=== PATIENT | male | born 1940 | race Caucasian/White ===

== ENCOUNTER 2017-05-27 14:17 | Inpatient (IN) | payer MEDICARE, MEDICAID, OTHER ==
[2017-05-27 15:15] LABS: CHLORIDE,CL 100 mmol/L (98-107); SODIUM,NA 141 mmol/L (136-145)
[2017-05-27] MEDS ORDERED: Furosemide 40 MG/4 ML VIAL IVPUSH ONE (15:40)
--- NOTE | 2017-05-27 15:49 | PCM.HP ---
H&P History of Present Illness - General Date of Service: 05/27/17 Admit Problem/Dx: Admission Diagnosis/Problem Admission Diagnosis/Problem CHF, Congestive heart failure Source of Information: Patient, Family (daughter who is an RN) History Limitations: Reports: No Limitations - History of Present Illness Initial Comments - Free Text/Narative: Daughter brought in for increasing SOB and weight gain. O2 sat in the clinic was only 74-80% on RA. Onset of Symptoms: Reports: Gradual Duration of Symptoms: Reports: Day(s): Location: Reports: Chest, Lower Extremity, Left, Lower Extremity, Right, Generalized Improves with: Reports: Rest Worsens with: Reports: Movement Associated Symptoms: Reports: Malaise, Shortness of Breath, Weakness Past Medical History Cardiovascular History: Reports: Afib, Heart Failure, High Cholesterol, Pacemaker (for Sick Sinus Syndrome) Gastrointestinal History: Reports: PUD Other Gastrointestinal History: h/o GI bleed Neurological History: Reports: Neuropathy, Peripheral (diabetic) Endocrine/Metabolic History: Reports: Diabetes, Type II Hematologic History: Reports: Anemia (of chronic disease) - Past Surgical History Musculoskeletal Surgical History: Reports: 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) Social & Family History - Family History Family Medical History: Unobtainable - Tobacco Use Tobacco Use Within Last Twelve Months: No - Living Situation & Occupation Living situation: Reports: H&P Review of Systems - Review of Systems: Review Of Systems: See Below General: Reports: Malaise, Weakness, Fatigue HEENT: Reports: No Symptoms Pulmonary: Reports: Shortness of Breath Cardiovascular: Reports: Dyspnea on Exertion Gastrointestinal: Reports: No Symptoms Genitourinary: Reports: Frequency Musculoskeletal: Reports: Leg Pain, Foot Pain Skin: Reports: No Symptoms Psychiatric: Reports: No Symptoms Neurological: Reports: No Symptoms Exam - Exam Exam: See Below - Exam Quality Assessment: Supplemental Oxygen (applied at clinic for hypoxia) General: Alert, Oriented, 4 HEENT: Mucosa Moist & [place] Neck: Supple, Trachea Midline, +2 Carotid Pulse wo Bruit Lungs: Decreased Breath Sounds (markedly diminished BS), Crackles (bibasilar) Cardiovascular: Irregular Rhythm GI/Abdominal Exam: Normal Bowel Sounds, Soft, Non-Tender (Male) Exam: Deferred Rectal (Males) Exam: Deferred Back Exam: Normal Inspection Extremities: Pedal Edema (significant edema BLE), Other (wears leg braces ) Skin: Warm, Dry, Other (facial skin pale/ashen) Neuro Extensive - Mental Status: Alert, Oriented x3, Normal Mood/Affect Psychiatric: Alert, Normal Affect, Normal Mood - Patient Data Lab Results Last 24 hrs: Laboratory Results - last 24 hr 05/27/17 05/27/17 Range/Units 14:35 14:35 WBC 4.4 (4.0-10.2) K/uL RBC 3.16 L (4.33-5.41) M/uL Hgb 10.5 L D (13.1-16.8) g/dL Hct 33.4 L (39.0-49.0) % MCV 105.7 H (84.0-98.0) fL MCH 33.2 (28.2-33.3) pg MCHC 31.4 L (31.7-36.0) g/dL RDW 17.8 H (11.2-14.1) % Plt Count 129 L (150-350) K/uL Neut % (Auto) 77.9 (45.0-80.0) % Lymph % (Auto) 9.3 L (10.0-50.0) % [place] % (Auto) 10.7 (2.0-14.0) % Eos % (Auto) 1.6 (0.0-5.0) % Baso % (Auto) 0.5 (0.0-2.0) % Neut # (Auto) 3.42 (1.40-7.00) K/uL Lymph # (Auto) 0.41 L (0.50-3.50) K/uL [place] # (Auto) 0.47 (0.00-1.00) K/uL Eos # (Auto) 0.07 (0.00-0.50) K/uL Baso # (Auto) 0.02 (0.00-0.20) K/uL Sodium 141 (136-145) mmol/L Potassium 5.0 (3.5-5.1) mmol/L Chloride 100 (98-107) mmol/L Carbon Dioxide 37.1 H (21.0-32.0) mmol/L BUN 40 H (7-18) mg/dL Creatinine 1.06 (0.51-1.17) mg/dL Est Cr Clr Drug Dosing TNP Estimated GFR (MDRD) > 60 mL/min Glucose 96 (74-106) mg/dL Calcium 8.7 (8.5-10.1) mg/dL Total Bilirubin 0.7 (0.2-1.0) mg/dL AST 23 (15-37) U/L ALT 11 L (12-78) U/L Alkaline Phosphatase 122 H (46-116) IU/L C-Reactive Protein 2.2 H (<=0.9) mg/dL NT-Pro-B Natriuret Pep 4065 H (0-125) pg/mL Total Protein 7.6 (6.4-8.2) g/dL Albumin 3.3 L (3.4-5.0) g/dL Result Diagrams: 05/27/17 14:35 05/27/17 14:35 *Q Meaningful Use (ADM) - VTE *Q VTE Criteria *Q: - Stroke *Q Stroke Criteria *Q: - AMI *Q AMI Criteria *Q: - Problem List (1) CHF (congestive heart failure) SNOMED Code(s): 27073007 ICD Code: I50.9 - HEART FAILURE, UNSPECIFIED Status: Acute Priority: High Current Visit: Yes Qualifiers: Heart failure type: unspecified Heart failure chronicity: acute on chronic Qualified Code(s): I50.9 - Heart failure, unspecified (2) Hypoxia SNOMED Code(s): 292381322 ICD Code: R09.02 - HYPOXEMIA Status: Acute Priority: High Current Visit : Yes (3) Diabetes SNOMED Code(s): 83103825 ICD Code: E11.9 - TYPE 2 DIABETES MELLITUS WITHOUT COMPLICATIONS Status: Chronic Priority: Medium Current Visit: Yes Qualifiers: Diabetes mellitus type: type 2 Diabetes mellitus complication detail: with polyneuropathy (4) Hyperlipidemia SNOMED Code(s): 14157645 ICD Code: E78.5 - HYPERLIPIDEMIA, UNSPECIFIED Status: Chronic Priority: Low Current Visit: Yes Qualifiers: Hyperlipidemia type: unspecified Qualified Code(s): E78.5 - Hyperlipidemia , unspecified (5) Pacemaker SNOMED Code(s): 830361342 ICD Code: Z95.0 - PRESENCE OF CARDIAC PACEMAKER Status: Acute Priority: Medium Current Visit: Yes Problem List Initiated/Reviewed/Updated: Yes Orders Last 24hrs: Active Orders 24 hr Category Date Time Status Patient Status [ADT] Routine ADT 05/27/17 15:35 Ordered Antiembolic Devices [RC] PER UNIT ROUTINE Care 05/27/17 15:38 Ordered Height and Weight [RC] DAILY Care 05/27/17 15:35 Ordered Intake and Output [RC] QSHIFT Care 05/27/17 15:37 Ordered Oxygen Therapy [RC] CONTINUOUS Care 05/27/17 15:35 Ordered Up With Assistance [RC] ASDIRECTED Care 05/27/17 15:35 Ordered VTE/DVT Education [RC] PER UNIT ROUTINE Care 05/27/17 15:35 Ordered Vital Signs [RC] Q4H Care 05/27/17 15:35 Ordered Consult to Case Management [CONS] Routine Cons 05/27/17 15:35 Ordered OT Evaluation and Treatment [CONS] Routine Cons 05/27/17 15:35 Ordered PT Evaluation and Treatment [CONS] Routine Cons 05/27/17 15:35 Ordered 2 Gram Sodium Diet [DIET] Diet 05/27/17 Dinner Ordered Chest 2V [CR] Routine Exams 05/27/17 14:15 Taken Furosemide [Lasix] Med 05/28/17 08:00 Ordered 40 mg IVPUSH BIDDIURETIC Sodium Chloride 0.9% [Saline Flush] Med 05/27/17 15:35 Ordered 10 ml FLUSH ASDIRECTED PRN Antiembolic Hose [OM.PC] Per Unit Routine Oth 05/27/17 15:37 Ordered Saline Lock Insert [OM.PC] Routine Oth 05/27/17 15:35 Ordered Resuscitation Status Routine Resus Stat 05/27/17 15:35 Ordered Medication Orders Furosemide (Lasix) 40 mg IVPUSH BIDDIURETIC [facility] Sodium Chloride (Saline Flush) 10 ml FLUSH ASDIRECTED PRN PRN Reason: Keep Vein Open Assessment/Plan Comment:: 05-27-17 Traci Fontenot PA-C Admitting with acute decompensation of CHF, with hypoxia, dyspnea and weight gain. Has started home oxygen for hours of sleep in the last couple months for nocturnal hypoxia. O2 sat only 74-80% on RA in the clinic. Dr. Power consulted at time of admit. IV Lasix 40 mg given on admit, then 40 mg BIDD. Last Echo was 03-05-17 which found EF 60-65%
[2017-05-27] MEDS: Sodium Chloride 0.9% 10 ML Syringe FLUSH PRN (16:27)
[2017-05-27] MEDS: Warfarin 2 MG Tab PO SCH ×3 (17:59→19:36)
[2017-05-27] MEDS: Omeprazole 20 MG Cap.CR PO SCH (17:59)
[2017-05-27] MEDS ORDERED: Warfarin 2 MG Tab PO SCH (18:00)
[2017-05-27] MEDS: Sodium Chloride 0.9% 10 ML Syringe FLUSH SCH (19:39)
[2017-05-27] MEDS: Triamcinolone Acetonide 0.1% Crm 15 GM Tube TOP SCH (19:40)
[2017-05-27] MEDS: Insulin Detemir 100 Units/ML 3 ML Pen SUBCUT SCH (19:41)
[2017-05-27] MEDS ORDERED: oxyCODONE 5 MG Tab PO ONE (19:52)
[2017-05-27] MEDS ORDERED: oxyCODONE 5 MG Tab PO SCH ×2 (20:00)
[2017-05-27] MEDS: Acetaminophen 500 MG Tab PO SCH (20:56)
[2017-05-28 07:20] LABS: O2 DELIVERY DEVICE NASAL CANNULA
[2017-05-28 07:32] LABS: BASE EXCESS VENOUS 15 mmol/L ((-2)-3); BICARBONATE,VENOUS 41 mmol/L (23-28); O2 SATURATION VENOUS 100 %; PCO2 VENOUS 78 mmHG (41-51); PH,VENOUS 7.33 (7.31-7.41); PO2 VENOUS 213 mmHG
[2017-05-28] MEDS ORDERED: Acetaminophen 500 MG Tab PO SCH (08:00)
[2017-05-28 08:05] LABS: CHLORIDE,CL 103 mmol/L (98-107); SODIUM,NA 143 mmol/L (136-145)
[2017-05-28] MEDS: Gabapentin 100 MG Cap PO SCH (09:10)
[2017-05-28] MEDS: Omeprazole 20 MG Cap.CR PO SCH ×2 (09:10→17:35)
[2017-05-28] MEDS: oxyCODONE 5 MG Tab PO SCH ×2 (09:11→20:02)
[2017-05-28] MEDS: Acetaminophen 500 MG Tab PO SCH ×2 (09:11→17:42)
[2017-05-28] MEDS: Lisinopril 20 MG Tab PO SCH (09:12)
[2017-05-28] MEDS: Levothyroxine 25 MCG Tab PO SCH (09:12)
[2017-05-28] MEDS: Furosemide 40 MG/4 ML VIAL IVPUSH SCH ×2 (09:12→12:10)
[2017-05-28] MEDS: Triamcinolone Acetonide 0.1% Crm 15 GM Tube TOP SCH ×2 (09:13→20:04)
[2017-05-28] MEDS: Sodium Chloride 0.9% 10 ML Syringe FLUSH SCH ×2 (09:13→20:03)
[2017-05-28] MEDS ORDERED: Warfarin 2 MG Tab PO SCH ×2 (18:00)
--- NOTE | 2017-05-28 18:15 | PCM.PN ---
- General Info Date of Service: 05/28/17 Admission Dx/Problem (Free Text): Admission Diagnosis/Problem Admission Diagnosis/Problem CHF, Congestive heart failure Functional Status: Reports: Tolerating Diet - Review of Systems General: Reports: Weakness HEENT: Reports: No Symptoms Pulmonary: Reports: Shortness of Breath Cardiovascular: Reports: Dyspnea on Exertion, Orthopnea Gastrointestinal: Reports: No Symptoms Genitourinary: Reports: No Symptoms Musculoskeletal: Reports: No Symptoms Skin: Reports: No Symptoms Neurological: Reports: No Symptoms Psychiatric: Reports: No Symptoms - Patient Data Vitals - Most Recent: Last Vital Signs Temp 97.7 F 05/28/17 16:00 Pulse 60 05/28/17 16:00 Resp 18 05/28/17 16:00 BP 124/62 05/28/17 16:00 Pulse Ox 97 05/28/17 16:00 Weight - Most Recent: 309 lb 11.2 oz I&O - Last 24 Hours: Intake & Output 05/28/17 05/28/17 05/28/17 06:59 14:59 22:59 Intake Total 560 Output Total 600 200 Balance -40 -200 Lab Results Last 24 Hours: Laboratory Results - last 24 hr 05/28/17 05/28/17 05/28/17 Range/Units 06:58 06:58 06:58 WBC 3.4 L (4.0-10.2) K/uL RBC 2.95 L (4.33-5.41) M/uL Hgb 9.7 L (13.1-16.8) g/dL Hct 31.8 L (39.0-49.0) % MCV 107.8 H (84.0-98.0) fL MCH 32.9 (28.2-33.3) pg MCHC 30.5 L (31.7-36.0) g/dL RDW 17.7 H (11.2-14.1) % Plt Count 129 L (150-350) K/uL Neut % (Auto) 67.0 (45.0-80.0) % Lymph % (Auto) 12.2 (10.0-50.0) % [place] % (Auto) 17.2 H (2.0-14.0) % Eos % (Auto) 3.0 (0.0-5.0) % Baso % (Auto) 0.6 (0.0-2.0) % Neut # (Auto) 2.26 (1.40-7.00) K/uL Lymph # (Auto) 0.41 L (0.50-3.50) K/uL [place] # (Auto) 0.58 (0.00-1.00) K/uL Eos # (Auto) 0.10 (0.00-0.50) K/uL Baso # (Auto) 0.02 (0.00-0.20) K/uL PT 22.9 H (9.8-11.7) SEC INR 2.1 VBG pH (7.31-7.41) VBG pCO2 (41-51) mmHG VBG pO2 mmHG VBG HCO3 (23-28) mmol/L VBG Total CO2 mmol/L VBG O2 Saturation % VBG Base Excess ((-2)-3) mmol/L O2 Delivery Device Sodium 143 (136-145) mmol/L Potassium 4.8 (3.5-5.1) mmol/L Chloride 103 (98-107) mmol/L Carbon Dioxide 35.0 H (21.0-32.0) mmol/L BUN 38 H (7-18) mg/dL Creatinine 1.02 (0.51-1.17) mg/dL Est Cr Clr Drug Dosing TNP Estimated GFR (MDRD) > 60 mL/min Glucose 83 (74-106) mg/dL Calcium 8.4 L (8.5-10.1) mg/dL Total Bilirubin 0.7 (0.2-1.0) mg/dL AST 22 (15-37) U/L ALT 10 L (12-78) U/L Alkaline Phosphatase 106 (46-116) IU/L C-Reactive Protein 1.9 H (<=0.9) mg/dL NT-Pro-B Natriuret Pep 4400 H (0-125) pg/mL Total Protein 7.0 (6.4-8.2) g/dL Albumin 3.0 L (3.4-5.0) g/dL 05/28/17 Range/Units 06:58 WBC (4.0-10.2) K/uL RBC (4.33-5.41) M/uL Hgb (13.1-16.8) g/dL Hct (39.0-49.0) % MCV (84.0-98.0) fL MCH (28.2-33.3) pg MCHC (31.7-36.0) g/dL RDW (11.2-14.1) % Plt Count (150-350) K/uL Neut % (Auto) (45.0-80.0) % Lymph % (Auto) (10.0-50.0) % [place] % (Auto) (2.0-14.0) % Eos % (Auto) (0.0-5.0) % Baso % (Auto) (0.0-2.0) % Neut # (Auto) (1.40-7.00) K/uL Lymph # (Auto) (0.50-3.50) K/uL [place] # (Auto) (0.00-1.00) K/uL Eos # (Auto) (0.00-0.50) K/uL Baso # (Auto) (0.00-0.20) K/uL PT (9.8-11.7) SEC INR VBG pH 7.33 (7.31-7.41) VBG pCO2 78 H (41-51) mmHG VBG pO2 213 mmHG VBG HCO3 41 H (23-28) mmol/L VBG Total CO2 43 mmol/L VBG O2 Saturation 100 % VBG Base Excess 15 H ((-2)-3) mmol/L O2 Delivery Device Nasal cannula Sodium (136-145) mmol/L Potassium (3.5-5.1) mmol/L Chloride (98-107) mmol/L Carbon Dioxide (21.0-32.0) mmol/L BUN (7-18) mg/dL Creatinine (0.51-1.17) mg/dL Est Cr Clr Drug Dosing Estimated GFR (MDRD) mL/min Glucose (74-106) mg/dL Calcium (8.5-10.1) mg/dL Total Bilirubin (0.2-1.0) mg/dL AST (15-37) U/L ALT (12-78) U/L Alkaline Phosphatase (46-116) IU/L C-Reactive Protein (<=0.9) mg/dL NT-Pro-B Natriuret Pep (0-125) pg/mL Total Protein (6.4-8.2) g/dL Albumin (3.4-5.0) g/dL Med Orders - Current: Current Medications Acetaminophen (Tylenol Extra Strength) 500 mg PO BID [facility] Last Admin: 05/28/17 17:42 Dose: 500 mg Furosemide (Lasix) 40 mg IVPUSH BIDDIURETIC [facility] Last Admin: 05/28/17 12:10 Dose: 40 mg Gabapentin (Neurontin) 100 mg PO DAILY [facility] Last Admin: 05/28/17 09:10 Dose: 100 mg Insulin Detemir (Levemir) 14 unit SUBCUT BEDTIME [facility] Last Admin: 05/27/17 19:41 Dose: 14 units Levothyroxine Sodium (Levothyroxine) 25 mcg PO DAILY@0730 [facility] Last Admin: 05/28/17 09:12 Dose: 25 mcg Lisinopril (Prinivil) 20 mg PO DAILY [facility] Last Admin: 05/28/17 09:12 Dose: 20 mg Lovastatin (Mevacor) 40 mg PO BEDTIME [facility] Last Admin: 05/27/17 19:38 Dose: 40 mg Omeprazole (Omeprazole) 40 mg PO BIDAC [facility] Last Admin: 05/28/17 17:35 Dose: 40 mg Oxycodone HCl (Oxycodone) 10 mg PO BID@08,20 [facility] Last Admin: 05/28/17 09:11 Dose: 10 mg Sodium Chloride (Saline Flush) 10 ml FLUSH ASDIRECTED PRN PRN Reason: Keep Vein Open Last Admin: 05/27/17 16:27 Dose: 10 ml Sodium Chloride (Saline Flush) 10 ml FLUSH Q12HR [facility] Last Admin: 05/28/17 09:13 Dose: 10 ml Triamcinolone Acetonide (Triamcinolone Acetonide 0.1% Crm) 0 gm TOP BID@08,20 [facility] Last Admin: 05/28/17 09:13 Dose: 1 applic Warfarin Sodium (Coumadin) 4 mg PO SUMOWETHFRSA@1800 [facility] Last Admin: 05/27/17 19:36 Dose: 4 mg Warfarin Sodium (Coumadin) 8 mg PO TU@1800 [facility] Last Admin: 05/28/17 17:37 Dose: 8 mg Discontinued Medications Acetaminophen (Tylenol Extra Strength) 1,000 mg PO DAILY [facility] Furosemide (Lasix) 40 mg IVPUSH NOW ONE Stop: 05/27/17 15:41 Last Admin: 05/27/17 16:24 Dose: 40 mg Oxycodone HCl (Oxycodone) 5 mg PO BID@08,20 [facility] Last Admin: 05/27/17 19:39 Dose: 5 mg Oxycodone HCl (Oxycodone) 5 mg PO ONETIME ONE Stop: 05/27/17 19:53 Last Admin: 05/27/17 20:21 Dose: 5 mg Oxycodone HCl (Oxycodone) 10 mg PO BID@08,20 [facility] Last Admin: 05/27/17 19:59 Dose: Not Given Warfarin Sodium (Coumadin) 4 mg PO MOWEFRSA@1800 [facility] Last Admin: 05/27/17 18:47 Dose: Not Given Warfarin Sodium (Coumadin) 8 mg PO SuTuTh@1800 [facility] Warfarin Sodium (Coumadin) 2 mg PO SUMOWETHFRSA@1800 [facility] Last Admin: 05/27/17 19:00 Dose: Not Given - Exam Quality Assessment: Supplemental Oxygen General: Alert, Cooperative HEENT: Mucous Membr. Moist/[place] Neck: Trachea Midline, No JVD Lungs: Normal Respiratory Effort, Decreased Breath Sounds Cardiovascular: Regular Rate, Regular Rhythm GI/Abdominal Exam: Soft, Non-Tender, No Distention (Male) Exam: Deferred Back Exam: Normal Inspection Extremities: Pedal Edema, Other (edema bilateral upper extremities) Skin: Warm, Dry, Intact Neurological: No New Focal Deficit Psy/Mental Status: Alert, Normal Affect, Normal Mood - Problem List & Annotations (1) CHF (congestive heart failure) SNOMED Code(s): 88445553 Code(s): I50.9 - HEART FAILURE, UNSPECIFIED Status: Acute Priority: High Current Visit: Yes Qualifiers: Heart failure type: unspecified Heart failure chronicity: acute on chronic Qualified Code(s): I50.9 - Heart failure, unspecified (2) Hypoxia SNOMED Code(s): 968671621 Code(s): R09.02 - HYPOXEMIA Status: Acute Priority: High Current Visit : Yes (3) Pacemaker SNOMED Code(s): 848720378 Code(s): Z95.0 - PRESENCE OF CARDIAC PACEMAKER Status: Acute Priority: Medium Current Visit: Yes (4) Diabetes SNOMED Code(s): 95114704 Code(s): E11.9 - TYPE 2 DIABETES MELLITUS WITHOUT COMPLICATIONS Status: Chronic Priority: Medium Current Visit: Yes Qualifiers: Diabetes mellitus type: type 2 Diabetes mellitus complication detail: with polyneuropathy (5) Hyperlipidemia SNOMED Code(s): 02313924 Code(s): E78.5 - HYPERLIPIDEMIA, UNSPECIFIED Status: Chronic Priority: Low Current Visit: Yes Qualifiers: Hyperlipidemia type: unspecified Qualified Code(s): E78.5 - Hyperlipidemia , unspecified - Problem List Review Problem List Initiated/Reviewed/Updated: Yes - My Orders Last 24 Hours: My Active Orders 05/27/17 17:45 Omeprazole 40 mg PO BIDAC 05/27/17 20:00 Acetaminophen [Tylenol Extra Strength] 500 mg PO BID Insulin Detemir [Levemir] 14 unit SUBCUT BEDTIME Lovastatin [Mevacor] 40 mg PO BEDTIME Sodium Chloride 0.9% [Saline Flush] 10 ml FLUSH Q12HR Triamcinolone Acetonide [Triamcinolone Acetonide 0.1% Crm] 0 gm TOP BID@05/28/17 07:30 Levothyroxine 25 mcg PO DAILY@0730 05/28/17 08:00 Gabapentin [Neurontin] 100 mg PO DAILY Lisinopril [Prinivil] 20 mg PO DAILY oxyCODONE 10 mg PO BID@ - Plan Plan:: 05-27-17 Traci Fontenot PA-C Admitting with acute decompensation of CHF, with hypoxia, dyspnea and weight gain. Has started home oxygen for hours of sleep in the last couple months for nocturnal hypoxia. O2 sat only 74-80% on RA in the clinic. Dr. Power consulted at time of admit. IV Lasix 40 mg given on admit, then 40 mg BIDD. Last Echo was 03-05-17 which found EF 60-65% 05/28/17 Jannet Woods MD Still short of breath, orthopnea. Anasarca. Continue therapy.
[2017-05-28] MEDS: Insulin Detemir 100 Units/ML 3 ML Pen SUBCUT SCH (20:01)
[2017-05-29 07:32] LABS: CHLORIDE,CL 102 mmol/L (98-107); SODIUM,NA 143 mmol/L (136-145)
[2017-05-29] MEDS: Sodium Chloride 0.9% 10 ML Syringe FLUSH SCH ×2 (08:00→19:34)
[2017-05-29] MEDS: Gabapentin 100 MG Cap PO SCH (08:48)
[2017-05-29] MEDS: Acetaminophen 500 MG Tab PO SCH ×2 (08:48→17:12)
[2017-05-29] MEDS: Lisinopril 20 MG Tab PO SCH (08:48)
[2017-05-29] MEDS: oxyCODONE 5 MG Tab PO SCH ×2 (08:49→19:28)
[2017-05-29] MEDS: Omeprazole 20 MG Cap.CR PO SCH ×2 (08:49→17:12)
[2017-05-29] MEDS: Levothyroxine 25 MCG Tab PO SCH (08:49)
[2017-05-29] MEDS: Furosemide 40 MG/4 ML VIAL IVPUSH SCH ×2 (08:52→11:46)
[2017-05-29] MEDS: Triamcinolone Acetonide 0.1% Crm 15 GM Tube TOP SCH ×2 (09:55→19:30)
[2017-05-29] MEDS: Sodium Chloride 0.9% 10 ML Syringe FLUSH PRN (11:45)
[2017-05-29] MEDS: Lutein/Minerals/Vitamin C/Vitamin E Acetate Cap PO SCH (15:46)
--- NOTE | 2017-05-29 16:45 | PCM.PN ---
- General Info Date of Service: 05/29/17 Admission Dx/Problem (Free Text): Admission Diagnosis/Problem Admission Diagnosis/Problem CHF, Congestive heart failure Functional Status: Reports: Pain Controlled - Review of Systems General: Reports: Weakness HEENT: Reports: Other (nose plugged) Pulmonary: Reports: Shortness of Breath Cardiovascular: Reports: Dyspnea on Exertion, Orthopnea, Edema Gastrointestinal: Reports: No Symptoms Genitourinary: Reports: No Symptoms Musculoskeletal: Reports: No Symptoms Skin: Reports: No Symptoms Neurological: Reports: No Symptoms Psychiatric: Reports: No Symptoms - Patient Data Vitals - Most Recent: Last Vital Signs Temp 99.2 F 05/29/17 15:42 Pulse 58 L 05/29/17 15:42 Resp 24 H 05/29/17 15:42 BP 125/66 05/29/17 15:42 Pulse Ox 98 05/29/17 15:42 Weight - Most Recent: 316 lb 3.2 oz I&O - Last 24 Hours: Intake & Output 05/29/17 05/29/17 05/29/17 06:59 14:59 22:59 Intake Total 350 470 Output Total 100 200 250 Balance 250 270 -250 Lab Results Last 24 Hours: Laboratory Results - last 24 hr 05/29/17 05/29/17 05/29/17 Range/Units 06:20 06:20 06:20 WBC 3.4 L (4.0-10.2) K/uL RBC 3.03 L (4.33-5.41) M/uL Hgb 9.7 L (13.1-16.8) g/dL Hct 32.9 L (39.0-49.0) % MCV 108.6 H (84.0-98.0) fL MCH 32.0 (28.2-33.3) pg MCHC 29.5 L (31.7-36.0) g/dL RDW 17.8 H (11.2-14.1) % Plt Count 125 L (150-350) K/uL Neut % (Auto) 68.5 (45.0-80.0) % Lymph % (Auto) 13.7 (10.0-50.0) % [place] % (Auto) 14.6 H (2.0-14.0) % Eos % (Auto) 2.6 (0.0-5.0) % Baso % (Auto) 0.6 (0.0-2.0) % Neut # (Auto) 2.34 (1.40-7.00) K/uL Lymph # (Auto) 0.47 L (0.50-3.50) K/uL [place] # (Auto) 0.50 (0.00-1.00) K/uL Eos # (Auto) 0.09 (0.00-0.50) K/uL Baso # (Auto) 0.02 (0.00-0.20) K/uL PT 20.0 H (9.8-11.7) SEC INR 1.8 Sodium 143 (136-145) mmol/L Potassium 4.9 (3.5-5.1) mmol/L Chloride 102 (98-107) mmol/L Carbon Dioxide 36.0 H (21.0-32.0) mmol/L BUN 40 H (7-18) mg/dL Creatinine 1.18 H (0.51-1.17) mg/dL Est Cr Clr Drug Dosing 60.19 mL/min Estimated GFR (MDRD) > 60 mL/min Glucose 99 (74-106) mg/dL Calcium 8.6 (8.5-10.1) mg/dL Total Bilirubin 0.6 (0.2-1.0) mg/dL AST 20 (15-37) U/L ALT 9 L (12-78) U/L Alkaline Phosphatase 108 (46-116) IU/L C-Reactive Protein 1.6 H (<=0.9) mg/dL NT-Pro-B Natriuret Pep 4487 H (0-125) pg/mL Total Protein 7.0 (6.4-8.2) g/dL Albumin 3.0 L (3.4-5.0) g/dL Med Orders - Current: Current Medications Acetaminophen (Tylenol Extra Strength) 500 mg PO BID [facility] Last Admin: 05/29/17 08:48 Dose: 500 mg Furosemide (Lasix) 40 mg IVPUSH BIDDIURETIC [facility] Last Admin: 05/29/17 11:46 Dose: 40 mg Gabapentin (Neurontin) 100 mg PO DAILY [facility] Last Admin: 05/29/17 08:48 Dose: 100 mg Insulin Detemir (Levemir) 14 unit SUBCUT BEDTIME [facility] Last Admin: 05/28/17 20:01 Dose: 14 units Levothyroxine Sodium (Levothyroxine) 25 mcg PO DAILY@0730 [facility] Last Admin: 05/29/17 08:49 Dose: 25 mcg Lisinopril (Prinivil) 20 mg PO DAILY [facility] Last Admin: 05/29/17 08:48 Dose: 20 mg Lovastatin (Mevacor) 40 mg PO BEDTIME [facility] Last Admin: 05/28/17 20:02 Dose: 40 mg Omeprazole (Omeprazole) 40 mg PO BIDAC [facility] Last Admin: 05/29/17 08:49 Dose: 40 mg Oxycodone HCl (Oxycodone) 10 mg PO BID@08,20 [facility] Last Admin: 05/29/17 08:49 Dose: 10 mg Sodium Chloride (Saline Flush) 10 ml FLUSH ASDIRECTED PRN PRN Reason: Keep Vein Open Last Admin: 05/29/17 11:45 Dose: 10 ml Sodium Chloride (Saline Flush) 10 ml FLUSH Q12HR [facility] Last Admin: 05/29/17 08:00 Dose: Not Given Triamcinolone Acetonide (Triamcinolone Acetonide 0.1% Crm) 0 gm TOP BID@, [facility] Last Admin: 05/29/17 09:55 Dose: 1 applic Vit C/Vit E/Zinc/Copper/Lutein (Ocuvite Lutein) 1 each PO DAILY [facility] Last Admin: 05/29/17 15:46 Dose: 1 each Warfarin Sodium (Coumadin) 4 mg PO SUMOWETHFRSA@1800 [facility] Last Admin: 05/27/17 19:36 Dose: 4 mg Warfarin Sodium (Coumadin) 8 mg PO TU@1800 [facility] Last Admin: 05/28/17 17:37 Dose: 8 mg Discontinued Medications Acetaminophen (Tylenol Extra Strength) 1,000 mg PO DAILY [facility] Furosemide (Lasix) 40 mg IVPUSH NOW ONE Stop: 05/27/17 15:41 Last Admin: 05/27/17 16:24 Dose: 40 mg Oxycodone HCl (Oxycodone) 5 mg PO BID@08,20 [facility] Last Admin: 05/27/17 19:39 Dose: 5 mg Oxycodone HCl (Oxycodone) 5 mg PO ONETIME ONE Stop: 05/27/17 19:53 Last Admin: 05/27/17 20:21 Dose: 5 mg Oxycodone HCl (Oxycodone) 10 mg PO BID@08,20 [facility] Last Admin: 05/27/17 19:59 Dose: Not Given Warfarin Sodium (Coumadin) 4 mg PO MOWEFRSA@1800 [facility] Last Admin: 05/27/17 18:47 Dose: Not Given Warfarin Sodium (Coumadin) 8 mg PO SuTuTh@1800 [facility] Warfarin Sodium (Coumadin) 2 mg PO SUMOWETHFRSA@1800 [facility] Last Admin: 05/27/17 19:00 Dose: Not Given - Exam Quality Assessment: Supplemental Oxygen General: Alert, Cooperative, No Acute Distress HEENT: Mucous Membr. Moist/[place] Neck: Trachea Midline, No JVD Lungs: Normal Respiratory Effort, Decreased Breath Sounds Cardiovascular: Irregular Rhythm GI/Abdominal Exam: Soft, Non-Tender, No Distention (Male) Exam: Deferred Back Exam: Normal Inspection Extremities: Pedal Edema, Other (edema arms slight improvement) Skin: Warm, Dry, Intact Neurological: No New Focal Deficit Psy/Mental Status: Alert, Normal Affect, Normal Mood - Problem List & Annotations (1) CHF (congestive heart failure) SNOMED Code(s): 28079806 Code(s): I50.9 - HEART FAILURE, UNSPECIFIED Status: Acute Priority: High Current Visit: Yes Qualifiers: Heart failure type: unspecified Heart failure chronicity: acute on chronic Qualified Code(s): I50.9 - Heart failure, unspecified (2) Hypoxia SNOMED Code(s): 771275557 Code(s): R09.02 - HYPOXEMIA Status: Acute Priority: High Current Visit : Yes (3) Pacemaker SNOMED Code(s): 051203285 Code(s): Z95.0 - PRESENCE OF CARDIAC PACEMAKER Status: Acute Priority: Medium Current Visit: Yes (4) Diabetes SNOMED Code(s): 59018662 Code(s): E11.9 - TYPE 2 DIABETES MELLITUS WITHOUT COMPLICATIONS Status: Chronic Priority: Medium Current Visit: Yes Qualifiers: Diabetes mellitus type: type 2 Diabetes mellitus complication detail: with polyneuropathy (5) Hyperlipidemia SNOMED Code(s): 76687172 Code(s): E78.5 - HYPERLIPIDEMIA, UNSPECIFIED Status: Chronic Priority: Low Current Visit: Yes Qualifiers: Hyperlipidemia type: unspecified Qualified Code(s): E78.5 - Hyperlipidemia , unspecified (6) Chronic atrial fibrillation SNOMED Code(s): 237882159 Code(s): I48.2 - CHRONIC ATRIAL FIBRILLATION Status: Acute Priority: Medium Current Visit: Yes (7) Anasarca SNOMED Code(s): 376021368 Code(s): R60.1 - GENERALIZED EDEMA Status: Acute Priority: High Current Visit: Yes - Problem List Review Problem List Initiated/Reviewed/Updated: Yes - My Orders Last 24 Hours: My Active Orders 05/29/17 15:15 Lutein/Min/Vit C/Vit E Acetate [Ocuvite Lutein] 1 each PO DAILY - Plan Plan:: 05-27-17 Traci Fontenot PA-C Admitting with acute decompensation of CHF, with hypoxia, dyspnea and weight gain. Has started home oxygen for hours of sleep in the last couple months for nocturnal hypoxia. O2 sat only 74-80% on RA in the clinic. Dr. Power consulted at time of admit. IV Lasix 40 mg given on admit, then 40 mg BIDD. Last Echo was 03-05-17 which found EF 60-65% 05/28/17 Jannet Woods MD Still short of breath, orthopnea. Anasarca. Continue therapy. 05/29/17 Jannet Woods MD Still short of breath, orthopnea, anasarca. Continue diuresis and will need therapy.
[2017-05-29] MEDS: Warfarin 2 MG Tab PO SCH (17:13)
[2017-05-29] MEDS: Insulin Detemir 100 Units/ML 3 ML Pen SUBCUT SCH (19:32)
[2017-05-30 07:58] LABS: CHLORIDE,CL 103 mmol/L (98-107); SODIUM,NA 143 mmol/L (136-145)
[2017-05-30] MEDS: Sodium Chloride 0.9% 10 ML Syringe FLUSH SCH ×2 (09:40→21:13)
[2017-05-30] MEDS: Furosemide 40 MG/4 ML VIAL IVPUSH SCH ×3 (09:40→14:26)
[2017-05-30] MEDS: Gabapentin 100 MG Cap PO SCH (09:41)
[2017-05-30] MEDS: Lutein/Minerals/Vitamin C/Vitamin E Acetate Cap PO SCH (09:41)
[2017-05-30] MEDS: Acetaminophen 500 MG Tab PO SCH ×3 (09:41→17:04)
[2017-05-30] MEDS: oxyCODONE 5 MG Tab PO SCH ×2 (09:41→20:52)
[2017-05-30] MEDS: Triamcinolone Acetonide 0.1% Crm 15 GM Tube TOP SCH ×2 (09:42→20:53)
[2017-05-30] MEDS: Omeprazole 20 MG Cap.CR PO SCH ×2 (09:49→16:43)
[2017-05-30] MEDS: Levothyroxine 25 MCG Tab PO SCH (09:49)
[2017-05-30] MEDS: Lisinopril 20 MG Tab PO SCH (10:05)
[2017-05-30] MEDS: Sodium Chloride 0.9% 10 ML Syringe FLUSH PRN (12:26)
[2017-05-30] MEDS: Warfarin 2 MG Tab PO SCH ×2 (16:44→17:04)
[2017-05-30] MEDS ORDERED: Bumetanide 1 MG Tab PO ONE (17:00)
[2017-05-30] MEDS: Insulin Detemir 100 Units/ML 3 ML Pen SUBCUT SCH (20:53)
--- NOTE | 2017-05-30 20:53 | PCM.PN ---
- General Info Date of Service: 05/30/17 Admission Dx/Problem (Free Text): Admission Diagnosis/Problem Admission Diagnosis/Problem CHF, Congestive heart failure Functional Status: Reports: Pain Controlled - Review of Systems General: Reports: Weakness HEENT: Reports: Other (nose plugged) Pulmonary: Reports: Shortness of Breath, Cough Cardiovascular: Reports: No Symptoms Gastrointestinal: Reports: No Symptoms Genitourinary: Reports: No Symptoms Musculoskeletal: Reports: No Symptoms Skin: Reports: Bruising Neurological: Reports: Weakness Psychiatric: Reports: No Symptoms - Patient Data Vitals - Most Recent: Last Vital Signs Temp 98.5 F 05/30/17 19:04 Pulse 60 05/30/17 19:04 Resp 20 05/30/17 19:04 BP 121/55 L 05/30/17 19:04 Pulse Ox 97 05/30/17 19:04 Weight - Most Recent: 701 lb 15.229 oz I&O - Last 24 Hours: Intake & Output 05/30/17 05/30/17 05/30/17 06:59 14:59 22:59 Intake Total 480 Output Total 590 Balance -110 Lab Results Last 24 Hours: Laboratory Results - last 24 hr 05/30/17 05/30/17 05/30/17 Range/Units 07:20 07:20 07:20 WBC 3.9 L (4.0-10.2) K/uL RBC 3.00 L (4.33-5.41) M/uL Hgb 9.8 L (13.1-16.8) g/dL Hct 32.6 L (39.0-49.0) % MCV 108.7 H (84.0-98.0) fL MCH 32.7 (28.2-33.3) pg MCHC 30.1 L (31.7-36.0) g/dL RDW 17.5 H (11.2-14.1) % Plt Count 130 L (150-350) K/uL Neut % (Auto) 69.4 (45.0-80.0) % Lymph % (Auto) 13.4 (10.0-50.0) % [place] % (Auto) 13.6 (2.0-14.0) % Eos % (Auto) 3.1 (0.0-5.0) % Baso % (Auto) 0.5 (0.0-2.0) % Neut # (Auto) 2.70 (1.40-7.00) K/uL Lymph # (Auto) 0.52 (0.50-3.50) K/uL [place] # (Auto) 0.53 (0.00-1.00) K/uL Eos # (Auto) 0.12 (0.00-0.50) K/uL Baso # (Auto) 0.02 (0.00-0.20) K/uL PT 21.7 H (9.8-11.7) SEC INR 2.0 Sodium 143 (136-145) mmol/L Potassium 4.7 (3.5-5.1) mmol/L Chloride 103 (98-107) mmol/L Carbon Dioxide 37.0 H (21.0-32.0) mmol/L BUN 41 H (7-18) mg/dL Creatinine 1.14 (0.51-1.17) mg/dL Est Cr Clr Drug Dosing 62.30 mL/min Estimated GFR (MDRD) > 60 mL/min Glucose 94 (74-106) mg/dL Calcium 8.6 (8.5-10.1) mg/dL Total Bilirubin 0.6 (0.2-1.0) mg/dL AST 19 (15-37) U/L ALT 10 L (12-78) U/L Alkaline Phosphatase 109 (46-116) IU/L C-Reactive Protein 1.4 H (<=0.9) mg/dL NT-Pro-B Natriuret Pep 4396 H (0-125) pg/mL Total Protein 7.2 (6.4-8.2) g/dL Albumin 3.1 L (3.4-5.0) g/dL Med Orders - Current: Current Medications Acetaminophen (Tylenol Extra Strength) 500 mg PO BID [facility] Last Admin: 05/30/17 17:04 Dose: Not Given Furosemide (Lasix) 40 mg IVPUSH BIDDIURETIC [facility] Last Admin: 05/30/17 14:26 Dose: 40 mg Gabapentin (Neurontin) 100 mg PO DAILY [facility] Last Admin: 05/30/17 09:41 Dose: 100 mg Insulin Detemir (Levemir) 14 unit SUBCUT BEDTIME [facility] Last Admin: 05/29/17 19:32 Dose: 14 units Levothyroxine Sodium (Levothyroxine) 25 mcg PO DAILY@0730 [facility] Last Admin: 05/30/17 09:49 Dose: 25 mcg Lisinopril (Prinivil) 20 mg PO DAILY [facility] Last Admin: 05/30/17 10:05 Dose: Not Given Lovastatin (Mevacor) 40 mg PO BEDTIME [facility] Last Admin: 05/29/17 19:27 Dose: 40 mg Omeprazole (Omeprazole) 40 mg PO BIDAC [facility] Last Admin: 05/30/17 16:43 Dose: 40 mg Oxycodone HCl (Oxycodone) 10 mg PO BID@08,20 [facility] Last Admin: 05/30/17 09:41 Dose: 10 mg Sodium Chloride (Saline Flush) 10 ml FLUSH ASDIRECTED PRN PRN Reason: Keep Vein Open Last Admin: 05/30/17 12:26 Dose: 10 ml Sodium Chloride (Saline Flush) 10 ml FLUSH Q12HR [facility] Last Admin: 05/30/17 09:40 Dose: 10 ml Triamcinolone Acetonide (Triamcinolone Acetonide 0.1% Crm) 0 gm TOP BID@,20 [facility] Last Admin: 05/30/17 09:42 Dose: 1 applic Vit C/Vit E/Zinc/Copper/Lutein (Ocuvite Lutein) 1 each PO DAILY [facility] Last Admin: 05/30/17 09:41 Dose: 1 each Warfarin Sodium (Coumadin) 4 mg PO SUMOWETHFRSA@1800 [facility] Last Admin: 05/30/17 17:04 Dose: Not Given Warfarin Sodium (Coumadin) 8 mg PO TU@1800 [facility] Last Admin: 05/28/17 17:37 Dose: 8 mg Discontinued Medications Acetaminophen (Tylenol Extra Strength) 1,000 mg PO DAILY [facility] Bumetanide (Bumex) 1 mg PO ONETIME ONE Stop: 05/30/17 17:01 Last Admin: 05/30/17 16:43 Dose: 1 mg Furosemide (Lasix) 40 mg IVPUSH NOW ONE Stop: 05/27/17 15:41 Last Admin: 05/27/17 16:24 Dose: 40 mg Oxycodone HCl (Oxycodone) 5 mg PO BID@08,20 [facility] Last Admin: 05/27/17 19:39 Dose: 5 mg Oxycodone HCl (Oxycodone) 5 mg PO ONETIME ONE Stop: 05/27/17 19:53 Last Admin: 05/27/17 20:21 Dose: 5 mg Oxycodone HCl (Oxycodone) 10 mg PO BID@08,20 [facility] Last Admin: 05/27/17 19:59 Dose: Not Given Warfarin Sodium (Coumadin) 4 mg PO MOWEFRSA@1800 [facility] Last Admin: 05/27/17 18:47 Dose: Not Given Warfarin Sodium (Coumadin) 8 mg PO SuTuTh@1800 [facility] Warfarin Sodium (Coumadin) 2 mg PO SUMOWETHFRSA@1800 [facility] Last Admin: 05/27/17 19:00 Dose: Not Given - Exam Quality Assessment: Supplemental Oxygen General: Alert, Mild Distress HEENT: Mucous Membr. Moist/[place] Neck: Trachea Midline, No JVD Lungs: Normal Respiratory Effort, Decreased Breath Sounds Cardiovascular: Irregular Rhythm GI/Abdominal Exam: Soft, Non-Tender, No Distention (Male) Exam: Deferred Back Exam: Normal Inspection Extremities: Non-Tender, Pedal Edema, Other (edema bilateral arms) Skin: Warm, Dry, Intact, Ecchymosis - Problem List & Annotations (1) CHF (congestive heart failure) SNOMED Code(s): 45886155 Code(s): I50.9 - HEART FAILURE, UNSPECIFIED Status: Acute Priority: High Qualifiers: Heart failure type: unspecified Heart failure chronicity: acute on chronic Qualified Code(s): I50.9 - Heart failure, unspecified (2) Hypoxia SNOMED Code(s): 397123314 Code(s): R09.02 - HYPOXEMIA Status: Acute Priority: High (3) Pacemaker SNOMED Code(s): 493757681 Code(s): Z95.0 - PRESENCE OF CARDIAC PACEMAKER Status: Acute Priority: Medium (4) Diabetes SNOMED Code(s): 59992548 Code(s): E11.9 - TYPE 2 DIABETES MELLITUS WITHOUT COMPLICATIONS Status: Chronic Priority: Medium Qualifiers: Diabetes mellitus type: type 2 Diabetes mellitus complication detail: with polyneuropathy (5) Hyperlipidemia SNOMED Code(s): 84117768 Code(s): E78.5 - HYPERLIPIDEMIA, UNSPECIFIED Status: Chronic Priority: Low Qualifiers: Hyperlipidemia type: unspecified Qualified Code(s): E78.5 - Hyperlipidemia , unspecified (6) Chronic atrial fibrillation SNOMED Code(s): 229496458 Code(s): I48.2 - CHRONIC ATRIAL FIBRILLATION Status: Acute Priority: Medium (7) Anasarca SNOMED Code(s): 955146027 Code(s): R60.1 - GENERALIZED EDEMA Status: Acute Priority: High - Problem List Review Problem List Initiated/Reviewed/Updated: Yes - My Orders Last 24 Hours: My Active Orders 05/30/17 16:01 Dietary Supplements [RC] TIDMEALS - Plan Plan:: 05-27-17 Traci Fontenot PA-C Admitting with acute decompensation of CHF, with hypoxia, dyspnea and weight gain. Has started home oxygen for hours of sleep in the last couple months for nocturnal hypoxia. O2 sat only 74-80% on RA in the clinic. Dr. Power consulted at time of admit. IV Lasix 40 mg given on admit, then 40 mg BIDD. Last Echo was 03-05-17 which found EF 60-65% 05/28/17 Jannet Woods MD Still short of breath, orthopnea. Anasarca. Continue therapy. 05/29/17 Jannet Woods MD Still short of breath, orthopnea, anasarca. Continue diuresis and will need therapy.
[2017-05-31] MEDS: Gabapentin 100 MG Cap PO SCH (08:17)
[2017-05-31] MEDS: Lisinopril 20 MG Tab PO SCH (08:17)
[2017-05-31] MEDS: Omeprazole 20 MG Cap.CR PO SCH ×2 (08:17→17:00)
[2017-05-31] MEDS: Lutein/Minerals/Vitamin C/Vitamin E Acetate Cap PO SCH (08:17)
[2017-05-31] MEDS: oxyCODONE 5 MG Tab PO SCH (08:17)
[2017-05-31] MEDS: Levothyroxine 25 MCG Tab PO SCH (08:17)
[2017-05-31] MEDS: Furosemide 40 MG/4 ML VIAL IVPUSH SCH ×2 (08:19→12:23)
[2017-05-31] MEDS: Acetaminophen 500 MG Tab PO SCH ×2 (08:19→17:00)
[2017-05-31] MEDS: Sodium Chloride 0.9% 10 ML Syringe FLUSH SCH (08:20)
[2017-05-31] MEDS: Triamcinolone Acetonide 0.1% Crm 15 GM Tube TOP SCH (08:20)
[2017-05-31 08:50] LABS: CHLORIDE,CL 103 mmol/L (98-107); SODIUM,NA 143 mmol/L (136-145)
[2017-05-31] MEDS: Sodium Chloride 0.9% 10 ML Syringe FLUSH PRN (12:23)
[2017-05-31] MEDS: Warfarin 2 MG Tab PO SCH (17:01)
--- NOTE | 2017-05-31 17:31 | PCM.PN ---
- General Info Date of Service: 05/31/17 Admission Dx/Problem (Free Text): Admission Diagnosis/Problem Admission Diagnosis/Problem CHF, Congestive heart failure Functional Status: Reports: Pain Controlled - Review of Systems General: Reports: No Symptoms HEENT: Reports: No Symptoms Pulmonary: Reports: No Symptoms, Shortness of Breath (decreased) Cardiovascular: Reports: No Symptoms Gastrointestinal: Reports: No Symptoms Genitourinary: Reports: No Symptoms Musculoskeletal: Reports: No Symptoms Skin: Reports: No Symptoms Neurological: Reports: No Symptoms Psychiatric: Reports: No Symptoms - Patient Data Vitals - Most Recent: Last Vital Signs Temp 98.2 F 05/31/17 16:00 Pulse 59 L 05/31/17 16:00 Resp 20 05/31/17 16:00 BP 120/58 L 05/31/17 16:00 Pulse Ox 100 05/31/17 16:00 Weight - Most Recent: 308 lb 4.8 oz I&O - Last 24 Hours: Intake & Output 05/31/17 05/31/17 05/31/17 06:59 14:59 22:59 Intake Total 1140 180 Output Total 100 180 Balance 1040 0 Lab Results Last 24 Hours: Laboratory Results - last 24 hr 05/31/17 05/31/17 05/31/17 Range/Units 08:16 08:16 08:16 WBC 4.0 (4.0-10.2) K/uL RBC 3.11 L (4.33-5.41) M/uL Hgb 10.1 L (13.1-16.8) g/dL Hct 34.0 L (39.0-49.0) % MCV 109.3 H (84.0-98.0) fL MCH 32.5 (28.2-33.3) pg MCHC 29.7 L (31.7-36.0) g/dL RDW 17.4 H (11.2-14.1) % Plt Count 136 L (150-350) K/uL Neut % (Auto) 70.8 (45.0-80.0) % Lymph % (Auto) 13.6 (10.0-50.0) % [place] % (Auto) 11.3 (2.0-14.0) % Eos % (Auto) 3.3 (0.0-5.0) % Baso % (Auto) 1.0 (0.0-2.0) % Neut # (Auto) 2.81 (1.40-7.00) K/uL Lymph # (Auto) 0.54 (0.50-3.50) K/uL [place] # (Auto) 0.45 (0.00-1.00) K/uL Eos # (Auto) 0.13 (0.00-0.50) K/uL Baso # (Auto) 0.04 (0.00-0.20) K/uL PT 19.7 H (9.8-11.7) SEC INR 1.8 Sodium 143 (136-145) mmol/L Potassium 4.7 (3.5-5.1) mmol/L Chloride 103 (98-107) mmol/L Carbon Dioxide 35.7 H (21.0-32.0) mmol/L BUN 40 H (7-18) mg/dL Creatinine 1.10 (0.51-1.17) mg/dL Est Cr Clr Drug Dosing 64.57 mL/min Estimated GFR (MDRD) > 60 mL/min Glucose 165 H (74-106) mg/dL Calcium 8.6 (8.5-10.1) mg/dL Total Bilirubin 0.6 (0.2-1.0) mg/dL AST 21 (15-37) U/L ALT 11 L (12-78) U/L Alkaline Phosphatase 113 (46-116) IU/L C-Reactive Protein 1.1 H (<=0.9) mg/dL NT-Pro-B Natriuret Pep 4018 H (0-125) pg/mL Total Protein 7.4 (6.4-8.2) g/dL Albumin 3.2 L (3.4-5.0) g/dL Med Orders - Current: Current Medications Discontinued Medications Acetaminophen (Tylenol Extra Strength) 1,000 mg PO DAILY [facility] Acetaminophen (Tylenol Extra Strength) 500 mg PO BID [facility] Last Admin: 05/31/17 17:00 Dose: 500 mg Bumetanide (Bumex) 1 mg PO ONETIME ONE Stop: 05/30/17 17:01 Last Admin: 05/30/17 16:43 Dose: 1 mg Furosemide (Lasix) 40 mg IVPUSH NOW ONE Stop: 05/27/17 15:41 Last Admin: 05/27/17 16:24 Dose: 40 mg Furosemide (Lasix) 40 mg IVPUSH BIDDIURETIC [facility] Last Admin: 05/31/17 12:23 Dose: 40 mg Gabapentin (Neurontin) 100 mg PO DAILY [facility] Last Admin: 05/31/17 08:17 Dose: 100 mg Insulin Detemir (Levemir) 14 unit SUBCUT BEDTIME [facility] Last Admin: 05/30/17 20:53 Dose: 14 units Levothyroxine Sodium (Levothyroxine) 25 mcg PO DAILY@0730 [facility] Last Admin: 05/31/17 08:17 Dose: 25 mcg Lisinopril (Prinivil) 20 mg PO DAILY [facility] Last Admin: 05/31/17 08:17 Dose: 20 mg Lovastatin (Mevacor) 40 mg PO BEDTIME [facility] Last Admin: 05/30/17 20:50 Dose: 40 mg Omeprazole (Omeprazole) 40 mg PO BIDAC [facility] Last Admin: 05/31/17 17:00 Dose: 40 mg Oxycodone HCl (Oxycodone) 5 mg PO BID@08,20 [facility] Last Admin: 05/27/17 19:39 Dose: 5 mg Oxycodone HCl (Oxycodone) 5 mg PO ONETIME ONE Stop: 05/27/17 19:53 Last Admin: 05/27/17 20:21 Dose: 5 mg Oxycodone HCl (Oxycodone) 10 mg PO BID@08,20 [facility] Last Admin: 05/27/17 19:59 Dose: Not Given Oxycodone HCl (Oxycodone) 10 mg PO BID@08,20 [facility] Last Admin: 05/31/17 08:17 Dose: 10 mg Sodium Chloride (Saline Flush) 10 ml FLUSH ASDIRECTED PRN PRN Reason: Keep Vein Open Last Admin: 05/31/17 12:23 Dose: 10 ml Sodium Chloride (Saline Flush) 10 ml FLUSH Q12HR [facility] Last Admin: 05/31/17 08:20 Dose: 10 ml Triamcinolone Acetonide (Triamcinolone Acetonide 0.1% Crm) 0 gm TOP BID@08,20 [facility] Last Admin: 05/31/17 08:20 Dose: 1 applic Vit C/Vit E/Zinc/Copper/Lutein (Ocuvite Lutein) 1 each PO DAILY [facility] Last Admin: 05/31/17 08:17 Dose: 1 each Warfarin Sodium (Coumadin) 4 mg PO MOWEFRSA@1800 [facility] Last Admin: 05/27/17 18:47 Dose: Not Given Warfarin Sodium (Coumadin) 8 mg PO SuTuTh@1800 [facility] Warfarin Sodium (Coumadin) 2 mg PO SUMOWETHFRSA@1800 [facility] Last Admin: 05/27/17 19:00 Dose: Not Given Warfarin Sodium (Coumadin) 4 mg PO SUMOWETHFRSA@1800 [facility] Last Admin: 05/31/17 17:01 Dose: 4 mg Warfarin Sodium (Coumadin) 8 mg PO TU@1800 [facility] Last Admin: 05/28/17 17:37 Dose: 8 mg - Exam Quality Assessment: Supplemental Oxygen, DVT Prophylaxis (coumadin) General: Alert, Cooperative, No Acute Distress HEENT: Mucous Membr. Moist/[place] Neck: Trachea Midline, No JVD Lungs: Normal Respiratory Effort, Decreased Breath Sounds Cardiovascular: Irregular Rhythm GI/Abdominal Exam: Soft, Non-Tender, No Distention (Male) Exam: Deferred Back Exam: Normal Inspection Extremities: Pedal Edema, Other (edema arms, partial amputation right foot) Skin: Warm, Dry, Intact, Ecchymosis (right scapula from fall at home) Neurological: No New Focal Deficit Psy/Mental Status: Alert, Normal Affect, Normal Mood - Problem List & Annotations (1) CHF (congestive heart failure) SNOMED Code(s): 47229699 Code(s): I50.9 - HEART FAILURE, UNSPECIFIED Status: Acute Priority: High Qualifiers: Heart failure type: unspecified Heart failure chronicity: acute on chronic Qualified Code(s): I50.9 - Heart failure, unspecified (2) Hypoxia SNOMED Code(s): 858663758 Code(s): R09.02 - HYPOXEMIA Status: Acute Priority: High (3) Pacemaker SNOMED Code(s): 694460113 Code(s): Z95.0 - PRESENCE OF CARDIAC PACEMAKER Status: Acute Priority: Medium (4) Diabetes SNOMED Code(s): 97862033 Code(s): E11.9 - TYPE 2 DIABETES MELLITUS WITHOUT COMPLICATIONS Status: Chronic Priority: Medium Qualifiers: Diabetes mellitus type: type 2 Diabetes mellitus complication detail: with polyneuropathy (5) Hyperlipidemia SNOMED Code(s): 54515352 Code(s): E78.5 - HYPERLIPIDEMIA, UNSPECIFIED Status: Chronic Priority: Low Qualifiers: Hyperlipidemia type: unspecified Qualified Code(s): E78.5 - Hyperlipidemia , unspecified (6) Chronic atrial fibrillation SNOMED Code(s): 894726846 Code(s): I48.2 - CHRONIC ATRIAL FIBRILLATION Status: Acute Priority: Medium (7) Anasarca SNOMED Code(s): 451716905 Code(s): R60.1 - GENERALIZED EDEMA Status: Acute Priority: High - Problem List Review Problem List Initiated/Reviewed/Updated: Yes - My Orders Last 24 Hours: My Active Orders 05/31/17 17:17 Ready for Discharge [RC] PER UNIT ROUTINE - Plan Plan:: 05-27-17 Traci Fontenot PA-C Admitting with acute decompensation of CHF, with hypoxia, dyspnea and weight gain. Has started home oxygen for hours of sleep in the last couple months for nocturnal hypoxia. O2 sat only 74-80% on RA in the clinic. Dr. Power consulted at time of admit. IV Lasix 40 mg given on admit, then 40 mg BIDD. Last Echo was 03-05-17 which found EF 60-65% 05/28/17 Jannet Woods MD Still short of breath, orthopnea. Anasarca. Continue therapy. 05/29/17 Jannet Woods MD Still short of breath, orthopnea, anasarca. Continue diuresis and will need therapy. 05/30/17 Jannet Woods MD continues with edema, shortness of breath and weakness. 05/31/17 Jannet Woods MD Some better today. Less short of breath but still with edema, anasarca. Stable for transfer into swing bed for continued diuresis, PT-OT.
== END 2017-05-31 17:23 | disposition swing bed (61) | DRG 293 ==
LOC: LL.DI 14:17 → LL.MS 14:17
PROVIDERS: ADMIT Physician Assistant; ATTEND Family Medicine
DX: I50.9 Heart failure, unspecified (principal); R09.02 Hypoxemia; E11.9 Type 2 diabetes mellitus without complications; R06.02 Shortness of breath; E78.5 Hyperlipidemia, unspecified; Z95.0 Presence of cardiac pacemaker; I48.2 Chronic atrial fibrillation; E11.40 Type 2 diabetes mellitus with diabetic neuropathy, unspecified; D63.8 Anemia in other chronic diseases classified elsewhere
CPT/HCPCS: 36415; 71046; 80053; 82803; 82962; 83880; 85025; 85610; 86140; 97110-GO; 97162-GP; 97165-GO; 97530-GO; 97530-GP; A9270-GY; J1815-GY; J1940; J7050

== ENCOUNTER 2017-05-31 16:54 | Inpatient (IN) | payer MEDICAID, MEDICARE ==
[2017-05-31] MEDS ORDERED: Sodium Chloride 0.9% 10 ML Syringe FLUSH PRN (17:19)
--- NOTE | 2017-05-31 17:39 | PCM.HP ---
H&P History of Present Illness - General Date of Service: 05/31/17 Admit Problem/Dx: Admission Diagnosis/Problem Admission Diagnosis/Problem CHF, Congestive heart failure Source of Information: Patient, Old Records History Limitations: Reports: No Limitations - History of Present Illness Initial Comments - Free Text/Narative: 76 yowm CHF, anasarca was hospitalized and treated with IV lasix and bumex. Improved but weak and not able to do his ADLs. Admitted into swing bed for continued IV diuresis, PT-OT. - Related Data Allergies/Adverse Reactions: Allergies Allergy/AdvReac Type Severity Reaction Status Date / Time adhesive Allergy Bright red Verified 05/27/17 17:23 rash adhesive tape Allergy Bright red Verified 05/27/17 17:23 rash ciprofloxacin [From Cipro] Allergy Cannot Verified 05/27/17 17:23 Remember Home Medications: Home Meds Acetaminophen [Tylenol Extra Strength] 500 - 1,000 mg PO DAILY 05/27/17 [History ] Furosemide [Lasix] 40 mg PO DAILY 05/27/17 [History] Gabapentin [Neurontin] 100 mg PO DAILY 05/27/17 [History] Insulin Glarg,Human.Rec.Analog [Lantus Solostar] 14 units SQ BEDTIME 05/27/17 [ History] Levothyroxine 25 mcg PO DAILY 05/27/17 [History] Lisinopril 20 mg PO DAILY 05/27/17 [History] Lovastatin 40 mg PO BEDTIME 05/27/17 [History] Omeprazole 40 mg PO BIDAC 05/27/17 [History] Triamcinolone Acetonide [Triamcinolone Acetonide 0.1% Crm] 1 applic TOP BID@05/27/17 [History] Warfarin Sodium [Coumadin] 4 mg PO SUMOWETHFRSA@1800 05/27/17 [History] Warfarin [Coumadin] 8 mg PO TU@1800 05/27/17 [History] oxyCODONE 10 mg PO BID@05/27/17 [History] Vit C/E/Zn/Coppr/Lutein/Zeaxan [Preservision Areds 2 Softgel] 1 each PO Q12HR [History] Past Medical History HEENT History: Reports: Hard of Hearing, Impaired Vision, Macular Degeneration, Other (See Below) Other HEENT History: wears glasses, left eye macular degeneration receiving injections, next injection due 06/10/17 Cardiovascular History: Reports: Afib, Heart Failure, High Cholesterol, Pacemaker (for Sick Sinus Syndrome) Gastrointestinal History: Reports: PUD Other Gastrointestinal History: h/o GI bleed Neurological History: Reports: Neuropathy, Peripheral (diabetic) Endocrine/Metabolic History: Reports: Diabetes, Type II Hematologic History: Reports: Anemia (of chronic disease) - Past Surgical History Musculoskeletal Surgical History: Reports: 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) Social & Family History - Family History Family Medical History: Unobtainable - Living Situation & Occupation Living situation: Reports: H&P Review of Systems - Review of Systems: Review Of Systems: See Below General: Reports: No Symptoms HEENT: Reports: No Symptoms Pulmonary: Reports: Shortness of Breath Cardiovascular: Reports: Dyspnea on Exertion, Orthopnea Gastrointestinal: Reports: No Symptoms Genitourinary: Reports: No Symptoms Musculoskeletal: Reports: No Symptoms Skin: Reports: Bruising (right shoulder area from fall at home) Psychiatric: Reports: No Symptoms Neurological: Reports: Weakness Hematologic/Lymphatic: Reports: No Symptoms Immunologic: Reports: No Symptoms Exam - Exam Exam: See Below - Exam Quality Assessment: Supplemental Oxygen, DVT Prophylaxis (coumadin) General: Alert, Cooperative, Mild Distress HEENT: Hearing Intact, Nares Patent Neck: Trachea Midline Lungs: Normal Respiratory Effort, Decreased Breath Sounds Cardiovascular: Irregular Rhythm GI/Abdominal Exam: Soft, Non-Tender, No Distention (Male) Exam: Deferred Rectal (Males) Exam: Deferred Extremities: Pedal Edema, Other (arm edema, right fore-foot amputation) Skin: Warm, Dry, Intact Neuro Extensive - Mental Status: Alert, Normal Mood/Affect Psychiatric: Alert, Normal Affect, Normal Mood *Q Meaningful Use (ADM) - VTE *Q VTE Criteria *Q: - Stroke *Q Stroke Criteria *Q: - AMI *Q AMI Criteria *Q: - Problem List (1) Anasarca SNOMED Code(s): 402321409 ICD Code: R60.1 - GENERALIZED EDEMA Status: Acute Priority: High Current Visit: No (2) CHF (congestive heart failure) SNOMED Code(s): 81183429 ICD Code: I50.9 - HEART FAILURE, UNSPECIFIED Status: Acute Priority: High Current Visit: No Qualifiers: (3) Chronic atrial fibrillation SNOMED Code(s): 139347148 ICD Code: I48.2 - CHRONIC ATRIAL FIBRILLATION Status: Acute Priority: Medium Current Visit: No (4) Hypoxia SNOMED Code(s): 244420368 ICD Code: R09.02 - HYPOXEMIA Status: Acute Priority: High Current Visit : No (5) Pacemaker SNOMED Code(s): 495652306 ICD Code: Z95.0 - PRESENCE OF CARDIAC PACEMAKER Status: Acute Priority: Medium Current Visit: No (6) Diabetes SNOMED Code(s): 97107270 ICD Code: E11.9 - TYPE 2 DIABETES MELLITUS WITHOUT COMPLICATIONS Status: Chronic Priority: Medium Current Visit: No (7) Hyperlipidemia SNOMED Code(s): 30084694 ICD Code: E78.5 - HYPERLIPIDEMIA, UNSPECIFIED Status: Chronic Priority: Low Current Visit: No Qualifiers: Problem List Initiated/Reviewed/Updated: Yes Orders Last 24hrs: Active Orders 24 hr Category Date Time Status Patient Status [ADT] Routine ADT 05/31/17 17:22 Active Antiembolic Devices [RC] PER UNIT ROUTINE Care 05/31/17 17:19 Active Antiembolic Devices [RC] PER UNIT ROUTINE Care 05/31/17 17:19 Active Communication Order [RC] PER UNIT ROUTINE Care 05/31/17 17:19 Active Dietary Supplements [RC] TIDMEALS Care 05/31/17 17:19 Active Height and Weight [RC] DAILY Care 05/31/17 17:19 Active Oxygen Therapy [RC] CONTINUOUS Care 05/31/17 17:19 Active Up With Assistance [RC] ASDIRECTED Care 05/31/17 17:19 Active VTE/DVT Education [RC] PER UNIT ROUTINE Care 05/31/17 17:19 Active Vital Signs [RC] Q4H Care 05/31/17 17:19 Active Consult to Case Management [CONS] Routine Cons 05/31/17 17:19 Active OT Evaluation and Treatment [CONS] Routine Cons 05/31/17 17:19 Active PT Evaluation and Treatment [CONS] Routine Cons 05/31/17 17:19 Active 2 Gram Sodium Diet [DIET] Diet 05/31/17 Dinner Active Acetaminophen [Tylenol Extra Strength] Med 05/31/17 18:00 Active 500 mg PO BID Furosemide [Lasix] Med 06/01/17 08:00 Active 40 mg IVPUSH BIDDIURETIC Gabapentin [Neurontin] Med 06/01/17 08:00 Active 100 mg PO DAILY Insulin Detemir [Levemir] Med 05/31/17 20:00 Active 14 unit SUBCUT BEDTIME Levothyroxine Med 06/01/17 07:30 Active 25 mcg PO DAILY@0730 Lisinopril [Prinivil] Med 06/01/17 08:00 Active 20 mg PO DAILY Lovastatin [Mevacor] Med 05/31/17 20:00 Active 40 mg PO BEDTIME Lutein/Min/Vit C/Vit E Acetate [Ocuvite Lutein] Med 06/01/17 08:00 Active 1 each PO DAILY Omeprazole Med 05/31/17 17:30 Active 40 mg PO BIDAC Sodium Chloride 0.9% [Saline Flush] Med 05/31/17 17:19 Active 10 ml FLUSH ASDIRECTED PRN Sodium Chloride 0.9% [Saline Flush] Med 05/31/17 17:19 Ordered 10 ml FLUSH ASDIRECTED PRN Sodium Chloride 0.9% [Saline Flush] Med 05/31/17 20:00 Active 10 ml FLUSH Q12HR Triamcinolone Acetonide [Triamcinolone Acetonide 0.1% Med 05/31/17 20:00 Ordered Crm] 0 gm TOP BID@08,20 Warfarin [Coumadin] Med 05/31/17 18:00 Ordered 4 mg PO SUMOWETHFRSA@1800 Warfarin [Coumadin] Med 06/04/17 18:00 Ordered 8 mg PO TU@1800 oxyCODONE Med 05/31/17 20:00 Active 10 mg PO BID@08,20 Antiembolic Hose [OM.PC] Per Unit Routine Oth 05/31/17 17:19 Ordered Saline Lock Insert [OM.PC] Routine Oth 05/31/17 17:19 Ordered Code Status [Resuscitation Status] Routine Resus Stat 05/31/17 17:24 Ordered Medication Orders Acetaminophen (Tylenol Extra Strength) 500 mg PO BID [facility] Furosemide (Lasix) 40 mg IVPUSH BIDDIURETIC [facility] Gabapentin (Neurontin) 100 mg PO DAILY [facility] Insulin Detemir (Levemir) 14 unit SUBCUT BEDTIME [facility] Levothyroxine Sodium (Levothyroxine) 25 mcg PO DAILY@0730 [facility] Lisinopril (Prinivil) 20 mg PO DAILY [facility] Lovastatin (Mevacor) 40 mg PO BEDTIME [facility] Omeprazole (Omeprazole) 40 mg PO BIDAC [facility] Oxycodone HCl (Oxycodone) 10 mg PO BID@08,20 [facility] Sodium Chloride (Saline Flush) 10 ml FLUSH ASDIRECTED PRN PRN Reason: Keep Vein Open Sodium Chloride (Saline Flush) 10 ml FLUSH Q12HR [facility] Sodium Chloride (Saline Flush) 10 ml FLUSH ASDIRECTED PRN PRN Reason: Keep Vein Open Triamcinolone Acetonide (Triamcinolone Acetonide 0.1% Crm) 0 gm TOP BID@08,20 [facility] Vit C/Vit E/Zinc/Copper/Lutein (Ocuvite Lutein) 1 each PO DAILY [facility] Warfarin Sodium (Coumadin) 4 mg PO SUMOWETHFRSA@1800 [facility] Warfarin Sodium (Coumadin) 8 mg PO TU@1800 [facility] Assessment/Plan Comment:: 76 yowm CHF, anasarca treated inpatient hospitalization. Improved and stable for admission of swing bed for continued IV diuresis, PT-OT.
[2017-05-31] MEDS: Omeprazole 20 MG Cap.CR PO SCH (17:49)
[2017-05-31] MEDS: Warfarin 2 MG Tab PO SCH (17:50)
[2017-05-31] MEDS: Acetaminophen 500 MG Tab PO SCH (17:50)
[2017-05-31] MEDS: oxyCODONE 5 MG Tab PO SCH (20:35)
[2017-05-31] MEDS: Insulin Detemir 100 Units/ML 3 ML Pen SUBCUT SCH (20:35)
[2017-05-31] MEDS: Sodium Chloride 0.9% 10 ML Syringe FLUSH SCH (20:36)
[2017-05-31] MEDS: Triamcinolone Acetonide 0.1% Crm 15 GM Tube TOP SCH (20:37)
[2017-06-01] MEDS ORDERED: Lutein/Minerals/Vitamin C/Vitamin E Acetate Cap PO SCH ×2 (08:00→18:00)
[2017-06-01] MEDS: Omeprazole 20 MG Cap.CR PO SCH ×2 (08:58→17:18)
[2017-06-01] MEDS: Lisinopril 20 MG Tab PO SCH (08:58)
[2017-06-01] MEDS: Triamcinolone Acetonide 0.1% Crm 15 GM Tube TOP SCH ×2 (09:00→22:49)
[2017-06-01] MEDS: Levothyroxine 25 MCG Tab PO SCH (09:00)
[2017-06-01] MEDS: Gabapentin 100 MG Cap PO SCH (09:00)
[2017-06-01] MEDS: Sodium Chloride 0.9% 10 ML Syringe FLUSH SCH ×2 (09:01→22:48)
[2017-06-01] MEDS: oxyCODONE 5 MG Tab PO SCH ×2 (09:02→19:52)
[2017-06-01] MEDS: Acetaminophen 500 MG Tab PO SCH ×2 (09:02→17:18)
[2017-06-01] MEDS: Furosemide 40 MG/4 ML VIAL IVPUSH SCH ×2 (09:02→12:07)
[2017-06-01] MEDS: Sodium Chloride 0.9% 10 ML Syringe FLUSH PRN (12:08)
[2017-06-01] MEDS: Bumetanide 1 MG Tab PO SCH (17:18)
[2017-06-01] MEDS: Warfarin 2 MG Tab PO SCH (17:19)
[2017-06-01] MEDS: Insulin Detemir 100 Units/ML 3 ML Pen SUBCUT SCH (19:52)
[2017-06-02] MEDS: Furosemide 40 MG/4 ML VIAL IVPUSH SCH ×2 (07:27→12:05)
[2017-06-02] MEDS: oxyCODONE 5 MG Tab PO SCH ×2 (07:27→21:10)
[2017-06-02] MEDS: Sodium Chloride 0.9% 10 ML Syringe FLUSH SCH ×2 (07:27→21:11)
[2017-06-02] MEDS: Lisinopril 20 MG Tab PO SCH (07:30)
[2017-06-02] MEDS: Levothyroxine 25 MCG Tab PO SCH (07:31)
[2017-06-02] MEDS: Acetaminophen 500 MG Tab PO SCH ×2 (07:31→21:12)
[2017-06-02] MEDS: Omeprazole 20 MG Cap.CR PO SCH ×2 (07:32→17:17)
[2017-06-02] MEDS: Lutein/Minerals/Vitamin C/Vitamin E Acetate Cap PO SCH ×2 (07:32→21:11)
[2017-06-02] MEDS: Gabapentin 100 MG Cap PO SCH (07:32)
[2017-06-02] MEDS: Triamcinolone Acetonide 0.1% Crm 15 GM Tube TOP SCH ×2 (07:33→21:11)
[2017-06-02] MEDS: Sodium Chloride 0.9% 10 ML Syringe FLUSH PRN (12:05)
[2017-06-02] MEDS: Bumetanide 1 MG Tab PO SCH (17:00)
[2017-06-02] MEDS: Warfarin 2 MG Tab PO SCH (17:18)
[2017-06-02] MEDS: Insulin Detemir 100 Units/ML 3 ML Pen SUBCUT SCH (21:09)
[2017-06-03 07:24] LABS: CHLORIDE,CL 101 mmol/L (98-107); SODIUM,NA 142 mmol/L (136-145)
[2017-06-03] MEDS: Levothyroxine 25 MCG Tab PO SCH (07:41)
[2017-06-03] MEDS: Lutein/Minerals/Vitamin C/Vitamin E Acetate Cap PO SCH ×2 (07:42→20:02)
[2017-06-03] MEDS: Acetaminophen 500 MG Tab PO SCH ×2 (07:42→20:02)
[2017-06-03] MEDS: Omeprazole 20 MG Cap.CR PO SCH ×2 (07:42→17:27)
[2017-06-03] MEDS: Lisinopril 20 MG Tab PO SCH (07:43)
[2017-06-03] MEDS: oxyCODONE 5 MG Tab PO SCH ×2 (07:44→20:02)
[2017-06-03] MEDS: Gabapentin 100 MG Cap PO SCH (07:44)
[2017-06-03] MEDS: Furosemide 40 MG/4 ML VIAL IVPUSH SCH ×2 (07:45→12:25)
[2017-06-03] MEDS: Sodium Chloride 0.9% 10 ML Syringe FLUSH SCH ×2 (07:50→20:03)
[2017-06-03] MEDS: Triamcinolone Acetonide 0.1% Crm 15 GM Tube TOP SCH ×2 (07:50→20:04)
[2017-06-03] MEDS: Sodium Chloride 0.9% 10 ML Syringe FLUSH PRN (12:25)
[2017-06-03] MEDS: Bumetanide 1 MG Tab PO SCH (15:12)
[2017-06-03] MEDS: Warfarin 2 MG Tab PO SCH (17:27)
[2017-06-03] MEDS: Insulin Detemir 100 Units/ML 3 ML Pen SUBCUT SCH (20:01)
[2017-06-04] MEDS: Bumetanide 1 MG Tab PO SCH ×2 (08:21→11:24)
[2017-06-04] MEDS: oxyCODONE 5 MG Tab PO SCH ×2 (08:21→20:13)
[2017-06-04] MEDS: Levothyroxine 25 MCG Tab PO SCH (08:21)
[2017-06-04] MEDS: Omeprazole 20 MG Cap.CR PO SCH ×2 (08:22→17:34)
[2017-06-04] MEDS: Gabapentin 100 MG Cap PO SCH (08:22)
[2017-06-04] MEDS: Lutein/Minerals/Vitamin C/Vitamin E Acetate Cap PO SCH ×2 (08:22→20:13)
[2017-06-04] MEDS: Acetaminophen 500 MG Tab PO SCH ×2 (08:22→20:20)
[2017-06-04] MEDS: Sodium Chloride 0.9% 10 ML Syringe FLUSH SCH ×2 (08:22→20:16)
[2017-06-04] MEDS: Lisinopril 20 MG Tab PO SCH (08:22)
[2017-06-04] MEDS: Triamcinolone Acetonide 0.1% Crm 15 GM Tube TOP SCH ×2 (08:23→20:29)
[2017-06-04] MEDS: Warfarin 2 MG Tab PO SCH (17:35)
[2017-06-04] MEDS: Insulin Detemir 100 Units/ML 3 ML Pen SUBCUT SCH (20:27)
[2017-06-05] MEDS: Omeprazole 20 MG Cap.CR PO SCH ×2 (08:23→17:29)
[2017-06-05] MEDS: Levothyroxine 25 MCG Tab PO SCH (08:23)
[2017-06-05] MEDS: Gabapentin 100 MG Cap PO SCH (08:24)
[2017-06-05] MEDS: Lutein/Minerals/Vitamin C/Vitamin E Acetate Cap PO SCH ×2 (08:24→19:39)
[2017-06-05] MEDS: Bumetanide 1 MG Tab PO SCH ×2 (08:24→11:43)
[2017-06-05] MEDS: Lisinopril 20 MG Tab PO SCH (08:25)
[2017-06-05] MEDS: Sodium Chloride 0.9% 10 ML Syringe FLUSH SCH (08:29)
[2017-06-05] MEDS: Triamcinolone Acetonide 0.1% Crm 15 GM Tube TOP SCH ×2 (08:30→19:41)
[2017-06-05] MEDS: Acetaminophen 500 MG Tab PO SCH ×2 (08:30→19:41)
[2017-06-05] MEDS: oxyCODONE 5 MG Tab PO SCH ×2 (08:31→19:40)
[2017-06-05] MEDS: Warfarin 2 MG Tab PO SCH (17:31)
[2017-06-05] MEDS: Insulin Detemir 100 Units/ML 3 ML Pen SUBCUT SCH (19:42)
[2017-06-06] MEDS: Levothyroxine 25 MCG Tab PO SCH (08:35)
[2017-06-06] MEDS: Omeprazole 20 MG Cap.CR PO SCH ×2 (08:35→17:43)
[2017-06-06] MEDS: Gabapentin 100 MG Cap PO SCH (08:36)
[2017-06-06] MEDS: Bumetanide 1 MG Tab PO SCH ×2 (08:36→11:58)
[2017-06-06] MEDS: Lutein/Minerals/Vitamin C/Vitamin E Acetate Cap PO SCH ×2 (08:37→19:38)
[2017-06-06] MEDS: oxyCODONE 5 MG Tab PO SCH ×2 (08:38→19:39)
[2017-06-06] MEDS: Triamcinolone Acetonide 0.1% Crm 15 GM Tube TOP SCH ×2 (08:39→19:35)
[2017-06-06] MEDS: Lisinopril 20 MG Tab PO SCH (08:39)
[2017-06-06] MEDS: Acetaminophen 500 MG Tab PO SCH ×2 (08:39→19:41)
[2017-06-06] MEDS: Warfarin 2 MG Tab PO SCH (17:44)
[2017-06-06] MEDS: Insulin Detemir 100 Units/ML 3 ML Pen SUBCUT SCH (19:49)
[2017-06-07] MEDS: Levothyroxine 25 MCG Tab PO SCH (08:30)
[2017-06-07] MEDS: Omeprazole 20 MG Cap.CR PO SCH ×2 (08:30→17:40)
[2017-06-07] MEDS: Gabapentin 100 MG Cap PO SCH (08:31)
[2017-06-07] MEDS: Bumetanide 1 MG Tab PO SCH ×2 (08:31→11:57)
[2017-06-07] MEDS: Lutein/Minerals/Vitamin C/Vitamin E Acetate Cap PO SCH ×2 (08:32→20:06)
[2017-06-07] MEDS: oxyCODONE 5 MG Tab PO SCH ×2 (08:33→20:06)
[2017-06-07] MEDS: Acetaminophen 500 MG Tab PO SCH ×2 (08:35→20:09)
[2017-06-07] MEDS: Triamcinolone Acetonide 0.1% Crm 15 GM Tube TOP SCH ×2 (08:35→20:08)
[2017-06-07] MEDS: Lisinopril 20 MG Tab PO SCH (08:35)
[2017-06-07] MEDS: Warfarin 2 MG Tab PO SCH (17:40)
[2017-06-07] MEDS: Insulin Detemir 100 Units/ML 3 ML Pen SUBCUT SCH (20:04)
[2017-06-08] MEDS: Omeprazole 20 MG Cap.CR PO SCH ×2 (08:41→17:07)
[2017-06-08] MEDS: Levothyroxine 25 MCG Tab PO SCH (08:41)
[2017-06-08] MEDS: Bumetanide 1 MG Tab PO SCH ×2 (08:42→12:08)
[2017-06-08] MEDS: Lutein/Minerals/Vitamin C/Vitamin E Acetate Cap PO SCH ×2 (08:43→19:53)
[2017-06-08] MEDS: Gabapentin 100 MG Cap PO SCH (08:43)
[2017-06-08] MEDS: oxyCODONE 5 MG Tab PO SCH ×2 (08:44→19:53)
[2017-06-08] MEDS: Lisinopril 20 MG Tab PO SCH (08:45)
[2017-06-08] MEDS: Acetaminophen 500 MG Tab PO SCH ×2 (08:46→19:54)
[2017-06-08] MEDS: Triamcinolone Acetonide 0.1% Crm 15 GM Tube TOP SCH ×2 (09:45→19:55)
[2017-06-08] MEDS: Warfarin 2 MG Tab PO SCH (17:09)
[2017-06-08] MEDS: Insulin Detemir 100 Units/ML 3 ML Pen SUBCUT SCH (19:51)
[2017-06-09] MEDS: Triamcinolone Acetonide 0.1% Crm 15 GM Tube TOP SCH ×2 (08:30→19:28)
[2017-06-09] MEDS: Levothyroxine 25 MCG Tab PO SCH (08:31)
[2017-06-09] MEDS: Omeprazole 20 MG Cap.CR PO SCH ×2 (08:31→17:20)
[2017-06-09] MEDS: Bumetanide 1 MG Tab PO SCH ×2 (08:33→11:31)
[2017-06-09] MEDS: Lisinopril 20 MG Tab PO SCH (08:34)
[2017-06-09] MEDS: Gabapentin 100 MG Cap PO SCH (08:34)
[2017-06-09] MEDS: Lutein/Minerals/Vitamin C/Vitamin E Acetate Cap PO SCH ×2 (08:35→19:26)
[2017-06-09] MEDS: oxyCODONE 5 MG Tab PO SCH ×2 (08:36→19:27)
[2017-06-09] MEDS: Acetaminophen 500 MG Tab PO SCH ×2 (08:37→19:28)
[2017-06-09] MEDS: Warfarin 2 MG Tab PO SCH (17:21)
[2017-06-09] MEDS: Insulin Detemir 100 Units/ML 3 ML Pen SUBCUT SCH (19:25)
[2017-06-10 07:50] LABS: O2 DELIVERY DEVICE ROOM AIR
[2017-06-10 08:08] LABS: BASE EXCESS VENOUS 18 mmol/L ((-2)-3); BICARBONATE,VENOUS 42 mmol/L (23-28); O2 SATURATION VENOUS 94 %; PCO2 VENOUS 62 mmHG (41-51); PH,VENOUS 7.44 (7.31-7.41); PO2 VENOUS 72 mmHG
[2017-06-10 08:16] LABS: CHLORIDE,CL 100 mmol/L (98-107); SODIUM,NA 142 mmol/L (136-145)
[2017-06-10] MEDS: Levothyroxine 25 MCG Tab PO SCH (09:53)
[2017-06-10] MEDS: Omeprazole 20 MG Cap.CR PO SCH ×2 (09:54→17:45)
[2017-06-10] MEDS: Bumetanide 1 MG Tab PO SCH ×2 (09:55→12:15)
[2017-06-10] MEDS: Gabapentin 100 MG Cap PO SCH (09:56)
[2017-06-10] MEDS: Lutein/Minerals/Vitamin C/Vitamin E Acetate Cap PO SCH ×2 (09:57→20:14)
[2017-06-10] MEDS: oxyCODONE 5 MG Tab PO SCH ×2 (09:58→20:15)
[2017-06-10] MEDS: Triamcinolone Acetonide 0.1% Crm 15 GM Tube TOP SCH ×2 (10:02→20:17)
[2017-06-10] MEDS: Lisinopril 20 MG Tab PO SCH (10:02)
[2017-06-10] MEDS: Acetaminophen 500 MG Tab PO SCH ×2 (10:03→20:18)
--- NOTE | 2017-06-10 11:27 | PCM.SN ---
- Free Text/Narrative Note: 06-20-17 Traci Fontenot PA-C Notified of critical value of CO2 41.3. Oxygen is ordered at 2-4 L/m and he has been receiving 3 L/m. Asked nurse on duty to change to 2 L/m O2 per [place]. Repeat BMP ordered for tomorrow morning.
[2017-06-10] MEDS: Warfarin 2 MG Tab PO SCH (17:46)
[2017-06-10] MEDS: Insulin Detemir 100 Units/ML 3 ML Pen SUBCUT SCH (20:12)
[2017-06-11 07:55] LABS: CHLORIDE,CL 98 mmol/L (98-107); SODIUM,NA 140 mmol/L (136-145)
[2017-06-11] MEDS: Levothyroxine 25 MCG Tab PO SCH (08:19)
[2017-06-11] MEDS: Omeprazole 20 MG Cap.CR PO SCH ×2 (08:20→17:11)
[2017-06-11] MEDS: Bumetanide 1 MG Tab PO SCH ×2 (08:22→11:37)
[2017-06-11] MEDS: Gabapentin 100 MG Cap PO SCH (08:23)
[2017-06-11] MEDS: Lutein/Minerals/Vitamin C/Vitamin E Acetate Cap PO SCH ×2 (08:23→19:33)
[2017-06-11] MEDS: oxyCODONE 5 MG Tab PO SCH ×2 (08:24→19:33)
[2017-06-11] MEDS: Triamcinolone Acetonide 0.1% Crm 15 GM Tube TOP SCH ×2 (08:26→19:34)
[2017-06-11] MEDS: Lisinopril 20 MG Tab PO SCH (08:26)
[2017-06-11] MEDS: Acetaminophen 500 MG Tab PO SCH ×2 (08:27→19:34)
[2017-06-11] MEDS: Warfarin 2 MG Tab PO SCH (17:13)
[2017-06-11] MEDS: Insulin Detemir 100 Units/ML 3 ML Pen SUBCUT SCH (19:28)
[2017-06-12] MEDS: Omeprazole 20 MG Cap.CR PO SCH ×2 (08:22→17:41)
[2017-06-12] MEDS: Levothyroxine 25 MCG Tab PO SCH (08:22)
[2017-06-12] MEDS: Bumetanide 1 MG Tab PO SCH ×2 (08:23→11:38)
[2017-06-12] MEDS: Gabapentin 100 MG Cap PO SCH (08:23)
[2017-06-12] MEDS: Lutein/Minerals/Vitamin C/Vitamin E Acetate Cap PO SCH ×2 (08:24→20:09)
[2017-06-12] MEDS: oxyCODONE 5 MG Tab PO SCH ×2 (08:24→20:11)
[2017-06-12] MEDS: Lisinopril 20 MG Tab PO SCH (08:26)
[2017-06-12] MEDS: Triamcinolone Acetonide 0.1% Crm 15 GM Tube TOP SCH ×2 (08:26→21:45)
[2017-06-12] MEDS: Acetaminophen 500 MG Tab PO SCH ×2 (08:27→20:12)
[2017-06-12] MEDS: Warfarin 2 MG Tab PO SCH (17:41)
[2017-06-12] MEDS: Insulin Detemir 100 Units/ML 3 ML Pen SUBCUT SCH (20:06)
[2017-06-13] MEDS: Omeprazole 20 MG Cap.CR PO SCH ×2 (08:15→17:41)
[2017-06-13] MEDS: Gabapentin 100 MG Cap PO SCH (08:16)
[2017-06-13] MEDS: Lutein/Minerals/Vitamin C/Vitamin E Acetate Cap PO SCH ×2 (08:16→20:13)
[2017-06-13] MEDS: Bumetanide 1 MG Tab PO SCH ×2 (08:16→11:40)
[2017-06-13] MEDS: Lisinopril 20 MG Tab PO SCH (08:17)
[2017-06-13] MEDS: Triamcinolone Acetonide 0.1% Crm 15 GM Tube TOP SCH ×2 (08:18→20:16)
[2017-06-13] MEDS: Acetaminophen 500 MG Tab PO SCH ×2 (08:19→20:17)
[2017-06-13] MEDS: oxyCODONE 5 MG Tab PO SCH ×2 (08:20→20:14)
[2017-06-13] MEDS: Levothyroxine 25 MCG Tab PO SCH (08:21)
[2017-06-13] MEDS: Warfarin 2 MG Tab PO SCH (17:42)
[2017-06-13] MEDS: Insulin Detemir 100 Units/ML 3 ML Pen SUBCUT SCH (20:10)
--- NOTE | 2017-06-13 23:11 | PCM.PN ---
- General Info Date of Service: 06/13/17 Admission Dx/Problem (Free Text): Admission Diagnosis/Problem Admission Diagnosis/Problem CHF, Congestive heart failure Functional Status: Reports: Pain Controlled, Tolerating Diet, Ambulating - Review of Systems General: Reports: No Symptoms HEENT: Reports: No Symptoms Pulmonary: Reports: No Symptoms Cardiovascular: Reports: No Symptoms Gastrointestinal: Reports: No Symptoms Genitourinary: Reports: No Symptoms Musculoskeletal: Reports: No Symptoms Skin: Reports: No Symptoms Neurological: Reports: No Symptoms Psychiatric: Reports: No Symptoms, Other (upset about different issues, states lack of follow up) - Patient Data Vitals - Most Recent: Last Vital Signs Temp 98.6 F 06/13/17 08:00 Pulse 60 06/13/17 08:00 Resp 16 06/13/17 08:00 BP 106/52 L 06/13/17 08:00 Pulse Ox 93 L 06/13/17 08:00 Weight - Most Recent: 301 lb 6.4 oz I&O - Last 24 Hours: Intake & Output 06/13/17 06/13/17 06/14/17 14:59 22:59 06:59 Intake Total 480 Output Total 300 Balance 180 Lab Results Last 24 Hours: Laboratory Results - last 24 hr 06/13/17 06/13/17 Range/Units 08:11 17:40 POC Glucose 92 115 H (65-110) mg/dl Med Orders - Current: Current Medications Acetaminophen (Tylenol Extra Strength) 500 mg PO BID@08,20 [facility] Last Admin: 06/13/17 20:17 Dose: 500 mg Bumetanide (Bumex) 2 mg PO BIDDIURETIC [facility] Last Admin: 06/13/17 11:40 Dose: 2 mg Gabapentin (Neurontin) 100 mg PO DAILY [facility] Last Admin: 06/13/17 08:16 Dose: 100 mg Insulin Detemir (Levemir) 14 unit SUBCUT BEDTIME [facility] Last Admin: 06/13/17 20:10 Dose: 14 units Levothyroxine Sodium (Levothyroxine) 25 mcg PO DAILY@0730 [facility] Last Admin: 06/13/17 08:21 Dose: 25 mcg Lisinopril (Prinivil) 20 mg PO DAILY [facility] Last Admin: 06/13/17 08:17 Dose: 20 mg Lovastatin (Mevacor) 40 mg PO BEDTIME [facility] Last Admin: 06/13/17 20:12 Dose: 40 mg Omeprazole (Omeprazole) 40 mg PO BIDAC [facility] Last Admin: 06/13/17 17:41 Dose: 40 mg Oxycodone HCl (Oxycodone) 10 mg PO BID@,20 [facility] Last Admin: 06/13/17 20:14 Dose: 10 mg Triamcinolone Acetonide (Triamcinolone Acetonide 0.1% Crm) 0 gm TOP BID@ [facility] Last Admin: 06/13/17 20:16 Dose: 1 applic Vit C/Vit E/Zinc/Copper/Lutein (Ocuvite Lutein) 1 each PO BID@ [facility] Last Admin: 06/13/17 20:13 Dose: 1 each Warfarin Sodium (Coumadin) 4 mg PO SUMOWETHFRSA@1800 [facility] Last Admin: 06/13/17 17:42 Dose: 4 mg Warfarin Sodium (Coumadin) 8 mg PO TU@1800 [facility] Last Admin: 06/11/17 17:13 Dose: 8 mg Discontinued Medications Acetaminophen (Tylenol Extra Strength) 500 mg PO BID [facility] Last Admin: 06/01/17 17:18 Dose: 500 mg Bumetanide (Bumex) 2 mg PO DAILY@1600 [facility] Last Admin: 06/03/17 15:12 Dose: 2 mg Furosemide (Lasix) 40 mg IVPUSH BIDDIURETIC [facility] Last Admin: 06/03/17 12:25 Dose: 40 mg Sodium Chloride (Saline Flush) 10 ml FLUSH ASDIRECTED PRN PRN Reason: Keep Vein Open Last Admin: 06/03/17 12:25 Dose: 10 ml Sodium Chloride (Saline Flush) 10 ml FLUSH Q12HR [facility] Last Admin: 06/05/17 08:29 Dose: 10 ml Sodium Chloride (Saline Flush) 10 ml FLUSH ASDIRECTED PRN PRN Reason: Keep Vein Open Triamcinolone Acetonide (Triamcinolone Acetonide 0.1% Crm) 0 gm TOP BID@ [facility] Last Admin: 06/03/17 07:50 Dose: 1 applicful Vit C/Vit E/Zinc/Copper/Lutein (Ocuvite Lutein) 1 each PO DAILY [facility] Last Admin: 06/01/17 09:00 Dose: 1 each Vit C/Vit E/Zinc/Copper/Lutein (Ocuvite Lutein) 1 each PO BID [facility] Last Admin: 06/01/17 17:18 Dose: 1 each - Exam Quality Assessment: Supplemental Oxygen, DVT Prophylaxis (coumadin) General: Alert, Cooperative, No Acute Distress HEENT: Mucous Membr. Moist/[place] Neck: Trachea Midline, No JVD Lungs: Normal Respiratory Effort, Decreased Breath Sounds Cardiovascular: Irregular Rhythm GI/Abdominal Exam: Soft, Non-Tender, No Distention (Male) Exam: Deferred Back Exam: Normal Inspection Extremities: Other (increased pigmentation bilateral LE, right forefoot amputation, not new) Skin: Warm, Dry, Intact Neurological: No New Focal Deficit Psy/Mental Status: Alert, Normal Affect, Normal Mood - Problem List & Annotations (1) Anasarca SNOMED Code(s): 527751700 Code(s): R60.1 - GENERALIZED EDEMA Status: Acute Priority: High Current Visit: No (2) CHF (congestive heart failure) SNOMED Code(s): 94246079 Code(s): I50.9 - HEART FAILURE, UNSPECIFIED Status: Acute Priority: High Current Visit: No Qualifiers: (3) Chronic atrial fibrillation SNOMED Code(s): 900045121 Code(s): I48.2 - CHRONIC ATRIAL FIBRILLATION Status: Acute Priority: Medium Current Visit: No (4) Hypoxia SNOMED Code(s): 055357189 Code(s): R09.02 - HYPOXEMIA Status: Acute Priority: High Current Visit : No (5) Pacemaker SNOMED Code(s): 979607512 Code(s): Z95.0 - PRESENCE OF CARDIAC PACEMAKER Status: Acute Priority: Medium Current Visit: No (6) Diabetes SNOMED Code(s): 27074660 Code(s): E11.9 - TYPE 2 DIABETES MELLITUS WITHOUT COMPLICATIONS Status: Chronic Priority: Medium Current Visit: No (7) Hyperlipidemia SNOMED Code(s): 94343895 Code(s): E78.5 - HYPERLIPIDEMIA, UNSPECIFIED Status: Chronic Priority: Low Current Visit: No Qualifiers: - Problem List Review Problem List Initiated/Reviewed/Updated: Yes - My Orders Last 24 Hours: My Active Orders 06/13/17 15:17 Evaluate for Home Oxygen [RT Evaluate for Home Oxygen] [RC] ASDIRECTED - Plan Plan:: 76 yowm CHF, anasarca treated inpatient hospitalization. Improved and stable for admission of swing bed for continued IV diuresis, PT-OT. 06/13/17 Jannet Woods MD He is improved but he isn't so sure he is ready. Edema is improved. He says he will not be able to put wraps and lotion on his legs. Discussed home health. Initially he agreed to public health but now agrees to home health. Also he called daughter Hilary and I did talk to her on the phone.
[2017-06-14 07:54] LABS: CHLORIDE,CL 101 mmol/L (98-107); SODIUM,NA 144 mmol/L (136-145)
[2017-06-14] MEDS: Omeprazole 20 MG Cap.CR PO SCH (07:54)
[2017-06-14] MEDS: Levothyroxine 25 MCG Tab PO SCH (07:54)
[2017-06-14] MEDS: Lutein/Minerals/Vitamin C/Vitamin E Acetate Cap PO SCH (07:56)
[2017-06-14] MEDS: Gabapentin 100 MG Cap PO SCH (07:56)
[2017-06-14] MEDS: oxyCODONE 5 MG Tab PO SCH (07:57)
[2017-06-14] MEDS: Lisinopril 20 MG Tab PO SCH (07:58)
[2017-06-14] MEDS: Triamcinolone Acetonide 0.1% Crm 15 GM Tube TOP SCH (07:59)
[2017-06-14] MEDS: Acetaminophen 500 MG Tab PO SCH (07:59)
[2017-06-14] MEDS: Bumetanide 1 MG Tab PO SCH (08:00)
--- NOTE | 2017-06-14 23:49 | PCM.DCSUM1 ---
Discharge Summary - Discharge Data Discharge Date: 06/14/17 Discharge Disposition: Home, W Home Health Agency 06 Condition: Good - Discharge Diagnosis/Problem(s) (1) Anasarca SNOMED Code(s): 246746203 ICD Code: R60.1 - GENERALIZED EDEMA Status: Acute Priority: High (2) CHF (congestive heart failure) SNOMED Code(s): 90083881 ICD Code: I50.9 - HEART FAILURE, UNSPECIFIED Status: Acute Priority: High Qualifiers: (3) Chronic atrial fibrillation SNOMED Code(s): 755869069 ICD Code: I48.2 - CHRONIC ATRIAL FIBRILLATION Status: Acute Priority: Medium (4) Hypoxia SNOMED Code(s): 957192430 ICD Code: R09.02 - HYPOXEMIA Status: Acute Priority: High (5) Pacemaker SNOMED Code(s): 193092692 ICD Code: Z95.0 - PRESENCE OF CARDIAC PACEMAKER Status: Acute Priority: Medium (6) Diabetes SNOMED Code(s): 07434365 ICD Code: E11.9 - TYPE 2 DIABETES MELLITUS WITHOUT COMPLICATIONS Status: Chronic Priority: Medium (7) Hyperlipidemia SNOMED Code(s): 98285226 ICD Code: E78.5 - HYPERLIPIDEMIA, UNSPECIFIED Status: Chronic Priority: Low Qualifiers: - Patient Summary/Data Consults: Consultations 05/31/17 17:19 Consult to Case Management [CONS] Routine OT Evaluation and Treatment [CONS] Routine PT Evaluation and Treatment [CONS] Routine - Patient Instructions Diet: Diabetic Diet Activity: As Tolerated Driving: Do Not Drive Showering/Bathing: May Shower - Discharge Plan Prescriptions/Med Rec: Bumetanide [Bumex] 2 mg PO BIDDIURETIC #180 tablet Home Medications: Home Meds Gabapentin [Neurontin] 100 mg PO DAILY 05/27/17 [History] Insulin Glarg,Human.Rec.Analog [Lantus Solostar] 14 units SQ BEDTIME 05/27/17 [ History] Levothyroxine 25 mcg PO DAILY@0730 05/27/17 [History] Lisinopril 20 mg PO DAILY 05/27/17 [History] Lovastatin 40 mg PO BEDTIME 05/27/17 [History] Omeprazole 40 mg PO BIDAC 05/27/17 [History] Triamcinolone Acetonide [Triamcinolone Acetonide 0.1% Crm] 1 applic TOP BID@, 05/27/17 [History] Warfarin Sodium [Coumadin] 4 mg PO SUMOWETHFRSA@1800 05/27/17 [History] Warfarin [Coumadin] 8 mg PO TU@1800 05/27/17 [History] oxyCODONE 10 mg PO BID@,05/27/17 [History] Lutein/Min/Vit C/Vit E Acetate [Ocuvite Lutein] 1 cap PO DAILY 05/31/17 [History ] Acetaminophen [Tylenol Extra Strength] 500 mg PO BID@, tablet 06/13/17 [Rx] Bumetanide [Bumex] 2 mg PO BIDDIURETIC #180 tablet 06/13/17 [Rx] - Discharge Summary/Plan Comment DC Time >30 min.: No - Patient Data Vitals - Most Recent: Last Vital Signs Temp 97.8 F 06/14/17 08:00 Pulse 63 06/14/17 08:00 Resp 16 06/14/17 08:00 BP 146/63 H 06/14/17 08:00 Pulse Ox 93 L 06/14/17 08:00 Weight - Most Recent: 299 lb 11.2 oz Lab Results - Last 24 hrs: Laboratory Results - last 24 hr 06/14/17 06/14/17 06/14/17 Range/Units 07:05 07:05 07:05 WBC 4.4 (4.0-10.2) K/uL RBC 2.57 L (4.33-5.41) M/uL Hgb 8.6 L (13.1-16.8) g/dL Hct 28.0 L (39.0-49.0) % MCV 108.9 H (84.0-98.0) fL MCH 33.5 H (28.2-33.3) pg MCHC 30.7 L (31.7-36.0) g/dL RDW 16.1 H (11.2-14.1) % Plt Count 132 L (150-350) K/uL Neut % (Auto) 72.1 (45.0-80.0) % Lymph % (Auto) 12.9 (10.0-50.0) % [place] % (Auto) 12.0 (2.0-14.0) % Eos % (Auto) 2.5 (0.0-5.0) % Baso % (Auto) 0.5 (0.0-2.0) % Neut # (Auto) 3.19 (1.40-7.00) K/uL Lymph # (Auto) 0.57 (0.50-3.50) K/uL [place] # (Auto) 0.53 (0.00-1.00) K/uL Eos # (Auto) 0.11 (0.00-0.50) K/uL Baso # (Auto) 0.02 (0.00-0.20) K/uL PT 15.3 H (9.8-11.7) SEC INR 1.4 Sodium 144 (136-145) mmol/L Potassium 3.8 (3.5-5.1) mmol/L Chloride 101 (98-107) mmol/L Carbon Dioxide 42.0 H* (21.0-32.0) mmol/L BUN 42 H (7-18) mg/dL Creatinine 0.90 (0.51-1.17) mg/dL Est Cr Clr Drug Dosing 80.05 mL/min Estimated GFR (MDRD) > 60 mL/min Glucose 101 (74-106) mg/dL POC Glucose (65-110) mg/dl Calcium 8.5 (8.5-10.1) mg/dL Magnesium 1.5 L (1.8-2.4) mg/dL Total Bilirubin 0.5 (0.2-1.0) mg/dL AST 23 (15-37) U/L ALT 18 (12-78) U/L Alkaline Phosphatase 134 H (46-116) IU/L C-Reactive Protein 1.2 H (<=0.9) mg/dL Total Protein 7.2 (6.4-8.2) g/dL Albumin 3.1 L (3.4-5.0) g/dL 06/14/17 Range/Units 08:10 WBC (4.0-10.2) K/uL RBC (4.33-5.41) M/uL Hgb (13.1-16.8) g/dL Hct (39.0-49.0) % MCV (84.0-98.0) fL MCH (28.2-33.3) pg MCHC (31.7-36.0) g/dL RDW (11.2-14.1) % Plt Count (150-350) K/uL Neut % (Auto) (45.0-80.0) % Lymph % (Auto) (10.0-50.0) % [place] % (Auto) (2.0-14.0) % Eos % (Auto) (0.0-5.0) % Baso % (Auto) (0.0-2.0) % Neut # (Auto) (1.40-7.00) K/uL Lymph # (Auto) (0.50-3.50) K/uL [place] # (Auto) (0.00-1.00) K/uL Eos # (Auto) (0.00-0.50) K/uL Baso # (Auto) (0.00-0.20) K/uL PT (9.8-11.7) SEC INR Sodium (136-145) mmol/L Potassium (3.5-5.1) mmol/L Chloride (98-107) mmol/L Carbon Dioxide (21.0-32.0) mmol/L BUN (7-18) mg/dL Creatinine (0.51-1.17) mg/dL Est Cr Clr Drug Dosing mL/min Estimated GFR (MDRD) mL/min Glucose (74-106) mg/dL POC Glucose 89 (65-110) mg/dl Calcium (8.5-10.1) mg/dL Magnesium (1.8-2.4) mg/dL Total Bilirubin (0.2-1.0) mg/dL AST (15-37) U/L ALT (12-78) U/L Alkaline Phosphatase (46-116) IU/L C-Reactive Protein (<=0.9) mg/dL Total Protein (6.4-8.2) g/dL Albumin (3.4-5.0) g/dL Med Orders - Current: Current Medications Discontinued Medications Acetaminophen (Tylenol Extra Strength) 500 mg PO BID [facility] Last Admin: 06/01/17 17:18 Dose: 500 mg Acetaminophen (Tylenol Extra Strength) 500 mg PO BID@08,20 [facility] Last Admin: 06/14/17 07:59 Dose: 500 mg Bumetanide (Bumex) 2 mg PO DAILY@1600 [facility] Last Admin: 06/03/17 15:12 Dose: 2 mg Bumetanide (Bumex) 2 mg PO BIDDIURETIC [facility] Last Admin: 06/14/17 08:00 Dose: Not Given Furosemide (Lasix) 40 mg IVPUSH BIDDIURETIC [facility] Last Admin: 06/03/17 12:25 Dose: 40 mg Gabapentin (Neurontin) 100 mg PO DAILY [facility] Last Admin: 06/14/17 07:56 Dose: 100 mg Insulin Detemir (Levemir) 14 unit SUBCUT BEDTIME [facility] Last Admin: 06/13/17 20:10 Dose: 14 units Levothyroxine Sodium (Levothyroxine) 25 mcg PO DAILY@0730 [facility] Last Admin: 06/14/17 07:54 Dose: 25 mcg Lisinopril (Prinivil) 20 mg PO DAILY [facility] Last Admin: 06/14/17 07:58 Dose: 20 mg Lovastatin (Mevacor) 40 mg PO BEDTIME [facility] Last Admin: 06/13/17 20:12 Dose: 40 mg Omeprazole (Omeprazole) 40 mg PO BIDAC [facility] Last Admin: 06/14/17 07:54 Dose: 40 mg Oxycodone HCl (Oxycodone) 10 mg PO BID@,20 [facility] Last Admin: 06/14/17 07:57 Dose: 10 mg Sodium Chloride (Saline Flush) 10 ml FLUSH ASDIRECTED PRN PRN Reason: Keep Vein Open Last Admin: 06/03/17 12:25 Dose: 10 ml Sodium Chloride (Saline Flush) 10 ml FLUSH Q12HR [facility] Last Admin: 06/05/17 08:29 Dose: 10 ml Sodium Chloride (Saline Flush) 10 ml FLUSH ASDIRECTED PRN PRN Reason: Keep Vein Open Triamcinolone Acetonide (Triamcinolone Acetonide 0.1% Crm) 0 gm TOP BID@08,20 [facility] Last Admin: 06/03/17 07:50 Dose: 1 applicful Triamcinolone Acetonide (Triamcinolone Acetonide 0.1% Crm) 0 gm TOP BID@08,20 [facility] Last Admin: 06/14/17 07:59 Dose: 1 applic Vit C/Vit E/Zinc/Copper/Lutein (Ocuvite Lutein) 1 each PO DAILY [facility] Last Admin: 06/01/17 09:00 Dose: 1 each Vit C/Vit E/Zinc/Copper/Lutein (Ocuvite Lutein) 1 each PO BID [facility] Last Admin: 06/01/17 17:18 Dose: 1 each Vit C/Vit E/Zinc/Copper/Lutein (Ocuvite Lutein) 1 each PO BID@08,20 [facility] Last Admin: 06/14/17 07:56 Dose: 1 each Warfarin Sodium (Coumadin) 4 mg PO SUMOWETHFRSA@1800 [facility] Last Admin: 06/13/17 17:42 Dose: 4 mg Warfarin Sodium (Coumadin) 8 mg PO TU@1800 [facility] Last Admin: 06/11/17 17:13 Dose: 8 mg *Q Meaningful Use (DIS) - VTE *Q VTE Criteria *Q: - Stroke *Q Stroke Criteria *Q: - AMI *Q AMI Criteria *Q:
== END 2017-06-14 10:45 | disposition home health service (06) | DRG 948 ==
LOC: LL.MS 17:28 → LL.SWG 06-04 15:53
PROVIDERS: ADMIT Family Medicine; ATTEND Family Medicine
DX: R53.1 Weakness (principal); I50.9 Heart failure, unspecified; R09.02 Hypoxemia; I48.2 Chronic atrial fibrillation; E78.5 Hyperlipidemia, unspecified; Z95.0 Presence of cardiac pacemaker; R60.1 Generalized edema; E11.42 Type 2 diabetes mellitus with diabetic polyneuropathy; Z79.4 Long term (current) use of insulin; H91.90 Unspecified hearing loss, unspecified ear; H35.30 Unspecified macular degeneration; Z88.1 Allergy status to other antibiotic agents; Z91.048 Other nonmedicinal substance allergy status; Z79.01 Long term (current) use of anticoagulants; Z79.82 Long term (current) use of aspirin; Z79.899 Other long term (current) drug therapy
CPT/HCPCS: 36415; 51798; 71046; 80048; 80053; 82803; 82962; 83735; 83880; 85025; 85610; 86140; 94761; 97110-GO; 97110-GP; 97116-GP; 97161-GP; 97165-GO; 97530-GO; 97530-GP; 97535-GO; A9270-GY; J1940; J7050

== ENCOUNTER 2020-04-12 10:08 | Inpatient (IN) | payer MEDICARE, MEDICAID ==
[2020-04-12] MEDS ORDERED: Polyethylene Glycol 3350 Powder 17 GM Packet PO PRN (13:13)
[2020-04-12] MEDS ORDERED: Melatonin 3 MG Tab PO PRN (13:13)
--- NOTE | 2020-04-12 15:09 | PCM.HP.2 ---
H&P History of Present Illness - General Date of Service: 04/12/20 Admit Problem/Dx: Admission Diagnosis/Problem Admission Diagnosis/Problem Osteomyelitis of foot Source of Information: Patient, Other ([facility] discharge packet) History Limitations: Reports: No Limitations - History of Present Illness Initial Comments - Free Text/Narative: Patient sent to our facility for Swing Bed admission in order to continue receiving IV antibiotics for treatment of right diabetic foot infection/osteomyelitis. Treated acutely at [facility] prior to transfer. - Related Data Allergies/Adverse Reactions: Allergies Allergy/AdvReac Type Severity Reaction Status Date / Time adhesive Allergy Bright red Verified 09/11/17 15:03 rash adhesive tape Allergy Bright red Verified 09/11/17 15:03 rash ciprofloxacin [From Cipro] Allergy Cannot Verified 09/11/17 15:03 Remember Home Medications: Home Meds Gabapentin [Neurontin] 100 mg PO DAILY@1800 05/27/17 [History] Levothyroxine 25 mcg PO DAILY@0730 05/27/17 [History] Lovastatin 40 mg PO BEDTIME 05/27/17 [History] Warfarin Sodium [Coumadin] 4 mg PO SUTUWETHSA@1800 05/27/17 [History] Warfarin [Coumadin] 8 mg PO MOFR@1800 05/27/17 [History] oxyCODONE 5 mg PO Q4HR PRN 05/27/17 [History] Acetaminophen 500 mg PO Q6HR 04/12/20 [History] Bumetanide [Bumex] 1 mg PO BIDDIURETIC 04/12/20 [History] Ferrous Sulfate 2 tab PO DAILY 04/12/20 [History] Insulin Glarg,Human.Rec.Analog [Lantus Solostar] 16 units SUBCUT BEDTIME 04/12/20 [History] Melatonin 1 tab PO BEDTIME PRN 04/12/20 [History] Pantoprazole Sodium [Protonix] 1 tab PO BID 04/12/20 [History] Sennosides/Docusate Sodium [Senna-Docusate Sodium Tablet] 2 tab PO BID 04/12/20 [History] Vit A/Vit C/Vit E/Zinc/Copper [Preservision] 1 cap PO BID 04/12/20 [History] ceFAZolin Sodium In 0.9 % NaCl [Cefazolin 2 G/100 ml-0.9% NaCl] 2,000 mg IV Q8HR 04/12/20 [History] lisinopriL [Lisinopril] 1 tab PO BID 04/12/20 [History] polyethylene glycoL 3350 [MiraLAX] 17 g PO DAILY PRN 04/12/20 [History] Past Medical History HEENT History: Reports: Hard of Hearing, Impaired Vision, Macular Degeneration, Other (See Below) Other HEENT History: wears glasses, left eye macular degeneration receiving injections, next injection due 06/10/17 Cardiovascular History: Reports: Afib, Heart Failure, High Cholesterol, Pacemaker Gastrointestinal History: Reports: PUD Other Gastrointestinal History: h/o GI bleed Neurological History: Reports: Neuropathy, Peripheral Endocrine/Metabolic History: Reports: Diabetes, Type II, IDDM Hematologic History: Reports: Anemia - Past Surgical History Musculoskeletal Surgical History: Reports: Amputation Social & Family History - Family History Family Medical History: Unobtainable - Living Situation & Occupation Living situation: Reports: H&P Review of Systems - Review of Systems: Review Of Systems: See Below General: Reports: Decreased Appetite (blames it on antibiotic). Denies: Fever, Chills, Malaise, Weakness, Fatigue, Night Sweats, Diaphoresis HEENT: Denies: Ear Pain, Eye Pain, Headaches, Hearing Changes, Rhinitis, Post Nasal Drip, Sinus Congestion, Sore Throat, Visual Changes Pulmonary: Denies: Shortness of Breath, Pleuritic Chest Pain, Cough, Sputum, Hemoptysis Cardiovascular: Denies: Chest Pain, Palpitations, Dyspnea on Exertion, Orthopnea, Lightheadedness, Syncope Gastrointestinal: Reports: Decreased Appetite, Other (has stomach upset since antibiotics were initiated). Denies: Diarrhea, Melena, Nausea, Vomiting Genitourinary: Reports: Other (no acute changes) Musculoskeletal: Reports: Other (no acute changes from baseline. Has discomfort right foot from osteomyelitis) Skin: Reports: Other (draining wound right foot/ulcer) Psychiatric: Reports: No Symptoms Neurological: Reports: Other (no acute changes from baseline). Denies: Dizziness, Headache Immunologic: Reports: No Symptoms Exam - Exam Exam: See Below - Vital Signs Vital Signs: Last Vital Signs Temp 36.8 C 04/12/20 13:02 Pulse 65 04/12/20 13:02 Resp 18 04/12/20 13:02 BP 149/68 H 04/12/20 13:02 Pulse Ox 93 L 04/12/20 13:02 Weight: 115.666 kg - Exam General: Alert, Oriented, Cooperative HEENT: EOMI, Pupils Equal, Pupils Reactive Neck: Supple, Trachea Midline Lungs: Clear to Auscultation, Normal Respiratory Effort Cardiovascular: Regular Rate, Regular Rhythm GI/Abdominal Exam: Other (rounded obese abdomen. No focal tenderness.). No: Guarding, Rigid, Rebound (Male) Exam: Deferred Rectal (Males) Exam: Deferred Back Exam: No: Muscle Spasm Extremities: Other (Has protective boots applied to both extremities. Darkening of skin noted below knees. Dressing over right foot ulcer left in place. Equal tone bilaterally for upper and lower extremities) Skin: Warm, Dry Neuro Extensive - Mental Status: Alert, Oriented x3, Normal Mood/Affect Sepsis Event Note - Focused Exam Vital Signs: Vital Signs Temp Pulse Resp BP Pulse Ox 04/12/20 13:02 36.8 C 65 18 149/68 H 93 L - Problem List (1) Osteomyelitis of foot, right, acute SNOMED Code(s): 8500831030972254 ICD Code: M86.171 - OTHER ACUTE OSTEOMYELITIS, RIGHT ANKLE AND FOOT Status: Acute Priority: High Current Visit: Yes Problem Details: Admitted for IV antibiotic therapy/Swing Bed after being discharged from [facility] in [place]. 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 (2) IDDM (insulin dependent diabetes mellitus) SNOMED Code(s): 21480452 ICD Code: LAH7175 - Status: Chronic Priority: Medium Current Visit: Yes Problem Details: BID glucose checks. Observe trends. (3) HTN (hypertension) SNOMED Code(s): 54026836 ICD Code: I10 - ESSENTIAL (PRIMARY) HYPERTENSION Status: Chronic Priority: Medium Current Visit: No Problem Details: Observe trends Qualifiers: Hypertension type: essential hypertension Qualified Code(s): I10 - Essential (primary) hypertension (4) Morbid obesity SNOMED Code(s): 055576335 ICD Code: E66.01 - MORBID (SEVERE) OBESITY DUE TO EXCESS CALORIES Status: Chronic Priority: Medium Current Visit: Yes (5) GERD (gastroesophageal reflux disease) SNOMED Code(s): 056193481 ICD Code: K21.9 - GASTRO-ESOPHAGEAL REFLUX DISEASE WITHOUT ESOPHAGITIS Status: Chronic Priority: Low Current Visit: No Problem Details: Stable per history Qualifiers: Esophagitis presence: esophagitis presence not specified Qualified Code(s): K21.9 - Gastro-esophageal reflux disease without esophagitis (6) Hypothyroid SNOMED Code(s): 87492847 ICD Code: E03.9 - HYPOTHYROIDISM, UNSPECIFIED Status: Chronic Priority: Low Current Visit: Yes Problem Details: Stable per history Qualifiers: Hypothyroidism type: unspecified Qualified Code(s): E03.9 - Hypothyroidism, unspecified (7) Peripheral neuropathy SNOMED Code(s): 158293294 ICD Code: G62.9 - POLYNEUROPATHY, UNSPECIFIED Status: Acute Current Visit: Yes Problem Details: stable per history Qualifiers: Peripheral neuropathy type: polyneuropathy, unspecified Qualified Code(s): G62.9 - Polyneuropathy, unspecified (8) Peripheral vascular disease SNOMED Code(s): 021811874 ICD Code: I73.9 - PERIPHERAL VASCULAR DISEASE, UNSPECIFIED Status: Acute Priority: Medium Current Visit: No Problem Details: Stable per history (9) CHF (congestive heart failure) SNOMED Code(s): 02938925 ICD Code: I50.9 - HEART FAILURE, UNSPECIFIED Status: Acute Priority: Medium Current Visit: No Problem Details: Denies changes suggestive of acute fluid overload Qualifiers: Heart failure type: unspecified (10) Hyperlipidemia SNOMED Code(s): 37226687 ICD Code: E78.5 - HYPERLIPIDEMIA, UNSPECIFIED Status: Chronic Priority: Low Current Visit: No Problem Details: under therapy Qualifiers: Hyperlipidemia type: unspecified (11) Pacemaker SNOMED Code(s): 933578145 ICD Code: Z95.0 - PRESENCE OF CARDIAC PACEMAKER Status: Chronic Priority: Low Current Visit: No (12) Chronic atrial fibrillation SNOMED Code(s): 872233703 ICD Code: I48.2 - CHRONIC ATRIAL FIBRILLATION * DO NOT USE * Status: Chronic Priority: Low Current Visit: No Problem Details: Receives Warfarin therapy. Recheck INR tomorrow. Pacemaker. (13) Renal insufficiency SNOMED Code(s): 994352233, 272280074 ICD Code: N28.9 - DISORDER OF KIDNEY AND URETER, UNSPECIFIED Status: Chronic Priority: Low Current Visit: No Problem List Initiated/Reviewed/Updated: Yes Orders Last 24hrs: Active Orders 24 hr Category Date Time Status Patient Status [ADT] Routine ADT 04/12/20 13:02 Active Blood Glucose Check, Bedside [RC] BIDMEALS Care 04/12/20 13:02 Active Height and Weight [RC] UPON Care 04/12/20 13:02 Active Oxygen Therapy [RC] PRN Care 04/12/20 13:02 Active Pulse Oximetry [RC] PRN Care 04/12/20 13:10 Active Up With Assistance [RC] ASDIRECTED Care 04/12/20 13:02 Active VTE/DVT Education [RC] PER UNIT ROUTINE Care 04/12/20 13:02 Active Vital Signs [RC] Q4H Care 04/12/20 13:02 Active Consult to Case Management/Certified Drug Counselor [CONS] Cons 04/12/20 13:02 Active Routine OT Evaluation and Treatment [CONS] Routine Cons 04/12/20 13:02 Active PT Evaluation and Treatment [CONS] Routine Cons 04/12/20 13:02 Active [employer] Diet [DIET] Diet 04/12/20 Lunch Active BASIC METABOLIC PANEL,BMP [CHEM] Routine Lab 04/18/20 05:11 Ordered BASIC METABOLIC PANEL,BMP [CHEM] Routine Lab 04/25/20 05:11 Ordered BASIC METABOLIC PANEL,BMP [CHEM] Routine Lab 05/09/20 05:11 Ordered BASIC METABOLIC PANEL,BMP [CHEM] Routine Lab 05/16/20 05:11 Ordered BASIC METABOLIC PANEL,BMP [CHEM] Routine Lab 05/23/20 05:11 Ordered BMP [BASIC METABOLIC PANEL,BMP] [CHEM] Routine Lab 05/02/20 05:11 Ordered CBC WITH AUTO DIFF [HEME] Routine Lab 04/18/20 05:00 Ordered CBC WITH AUTO DIFF [HEME] Routine Lab 04/25/20 05:11 Ordered CBC WITH AUTO DIFF [HEME] Routine Lab 05/02/20 05:11 Ordered CBC WITH AUTO DIFF [HEME] Routine Lab 05/09/20 05:11 Ordered CBC WITH AUTO DIFF [HEME] Routine Lab 05/16/20 05:11 Ordered CBC WITH AUTO DIFF [HEME] Routine Lab 05/23/20 05:11 Ordered INR,PT,PROTHROMBIN TIME [COAG] Routine Lab 04/13/20 05:11 Ordered Acetaminophen [Tylenol Extra Strength] Med 04/12/20 16:00 Ordered 500 mg PO Q6HR Bumetanide [Bumex] Med 04/13/20 08:00 Ordered 1 mg PO BIDDIURETIC Docusate Sodium/Sennosides [Senna Plus] Med 04/12/20 18:00 Ordered 2 tab PO BID Ferrous Sulfate Med 04/13/20 08:00 Ordered 650 mg PO DAILY Gabapentin [Neurontin] Med 04/12/20 18:00 Ordered 100 mg PO DAILY@1800 Heparin Sodium [Heparin Lock Flush 100 Units/ML] Med 04/12/20 16:30 Active 300 units FLUSH Q8H Insulin Glarg,Human.Rec.Analog [Lantus Solostar] Med 04/12/20 20:00 Ordered 16 units SUBCUT BEDTIME Levothyroxine Med 04/13/20 07:30 Ordered 25 mcg PO DAILY@0730 Lovastatin [Lovastatin] Med 04/12/20 20:00 Ordered 40 mg PO BEDTIME Melatonin Med 04/12/20 13:13 Ordered 3 mg PO BEDTIME PRN Pantoprazole [ProTONIX] Med 04/12/20 18:00 Ordered 40 mg PO BID Sodium Chloride 0.9% [Saline Flush] Med 04/12/20 16:30 Active 10 ml FLUSH Q8H Sodium Chloride 0.9% [Saline Flush] Med 04/12/20 16:00 Active 10 ml FLUSH Q8HR Vit A/Vit C/Vit E/Zinc/Copper [Preservision] Med 04/12/20 18:00 Ordered 1 cap PO BID Warfarin Med 04/13/20 18:00 Ordered 4 mg PO SUWETHSA@1800 ceFAZolin [Ancef] 2 gm Med 04/12/20 16:00 Active Sodium Chloride 0.9% [Normal Saline] 100 ml IV Q8HR lisinopriL [Prinivil] Med 04/12/20 18:00 Ordered 20 mg PO BID polyethylene glycoL 3350 [MiraLAX] Med 04/12/20 13:13 Ordered 17 gm PO DAILY PRN Resuscitation Status Routine Resus Stat 04/12/20 13:02 Ordered Medication Orders Acetaminophen (Tylenol Extra Strength) 500 mg PO Q6HR [facility] Atorvastatin Calcium (Lipitor) 10 mg PO BEDTIME [facility] Bumetanide (Bumex) 1 mg PO BIDDIURETIC [facility] Ferrous Sulfate (Ferrous Sulfate) 650 mg PO DAILY@1200 [facility] Gabapentin (Neurontin) 100 mg PO BEDTIME [facility] Heparin Sodium (Porcine) (Heparin Lock Flush 100 Units/Ml) 300 units FLUSH Q8H [facility] Cefazolin Sodium 2 gm/ Sodium (Chloride) 100 mls @ 200 mls/hr IV Q8HR [facility] Insulin Glargine (Lantus) 16 unit SUBCUT BEDTIME [facility] Levothyroxine Sodium (Levothyroxine) 25 mcg PO DAILY@0730 [facility] Lisinopril (Prinivil) 20 mg PO BID [facility] Melatonin (Melatonin) 3 mg PO BEDTIME PRN PRN Reason: Insomnia Non-Formulary Medication (Warfarin) 4 mg PO SUWETHSA@1800 [facility] Pantoprazole Sodium (Protonix) 40 mg PO BID [facility] Polyethylene Glycol (Miralax) 17 gm PO DAILY PRN PRN Reason: Constipation Senna/Docusate Sodium (Senna Plus) 2 tab PO BID [facility] Sodium Chloride (Saline Flush) 10 ml FLUSH Q8HR [facility] Sodium Chloride (Saline Flush) 10 ml FLUSH Q8H [facility] Vit C/Vit E/Zinc/Copper/Lutein (Ocuvite Lutein) 1 each PO BID [facility] Assessment/Plan Comment:: As above. Continue IV antibiotics. PT and OT to work with patient. - Mortality Measure Prognosis:: Good
[2020-04-12] MEDS ORDERED: [UNRECOGNIZED DRUG - OTHER] IV SCH (16:00)
[2020-04-12] MEDS ORDERED: NACL 0.9% IV SCH (16:00)
[2020-04-12] MEDS ORDERED: CEFAZOLIN SODIUM IV SCH (16:00)
[2020-04-12] MEDS: ceFAZolin 2 GM in Sodium Chloride 0.9% 100 ML IV SCH ×2 (16:22→23:01)
[2020-04-12] MEDS: Sodium Chloride 0.9% 10 ML Syringe FLUSH SCH ×4 (16:22→23:30)
[2020-04-12] MEDS: Acetaminophen 500 MG Tab PO SCH ×2 (16:22→22:57)
[2020-04-12] MEDS: Lisinopril 10 MG Tab PO SCH (17:09)
[2020-04-12] MEDS: Lutein/Minerals/Vitamin C/Vitamin E Acetate Cap PO SCH (17:09)
[2020-04-12] MEDS: Pantoprazole 40 MG Tab.CR PO SCH (17:10)
[2020-04-12] MEDS: oxyCODONE 5 MG Tab PO PRN (17:11)
[2020-04-12] MEDS: Warfarin 2 MG Tab PO SCH (17:11)
[2020-04-12] MEDS ORDERED: Lisinopril 10 MG Tab PO SCH (18:00)
[2020-04-12] MEDS: Gabapentin 100 MG Cap PO SCH (19:50)
[2020-04-12] MEDS: atorvaSTATin 10 MG Tab PO SCH (19:50)
[2020-04-12] MEDS: Insulin Glarg,Human.Rec.Analog 100 Unit/ML SUBCUT SCH (19:52)
[2020-04-13] MEDS: Acetaminophen 500 MG Tab PO SCH ×4 (05:45→21:23)
--- OUTSIDE RECORDS SUMMARY | 2020-04-13 07:52 | XMSREPORT ---
:1940 Author Organization [facility] s Address [facility] [place] [address] Care Team Providers Name Role Phone Jordin Ratliff MD Referring Physician Provider, Attributed RESOURCE Attributed Provider Unavailab LEVY Dupree Primary Care Provider Reason for Referral (Routine) Status Reason Specialty Diagnoses / Procedures Referred By Jordin cervantes Referred To Contact [facility] [address] [place] [address] Phone: FCC Prior Auth (Routine) Status Reason Specialty Diagnoses / Procedures Referred By Debra koroma To Contact Contact NOT REQUIRED Diagnoses Subacute osteomyelitis of right foot (HCC) MSSA (methicillin susceptible Staphylococcus aureus) infection [place] Procedures HOME INFUSION ADULT ANTIBIOTIC J, DO [address] [place] [address] [facility] (Routine) Status Reason Specialty Diagnoses / Referred By Referred To Procedures Contact Contact New Request Vascular Surgery Diagnoses Ulcer of right foot with other severity (HCC) Right foot infection Kristopher Portillo Fgo Vasc Srg C, DPM [facility] [address] [place] [address] [place] [address] Phone: Fax: Scheduling Instructions This is an electronic referral. Reason for Visit Auth/Cert Status Reason Specialty Diagnoses / Procedures Referred By Jordin cervantes Referred To Contact Encounter Details Date Type Department Care Team Description 04/04/2020 - [facility] Provider, Generic Hosp Proc edure Atrial fibrillation 04/12/[address] Josh Holt MD [address] [place], [place] [id number] ([facility]) [address] [facility] Johanna Schmitt MD [address] [place], [place] [id number] [place] [address] Allergies Active Allergy Reactions Severity Noted Date Comments Adhesives Itching, Rash 06/17/2012 Ciprofloxacin Unknown/Not Verified, Rash 09/03/2017 documented as of this encounter (statuses as of 04/12/2020) Medications Medication Sig Dispensed Refills Start End Status Date Date blood glucose test Testing home 50 Strip 5 Active strip (ACCU-CHEK SYEDA glucose twice a 013 PLUS) day. DM Type II 250.00 INSULIN NEEDLE 31G x 8 0 Active mm (5/16 inch) Short 019 insulin needle (BD Inject 0 A ctive ULTRAFINE PEN NEEDLE) subcutaneously 019 31G X 8 mm (5/16") Short acetaminophen Take 1 tablet 40 tablet 0 04/21/ Ac tive (TYLENOL) 500 mg (500 mg) by mouth 2020 tabletIndications: Every 6 hours for Right foot infection, 10 days Post-operative state oxyCODONE (OXY-IR) 5 Take 1 tablet (5 20 tablet 0 2 / Active mg tablet (immediate mg) by mouth 2020 release)Indications: Every 4 hours as Right foot infection, needed for other Post-operative state (Specify) (severe pain rating of 7-10) for up to 3 days ceFAZolin Administer 2,000 0 Act theodore (ANCEF;KEFZOL) 2,000 mg intravenously 021 mg in sodium chloride Every 8 hours 0.9% 50 mLIndications: Subacute osteomyelitis of right foot (HCC), MSSA (methicillin susceptible Staphylococcus aureus) infection warfarin (COUMADIN) 4 Current dose as 0 Active MG tabletIndications: of 04/04/20 2 021 Atrial fibrillation, tablets mon and unspecified type (HCC) fridays 1 tablet all other daysCurrent dose as of 04/04/20 2 tablets sat and fridays 1 tablet all other days gabapentin (NEURONTIN) Take 1 capsule 0 Active 100 mg (100 mg) by mouth 021 capsuleIndications: every night at Post-operative state bedtime LANTUS SOLOSTARE Inject 16 Units 0 Active subcutaneous injection subcutaneously 021 solution every night at (pen)Indications: Type bedtime 2 diabetes mellitus with stage 2 chronic kidney disease, with long-term current use of insulin (HCC) lovastatin (MEVACOR) Take 1 tablet (40 0 Active 40 mg mg) by mouth 021 tabletIndications: every night at Hypercholesterolemia bedtime lisinopril (PRINIVIL, Take 1 tablet (10 Active ZESTRIL) 10 mg mg) by mouth 2 021 tabletIndications: times a day Essential hypertension bumetanide (BUMEX) 1 Take 1 tablet (1 Active mg tabletIndications: mg) by mouth 2 021 Essential hypertension times a day ferrous sulfate (65 MG Take 2 tablets 30 tablet Active FE PER 325 MG TABLET) (650 mg) by mouth 021 325 mg 1 time per day tabletIndications: Iron deficiency anemia, unspecified iron deficiency anemia type polyethylene glycol Take 3 0 Active (MIRALAX) 17 GM/SCOOP teaspoonsful (17 021 powderIndications: S/P g) by mouth 1 transmetatarsal time a day as amputation of foot, needed for right (HCC) constipation senna-docusate sodium Take 2 tablets by 0 Active (SENOKOT-S;PERICOLACE) mouth 2 times a 021 8.6-50 MG day Hold for >2-3 tabletIndications: S/P BMs per day or transmetatarsal loose stools amputation of foot, right (HCC) melatonin 3 mg Take 1 tablet (3 30 tablet Active tabletIndications: mg) by mouth at 021 Hypothyroidism bedtime as needed (acquired) for other (Specify) (insomnia) Multiple Take 1 capsule by Ac tive Vitamins-Minerals (GNP mouth 2 times a 021 HEALTHY EYES day SUPERVISION 2) CAPSIndications: Takes dietary supplements levothyroxine 25 mcg Take 1 tablet (25 0 Active tabletIndications: mcg) by mouth 1 021 Hypothyroidism time a day in the (acquired) morning pantoprazole Take 1 tablet (40 90 tablet 3 Active (PROTONIX) 40 mg mg) by mouth 2 021 enteric coated times a day tabletIndications: before meals Type 2 diabetes mellitus with stage 2 chronic kidney disease, with long-term current use of insulin (HCC) acetaminophen Take 2 tablets by 0 06/10/2 04/12/ Discontinued (TYLENOL) 325 mg mouth every 6 2020 (Stop Taking tablet hours as needed at D ischarge) for mild pain. hydrochlorothiazide 25 Take by mouth 1 0 04/04/ Discontinued mg tablet time per day. 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 Provider Dr. Alona Ohara in [place]. omeprazole (PRILOSEC) take one twice a 60 capsule 0 2 04/04/ Discontinued 40 mg capsule day by mouth 2020 (Da ta entry before meals error) lovastatin (MEVACOR) Take 40 mg by 0 04/12 / Discontinued 40 mg tablet mouth every night 2020 (Reorder) at bedtime. gabapentin (NEURONTIN) Take 100 mg by 0 / Discontinued 100 mg capsule mouth every night 2020 (Reorder) at bedtime bumetanide (BUMEX) 1 Take 2 mg by 0 04/12/ Discontinued mg tablet mouth 2 times a 2020 (Reo rder) day levothyroxine 25 mcg Take 25 mcg by 0 08/27/03/25 9/ Discontinued tablet mouth 1 time a 2020 (Reor jhoana) day in the morning warfarin (COUMADIN) 4 Current dose as 0 / Discontinued MG tablet of 04/04/20 2 2020 (Reord er) tablets mon and fridays 1 tablet all other days ferrous sulfate (65 MG Take 650 mg by 0 09/13/2 / Discontinued FE PER 325 MG TABLET) mouth 1 time per 018 2 021 (Reorder) 325 mg tablet day oxyCODONE (OXY-IR) 5 Take 10 mg by 0 04/09/2 04/12 / Discontinued mg tablet (immediate mouth 2 times a (Stop Taking release) day at Dischar ge) pantoprazole 0 2 04/04/ Discont inued (PROTONIX) 40 mg 018 2020 (Di scontinued enteric coated tablet by Physician) polyethylene glycol Take 1 capful by 0 / Discontinued (MIRALAX) powder mouth 1 time a 2020 (Reorder) day as needed LANTUS SOLOSTARE Inject 16 Units 0 04/12/ Discontinued subcutaneous injection subcutaneously (Reorder) solution (pen) every night at bedtime lisinopril (PRINIVIL, Take 10 mg by 0 03/25 9/ Discontinued ZESTRIL) 10 mg tablet mouth 2 times a (Reorder) day pantoprazole Take 40 mg by 0 04/12/ Dis continued (PROTONIX) 40 mg mouth 2 times a 2020 (Reorder) enteric coated tablet day before meals ibuprofen (MOTRIN) 600 Take 1 tablet 40 tablet 0 2 / Discontinued mg tabletIndications: (600 mg) by mouth 2020 (Discontinued Right foot infection, Every 6 hours for by Physician) Post-operative state 10 days Stagger the acetaminophen and ibuprofen so that you are alternating them every three hours aspirin (ECOTRIN) 325 Take 1 tablet 14 tablet 0 04/11/2 03/25 8/ Discontinued mg enteric coated (325 mg) by mouth 2020 (Discontinued tabletIndications: 1 time per day by Physician) Right foot infection, for 14 days Post-operative state documented as of this encounter (statuses as of 04/12/2020) Active Problems Problem Noted Date Chronic osteomyelit w draining sinus, unsp tibia and f ibula 04/05/2020 COVID-19 01/20/2020 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 04/03/2019 S/P transmetatarsal amputation of foot, right 04/03/19 20 History of peptic ulcer disease 09/09/2017 Overview: Overview: Added automatically from request for dilshad whaley [id number] Diabetic foot ulcer 07/13/2012 Cellulitis 07/13/2012 Atrial fibrillation 09/10/2011 Infection with drug-resistant microorganisms 1 Type 2 diabetes mellitus Essential hypertension Other and unspecified hyperlipidemia documented as of this encounter (statuses as of 04/12/2020) Resolved Problems Problem Noted Date Resolved Date Epistaxis 07/09/2011 04/04/2020 Ulcer of lower limb 06/15/2010 04/04/2020 Elevated blood pressure reading without diagnosis of 04/04/2020 hypertension documented as of this encounter (statuses as of 04/12/2020) Immunizations Name Administration Dates Next Due Pneumococcal Polysaccharide PPSV23 01/30/2006 Zoster Live(Zostavax) 01/19/2008 documented as of this encounter Social History Tobacco Use Types Packs/Day Years Used Date Former Smoker Cigarettes 2 Quit: 03/25/18 72 Smokeless Tobacco: Never Used Alcohol Use Drinks/Week oz/Week Comments Yes 21 Standard drinks or equiva lent 19.2 - 20.0 3-4 drinks per day-none for 2-3 Rare/Occasional the last sat. Sex Assigned at Date Recorded Not on file documented as of this encounter Last Filed Vital Signs Vital Sign Reading Time Taken Comments Blood Pressure 144/63 04/12/2020 7:36 AM HAND FORMER HELPER Pulse 59 04/12/2020 7:36 AM HAND FORMER HELPER Temperature 36.4 C (97.6 F) 04/12/2020 7:36 AM HAND FORMER HELPER Respiratory Rate 16 04/12/2020 7:36 AM HAND FORMER HELPER Oxygen Saturation 98% 04/12/2020 7:36 AM HAND FORMER HELPER Inhaled Oxygen Concentration - - Weight 115.7 kg (255 lb) 04/04/2020 4:44 PM HAND FORMER HELPER Height 185.4 cm (6' 1") 04/04/2020 4:44 PM HAND FORMER HELPER Body Mass Index 33.64 04/04/2020 4:44 PM HAND FORMER HELPER documented in this encounter Functional Status Functional Status Response Date of Assessment Do you have difficulty with walking, balance, climbing No 09/03/2017 stairs, or had a fall in the last 3 months? documented as of this encounter Discharge Summaries Not on filedocumented in this encounter Discharge Instructions Teressa Wolf RN - 04/11/2020 Discharge Instructions: Caring for Your Peripherally Inserted Central Catheter (PICC) You are going home with a peripherally inserted central catheter (PICC). This small, soft tube has been placed in a vein in your arm. It is often used when treatment requires medicines or nutrition forweeks or months. At home, you need to take care of your PICC to keep it working.Because a PICC line has a high infection risk, you must take extra care washing your hands and preventing the spread ofgerms. This sheet will help you remember what to do to care for your PICC at home. Understanding your role A nurse or other healthcare provider will teach you and your caregivers how to care for the PICC.Before leaving the hospital, make sure you understand what to do at home, how long you may need the PICC, and when to have a follow-up visit. You will likely be told to flush the PICC with saline or heparin solution. You may also be told to change the catheters injection caps and change the dressing (bandage). Or, a nurse may do this for you during a follow-up visit. Only do these things if youre told to, following the instructionsyou were given. Protecting the PICC If the PICC gets damaged, it wont work right and could raise your chance of infection. Call your healthcare team right away if any damage occurs. To protect the PICC at home: Prevent infection. Use good hand hygiene by following the guidelines on this sheet. Dont touchthe catheter or dressing unless you need to. And always clean your hands before and after you come in contact with any part of the PICC. Your caregivers, family members, and any visitors should use good hand hygiene, too. Keep the PICC dry. The catheter and dressing must stay dry. Dont take baths, go swimming, use a hot tub, or do other things that could get the PICC wet. Take a sponge bath to avoid getting your catheter wet, unless your healthcare provider tells you otherwise. Ask your provider about the best way to keep your catheter dry when bathing or showering. If the dressing does get wet, change it only if you have been shown how. Otherwise, call your healthcare team right away for help. Avoid damage. Dont use any sharp or pointy objects around the catheter. This includes scissors, pins, knives, razors, or anything else that could cut it or put a hole in it (puncture it). Also, dont let anything pull or rub on the catheter, such as clothing. Watch for signs of problems. Pay attention to how much of the catheter sticks out from your skin.If this changes at all, let your healthcare provider know. Also watch for cracks, leaks, or other damage. If the dressing becomes dirty, loose, or wet, change it (if you have been instructed to). Or call your healthcare team right away. Avoid lowering your chest below your waist. This includes bending at the waist to do things like tying your shoes. When your chest is below your waist, especially for a long time, the catheters internal tip could slip out of place in the vein. Tell your healthcare team if you vomit or have severe coughing. This can also make the catheter slip out of place. Protecting your arm The arm with the PICC is at risk for developing blood clots (thrombosis). This is a serious problem.To help prevent it: As much as possible, use the arm with the PICC in it for normal daily activities. Lack of movement can lead to blood clots. So its important to move your arm as you normally would. Your healthcare team may suggest light arm exercises. Avoid activities or exercises that require major use of your arm, such as sports, unless your healthcare provider says its OK. Avoid any activities that cause mild pain in your arm. Talk to your healthcare team if you have concerns about pain or range of motion. Dont lift anything heavier than 10 pounds with the affected arm. Drink plenty of water. Staying hydrated helps keep clots from forming. Prevent infection with good hand hygiene A PICC can let germs into your body. This can lead to serious and sometimes deadly infections. To prevent infection, its very important that you, your caregivers, and others around you use good handhygiene. This means washing your hands well with soap and water, and cleaning them with an alcohol-based hand gel as directed. Never touch the PICC or dressing without first using one of these methods. To wash your hands with soap and water: Wet your hands with warm water. (Avoid hot water, which can cause skin irritation when you wash your hands often.) Apply enough soap to cover the whole surface of your hands, including your fingers. Rub your hands together vigorously for at least 15 seconds. Make sure to rub the front and back of each hand up to the wrist, your fingers and fingernails, between the fingers, and each thumb. Rinse your hands with warm water. Dry your hands completely with a new, unused paper towel. Dont use a cloth towel or other reusable towel. These can harbor germs. Use the paper towel to turn off the faucet, then throw it away. If youre in a bathroom, also use a paper towel to open the door instead of touching the handle. When you dont have access to soap and water: Use an alcohol-based hand gel to clean your hands.The gel should have at least 60% alcohol. Follow the instructions on the package. Your healthcare team can answer any questions you have about when to use hand gel, or when its better to wash with soap and water. When to seek medical care Call your provider right away if you have any of the following: Pain or burning in your shoulder, chest, back, arm, or leg Fever of 100.4F (38.0C) or higher Chills Signs of infection at the catheter site (pain, redness, drainage, burning, or stinging) Coughing, wheezing, or shortness of breath A racing or irregular heartbeat Muscle stiffness or trouble moving Tightness in your arm, above the catheter site Gurgling noises coming from the catheter The catheter falls out, breaks, cracks, leaks, or has other damage Date Last Reviewed: 09/23/201519993946-9733 [employer]. [address] [place] [address]. All rights reserved. This information is not intended as a substitute for professional medical care. Always follow your healthcare professional's instructions. Central Line Infections Good handwashing helps prevent central line infections. You need a central line as part of your treatment. Its also called a central venous access device(CVAD) or central venous catheter (CVC). A small, soft tube called a catheter is put in a vein that leads to your heart. The central line is used instead of a standard IV (intravenous) line. It does not need to be replaced as often as a standard IV. This means less pain and fewer needlesticks during treatment. But central lines come with a risk of infection. This sheet tells you more about central line infections and what hospitals are doing to prevent them. And it explains how an infection is treated, if one occurs. Types of central lines With a central line, a catheter is inserted into your body through a vein that leads to the large vein near the heart (vena cava). Types of central lines and their risk of infection are listed below. Which type is best for you depends on your needs and your overall health. Your healthcare provider cantell you which type of line you need, and why. Peripherally inserted central catheter (PICC).This is placed in a large vein in the upper arm, or near the bend of the elbow. Subclavian line. Thisis placed in a vein that runs behind the collarbone. Internal jugular line.This is placed into a large vein in the neck. Infection risk is higher than with a PICC or subclavian line, but lower than with a femoral line. Femoral line.This may be placed in a large vein in the groin. This site is generally not usedbecause of an increased risk for infection. Tunneled catheter. This is run through the soft tissue under the skin before it enters a vein. A small cuff helps hold the catheter in place. Both the tunnel and the cuff help prevent infection. This type of catheter may be placed in any of the above locations. Port. This small device is placed completely under the skin on the arm or chest. Its connectedto a catheter that is threaded into the vena cava. Types of infections A central line provides a direct path into your bloodstream. This gives germs possible access into your body. All types of central lines are associated with some risk of infection. Often, the germs that cause a central line infection come from your own skin. There are 2 possible types of infection: Local infection. This can occur where the central line enters your body. Symptoms include redness, pain, or swelling at or near the catheter site, pain or tenderness along the path of the catheter, and drainage from the skin around the catheter. Systemic infection (also called bacteremia). This can occur if germs get into the bloodstream. This is very serious and can be fatal. Symptoms include sudden fever, shaking chills, a racing heartbeat, confusion, change in behavior, and a skin rash. Risk factors for infection Anyone who has a central line can get an infection. Your risk is higher if you: Are in the intensive care unit (ICU). Have a weakened immune system or serious illness. Are receiving bone marrow or chemotherapy. Have the line for an extended time. Have a central line in your neck or groin. How central line infections are treated Treatment depends on the type of central line, how severe the infection is, and your overall health.Your healthcare provider will prescribe antibiotics to fight the infection. The line may also need to be removed. In some cases, the line is flushed with high doses of antibiotics. This may kill the germs causing the infection, so the line doesnt have to be removed. What hospitals do to prevent infection Hospitals have a plan to reduce central line infections. This plan includes: Good hand hygiene. Hospital staff clean their hands before and after touching the line. They washtheir hands with soap and water. Or they use an alcohol-based hand service line bus cleaner containing at least 60% alcohol. Using sterile practices during placement. The healthcare worker who places the line wears germ-free (sterile) clothing including a long-sleeved gown and gloves. Before the line is placed, your skin is cleaned with an antiseptic solution. During placement, you are fully covered with a large sterile sheet (a sterile drape). Only the spot where the line is placed is exposed. After placement, the sitewhere the line enters the body is covered with a sterile bandage (dressing). Choosing a lower-risk vein. Whenever possible, the line is placed in the vein that's right for your treatment and has the lowest infection risk. Some hospitals use lines coated with an antiseptic toreduce the chance of infection. Checking for infection. The line is checked frequently for infection. It is removed as soon as you no longer need it. What you can do to prevent infection Before you get a central line, ask questions. Find out why you need the line and where it will be placed. Learn what steps the hospital is taking to reduce your infection risk. Once the line has been placed, you, your caretakers, and any visitors can help prevent infection by doing the following: Use good hand hygiene. Wash your hands often with soap and water, and use alcohol-based hand gel as directed. To clean your hands effectively, follow the guidelines on this sheet. Visitors should wash hands well when they arrive and when they leave. Make sure healthcare staff clean their hands. They should use soap and water or an alcohol-based hand service line bus cleaner before and after checking the line. Dont be afraid to remind them. Keep the line dry. Follow your providers guidelines for showering. If the dressing does get wet, tell your healthcare provider right away. Dont touch the line. Even when your hands are clean, try not to touch the catheter or dressing. Learn the sterile dressing technique. This is important if you will be caring for the line at home. Your provider can show you what to do. Risk for blood clot If a blood clot forms it can block blood flow through the vein where the catheter is placed. Signs of a blood clot include pain or swelling in the neck, face, chest, or arm. If you have any of these symptoms, call your healthcare provider right away. You may need an ultrasound exam to locate the bloodclot and receive treatment with a blood thinner. How to wash your hands To protect the central line from germs, its very important to wash your hands often and clean them well. You and anyone who comes in contact with you should follow these steps: Wet your hands with warm water. (Avoid hot water. It can cause skin irritation when you wash yourhands often.) Apply enough soap to cover the entire surface of your hands, including your fingers. Rub your hands together briskly for at least 15 seconds. Make sure to rub the front and back of each hand up to the wrist, your fingers and fingernails, between the fingers, and each thumb. Rinse your hands with warm water. Dry your hands completely with a new, unused paper towel. Dont use a cloth towel or other reusable towel. These can harbor germs. Use the paper towel to turn off the faucet, then throw it away. If youre in a bathroom, also use a paper towel to open the door instead of touching the handle. Using alcohol-based hand gels When you dont have access to soap and water, alcohol-based hand gels are a good choice for cleaning your hands. The gel should have at least 60% alcohol. Note that some germs can't be killed by alcohol. Your healthcare team can answer any questions you have about when to use hand gel, or when its better to wash with soap and water. Follow these steps: Spread about 1 tablespoon of gel in the palm of one hand. (Check the package for specific guidelines.) Rub your hands together briskly. Clean the backs of your hands, the palms, between your fingers, and up your wrists. Rub until the gel is gone and your hands are completely dry. When to seek medical care Call your healthcare provider right away if you have a central line and develop any of the following: Pain or burning in your shoulder, chest, back, arm, or leg Fever of 100.4F (38.0C) or higher Chills Signs of infection at the catheter site (pain, redness, drainage, burning, or stinging) Coughing, wheezing, or shortness of breath A racing or irregular heartbeat Muscle stiffness or trouble moving Gurgling noises coming from the catheter The catheter falls out, breaks, cracks, leaks, or has other damage Date Last Reviewed: 09/23/201519995850-5033 [employer]. [address] [place] [address]. All rights reserved. This information is not intended as a substitute for professional medical care. Always follow your healthcare professional's instructions. Problems with your PICC: Saturday - Saturday 8am - 6:00pm Call - Ask for PICC Nurse on beeper #[phone] Evenings, Weekends, Holidays My [facility] Nurse - [phone] or Rescue Nurse Call Ask for the Rescue Nurse documented in this encounter Medications at Time of Discharge Medication Sig Dispensed Refills Start Date End Date warfarin (COUMADIN) 4 MG Current dose as of 0 tabletIndications: Atrial 04/04/20 2 tablets fibrillation, unspecified sat and fridays 1 type (HCC) tablet all other daysCurrent dose as of 04/04/20 2 tablets sat and fridays 1 tablet all other days gabapentin (NEURONTIN) 100 Take 1 capsule (100 0 04/12/2020 mg capsuleIndications: mg) by mouth every Post-operative state night at bedtime LANTUS SOLOSTARE Inject 16 Units 0 04/12/2020 subcutaneous injection subcutaneously every solution (pen)Indications: night at bedtime Type 2 diabetes mellitus with stage 2 chronic kidney disease, with long-term current use of insulin (HCC) lovastatin (MEVACOR) 40 mg Take 1 tablet (40 0 tabletIndications: mg) by mouth every Hypercholesterolemia night at bedtime lisinopril (PRINIVIL, Take 1 tablet (10 0 021 ZESTRIL) 10 mg mg) by mouth 2 times tabletIndications: a day Essential hypertension bumetanide (BUMEX) 1 mg Take 1 tablet (1 mg) 0 tabletIndications: by mouth 2 times a Essential hypertension day ferrous sulfate (65 MG FE Take 2 tablets (650 30 tablet 0 0 04/12/2020 PER 325 MG TABLET) 325 mg mg) by mouth 1 time tabletIndications: Iron per day deficiency anemia, unspecified iron deficiency anemia type polyethylene glycol Take 3 teaspoonsful 0 021 (MIRALAX) 17 GM/SCOOP (17 g) by mouth 1 powderIndications: S/P time a day as needed transmetatarsal amputation for constipation of foot, right (HCC) senna-docusate sodium Take 2 tablets by 0 021 (SENOKOT-S;PERICOLACE) mouth 2 times a day 8.6-50 MG Hold for >2-3 BMs tabletIndications: S/P per day or loose transmetatarsal amputation stools of foot, right (HCC) melatonin 3 mg Take 1 tablet (3 mg) 30 tablet 0 04/12/2020 tabletIndications: by mouth at bedtime Hypothyroidism (acquired) as needed for other (Specify) (insomnia) Multiple Vitamins-Minerals Take 1 capsule by 0 (GNP HEALTHY EYES mouth 2 times a day SUPERVISION 2) CAPSIndications: Takes dietary supplements levothyroxine 25 mcg Take 1 tablet (25 0 04/12/19 21 tabletIndications: mcg) by mouth 1 time Hypothyroidism (acquired) a day in the morning pantoprazole (PROTONIX) 40 Take 1 tablet (40 90 tablet 3 mg enteric coated mg) by mouth 2 times tabletIndications: Type 2 a day before meals diabetes mellitus with stage 2 chronic kidney disease, with long-term current use of insulin (HCC) acetaminophen (TYLENOL) Take 1 tablet (500 40 tablet 0 03/2504/21/2020 500 mg tabletIndications: mg) by mouth Every 6 Right foot infection, hours for 10 days Post-operative state oxyCODONE (OXY-IR) 5 mg Take 1 tablet (5 mg) 20 tablet 0 04/14/2020 tablet (immediate by mouth Every 4 release)Indications: Right hours as needed for foot infection, other (Specify) Post-operative state (severe pain rating of 7-10) for up to 3 days ceFAZolin (ANCEF;KEFZOL) Administer 2,000 mg 0 2,000 mg in sodium intravenously Every chloride 0.9% 50 8 hours mLIndications: Subacute osteomyelitis of right foot (HCC), MSSA (methicillin susceptible Staphylococcus aureus) infection insulin needle (BD Inject 0 08/12/2018 ULTRAFINE PEN NEEDLE) 31G subcutaneously X 8 mm (5/16") Short INSULIN NEEDLE 31G x 8 mm 0 08/12/2018 (5/16 inch) Short blood glucose test strip Testing home glucose 50 Strip 5 0 12/10/2012 (ACCU-CHEK SYEDA PLUS) twice a day. DM Type II 250.00 documented as of this encounter Progress Notes Trey Steel, DPM - 04/10/2020 10:[address] [facility] Foot and Ankle Surgery Progress Note Patient: Ji Rosas - 79yr male Date: 04/10/2020 Attending: Josh Holt MD Hospital Stay: 5 ASSESSMENT: 1. 79 year old male status post right foot I&D with bone biopsy from 04/08/[address] Portillo 2. Type 2 DM, poorly controlled, with complications including neuropathy PLAN: - Patient doing well overall post-operatively, no signs of infection to the right foot. We will await intra-op bone biopsy findings, patient may need long term acute care registered nurse IV antibiotic therapy. Patient will likely also need placement, case management on board. If he has placement he is OK to discharge tomorrowfrom our standpoint once an antibiotic plan is formalized. - Pain control - Continue Antibiotics, Infectious Disease following - Weightbearing status: NWB, right foot. Prevalon boots ordered and patient should wear at all timeswhen sitting in bedside chair or laying in bed - Dressing: changed today. Plantar ulcer packed with promogran, 2x2s, covered with 4x4s. Heel blister painted with betadine, covered with wet to dry sterile 4x4s, ABD. Foot then wrapped with sofrol reggie light kota wrap - PT/OT - Rest of cares per primary S: Patient seen this AM lying comfortably in bed in no acute distress. Experiencing some nausea due to antibiotics, no vomiting. Pain well controlled. Review of Systems: Review of Systems Constitutional: Positive for fatigue. Negative for chills and fever. HENT: Negative for sore throat. Respiratory: Positive for shortness of breath. Negative for wheezing. Gastrointestinal: Negative for nausea. Negative for constipation, diarrhea and vomiting. Musculoskeletal: Positive for arthralgias and myalgias. Skin: Positive for wound. Right foot Neurological: Positive for numbness. Negative for light-headedness. Psychiatric/Behavioral: Negative. O: Current Vital Signs: Temp: 97.7 F (36.5 C) BP: 130/67 Pulse: 60 O2 Device: NC - no humidity O2 Flow Rate (L/min): 2 l/min Resp: 16 Pain Ratin (out of 10) Weight: 115.7 kg (255 lb) SpO2: 98 % PE: GENERAL: Awake, alert, comfortable, no apparent distress Right lower extremity exam: Dressing taken down revealing intact sutures to distal TMA site with no signs of infection, no drainage. Plantar ulcer packing removed. Healthy bleeding base to deep ulcer, no signs of infection, no purulent drainage. Posterior heel blister with healthy bleeding granular base, no signs of infection. Pain minimal to right foot. I/Os: Intake/Output Summary (Last 24 hours) at 04/10/2020 1041 Last data filed at 04/10/2020 0741 Gross per 24 hour Intake 200 ml Output 410 ml Net -210 ml IMAGING: Imaging Results No results found for the last 48 hours. Trey Steel DPM PGY-2, Department of Foot and Ankle Surgery [facility], [place] 04/10/2020 10:41 AM CST FORMER HELPER Associated attestation - Apollo Cronin DPM - 04/10/2020 9:28 PM HAND FORMER HELPER I discussed the patient with the resident and personally interviewed and examined the patient. I verified in the medical record all resident documentation/findings, including history, physical exam, and medical decision making, and I agree with the resident's documentation. Josh Holt MD - 04/10/2020 8:54 AM CST DAILY PROGRESS NOTE Ji Rosas is a 79yr old male admitted on 04/04/2020 4:41 PM. Impression / Plan Active Problems: Type 2 diabetes mellitus (HCC) Essential hypertension Infection with drug-resistant microorganisms Atrial fibrillation (HCC) Diabetic foot ulcer (HCC) Cellulitis S/P transmetatarsal amputation of foot, right (HCC) Chronic osteomyelit w draining sinus, unsp tibia and fibula (HCC) Resolved Problems: * No resolved hospital problems. * # Diabetic foot ulcer, right persistent, full-thickness, polymicrobial # Clinical osteomyelitis, Strep primarily # Right heel ulceration # Cellulitis # Foot abscess S/P I&D in clinic, now S/P bone biopsy and closure # S/P prior transmetatarsal amputation of right foot # h/o drug-resistant microorganisms (MRSA) Plan: - Podiatry following, completed I&D, closure and bone biopsy, pending results - ID following, appreciate their recommendations, long-term regimen pending bone cultures - Continue IV Ancef on PO flagyl (gets nauseous, ok to take with foods/zofran). - Repeat every other day labs - Monitor, clean dressings of right foot at this time # Type 2 diabetes mellitus, well-controlled Plan: - SSI (low dose) - Continue home lantus 16U at bedtime - Hypoglycemia protocol - POCT BS checks - Monitor # Atrial fibrillation # Essential HTN Plan: - Continue warfarin, Rx to dose, INR 2 today, D/C heparin - Tolerating home lisinopril today, adding Bumex, repeat creatinine in AM # YOVANI, present on admission, resolved # Underlying CKD, likely, unclear at this time Plan: - Resume reduced dose of Bumex today, repeat creatinine in AM, monitor for dehydration # Constipation, resolved Stable Chronic Medical Conditions: - h/o COVID 19 infection - Diabetic polyneuropathy - h/o Peptic ulcer disease - Hypothyroidism, continue home levothyroxine - Hypercholesterolemia, continue home lovastatin CODE STATUS: Full Code Pain medication: Acetaminophen for mild pain, oxycodone scheduled per home regimen DVT Prophylaxis: warfarin, Rx to dose Therapies: PT/OT Disposition: Pending medical stability Diet: Regular diet Interval History HPI No acute events overnight. Pt states no new concerns today. Pain well- controlled. ID following. Podiatry ok with discharge pending ABX regimen/placement is needed. CM following, awaiting bone cultures,likely discharge Saturday/Saturday. Afebrile, blood pressure 130/70 mmHg, saturating well on room air. Review of Systems Review of Systems Constitutional: Negative. Respiratory: Negative. Cardiovascular: Negative. Gastrointestinal: Negative for constipation and diarrhea. Physical Exam Vital Signs: Temp: 97.7 F (36.5 C) | BP: 130/67 | Pulse: 60 | Resp: 16 | Pain Ratin (out of 10) | Weight: 115.7 kg (255 lb) | O2 Device: NC - no humidity O2 Flow Rate (L/min): 2 l/min | SpO2: 98 % Maximum Temperatures (last 24 hours) Temperature Maximum Max Temp 98.1 F (36.7 C) Intake and Output: 04/09 0700 - 04/10 0659 In: 200 [Oral:200] Out: 500 [Urine:500] Physical Exam Vitals signs and nursing note reviewed. HENT: Head: Normocephalic and atraumatic. Neck: Musculoskeletal: Normal range of motion and neck supple. Cardiovascular: Rate and Rhythm: Normal rate. Pulmonary: Effort: Pulmonary effort is normal. Breath sounds: Normal breath sounds. Abdominal: Palpations: Abdomen is soft. Skin: General: Skin is warm. Neurological: Mental Status: He is alert and oriented to person, place, and time. Labs Labs (Last day) 04/10/20 0546 - 04/10/20 0546 CHEMISTRY 04/10/20 0546 CHEMISTRY Glucose 70-100 (mg/dL) 120 Sodium 135-145 (meq/L) 143 Potassium 3.5-5.3 (meq/L) 4.2 Chloride 99-110 (meq/L) 110 CO2 20-29 (meq/L) 24 Anion Gap with K 6-20 (meq/L) 13 BUN 6-22 (mg/dL) 21 Creatinine 0.80-1.30 (mg/dL) 1.28 BUN/Creatinine Ratio 10.0-25.0 16.4 Calcium 8.5-10.5 (mg/dL) 8.6 eGFR >=60 (mL/min/1.73m2) 66 eGFR Non- >=60 (mL/min/1.73m2) 54 04/10/20 0546 - 04/10/20 0546 GENERAL COAGULATION 04/10/20 0546 GENERAL COAGULATION Protime 12.0-14.5 (secs) 21.7 INR 2.0-3.5 2.0 04/10/20 1301 - 04/09/20 1731 GLUCOSE POINT OF CARE 04/10/20 1301 04/10/20 0619 04/09/20 2112 04/09/20 1731 GLUCOSE POINT OF CARE Glucose POC 70-99 (mg/dL) 131 115 184 204 04/10/20 0546 - 04/10/20 0546 OTHER 04/10/20 0546 OTHER Age (Years) 79 Medical Decision making Medical Decision Making rey Steel DPM - 04/09/2020 9:[address] [facility] Foot and Ankle Surgery Progress Note Patient: Ji Rosas - 79yr male Date: 04/09/2020 Attending: Josh Holt MD Hospital Stay: 4 ASSESSMENT: 1. 79 year old male status post right foot I&D with bone biopsy from 04/08/[address] Portillo 2. Type 2 DM, poorly controlled, with complications including neuropathy PLAN: - Patient doing well overall post-operatively. We will await intra-op bone biopsy findings, patient may need long term acute care registered nurse IV antibiotic therapy. Patient will likely also need placement, case management on board. - Pain control - Continue Antibiotics, Infectious Disease following - Weightbearing status: NWB, right foot - Dressing: CDI, will be changed tomorrow by podiatry - PT/OT when appropriate - Primary cares per IM S: Patient seen this AM lying comfortably in bed in no acute distress. Experiencing some nausea due to antibiotics, no vomiting. Pain well controlled. Review of Systems: Review of Systems Constitutional: Positive for appetite change and fatigue. Negative for chills and fever. HENT: Negative for sore throat. Respiratory: Positive for shortness of breath. Negative for wheezing. Gastrointestinal: Positive for nausea. Negative for constipation, diarrhea and vomiting. Musculoskeletal: Positive for arthralgias and myalgias. Skin: Positive for wound. Right foot Neurological: Positive for numbness. Negative for light-headedness. Psychiatric/Behavioral: Negative. O: Current Vital Signs: Temp: 98.5 F (36.9 C) BP: 131/68 Pulse: 59 O2 Device: Room Air Resp: 17 Pain Ratin (out of 10) Weight: 115.7 kg (255 lb) SpO2: 99 % PE: GENERAL: Awake, alert, comfortable, no apparent distress Right lower extremity exam: Patient with post-operative dressing CDI, this was left in place. He has gross sensation intact and pain is well controlled. Denies calf pain on exam. I/Os: Intake/Output Summary (Last 24 hours) at 04/09/2020 0915 Last data filed at 04/09/2020 0308 Gross per 24 hour Intake 908 ml Output 500 ml Net 408 ml IMAGING: Imaging Results No results found for the last 48 hours. Trey Steel DPM PGY-2, Department of Foot and Ankle Surgery [facility], [place] 04/09/2020 9:15 AM CST FORMER HELPER Associated attestation - Apollo Cronin DPM - 04/10/2020 9:26 PM HAND FORMER HELPER I discussed the patient with the resident and personally interviewed and examined the patient. I verified in the medical record all resident documentation/findings, including history, physical exam, and medical decision making, and I agree with the resident's documentation. Josh Holt MD - 04/09/2020 8:35 AM CST DAILY PROGRESS NOTE Ji Rosas is a 79yr old male admitted on 04/04/2020 4:41 PM. Impression / Plan Active Problems: Type 2 diabetes mellitus (HCC) Essential hypertension Infection with drug-resistant microorganisms Atrial fibrillation (HCC) Diabetic foot ulcer (HCC) Cellulitis S/P transmetatarsal amputation of foot, right (HCC) Chronic osteomyelit w draining sinus, unsp tibia and fibula (HCC) Resolved Problems: * No resolved hospital problems. * # Diabetic foot ulcer, right persistent, full-thickness # Clinical osteomyelitis # Right heel ulceration # Cellulitis # Foot abscess S/P I&D in clinic, now S/P bone biopsy and closure # S/P prior transmetatarsal amputation of right foot # h/o drug-resistant microorganisms (MRSA) Plan: - Podiatry following, completed I&D, closure and bone biopsy, pending results - ID following, appreciate their recommendations, long-term regimen pending bone cultures - Continue IV Ancef (stopped vancomycin/zosyn per ID), on PO flagyl (gets nauseous, ok to take with foods/zofran). - Repeat daily labs - Monitor, clean dressings of right foot at this time # Type 2 diabetes mellitus, well-controlled Plan: - SSI (low dose) - Continue home lantus 16U at bedtime - Hypoglycemia protocol - POCT BS checks - Monitor # Atrial fibrillation # Essential HTN Plan: - Resuming warfarin at this time, subcut heparin for DVT prevention pending INR 2 or more - Resume home lisinopril today and Bumex in AM if tolerating, repeat creatinine in AM # YOVANI, present on admission, resolved # Underlying CKD, likely, unclear at this time Plan: - Resume reduced dose of Bumex in AM and home dose of KOTA today # Constipation, resolved Stable Chronic Medical Conditions: - h/o COVID 19 infection - Diabetic polyneuropathy - h/o Peptic ulcer disease - Hypothyroidism, continue home levothyroxine - Hypercholesterolemia, continue home lovastatin CODE STATUS: Full Code Pain medication: Acetaminophen for mild pain, oxycodone scheduled per home regimen DVT Prophylaxis: sq heparin, warfarin, Rx to dose Therapies: PT/OT Disposition: Pending medical stability Diet: Regular diet Interval History HPI No acute events overnight. Pt states nausea this AM with flagyl administration, ok to take with food/anti-emetic, he will try this. Pain well-controlled. ID following. Podiatry ok with discharge pending ABX regimen/placement is needed. CM following, awaiting bone cultures, likely discharge Saturday/Saturday. Afebrile, blood pressure 130/70 mmHg, saturating well on room air. Review of Systems Review of Systems Constitutional: Negative. Respiratory: Negative. Cardiovascular: Negative. Gastrointestinal: Positive for nausea and vomiting. Negative for constipation and diarrhea. Physical Exam Vital Signs: Temp: 98.1 F (36.7 C) | BP: 146/69 | Pulse: 72 | Resp: 17 | Pain Ratin (out of 10) | Weight: 115.7 kg (255 lb) | O2 Device: Room Air | SpO2: 91 % Maximum Temperatures (last 24 hours) Temperature Maximum Max Temp 98.5 F (36.9 C) Intake and Output: 04/08 0700 - 04/09 0659 In: 908 [Oral:400] Out: 500 [Urine:500] Physical Exam Vitals signs and nursing note reviewed. HENT: Head: Normocephalic and atraumatic. Neck: Musculoskeletal: Normal range of motion and neck supple. Cardiovascular: Rate and Rhythm: Normal rate. Pulmonary: Effort: Pulmonary effort is normal. Breath sounds: Normal breath sounds. Abdominal: Palpations: Abdomen is soft. Skin: General: Skin is warm. Neurological: Mental Status: He is alert and oriented to person, place, and time. Labs Labs (Last day) 04/09/20620 - 04/09/20620 CBC 04/09/20620 CBC WBC 4.0-11.0 (K/uL) 6.5 RBC 4.40-5.80 (M/uL) 2.78 Hemoglobin 13.5-17.5 (g/dL) 9.5 Hematocrit 40.0-50.0 (%) 30.7 MCV 80.0-98.0 (fL) 110.4 MCH 25.5-34.0 (pg) 34.2 MCHC 31.5-36.5 (g/dL) 30.9 RDW-CV 11.5-15.5 (%) 13.0 RDW-SD 35.5-50.0 (fl) 50.6 Platelet Count 140-400 (K/uL) 203 MPV 8.5-12.0 (fL) 9.5 04/09/20620 - 04/09/20620 CHEMISTRY 04/09/20620 CHEMISTRY Glucose 70-100 (mg/dL) 118 Sodium 135-145 (meq/L) 143 Potassium 3.5-5.3 (meq/L) 4.5 Chloride 99-110 (meq/L) 109 CO2 20-29 (meq/L) 25 Anion Gap with K 6-20 (meq/L) 14 BUN 6-22 (mg/dL) 19 Creatinine 0.80-1.30 (mg/dL) 1.21 BUN/Creatinine Ratio 10.0-25.0 15.7 Calcium 8.5-10.5 (mg/dL) 8.6 Corrected Calcium 8.5-10.5 (mg/dL) 9.5 Bilirubin Total 0.2-1.2 (mg/dL) 0.3 Alkaline Phosphatase 30-150 (U/L) 128 ALT - SGPT 0-55 (U/L) 11 AST - SGOT 0-35 (U/L) 18 Protein Total 6.0-8.2 (g/dL) 6.5 Albumin 3.5-5.0 (g/dL) 2.9 eGFR >=60 (mL/min/1.73m2) 70 eGFR Non- >=60 (mL/min/1.73m2) 58 04/09/20 0621 - 04/09/20 0621 DIFFERENTIAL 04/09/20 0621 DIFFERENTIAL Seg Neut Absolute 1.8-8.0 (K/uL) 4.9 Lymphocytes Absolute 0.8-4.1 (K/uL) 0.6 Monocytes Absolute 0.0-1.0 (K/uL) 0.7 Eosinophils Absolute 0.0-0.7 (K/uL) 0.2 Basophil Absolute 0.0-0.2 (K/uL) 0.0 Neutrophils Percent (%) 75.7 Neutrophils Abs. (Segs and Bands) (/uL) 4,900 Lymphocytes Percent (%) 9.0 Monocytes Percent (%) 11.0 Eosinophils Percent (%) 3.6 Basophil Percent (%) 0.5 04/09/20 0840 - 04/09/20 0840 GENERAL COAGULATION 04/09/20 0840 GENERAL COAGULATION Protime 12.0-14.5 (secs) 19.6 INR 2.0-3.5 1.7 04/09/20 1247 - 04/08/20 1554 GLUCOSE POINT OF CARE 04/09/20 1247 04/09/20 0630 04/08/20 2133 04/08/20 1723 04/08/20 1554 GLUCOSE POINT OF CARE Glucose POC 70-99 (mg/dL) 147 100 145 147 85 04/08/20 1504 - 04/08/20 1504 MISCELLANEOUS MICRO 04/08/20 1504 04/08/20 1504 04/08/20 1504 MISCELLANEOUS MICRO Gram Stain Few (1 to 9/LPF) WBC's No epithelial cells seen No organisms seen 04/09/20 0621 - 04/08/20 1504 OTHER 04/09/20 0621 04/08/20 1504 OTHER Age (Years) 79 Culture Result Insufficient growth after overnight incubation. Culture reincubated. Medical Decision making Medical Decision Making Jamila Sargent DO - 04/08/2020 2:46 PM CSTInfectious Disease Interim ID Follow-up Note: Patient in OR this afternoon. Patient is currently growing Streptococcus constellatus and MSSA, for which he is on Cefazolin. He is also on Metronidazole until anaerobic cultures have returned. Pending OR findings, patient may require usp IV therapy. If Podiatry has concern that residualinfected bone is present following procedure, he will need approximately 6 weeks of IV therapy. If he undergoes resection, he could potentially complete a shorter course with oral therapy for surrounding skin and soft tissue infection. Infectious Disease service will continue to follow. I am off over the weekend, so if immediate questions or concerns arise, please call Infectious Disease physician oncology specialist. Or else, contact me on Saturday. Jamila Lake DO Infectious Disease [place], [place] FORMER HELPER Josh Holt MD - 04/08/2020 9:15 AM CST DAILY PROGRESS NOTE Ji Rosas is a 79yr old male admitted on 04/04/2020 4:41 PM. Impression / Plan Active Problems: Type 2 diabetes mellitus (HCC) Essential hypertension Infection with drug-resistant microorganisms Atrial fibrillation (HCC) Diabetic foot ulcer (HCC) Cellulitis S/P transmetatarsal amputation of foot, right (HCC) Chronic osteomyelit w draining sinus, unsp tibia and fibula (HCC) Resolved Problems: * No resolved hospital problems. * # Diabetic foot ulcer, right persistent, full-thickness # Clinical osteomyelitis # Right heel ulceration # Cellulitis # Foot abscess S/P I&D in clinic # S/P prior transmetatarsal amputation of right foot # h/o drug-resistant microorganisms (MRSA) Plan: - Podiatry following, plan for OR today - ID following, appreciate their recommendations, long-term regimen pending I&D - Continue IV zosyn and vancomycin given h/o drug-resistance organisms pending bone cultures - CBC/CMP, inflammatory markers pending - Heparin for DVT prevention, INR below 2, resume anticoagulation post-procedure - Monitor, clean dressings of right foot at this time # Type 2 diabetes mellitus, well-controlled Plan: - SSI (low dose) - Continue home lantus 16U at bedtime - Hypoglycemia protocol - POCT BS checks - Monitor # Atrial fibrillation # Essential HTN Plan: - Holding warfarin at this time pending bone biopsy - Heparin DVT prevention continue given INR below 2 # YOVANI, present on admission, resolved # Underlying CKD, likely, unclear at this time Plan: - Resume reduced dose of Bumex and home dose of KOTA in AM - May give x1 dose lasix tonight given some mild peripheral edema # Constipation, resolving Plan: - Scheduled bowel regimen ordered Stable Chronic Medical Conditions: - h/o COVID 19 infection - Diabetic polyneuropathy - h/o Peptic ulcer disease - Hypothyroidism, continue home levothyroxine - Hypercholesterolemia, continue home lovastatin CODE STATUS: Full Code Pain medication: Acetaminophen for mild pain, oxycodone scheduled per home regimen DVT Prophylaxis: sq heparin Therapies: PT/OT Disposition: Pending medical stability Diet: NPO pending surgery, ok to resumed regular diet post-procedure today Interval History HPI No acute events overnight. Pt states he uses a few liters of O2 at home at night, he would like thatordered for inpatient, ordered. ID following. Podiatry to follow,plan for OR today. Afebrile, blood pressure 140/70 mmHg, saturating well on room air. Review of Systems Review of Systems Constitutional: Negative. Respiratory: Negative. Cardiovascular: Negative. Gastrointestinal: Negative for constipation and diarrhea. Physical Exam Vital Signs: Temp: 97.7 F (36.5 C) | BP: 149/76 | Pulse: 66 | Resp: 16 | Pain Ratin (out of 10) | Weight: 115.7 kg (255 lb) | O2 Device: Room Air | SpO2: 94 % Maximum Temperatures (last 24 hours) Temperature Maximum Max Temp 97.9 F (36.6 C) Intake and Output: 04/07 0700 - 04/08 0659 In: 300 [Oral:300] Out: - Physical Exam Vitals signs and nursing note reviewed. HENT: Head: Normocephalic and atraumatic. Neck: Musculoskeletal: Normal range of motion and neck supple. Cardiovascular: Rate and Rhythm: Normal rate. Pulmonary: Effort: Pulmonary effort is normal. Breath sounds: Normal breath sounds. Abdominal: Palpations: Abdomen is soft. Skin: General: Skin is warm. Neurological: Mental Status: He is alert and oriented to person, place, and time. Labs Labs (Last day) 04/08/20542 - 04/08/20542 CBC 04/08/20542 CBC WBC 4.0-11.0 (K/uL) 4.2 RBC 4.40-5.80 (M/uL) 3.05 Hemoglobin 13.5-17.5 (g/dL) 10.2 Hematocrit 40.0-50.0 (%) 33.0 MCV 80.0-98.0 (fL) 108.2 MCH 25.5-34.0 (pg) 33.4 MCHC 31.5-36.5 (g/dL) 30.9 RDW-CV 11.5-15.5 (%) 13.0 RDW-SD 35.5-50.0 (fl) 50.2 Platelet Count 140-400 (K/uL) 199 MPV 8.5-12.0 (fL) 9.7 04/08/20542 - 04/08/20542 CHEMISTRY 04/08/20542 CHEMISTRY Glucose 70-100 (mg/dL) 125 Sodium 135-145 (meq/L) 143 Potassium 3.5-5.3 (meq/L) 4.0 Chloride 99-110 (meq/L) 111 CO2 20-29 (meq/L) 23 Anion Gap with K 6-20 (meq/L) 13 BUN 6-22 (mg/dL) 22 Creatinine 0.80-1.30 (mg/dL) 1.05 BUN/Creatinine Ratio 10.0-25.0 21.0 Calcium 8.5-10.5 (mg/dL) 8.6 Corrected Calcium 8.5-10.5 (mg/dL) 9.4 Bilirubin Total 0.2-1.2 (mg/dL) 0.4 Alkaline Phosphatase 30-150 (U/L) 132 ALT - SGPT 0-55 (U/L) 18 AST - SGOT 0-35 (U/L) 20 Protein Total 6.0-8.2 (g/dL) 6.8 Albumin 3.5-5.0 (g/dL) 3.0 eGFR >=60 (mL/min/1.73m2) 83 eGFR Non- >=60 (mL/min/1.73m2) 68 04/08/20 0543 - 04/08/20 0543 DIFFERENTIAL 04/08/20 0543 DIFFERENTIAL Seg Neut Absolute 1.8-8.0 (K/uL) 2.9 Lymphocytes Absolute 0.8-4.1 (K/uL) 0.5 Monocytes Absolute 0.0-1.0 (K/uL) 0.5 Eosinophils Absolute 0.0-0.7 (K/uL) 0.2 Basophil Absolute 0.0-0.2 (K/uL) 0.0 Neutrophils Percent (%) 70.6 Neutrophils Abs. (Segs and Bands) (/uL) 2,900 Lymphocytes Percent (%) 12.9 Monocytes Percent (%) 10.8 Eosinophils Percent (%) 5.0 Basophil Percent (%) 0.5 04/08/20 1133 - 04/07/20 1735 GLUCOSE POINT OF CARE 04/08/20 1133 04/08/20 0606 04/07/20 2105 04/07/20 1735 GLUCOSE POINT OF CARE Glucose POC 70-99 (mg/dL) 118 125 204 179 04/08/20 0543 - 04/08/20 0543 OTHER 04/08/20 0543 OTHER Age (Years) 79 Medical Decision making Medical Decision Making osh Holt MD - 04/07/2020 8:56 AM CST DAILY PROGRESS NOTE Ji Rosas is a 79yr old male admitted on 04/04/2020 4:41 PM. Impression / Plan Active Problems: Type 2 diabetes mellitus (HCC) Essential hypertension Infection with drug-resistant microorganisms Atrial fibrillation (HCC) Diabetic foot ulcer (HCC) Cellulitis S/P transmetatarsal amputation of foot, right (HCC) Chronic osteomyelit w draining sinus, unsp tibia and fibula (HCC) Resolved Problems: * No resolved hospital problems. * # Diabetic foot ulcer, right persistent, full-thickness # Clinical osteomyelitis # Right heel ulceration # Cellulitis # Foot abscess S/P I&D in clinic # S/P prior transmetatarsal amputation of right foot # h/o drug-resistant microorganisms (MRSA) Plan: - Podiatry following, appreciate their recommendations - ID following, appreciate their recommendations, KHOI completed, long-term regimen pending I&D, plan for surgery in AM - Continue IV zosyn and vancomycin given h/o drug-resistance organisms - CBC/CMP, inflammatory markers pending - Heparin for DVT prevention, INR below 2 this AM - Monitor, clean dressings of right foot at this time # Type 2 diabetes mellitus Plan: - SSI (low dose) - Continue home lantus 16U at bedtime - Hypoglycemia protocol - POCT BS checks - Monitor # Atrial fibrillation # Essential HTN Plan: - Holding warfarin at this time pending bone biopsy - Heparin DVT prevention started given INR below 2 # YOVANI, present on admission (creatinine 1.8, baseline 1.2?) # Underlying CKD, likely, unclear at this time Plan: - Holding home Bumex and KOTA given YOVANI, creatinine now within acceptable range, will hold one more day and continue IV fluids for 12-24 hrs. # Constipation Plan: - Scheduled bowel regimen ordered Stable Chronic Medical Conditions: - h/o COVID 19 infection - Diabetic polyneuropathy - h/o Peptic ulcer disease - Hypothyroidism, continue home levothyroxine - Hypercholesterolemia, continue home lovastatin CODE STATUS: Full Code Pain medication: Acetaminophen for mild pain, oxycodone scheduled per home regimen DVT Prophylaxis: sq heparin Therapies: PT/OT Disposition: Pending medical stability Diet: Regular diet Interval History HPI No acute events overnight. Pt states no new concerns today. ID following. Podiatry to follow,plan for OR in AM to complete biopsy. Afebrile, blood pressure 150/60 mmHg, saturating well on room air. D/C IV fluids after today. Resume home bumex/KOTA within 24-48 hrs pending surgery. Review of Systems Review of Systems Constitutional: Negative. Respiratory: Negative. Cardiovascular: Negative. Gastrointestinal: Positive for diarrhea. Negative for constipation. Physical Exam Vital Signs: Temp: 97.5 F (36.4 C) | BP: 126/61 | Pulse: 59 | Resp: 16 | Pain Ratin (out of 10) | Weight: 115.7 kg (255 lb) | O2 Device: Room Air | SpO2: 97 % Maximum Temperatures (last 24 hours) Temperature Maximum Max Temp 97.7 F (36.5 C) Intake and Output: 04/06 0700 - 04/07 0659 In: 3792 [Oral:360] Out: 900 [Urine:900] Physical Exam Vitals signs and nursing note reviewed. HENT: Head: Normocephalic and atraumatic. Neck: Musculoskeletal: Normal range of motion and neck supple. Cardiovascular: Rate and Rhythm: Normal rate. Pulmonary: Effort: Pulmonary effort is normal. Breath sounds: Normal breath sounds. Abdominal: Palpations: Abdomen is soft. Skin: General: Skin is warm. Neurological: Mental Status: He is alert and oriented to person, place, and time. Labs Labs (Last day) 04/07/20 0537 - 04/07/20 0537 CBC 04/07/20 0537 CBC WBC 4.0-11.0 (K/uL) 5.0 RBC 4.40-5.80 (M/uL) 2.91 Hemoglobin 13.5-17.5 (g/dL) 9.8 Hematocrit 40.0-50.0 (%) 31.7 MCV 80.0-98.0 (fL) 108.9 MCH 25.5-34.0 (pg) 33.7 MCHC 31.5-36.5 (g/dL) 30.9 RDW-CV 11.5-15.5 (%) 13.0 RDW-SD 35.5-50.0 (fl) 50.2 Platelet Count 140-400 (K/uL) 195 MPV 8.5-12.0 (fL) 9.9 04/07/20 0537 - 04/07/20 0537 CHEMISTRY 04/07/20 0537 CHEMISTRY Glucose 70-100 (mg/dL) 137 Sodium 135-145 (meq/L) 143 Potassium 3.5-5.3 (meq/L) 4.2 Chloride 99-110 (meq/L) 110 CO2 20-29 (meq/L) 25 Anion Gap with K 6-20 (meq/L) 12 BUN 6-22 (mg/dL) 30 Creatinine 0.80-1.30 (mg/dL) 1.22 BUN/Creatinine Ratio 10.0-25.0 24.6 Calcium 8.5-10.5 (mg/dL) 8.4 Corrected Calcium 8.5-10.5 (mg/dL) 9.2 Bilirubin Total 0.2-1.2 (mg/dL) 0.5 Alkaline Phosphatase 30-150 (U/L) 134 ALT - SGPT 0-55 (U/L) 19 AST - SGOT 0-35 (U/L) 23 Protein Total 6.0-8.2 (g/dL) 6.7 Albumin 3.5-5.0 (g/dL) 3.0 eGFR >=60 (mL/min/1.73m2) 69 eGFR Non- >=60 (mL/min/1.73m2) 57 04/07/20536 - 04/07/20 0537 DIFFERENTIAL 04/07/20 0537 DIFFERENTIAL Seg Neut Absolute 1.8-8.0 (K/uL) 3.7 Lymphocytes Absolute 0.8-4.1 (K/uL) 0.5 Monocytes Absolute 0.0-1.0 (K/uL) 0.6 Eosinophils Absolute 0.0-0.7 (K/uL) 0.3 Basophil Absolute 0.0-0.2 (K/uL) 0.0 Neutrophils Percent (%) 73.6 Neutrophils Abs. (Segs and Bands) (/uL) 3,700 Lymphocytes Percent (%) 9.8 Monocytes Percent (%) 11.0 Eosinophils Percent (%) 5.0 Basophil Percent (%) 0.4 04/07/20536 - 04/07/20 0537 GENERAL COAGULATION 04/07/20 0537 GENERAL COAGULATION Protime 12.0-14.5 (secs) 21.1 INR 2.0-3.5 1.9 01/14/21 1132 - 04/06/20 1716 GLUCOSE POINT OF CARE 04/07/20 1132 04/07/20 0554 04/06/20 2105 04/06/20 1716 GLUCOSE POINT OF CARE Glucose POC 70-99 (mg/dL) 188 132 202 157 04/06/202000 - 04/06/202000 THERAPEUTIC DRUGS MISC 04/06/202000 THERAPEUTIC DRUGS MISC Vancomycin Trough 10.0-20.0 (ug/mL) 11.5 04/07/20 0537 - 04/07/20 0537 OTHER 04/07/20 0537 OTHER Age (Years) 79 Medical Decision making Medical Decision Making rey Steel, DPM - 04/07/2020 8:[address] [facility] Foot and Ankle Surgery Progress Note Patient: Ji Rosas - 79yr male Date: 04/07/2020 Attending: Josh Holt MD Hospital Stay: 2 ASSESSMENT: 79yr old male with: 1. Right foot full thickness ulceration, clinical osteomyelitis, IDSA moderate infection 2. Right foot superficial ulceration on posterior heel, uninfected 3. Type 2 diabetes, poorly controlled, with complications including neuropathy 4. A-fib, currently anticoagulated on coumadin PLAN: - Patient's INR has dropped below 2 making it safe for us to proceed with formal OR trip for bone biospy and possible metatarsectomy, right foot. This plan was discussed this AM with the patient and heis in agreement. Pre-op orders will be placed. Please page oncology specialist resident with any further questions. - Pain control - Continue antibiotics per ID - Weightbearing status: NWB, right foot - Dressings: wet to dry gauze, fluffs, soft roll, kerlix, tape - Diet: NPO except meds at midnight tonight - PT/OT when appropriate - Rest of cares per primary S: Patient seen this AM lying comfortably in bed in no acute distress. Denies any constitutional symptoms such as n/v/f/d/chills/sob. Review of Systems: Review of Systems Constitutional: Positive for appetite change and fatigue. Negative for chills and fever. HENT: Negative for sore throat. Respiratory: Positive for shortness of breath and wheezing. Negative for cough. Gastrointestinal: Positive for abdominal pain. Negative for constipation, diarrhea, nausea and vomiting. Musculoskeletal: Positive for arthralgias and joint swelling. Skin: Positive for color change and wound. Right plantar aspect of foot s/p TMA Neurological: Positive for numbness. Negative for light-headedness and headaches. Psychiatric/Behavioral: Negative. O: Current Vital Signs: Temp: 97.7 F (36.5 C) BP: 136/66 Pulse: 59 O2 Device: Room Air Resp: 16 Pain Ratin (out of 10) Weight: 115.7 kg (255 lb) SpO2: 95 % PE: GENERAL: Awake, alert, comfortable, no apparent distress Right lower extremity exam: Patient's dressing is CDI without visible strike through. This was left intact. Patient reporting nopain to right foot or ankle. I/Os: Intake/Output Summary (Last 24 hours) at 04/07/2020 0855 Last data filed at 04/07/2020 0556 Gross per 24 hour Intake 3432 ml Output 900 ml Net 2532 ml IMAGING: Imaging Results No results found for the last 48 hours. Trey Steel DPM PGY-2, Department of Foot and Ankle Surgery [facility], [place] 04/07/2020 8:55 AM CST FORMER HELPER Associated attestation - Kristopher Portillo DPM - 04/07/2020 9:33 AM CSTI discussed the patient with the resident and personally interviewed and examined the patient. I agree with the patient's diagnosis and management. I have explained the known risks , benefits , goals and alternatives to the procedure or treatment and/or sedation. Kristopher Portillo DPM 04/07/2020 Jamila Lake DO - 04/06/2020 12:01 PM CST INFECTIOUS DISEASE INPATIENT PROGRESS NOTE 04/06/2020 Requesting clinician: Josh Holt MD Consult question: "79 yo male, h/o diabetes (well-controlled), long history of right foot ulcers/infection, worsening despite ABX and podiatry care, admitted from clinic for abscess, IV ABX and bone biospy, please advise." ASESSMENT Ji Rosas is a 79-year-old man with past medical history significant for type 2 diabetes mellitus (10/11 Hgb A1c 6.5%), hypertension, atrial fibrillation (on chronic warfarin), sick sinus syndrome status post pacemaker who was admitted on 04/04 from podiatry clinic with concerns for infection of his right foot, in particular osteomyelitis involving his midfoot/forefoot. Abscess culture growing Streptococcus constellatus and Staphylococcus aureus with susceptibilities pending. Discussed with the primary team and podiatry and current plan would be I&D, bone biopsy once patient's INR is closer to 2.0. Given no evidence of Pseudomonas, will narrow therapy from her piperacillin/tazobactam to ceftriaxone and metronidazole. We'll continue vancomycin until Staphylococcus susceptibilities returned. Impression: 1. Right foot contiguous osteomyelitis setting of diabetic foot ulcer 2. Right heel superficial ulceration 3. Type 2 Diabetes Mellitus 4. Atrial fibrillation, currently on warfarin PLAN 1. Continue Vancomycin, dosing per Pharmacy (goal trough 15-20 mcg/mL) 2. Discontinue Piperacillin/tazobactam 3. Start Ceftriaxone 2g IV q24 hours and Metronidazole 500mg PO every 8 hours. 4. Will follow microbiology and adjust regimen as indicated. 5. Will follow up Podiatry plan Recommendations communicated to primary team. The Infectious Disease service will continue to follow. Please feel free to call with any questions or concerns. SUBJECTIVE/INTERVAL EVENTS Chief complaint: "Well, I am still here." No acute overnight events. Patient denies fevers, chills, new rashes, increased pain. Both he and his daughter are hoping that he would not need a SNF or swing bed upon discharge. I toldthem this would depend on OR findings and antibiotic options. ROS A complete systems review was discussed with the patient. All systems review is negative other thanwhat is noted above in HPI. OBJECTIVE Physical Exam Current Vital Signs BP 141/63 Pulse 66 Temp 97.4 F (36.3 C) Resp 16 Ht 1.854 m (6' 1") Wt 115.7 kg (255 lb) SpO2 93% BMI 33.64 kg/m2 GENERAL: The patient is alert and oriented, well developed, well nourished, and in no acute distress. Slightly irritated that he is hospitalized. LYMPHATICS: There is no cervical, supraclavicular, or axillary lymphadenopathy. HEENT: OP clear, no exudates, no mucositis. Dentition in moderate repair. NECK: Neck is supple without thryomegaly CHEST: Clear to auscultation. CV: Regular rate and rhythm. ABD: Soft and non tender MS: No synovitis in any joints. Minimal peripheral edema. Right foot status post TMA. SKIN: Chronic hyperpigmentation bilateral legs. Slightly increased warmth right versus left. Rightfoot with ulcer under ball of foot that apparently probes to bone. Superficial unroofed blister on heel, no surrounding erythema. NEURO: Moves all extremeties well. Laboratory studies and imaging reviewed. Pertinent aspects included below or discussed in assessmentand plan. Antimicrobials: Piperacillin/Tazobactam 04/04 to present Vancomycin 04/04 to present Microbiology: Prior cultures: 02/07 deep wound culture from right foot: Streptococcus constellatus, additional next microflora consistent with diabetic ulcer 04/04 abscess culture from right foot: Streptococcus constellatus and Staphylococcus aureus Jamila Lake DO Infectious Disease [facility], [place] osh Holt MD - 04/06/2020 9:10 AM CST DAILY PROGRESS NOTE Ji Rosas is a 79yr old male admitted on 04/04/2020 4:41 PM. Impression / Plan Active Problems: Type 2 diabetes mellitus (HCC) Essential hypertension Infection with drug-resistant microorganisms Atrial fibrillation (HCC) Diabetic foot ulcer (HCC) Cellulitis S/P transmetatarsal amputation of foot, right (HCC) Chronic osteomyelit w draining sinus, unsp tibia and fibula (HCC) Resolved Problems: * No resolved hospital problems. * # Diabetic foot ulcer, right persistent, full-thickness # Clinical osteomyelitis # Right heel ulceration # Cellulitis # Foot abscess S/P I&D in clinic # S/P prior transmetatarsal amputation of right foot # h/o drug-resistant microorganisms (MRSA) Plan: - Podiatry following, appreciate their recommendations - ID following, appreciate their recommendations, plan for KHOI today, long-term regimen pending I&D as well as bone cultures - Unable to complete MRI given pacemaker in place - Continue IV zosyn and vancomycin given h/o drug-resistance organisms - CBC/CMP, inflammatory markers pending - Monitor, clean dressings of right foot at this time # Type 2 diabetes mellitus Plan: - SSI (low dose) - Continue home lantus 16U at bedtime - Hypoglycemia protocol - POCT BS checks - Monitor # Atrial fibrillation # Essential HTN Plan: - Holding warfarin at this time pending bone biopsy - Checking INR in AM, trending down, heparin DVT prevention pending INR less than 2.0 # YOVANI, present on admission (creatinine 1.8, baseline 1.2?) # Underlying CKD, likely, unclear at this time Plan: - Holding home Bumex and KOTA - IV NS for volume support and hydration, YOVANI improving # Constipation Plan: - Scheduled bowel regimen ordered Stable Chronic Medical Conditions: - h/o COVID 19 infection - Diabetic polyneuropathy - h/o Peptic ulcer disease - Hypothyroidism, continue home levothyroxine - Hypercholesterolemia, continue home lovastatin CODE STATUS: Full Code Pain medication: Acetaminophen for mild to moderate pain DVT Prophylaxis: sq heparin Therapies: PT/OT Disposition: Pending medical stability Diet: Regular diet Interval History HPI No acute events overnight. Pt states no new concerns today. ID following. Podiatry to follow, pending INR, will plan for bone biopsy. Afebrile, blood pressure 150/60 mmHg, saturating well on room air. Review of Systems Review of Systems Constitutional: Negative. Respiratory: Negative. Cardiovascular: Negative. Gastrointestinal: Positive for constipation. Physical Exam Vital Signs: Temp: 97.4 F (36.3 C) | BP: 141/63 | Pulse: 66 | Resp: 16 | Pain Ratin (out of 10) | Weight: 115.7 kg (255 lb) | O2 Device: Room Air | SpO2: 93 % Maximum Temperatures (last 24 hours) Temperature Maximum Max Temp 97.7 F (36.5 C) Intake and Output: 04/05 0700 - 04/06 0659 In: 1300 [Oral:1300] Out: 350 [Urine:350] Physical Exam Vitals signs and nursing note reviewed. HENT: Head: Normocephalic and atraumatic. Neck: Musculoskeletal: Normal range of motion and neck supple. Cardiovascular: Rate and Rhythm: Normal rate. Pulmonary: Effort: Pulmonary effort is normal. Breath sounds: Normal breath sounds. Abdominal: Palpations: Abdomen is soft. Skin: General: Skin is warm. Neurological: Mental Status: He is alert and oriented to person, place, and time. Labs Labs (Last day) 04/06/20 0559 - 04/06/20 0559 CBC 04/06/20 0559 CBC WBC 4.0-11.0 (K/uL) 5.2 RBC 4.40-5.80 (M/uL) 2.85 Hemoglobin 13.5-17.5 (g/dL) 9.8 Hematocrit 40.0-50.0 (%) 30.7 MCV 80.0-98.0 (fL) 107.7 MCH 25.5-34.0 (pg) 34.4 MCHC 31.5-36.5 (g/dL) 31.9 RDW-CV 11.5-15.5 (%) 13.0 RDW-SD 35.5-50.0 (fl) 50.0 Platelet Count 140-400 (K/uL) 192 MPV 8.5-12.0 (fL) 10.0 04/06/20 05 - 04/06/20 0559 CHEMISTRY 04/06/20 0559 CHEMISTRY Glucose 70-100 (mg/dL) 143 Sodium 135-145 (meq/L) 140 Potassium 3.5-5.3 (meq/L) 4.2 Chloride 99-110 (meq/L) 106 CO2 20-29 (meq/L) 25 Anion Gap with K 6-20 (meq/L) 13 BUN 6-22 (mg/dL) 47 Creatinine 0.80-1.30 (mg/dL) 1.50 BUN/Creatinine Ratio 10.0-25.0 31.3 Calcium 8.5-10.5 (mg/dL) 8.5 Corrected Calcium 8.5-10.5 (mg/dL) 9.3 Bilirubin Total 0.2-1.2 (mg/dL) 0.8 Alkaline Phosphatase 30-150 (U/L) 136 ALT - SGPT 0-55 (U/L) 16 AST - SGOT 0-35 (U/L) 27 Protein Total 6.0-8.2 (g/dL) 6.7 Albumin 3.5-5.0 (g/dL) 3.0 eGFR >=60 (mL/min/1.73m2) 55 eGFR Non- >=60 (mL/min/1.73m2) 45 04/06/20 0559 - 04/06/20 0559 DIFFERENTIAL 04/06/20 0559 DIFFERENTIAL Seg Neut Absolute 1.8-8.0 (K/uL) 3.9 Lymphocytes Absolute 0.8-4.1 (K/uL) 0.5 Monocytes Absolute 0.0-1.0 (K/uL) 0.5 Eosinophils Absolute 0.0-0.7 (K/uL) 0.3 Basophil Absolute 0.0-0.2 (K/uL) 0.0 Neutrophils Percent (%) 75.2 Neutrophils Abs. (Segs and Bands) (/uL) 3,900 Lymphocytes Percent (%) 9.8 Monocytes Percent (%) 9.6 Eosinophils Percent (%) 5.0 Basophil Percent (%) 0.2 04/06/20 0851 - 04/06/20 0851 GENERAL COAGULATION 04/06/20 0851 GENERAL COAGULATION Protime 12.0-14.5 (secs) 28.1 INR 2.0-3.5 2.7 04/06/20 1120 - 04/05/20 1706 GLUCOSE POINT OF CARE 04/06/20 1120 04/06/20 0618 04/05/20 2132 04/05/20 1706 GLUCOSE POINT OF CARE Glucose POC 70-99 (mg/dL) 153 137 203 140 04/06/20 0559 - 04/06/20 0559 OTHER 04/06/20 0559 OTHER Age (Years) 79 Medical Decision making Medical Decision Making osh Holt MD - 04/05/2020 8:36 AM CST DAILY PROGRESS NOTE Ji Rosas is a 79yr old male admitted on 04/04/2020 4:41 PM. Impression / Plan Active Problems: Type 2 diabetes mellitus (HCC) Essential hypertension Infection with drug-resistant microorganisms Atrial fibrillation (HCC) Diabetic foot ulcer (HCC) Cellulitis S/P transmetatarsal amputation of foot, right (HCC) Resolved Problems: * No resolved hospital problems. * # Diabetic foot ulcer, right persistent, full-thickness # Clinical osteomyelitis # Right heel ulceration # Cellulitis # Foot abscess S/P I&D in clinic # S/P prior transmetatarsal amputation of right foot # h/o drug-resistant microorganisms (MRSA) Plan: - Podiatry following, appreciate their recommendations - ID following, appreciate their recommendations - Unable to complete MRI given pacemaker in place - Continue IV zosyn and vancomycin given h/o drug-resistance organisms - CBC/CMP, inflammatory markers pending - Monitor, clean dressings of right foot at this time # Type 2 diabetes mellitus Plan: - SSI (low dose) - Continue home lantus 16U at bedtime - Hypoglycemia protocol - POCT BS checks - Monitor # Atrial fibrillation # Essential HTN Plan: - Holding warfarin at this time pending bone biopsy - Checking INR in AM # YOVANI, present on admission (creatinine 1.8, baseline 1.2?) # Underlying CKD, likely, unclear at this time Plan: - Holding home Bumex and KOTA - IV NS for volume support and hydration # Constipation Plan: - Scheduled bowel regimen ordered Stable Chronic Medical Conditions: - h/o COVID 19 infection - Diabetic polyneuropathy - h/o Peptic ulcer disease - Hypothyroidism, continue home levothyroxine - Hypercholesterolemia, continue home lovastatin CODE STATUS: Full Code Pain medication: Acetaminophen for mild to moderate pain DVT Prophylaxis: sq heparin Therapies: PT/OT Disposition: Pending medical stability Diet: Regular diet Interval History HPI No acute events overnight. Pt states no pain but does feel a little constipation and wishes for a BMregimen. ID to see today, appreciate their recommendations. Podiatry to follow, pending INR, will plan for bone biopsy. Afebrile, blood pressure 150/60 mmHg, saturating well on room air. Review of Systems Review of Systems Constitutional: Negative. Respiratory: Negative. Cardiovascular: Negative. Gastrointestinal: Positive for constipation. Physical Exam Vital Signs: Temp: 97.6 F (36.4 C) | BP: 150/60 | Pulse: 70 | Resp: 16 | Pain Ratin (out of 10) | Weight: 115.7 kg (255 lb) | O2 Device: Room Air | SpO2: 91 %(RA) Maximum Temperatures (last 24 hours) Temperature Maximum Max Temp 99.5 F (37.5 C) Intake and Output: 04/04 0700 - 04/05 0659 In: 675 [Oral:300] Out: 650 [Urine:650] Physical Exam Vitals signs and nursing note reviewed. HENT: Head: Normocephalic and atraumatic. Neck: Musculoskeletal: Normal range of motion and neck supple. Cardiovascular: Rate and Rhythm: Normal rate. Pulmonary: Effort: Pulmonary effort is normal. Breath sounds: Normal breath sounds. Abdominal: Palpations: Abdomen is soft. Skin: General: Skin is warm. Neurological: Mental Status: He is alert and oriented to person, place, and time. Labs Labs (Last day) 04/05/20535 - 04/04/201908 CBC 04/05/2053504/04/201908 CBC WBC 4.0-11.0 (K/uL) 7.3 11.0 RBC 4.40-5.80 (M/uL) 2.91 3.23 Hemoglobin 13.5-17.5 (g/dL) 9.8 11.1 Hematocrit 40.0-50.0 (%) 31.5 34.4 MCV 80.0-98.0 (fL) 108.2 106.5 MCH 25.5-34.0 (pg) 33.7 34.4 MCHC 31.5-36.5 (g/dL) 31.1 32.3 RDW-CV 11.5-15.5 (%) 13.2 13.1 RDW-SD 35.5-50.0 (fl) 51.5 49.1 Platelet Count 140-400 (K/uL) 186 202 MPV 8.5-12.0 (fL) 10.2 10.1 04/05/20535 - 04/04/201908 CHEMISTRY 04/05/2053504/04/20190804/04/20190804/04/201908 CHEMISTRY Glucose 70-100 (mg/dL) 136 223 Sodium 135-145 (meq/L) 140 139 Potassium 3.5-5.3 (meq/L) 4.0 4.5 Chloride 99-110 (meq/L) 104 103 CO2 20-29 (meq/L) 26 23 Anion Gap with K 6-20 (meq/L) 14 18 BUN 6-22 (mg/dL) 60 58 Creatinine 0.80-1.30 (mg/dL) 1.86 1.85 1.85 BUN/Creatinine Ratio 10.0-25.0 32.3 31.4 Calcium 8.5-10.5 (mg/dL) 8.5 8.8 Corrected Calcium 8.5-10.5 (mg/dL) 9.3 9.2 Bilirubin Total 0.2-1.2 (mg/dL) 0.7 0.8 Alkaline Phosphatase 30-150 (U/L) 107 105 ALT - SGPT 0-55 (U/L) 11 13 AST - SGOT 0-35 (U/L) 13 15 Protein Total 6.0-8.2 (g/dL) 6.6 7.6 Albumin 3.5-5.0 (g/dL) 3.0 3.5 CRP 0.0-8.0 (mg/L) 268.7 eGFR >=60 (mL/min/1.73m2) 43 43 43 eGFR Non- >=60 (mL/min/1.73m2) 35 35 35 04/05/20 0536 - 04/04/20 1909 DIFFERENTIAL 04/05/20 0536 04/04/20 1909 DIFFERENTIAL Seg Neut Absolute 1.8-8.0 (K/uL) 5.5 9.6 Lymphocytes Absolute 0.8-4.1 (K/uL) 0.9 0.6 Monocytes Absolute 0.0-1.0 (K/uL) 0.7 0.7 Eosinophils Absolute 0.0-0.7 (K/uL) 0.2 0.1 Basophil Absolute 0.0-0.2 (K/uL) 0.0 0.0 Neutrophils Percent (%) 75.1 86.5 Neutrophils Abs. (Segs and Bands) (/uL) 5,500 9,600 Lymphocytes Percent (%) 11.6 5.8 Monocytes Percent (%) 9.7 6.1 Eosinophils Percent (%) 3.2 1.2 Basophil Percent (%) 0.3 0.2 04/05/20 0615 - 04/04/202005 GLUCOSE POINT OF CARE 04/05/20 0615 04/04/20 2226 04/04/202005 GLUCOSE POINT OF CARE Glucose POC 70-99 (mg/dL) 121 174 217 04/04/20 1909 - 04/04/20 1909 HEMATOLOGY MISC 04/04/20 1909 HEMATOLOGY MISC ESR 0-19 (mm/Hr) 74 04/04/20 1425 - 04/04/20 1425 MISCELLANEOUS MICRO 04/04/20 1425 04/04/20 1425 04/04/20 1425 MISCELLANEOUS MICRO Gram Stain Many (>25/LPF) WBC's No epithelial cells seen Moderate (6 to 30/OIF) Gram positive cocci in pairs 04/05/20 0536 - 04/04/20 1909 OTHER 04/05/20 0536 04/04/20 1909 04/04/20 1909 OTHER Age (Years) [age] Medical Decision making Medical Decision Making Jean-Paul Treadwell, [facility] - 04/04/2020 8:46 PM CST 04/04/2020 8:46 PM HAND FORMER HELPER - Patient was seen by pharmacy. HOME MEDICATIONS have been reconciled and updated to match the patient's home usage. Prior to Admission Medications Prescriptions Last Dose Informant Patient Reported? Taking? INSULIN NEEDLE 31G x 8 mm (5/16 inch) Short 04/03/2020 at Unknown time Yes Yes LANTUS SOLOSTARE subcutaneous injection solution (pen) 04/03/2020 at Unknown time Yes Yes Sig: Inject 16 Units subcutaneously every night at bedtime acetaminophen (TYLENOL) 325 mg tablet 04/04/2020 at 0900 No Yes Sig: Take 2 tablets by mouth every 6 hours as needed for mild pain. blood glucose test strip (ACCU-CHEK SYEDA PLUS) 04/03/2020 at Unknown time No Yes Sig: Testing home glucose twice a day. DM Type II 250.00 bumetanide (BUMEX) 1 mg tablet 04/03/2020 at Unknown time Yes Yes Sig: Take 2 mg by mouth 2 times a day ferrous sulfate (65 MG FE PER 325 MG TABLET) 325 mg tablet 04/03/2020 at Unknown time Yes Yes Sig: Take 650 mg by mouth 1 time per day gabapentin (NEURONTIN) 100 mg capsule 04/03/2020 at Unknown time Yes Yes Sig: Take 100 mg by mouth every night at bedtime insulin needle (BD ULTRAFINE PEN NEEDLE) 31G X 8 mm (516") Short 04/03/2020 at Unknown time Yes Yes Sig: Inject subcutaneously levothyroxine 25 mcg tablet 04/04/2020 at 0900 Yes Yes Sig: Take 25 mcg by mouth 1 time a day in the morning lisinopril (PRINIVIL, ZESTRIL) 10 mg tablet 04/04/2020 at am Yes Yes Sig: Take 10 mg by mouth 2 times a day lovastatin (MEVACOR) 40 mg tablet 04/03/2020 at Unknown time Yes Yes Sig: Take 40 mg by mouth every night at bedtime. oxyCODONE (OXY-IR) 5 mg tablet (immediate release) 04/04/2020 at 0900 Yes Yes Sig: Take 10 mg by mouth 2 times a day pantoprazole (PROTONIX) 40 mg enteric coated tablet 04/04/2020 at am Yes Yes Sig: Take 40 mg by mouth 2 times a day before meals polyethylene glycol (MIRALAX) powder Past Week at Unknown time Yes Yes Sig: Take 1 capful by mouth 1 time a day as needed warfarin (COUMADIN) 4 MG tablet 04/03/2020 at Unknown time Yes Yes Sig: Current dose as of 04/04/20 2 tablets mon and fridays 1 tablet all other days warfarin (COUMADIN) 5 mg tablet Unknown at Unknown time Yes Yes Sig: Patient inactivated from the Anticoagulation Clinic due to being managed by [facility] ProviderDr. Alona Ohara in [place]. Facility-Administered Medications: None Jean-Paul Mendoza RPh FORMER HELPER documented in this encounter H&P Notes Josh Holt MD - 04/04/2020 3:31 PM CST ADMISSION HISTORY AND PHYSICAL NOTE Patient ID: Ji Rosas is a 79yr male. PCP: LEVY Santo Attending Provider: Provider, [facility] P* SIMBA: [phone] Impression / Plan Active Problems: Type 2 diabetes mellitus (HCC) Essential hypertension Infection with drug-resistant microorganisms Atrial fibrillation (HCC) Diabetic foot ulcer (HCC) Cellulitis S/P transmetatarsal amputation of foot, right (HCC) Acute Medical Conditions: # Diabetic foot ulcer, right persistent, full-thickness # Clinical osteomyelitis # Right heel ulceration # Cellulitis # Foot abscess S/P I&D in clinic # S/P prior transmetatarsal amputation of right foot # h/o drug-resistant microorganisms (MRSA) Plan: - Podiatry following, appreciate their recommendations - ID consulted, appreciate their recommendations - Unable to complete MRI given pacemaker in place - Starting IV zosyn and vancomycin given h/o drug-resistance organisms - CBC/CMP, inflammatory markers pending - Monitor, clean dressings of right foot at this time # Type 2 diabetes mellitus Plan: - SSI (low dose) - Pharmacy to assist with med rec, pt is poor historian - Hypoglycemia protocol - POCT BS checks - Monitor # Atrial fibrillation # Essential HTN Plan: - Holding warfarin at this time pending bone biopsy - Checking INR in AM Stable Chronic Medical Conditions: - h/o COVID 19 infection - Diabetic polyneuropathy - h/o Peptic ulcer disease CODE STATUS: Full Code Pain medication: Acetaminophen for mild to moderate pain DVT Prophylaxis: sq heparin Therapies: PT/OT Disposition: Pending medical stability Diet: Regular diet Chief Complaint / HPI HPI Ji Rosas is a 79yr old male who was admitted directly from the podiatry clinic given concern for persistent/worsening right diabetic foot ulceration with abscess formation S/P I&D in clinic, needing IV ABX. He has a past medical history notable for T2DM (well-controlled), polyneuropathy, a.fib on warfarin, HTN, h/o COVID 19, prior GI bleed 2/2 peptic ulcer disease, and a history of MRSA. He has had prior TMA of the right foot and has followed with the podiatry clinic for a few months relating to his most recent ulceration. During this appt today, Dr. Portillo debrided the wound and purulent drainage was noted. This was sent for cultures. It was recommended that patient be admitted for IV ABX, evaluate and likely bone biopsy given a diagnosis of clinical osteomyelitis. Pt was in agreement. IM to admit and podiatry to follow up regarding need for bone biopsy. Allergies Allergies Allergen Reactions Adhesives Itching and Rash Ciprofloxacin Unknown/Not Verified and Rash Medical / Surgical / Family History Past Medical History: Diagnosis Date Atrial flutter with controlled response (HCC) pacemaker due to slow heart rate Diabetes mellitus (HCC) Hypertension Irregular heart rate A-flutter SSS (sick sinus syndrome) ([facility]) 2012 pacemaker placed, junctional and atrial flutter with slow response Past Surgical History: Procedure Laterality Date AMPUTATION MINOR 07/18/2012 RIGHT FOOT TRANSMETATARSAL AMPUTATION ; Surgeon: Anusha Echevarria DPM AMPUTATION TOE FOOT 2nd toe on Right foot COLONOSCOPY 04/15/2012 COLONOSCOPY [COLONOS]; Surgeon: Nora Troy MD PACEMAKER INSERTION 2012 single chamber pacemaker UPPER ENDOSCOPY 04/15/2012 UPPER ENDOSCOPY [UPPENDO]; Surgeon: Nora Troy MD UPPER ENDOSCOPY 05/26/2012 UPPER ENDOSCOPY [UPPENDO]; Surgeon: Elder Fatima MD Family History Problem Relation Age of Onset Breast Cancer Mother Social History Social History Tobacco Use Smoking status: Former Smoker Packs/day: 2.00 Types: Cigarettes Quit date: 03/25/1971 Years since quittin.0 Smokeless tobacco: Never Used Substance Use Topics Alcohol use: Yes Alcohol/week: 19.2 - 20.0 standard drinks Types: 21 Standard drinks or equivalent, 2 - 3 Rare/Occasional per week Comment: 3-4 drinks per day-none for the last month. Drug use: No ROS Review of Systems Constitutional: Negative. HENT: Negative. Respiratory: Negative. Cardiovascular: Negative. Gastrointestinal: Negative. Genitourinary: Negative. Musculoskeletal: Negative. Skin: Negative. See HPI Neurological: Negative. Hematological: Negative. Physical Exam There were no vitals taken for this visit. Physical Exam Vitals signs and nursing note reviewed. HENT: Head: Normocephalic and atraumatic. Eyes: Conjunctiva/sclera: Conjunctivae normal. Pupils: Pupils are equal, round, and reactive to light. Neck: Musculoskeletal: Normal range of motion and neck supple. Cardiovascular: Rate and Rhythm: Normal rate. Pulmonary: Effort: Pulmonary effort is normal. Breath sounds: Normal breath sounds. Abdominal: Palpations: Abdomen is soft. Musculoskeletal: Normal range of motion. Comments: See HPI Skin: General: Skin is warm. Neurological: General: No focal deficit present. Mental Status: He is alert and oriented to person, place, and time. Psychiatric: Mood and Affect: Mood normal. Labs Labs (Last day) No results found within the past day. Procedures Procedures Medical Decision Making Medical Decision Making documented in this encounter Consult Notes Serafin Lakemanarielle Burgos DO - 04/05/2020 9:07 AM CSTAssociated Order(s): CONSULT INFECTIOUS DISEASE INFECTIOUS DISEASE CONSULTATION 04/05/2020 Requesting clinician: Josh Holt MD Consult question: "79 yo male, h/o diabetes (well-controlled), long history of right foot ulcers/infection, worsening despite ABX and podiatry care, admitted from clinic for abscess, IV ABX and bone biospy, please advise." ASESSMENT Ji Rosas is a 79-year-old man with past medical history significant for type 2 diabetes mellitus (10/11 Hgb A1c 6.5%), hypertension, atrial fibrillation (on chronic warfarin), sick sinus syndrome status post pacemaker who was admitted on 04/04 from podiatry clinic with concerns for infection of his right foot, in particular osteomyelitis involving his midfoot/forefoot. Abscess culture from bottom of foot has many white blood cells on Gram stain, along with moderate gram-positive cocci in pairs. Preliminary cultures just returned as Streptococcus constellatus and Staphylococcus aureus with susceptibilities pending. Patient antibiotic course may be pending podiatry pl an. Will allow cultures to mature for another 24 hours and narrow therapy at that time. Unclear at this time what plan from podiatry would be. Impression: 1. Right foot contiguous osteomyelitis setting of diabetic foot ulcer 2. Right heel superficial ulceration 3. Type 2 Diabetes Mellitus 4. Atrial fibrillation, currently on warfarin PLAN 1. Continuation of IV antibiotics may be pending podiatry plan. If they are planning on a bone biopsy, it might be advantageous to stop antibiotics in order to increase culture yield. If patient is undergoing source control and debridement, this would not be as important. -Will discuss with and follow up Podiatry plan Recommendations communicated to primary team. The Infectious Disease service will continue to follow. Please feel free to call with any questions or concerns. HISTORY OF PRESENT ILLNESS Chief complaint: "Foot infection" Ji Rosas is a 79-year-old man with past medical history significant for type 2 diabetes mellitus (10/11 Hgb A1c 6.5%), hypertension, atrial fibrillation (on chronic warfarin), sick sinus syndrome status post pacemaker who was admitted on 04/04 from podiatry clinic with concerns for infection of his right foot. History obtained from patient and medical record. Patient was seen by Dr. Kristopher Hanna in clinic, who he has been following with for a few months. Patient has a history of a transmetatarsal amputation several years ago. He has had a wound on the underside of his foot both at the ball of the foot as well as his calcaneus. Patient underwent debridement and clinic and upon debridement, purulent discharge was expressed. Cultures were obtained from this and are pending. Dr. Portillo subsequently recommended to the patient that he be admitted to the hospital for IV antibiotics and additional workup. Patient denies any recent issues with fevers, chills, poor appetite, nausea, vomiting, or any other new or changing symptoms. He denies pain in his foot, but he also has significant neuropathy relatedto his diabetes. Patient was seen by podiatry upon admission. Per notes, it appears that patient may require additional surgeries once his INR has normalized. No other concerns or complaints. MEDICATIONS Allergies Allergen Reactions Adhesives Itching and Rash Ciprofloxacin Unknown/Not Verified and Rash Prior to Admission Medications Prescriptions Last Dose Informant Patient Reported? Taking? INSULIN NEEDLE 31G x 8 mm (5/16 inch) Short 04/03/2020 at Unknown time Yes Yes LANTUS SOLOSTARE subcutaneous injection solution (pen) 04/03/2020 at Unknown time Yes Yes Sig: Inject 16 Units subcutaneously every night at bedtime acetaminophen (TYLENOL) 325 mg tablet 04/04/2020 at 0900 No Yes Sig: Take 2 tablets by mouth every 6 hours as needed for mild pain. blood glucose test strip (ACCU-CHEK SYEDA PLUS) 04/03/2020 at Unknown time No Yes Sig: Testing home glucose twice a day. DM Type II 250.00 bumetanide (BUMEX) 1 mg tablet 04/03/2020 at Unknown time Yes Yes Sig: Take 2 mg by mouth 2 times a day ferrous sulfate (65 MG FE PER 325 MG TABLET) 325 mg tablet 04/03/2020 at Unknown time Yes Yes Sig: Take 650 mg by mouth 1 time per day gabapentin (NEURONTIN) 100 mg capsule 04/03/2020 at Unknown time Yes Yes Sig: Take 100 mg by mouth every night at bedtime insulin needle (BD ULTRAFINE PEN NEEDLE) 31G X 8 mm (516") Short 04/03/2020 at Unknown time Yes Yes Sig: Inject subcutaneously levothyroxine 25 mcg tablet 04/04/2020 at 0900 Yes Yes Sig: Take 25 mcg by mouth 1 time a day in the morning lisinopril (PRINIVIL, ZESTRIL) 10 mg tablet 04/04/2020 at am Yes Yes Sig: Take 10 mg by mouth 2 times a day lovastatin (MEVACOR) 40 mg tablet 04/03/2020 at Unknown time Yes Yes Sig: Take 40 mg by mouth every night at bedtime. oxyCODONE (OXY-IR) 5 mg tablet (immediate release) 04/04/2020 at 0900 Yes Yes Sig: Take 10 mg by mouth 2 times a day pantoprazole (PROTONIX) 40 mg enteric coated tablet 04/04/2020 at am Yes Yes Sig: Take 40 mg by mouth 2 times a day before meals polyethylene glycol (MIRALAX) powder Past Week at Unknown time Yes Yes Sig: Take 1 capful by mouth 1 time a day as needed warfarin (COUMADIN) 4 MG tablet 04/03/2020 at Unknown time Yes Yes Sig: Current dose as of 04/04/20 2 tablets mon and fridays 1 tablet all other days warfarin (COUMADIN) 5 mg tablet Unknown at Unknown time Yes Yes Sig: Patient inactivated from the Anticoagulation Clinic due to being managed by [facility] ProviderDr. Alona Ohara in [place]. Facility-Administered Medications: None PMH/FH/ Past Medical History Type 2 diabetes mellitus, most recent hemoglobin A1c 6.5% Atrial fibrillation, on chronic warfarin Sick sinus syndrome status post pacemaker Hypertension Past Surgical History Pacemaker placement, 2012 Transmetatarsal amputation, 2012 Family History No family history of immunodeficiencies or frequent infections. Patient's parents are both . His mother had a history of breast cancer. Social History Patient lives in [place], [place]. He is a former smoker, but quit in 1971. He drinks about 3-4 drinks per day. He denies illicit drug use. ROS A complete systems review was discussed with the patient. All systems review is negative other thanwhat is noted above in HPI. OBJECTIVE Physical Exam Current Vital Signs BP 150/60 Pulse 70 Temp 97.6 F (36.4 C) Resp 16 Ht 1.854 m (6' 1") Wt 115.7 kg (255 lb) SpO2 91% BMI 33.64 kg/m2 GENERAL: The patient is alert and oriented, well developed, well nourished, and in no acute distress. Slightly irritated that he is hospitalized. LYMPHATICS: There is no cervical, supraclavicular, or axillary lymphadenopathy. HEENT: OP clear, no exudates, no mucositis. Dentition in moderate repair. NECK: Neck is supple without thryomegaly CHEST: Clear to auscultation. CV: Regular rate and rhythm. ABD: Soft and non tender MS: No synovitis in any joints. Minimal peripheral edema. Right foot status post TMA. SKIN: Chronic hyperpigmentation bilateral legs. Slightly increased warmth right versus left. Rightfoot with ulcer under ball of foot that apparently probes to bone. Superficial unroofed blister on heel, no surrounding erythema. NEURO: Moves all extremeties well. Laboratory studies and imaging reviewed. Pertinent aspects included below or discussed in assessmentand plan. Lab Results Component Value Date WBC 7.3 04/05/2020 WBC 11.0 04/04/2020 WBC 3.61 09/15/2012 Lab Results Component Value Date NEUTROABS 5.5 04/05/2020 NEUTROABSCT 5,500 04/05/2020 BANDABS 0.092 07/23/2012 EOSPCT 3.2 04/05/2020 Lab Results Component Value Date HEMOGLOBIN 9.8 (L) 04/05/2020 HEMOGLOBIN 11.1 (L) 04/04/2020 HEMOGLOBIN 11.2 09/15/2012 Lab Results Component Value Date PLTCOUNT 186 04/05/2020 PLTCOUNT 202 04/04/2020 PLTCOUNT 191 09/15/2012 Lab Results Component Value Date CREATSERUM 1.86 (H) 04/05/2020 CREATSERUM 1.85 (H) 04/04/2020 CREATSERUM 1.85 (H) 04/04/2020 Lab Results Component Value Date ALBUMIN 3.0 (L) 04/05/2020 ALKPHOS 107 04/05/2020 AST 13 04/05/2020 ALT 11 04/05/2020 BILITOTAL 0.7 04/05/2020 Lab Results Component Value Date ESR 74 (H) 04/04/2020 ESR 68 09/15/2012 ESR 71 08/25/2012 CRP 268.7 (H) 04/04/2020 CRP 0.4 09/15/2012 CRP 0.6 09/01/2012 Antimicrobials: Piperacillin/Tazobactam 04/04 to present Vancomycin 04/04 to present Microbiology: Prior cultures: 02/07 deep wound culture from right foot: Streptococcus constellatus, additional next microflora consistent with diabetic ulcer 04/04 abscess culture from right foot: Pending Jamila Lake DO Infectious Disease [facility], [place] emetra Foreman DPM - 04/04/2020 4:46 PM HAND FORMER HELPER FOOT [facility]KLE SURGERY INPATIENT CONSULT NOTE Patient: Ji Rosas is a 79yr old male. Attending Physician: Johs Holt MD Hospital Stay: 0 Today's Date: 04/04/2020 Assessment / Plan 79yr old male with: 1. Right foot full thickness ulceration, clinical osteomyelitis, IDSA moderate infection 2. Right foot superficial ulceration on posterior heel, uninfected 3. Type 2 diabetes, poorly controlled, with complications including neuropathy 4. A-fib, currently anticoagulated on coumadin Plan: - X-rays of right foot show no evidence of bony involvement, but given that his wound probes to boneand there was purulence expressed, this is clinical osteomyelitis. Patient unable to obtain MRI due to presence of pacemaker. Discussed that patient will likely need surgery during this admission, but would like to wait for normalization of INR prior to any surgical intervention. Explained that he is at high risk for further limb loss. Patient verbalized understanding. We will continue to follow and decide on a time for surgery within the next few days. Please page oncology specialist resident with any questions. - Pain control - IV Antibiotics - Dressings: wet to dry gauze, fluffs, soft roll, kerlix, tape - Weightbearing status: NWB right foot - PT/OT - Remaining cares per primary team HPI Ji Rosas is a 79yr old male with a PMHx of DMT2, HTN, A-fib, and hx of pacemaker who presents as a direct admit from podiatry clinic with right foot infection. Patient has a history of TMA on the right side several years ago. He states he has had this wound for a few months now and has been seeing Dr. Portillo in clinic for this. The wound was debrided in clinic today and upon debridement, purulent discharge was expressed. Dr. Portillo subsequently recommended admission to the hospitalfor IV abx and further workup. He states his foot is not painful but he does have neuropathy due to his diabetes. He denies any recent fever, chills, nausea, or vomiting. Review of Systems Review of Systems Constitution: Negative for chills, fever and malaise/fatigue. Eyes: Negative for visual disturbance. Cardiovascular: Positive for leg swelling. Respiratory: Negative for shortness of breath. Skin: Positive for poor wound healing. Negative for color change. Musculoskeletal: Negative for joint pain, joint swelling and muscle weakness. Gastrointestinal: Negative for constipation, diarrhea, nausea and vomiting. Neurological: Positive for numbness. Negative for paresthesias. Psychiatric/Behavioral: The patient is not nervous/anxious. Medications Medications Prior to Admission Medication lisinopril (PRINIVIL, ZESTRIL) 10 mg tablet insulin needle (BD ULTRAFINE PEN NEEDLE) 31G X 8 mm (5/16") Short LANTUS SOLOSTARE subcutaneous injection solution (pen) INSULIN NEEDLE 31G x 8 mm (5/16 inch) Short warfarin (COUMADIN) 4 MG tablet ferrous sulfate (65 MG FE PER 325 MG TABLET) 325 mg tablet oxyCODONE (OXY-IR) 5 mg tablet (immediate release) pantoprazole (PROTONIX) 40 mg enteric coated tablet polyethylene glycol (MIRALAX) powder bumetanide (BUMEX) 1 mg tablet levothyroxine 25 mcg tablet gabapentin (NEURONTIN) 100 mg capsule lovastatin (MEVACOR) 40 mg tablet blood glucose test strip (ACCU-CHEK SYEDA PLUS) omeprazole (PRILOSEC) 40 mg capsule warfarin (COUMADIN) 5 mg tablet hydrochlorothiazide 25 mg tablet acetaminophen (TYLENOL) 325 mg tablet Allergies Allergies Allergen Reactions Adhesives Itching and Rash Ciprofloxacin Unknown/Not Verified and Rash Medical History Past Medical History: Diagnosis Date Atrial flutter with controlled response ([facility]) pacemaker due to slow heart rate Diabetes mellitus (HCC) Hypertension Irregular heart rate A-flutter SSS (sick sinus syndrome) ([facility]) 2012 pacemaker placed, junctional and atrial flutter with slow response Surgical History Past Surgical History: Procedure Laterality Date AMPUTATION MINOR 07/18/2012 RIGHT FOOT TRANSMETATARSAL AMPUTATION ; Surgeon: Anusha Echevarria DPM AMPUTATION TOE FOOT 2nd toe on Right foot COLONOSCOPY 04/15/2012 COLONOSCOPY [COLONOS]; Surgeon: Nora Troy MD PACEMAKER INSERTION 2012 single chamber pacemaker UPPER ENDOSCOPY 04/15/2012 UPPER ENDOSCOPY [UPPENDO]; Surgeon: Nora Troy MD UPPER ENDOSCOPY 05/26/2012 UPPER ENDOSCOPY [UPPENDO]; Surgeon: Elder Fatima MD Family History Family History Problem Relation Age of Onset Breast Cancer Mother Social History Social History Tobacco Use Smoking status: Former Smoker Packs/day: 2.00 Types: Cigarettes Quit date: 03/25/1971 Years since quittin.0 Smokeless tobacco: Never Used Substance Use Topics Alcohol use: Yes Alcohol/week: 19.2 - 20.0 standard drinks Types: 21 Standard drinks or equivalent, 2 - 3 Rare/Occasional per week Comment: 3-4 drinks per day-none for the last month. Drug use: No Physical Exam Current Vital Signs: (out of 10) Vitals Min/Max Last 24 Hours: Vital Signs Min/Max (last 24 hours) None General: Physical Exam Constitutional: General: He is not in acute distress. Appearance: Normal appearance. He is well-developed. HENT: Head: Normocephalic and atraumatic. Pulmonary: Effort: Pulmonary effort is normal. No respiratory distress. Musculoskeletal: Normal range of motion. General: No swelling, tenderness, deformity or signs of injury. Right lower leg: Edema present. Left lower leg: Edema present. Skin: General: Skin is warm and dry. Capillary Refill: Capillary refill takes less than 2 seconds. Findings: No erythema or rash. Neurological: Mental Status: He is alert and oriented to person, place, and time. Psychiatric: Mood and Affect: Mood normal. Behavior: Behavior normal. Thought Content: Thought content normal. Judgment: Judgment normal. Lower Extremity Exam: No concerns with left lower extremity. Vascular: DP and PT pulses palpable bilaterally. Skin is warm to touch. No digital hair growth noted. +2 pitting edema noted bilaterally. Neurological: Gross sensation is not intact to light touch bilaterally. Musculoskeletal: Palpatory tenderness absent upon exam. Previous TMA on the right. Dermatological: Full thickness ulceration noted to the distal plantar aspect of the right foot, sub2nd metatarsal. This does probe to bone and has a moderate amount of drainage. No malodor or erythema noted. There is also a superficial ulceration noted on the right posterior heel, but this does not appear infected. See photos below. Imaging Imaging Results No results found for the last 48 hours. Labs Labs (Last day) No results found within the past day. Input and Output Demetra Foreman DPM, PGY-2 04/04/2020 4:47 PM HAND FORMER HELPER FORMER HELPER Associated attestation - Apollo Cronin DPM - 04/05/2020 3:18 PM HAND FORMER HELPER I discussed the patient with the resident and personally interviewed and examined the patient. I verified in the medical record all resident documentation/findings, including history, physical exam, and medical decision making, and I agree with the resident's documentation. documented in this encounter Miscellaneous Notes Clinical Team - Sammi Wick RN - 04/12/2020 8:35 AM CSTThis newspaper writer spoke with Dr. Portillo regarding a shoe order that was passed on during report. Provider stated that pt can have a "cam boot until his wounds heal. A diabetic shoe and insole will be needed after his wounds heal." Per JEAN CARLOS Portillo/Sammi Wick RN. are Planning - Arabella Amaya RN - 04/12/2020 6:53 AM HAND FORMER HELPER Problem: ACUTE PAIN Goal: CLIENT SATISFACTION: PAIN MANAGEMENT Description: DEFINITION: Extent of positive perception of nursing care to relieve pain. 1=Not at all satisfied, 2=Somewhat satisfied, 3=Moderately satisfied, 4=Very satisfied, 5=Completely satisfied. Outcome: NOC Rating 3 Flowsheets (Taken 04/12/2020 0651) Initial Score: 3 Target Score: 4 Plan of care reviewed with: Patient Patient specific goal for the day: pt will have a tolerable pain level at 5/10 or less throughout the shift. Patient specific goal for the stay: pt will have a tolerable pain level at 5/10 or less with oral pain meds Patient Progress: Pt rated pain 4-6/10 to Rt foot during shift. Pain meds given per ordered. See MAR. Pt voiced satisfying with pain management. Will continue to monitor. linical Team - Teressa Hernandez RN - 04/11/2020 6:23 PM CSTPeripherally Inserted Central Catheter Insertion Indication for PICC: usp IV antibiotics Consent obtained: Yes; Risks and benefits, goals, and alternatives reviewed with patient/scheduling representative; all questions answered. Verbal consent obtained and patient education given prior to onset of procedure. The patient/authorized decision maker wishes to proceed with the procedure. Brand of Catheter: DrDoctor Lot Number: [id number] Size: 4 Latvian single Lumen PowerPICC Solo2, Power Injectable Site of Insertion: Right arm Vein accessed: basilic Initial catheter length prior to trimmin cm Initial internal lumen volume prior to trimming catheter: Single: 0.73 mL Catheter length at insertion: 50 cm Length of catheter outside patient: 0 cm Tip Location: SVC Verified by: Chest X-Ray read by Dr. Dr. Dominguez Amount of 1% Lidocaine administered intradermally: 0.5 ml Condition of cannulated arm: no abnormalities Per sterile technique, arm prepped with chloraprep. Vein accessed using ultrasound guidance, 21 gauge needle and modified seldinger technique. Catheter threaded with ease. Stylet from catheter and sheath removed intact. Good blood return noted. Flushed with 10 ml 0.9% Sodium Chloride to each lumen without difficulty. Catheter secured in place with securement device and CHG transparent dressing. Injection caps applied. Number of attempts: 1 Estimated Blood Loss: < 5 ml Procedural Tolerance: well Teressa Hernandez RN 04/11/2020 6:23 PM HAND FORMER HELPER linical Team - Nely Duvall RN - 04/11/2020 4:13 PM CSTReport received from ELMER Greene linical Team - Ramona Del Real RN - 04/11/2020 3:15 PM CSTDrJosue Lishanaida IM notified regarding pt has minimal output during shift and elevated Creatinine. Awaiting for new orders. Charge nurse and the oncoming nurse are aware. upplemental Progress Note - Jamila Lake DO - 04/11/2020 3:09 PM CSTInfectious Disease Interim ID Follow-up Note: Chart reviewed in detail. Discussed case with clinical case manager and primary team. Patient is scheduled to transition to [facility] in [facility] tomorrow morning at 9:30 AM. Patient underwent bone biopsy of second metatarsal head on 02/05. Bone cultures are growing Staphylococcus aureus, likely MSSA as prior cultures. Will plan to discharge patient on cefazolin 2 g IV every 8 hours or 6 g IV continuous infusion for a total duration of 6 weeks for the treatment of MSSA os teomyelitis. PICC line to be placed today. Outpatient Parenteral Antibiotic Therapy (OPAT) Plan 1. 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 Medications Dosage/Times: Cefazolin 2g IV every 8 hours 3. Last dose of outpatient therapy: 05/20/2020 4. IV Type: PICC 5. Laboratory Monitoring: CBC w diff, BMP weekly 8. If labs done at non-[facility] facility, fax results to [facility] at [phone]. 9. Schedule clinic follow up appointment with [facility] at [phone] withJamila Lake in 3 weeks. Infectious disease service will sign off at this time. Please call or page with any questions. Jamila Lake DO Infectious Disease [facility], [place] ccupational Therapy - Blas Gamboa, OTR/L - 04/11/2020 1:58 PM CSTOccupational Therapy Orthopedic Progress Note Treatment Today's Treatment Self care/home management: 33 minutes Start Time: 1:25 Total for time-based codes: 33 minutes Total treatment time: 33 minutes Impression/Plan: See daily M-F for ADL/transfer training/education, assess adpative equipment needs. Recommend: Short term SNF Pt slowly progressing towards goals Pain: Pain at rest: 4/10 Pain during activity: 4/10 Location: R hip Treatment provided: OT transferred pt down to therapy gym via recliner to complete toilet transfer. Pt completed toilet transfer with SPT, and MIN A and use of grab bars and riser placed onto the toilet. Pt anxious during the transfer but completed it well with assistance and increase time. Adaptive Equipment Recommended: to further address Plan to obtain adaptive equipment: To further assess. Assessment: Patient showing a decrease in ADL/transfer performance and will benefit from continued OT. Goals by discharge: Patient will be SBA with bed, chair, toilet, car transfers with adaptive equipment as needed. (ongoing) Patient will be SBA with tub/shower transfer with adaptive equipment as needed. Patient will be SBA with self care skills with adaptive equipment as needed. Patient will be SBA for kitchen/home safety. Therapist pager #: [phone] CERTIFICATION I certify that the services as described in the above note are furnished while the patient is under my care; a plan for furnishing these services has been established and will be periodically reviewed;the services are required for the patient; and the services are subject to established guidelines FORMER HELPER Case Mgmt - Leila Xiong RN - 04/11/2020 12:56 PM CSTCASE MANAGEMENT / SOCIAL SERVICE FINAL TRANSITION PLAN TRANSITION DATE: 04/12 TRANSITION TIME: 09:30 am INTENDED PAYER SOURCE FOR AGENCY: Medicare TRANSITION DESTINATION: [facility] swing bed in [place], [place] DOES ACCEPTING FACILITY REQUIRE COVID TESTING BEFORE DISCHARGE: Other: not required as patient has recovered from COVID within the past 90 days. Confirmed with admitting facility as well. TRANSITION TRANSPORTATION: [employer]; [employer] Wheelchair (P: [phone]) TRANSPORTATION PAYMENT: Billed to Medical Assistance: [place] TRANSITION CHOICES OFFERED: Home Health: Nurse and Physical Therapy Home: Family/Friend Support Outpatient Therapy: Physical Therapy Residential Facility Swing Bed Transitional Care PATIENT / SUBSTITUTE DECISION MAKER GOAL UPON TRANSITION: First Choice: Swing bed TRANSITION PLAN REVIEWED WITH AND AGREED UPON BY: Patient DaughterCassi Bedside nurse Charge nurse PT Providers PROVIDED PATIENT / FAMILY WITH VERBAL / WRITTEN EXPLANATION OF MEDICARE OR INSURANCE COVERAGE OF GROUP HOME FACILITY Yes RESOURCE(S) PROVIDED: Placement and Transportation DOES THE PATIENT HAVE A PRIMARY CARE PHYSICIAN? Yes LEVY Santo ANTICIPATED MODE OF TRANSPORT TO AND FROM FOLLOW UP APPOINTMENTS: Family Car VERIFIED CORRECT PHARMACY IS ENTERED FOR DISCHARGE: Reconcile medications as Patient Transfer ("65 button") METHOD OF PRESCRIBING MEDICATIONS: Reconcile medications as Patient Transfer ("65 button") PATIENT DISCUSSED IN TRANSITION ROUNDS / OUTLIER ROUNDS: Yes COMMENTS / PATIENT AND FAMILY RESPONSE TO PLAN: Discussed with interdisciplinary team. PICC line to be placed this afternoon. [facility] bed can admit tomorrow morning. Patient and daughter in agreement. Specialized transportation arranged. Interdisciplinary team updated regarding time. [place] LOC submitted for swing bed admission and is pending. Will continue to follow providers and therapy recommendations for safe discharge planning. Will continue to reassess any discharge needs. CURRENT READMISSION RISK SCORE / HANDOFF: Predictive Risk Score Risk of Unplanned Readmission: 11.9 Handoff given: N/A SPECIAL TRANSITION DAY INSTRUCTIONS TO NURSE / MD: Discharge to Swing bed. Please place interagency orders per unit policy. Bedside RN, please call report to: P: [phone] ask for nurse's station Please fax discharge information per unit policy to: F: [phone] Pharmacy: Reconcile medications as Patient Transfer ("65 button") SIGNED: Leila Xiong RN Case Manager - Orthopedics [facility] [place] are Planning - Ramona Del Real RN - 04/11/2020 11:23 AM HAND FORMER HELPER Problem: ACUTE PAIN Goal: CLIENT SATISFACTION: PAIN MANAGEMENT Description: DEFINITION: Extent of positive perception of nursing care to relieve pain. 1=Not at all satisfied, 2=Somewhat satisfied, 3=Moderately satisfied, 4=Very satisfied, 5=Completely satisfied. Outcome: NOC Rating 4 Flowsheets (Taken 04/11/2020 1118) Plan of care reviewed with: Patient Patient specific goal for the day: pt will have a tolerable pain level at 5/10 or less throughout the shift. Patient specific goal for the stay: pt will have a tolerable pain level at 5/10 or less with oral pain meds Achieve goal for stay: By discharge Patient Progress: Pt rated pain 4-6/10 to Rt foot during shift. Pain meds given per ordered. See MAR. Pt voiced satisfying with pain management. Daughter is at bedside and very supportive. Problem: RISK FOR INFECTION Goal: IMMUNE STATUS Description: DEFINITION: Natural and acquired appropriately targeted resistance to internal and external antigens. 1 = Severely compromised, 2 = Substantially compromised, 3 = Moderately compromised, 4 = Mildly compromised, 5 = Not compromised. Outcome: NOC Rating 4 Flowsheets (Taken 04/11/2020 111) Plan of care reviewed with: Patient Patient specific goal for the day: Pt will remain afebrile with vital signs WNL throughout the shiftand receive Abx per orders. Patient specific goal for the stay: Patient to not become septic and progress toward resoluation of infection. Achieve goal for stay: By discharge Patient Progress: Afebrile, VSS-see graphic. Cont with IV antibiotic. Drsg to R foot dry and intact. Problem: RISK FOR FALLS Goal: FALL PREVENTION BEHAVIOR Description: DEFINITION: Personal or family critical care physician assistant actions to minimize risk factors that might precipitate falls in the personal environment. 1=Never demonstrated, 2=Rarely demonstrated, 3=Sometimes demonstrated, 4=Often demonstrated, 5=Consistently demonstrated. Outcome: NOC Rating 4 Flowsheets (Taken 04/11/2020 111) Plan of care reviewed with: Patient Patient specific goal for the day: Patient will use call light apprpriately and have no falls duringshift Patient specific goal for the stay: Patient will have no falls during stay. Achieve goal for stay: By discharge Patient Progress: Pt is alert and oriented x4, uses call light appropriately. Problem: RISK FOR INFECTION Goal: INFECTION SEVERITY Description: DEFINITION: Severity of signs and symptoms of infection. 1 = Severe, 2 = Substantial, 3 = Moderate, 4 = Mild, 5 = None. Outcome: Outcome acceptable for discharge hysical Therapy - Nik Rush PT - 04/11/2020 10:00 AM CST Physical Therapy Podiatry Treatment Note Date: 04/11/2020 Assessment/Recommendations: Patient agreeable to transfer from bed to recliner only as he is having right knee pain and does not want to walk with right knee scooter now. Completes stand-pivot transfers with FWW and assist of 1 from bed towards left to recliner while maintaining NWB right LE. Recommend swing bed on discharge for additional therapy. Patient prefers [facility]. (Patient lives alone in an apartment with 8 steps to enter.) Referring Physician: Kristopher Portillo DPM Diagnosis/Surgical Procedure and Date: Right foot infection - RIGHT FOOT IRRIGATION AND DEBRIDEMENT, BONE BIOPSY, POSSIBLE SECOND METATARSECTOMY Physician Orders: Evaluate and treat Weight Bearing Status: NWB right LE Lab Results Component Value Date HEMOGLOBIN 9.8 (L) 04/06/2020 Current Status: Cognition: Alert and Oriented. Patient seen in the presence of his daughter. Observation: Gait belt donned for any out of bed activities. Bulky dressing right foot/ankle Transfers: Supine to/from Sit: modified independent, pulling on bed rails/trapeze. Requires extra time and effort. Sit to/from Stand: He rises sit to stand from raised bed up to front wheeled walker with minimal assist of 1. . Balance: Sitting: Good Standing: Fair with FWW and contact. Verbal cues for NWB right foot. Stand-Pivot Transfer: Ortho shoes placed on left foot prior to transfer. Transfers from bed towards his left to recliner with FWW and contact assist while maintaining NWB right LE. Gait: Patient declined to walk with right knee scooter as his right knee is swollen and he is having increased knee pain. Stairs: N/t Pain Level: (0-10 scale) At rest: 0 With Activity: 2 Patient/Family Education: Reviewed role of the physical therapist and discussed anticipated outcomegoals. Plan: Continue with plan of care. Treatment: Time Treatment Occurred: 937 Gait: 0 minutes Therapeutic Exercise: 0 minutes Therapeutic Activity: 15 minutes TOTAL TIMED CODES: 15 minutes TREATMENT TOTAL TIME: 15 minutes upplemental Progress Note - Jamila Lake DO - 04/11/2020 9:56 AM CSTInfectious Disease Interim ID Follow-up Note: Chart reviewed in detail. Patient underwent bone biopsy of second metatarsal head on 02/05. Bone cultures are growing Staphylococcus aureus, likely MSSA as prior cultures. Will plan to discharge patient on cefazolin 2 g IV every 8 hours or 6 g IV continuous infusion for atotal duration of 6 weeks for the treatment of MSSA osteomyelitis. Will place order for PICC line today. Infectious disease service will continue to follow. Please call or page with any questions. Jamila Lake DO Infectious Disease [facility], [place] ase Johnny - Leila Xiong RN - 04/11/2020 9:00 AM CSTCASE MANAGEMENT / SOCIAL SERVICE TRANSITION PLAN - PROGRESS NOTE PLAN: anticipate need for placement Awaiting Patient/Family Decision Regarding Plan of Care Awaiting Medical Doctor Recommendations for Transition Transition Options Being Explored Will continue to work with care team on medical barriers: IV antibiotics, podiatry POC BARRIERS TO TRANSITION: Awaiting Final Antibiotic Recomendations Awaiting Placement: Residential/Swing Bed/TCU Awaiting Collateral Information Medical barriers:IV antibiotics, podiatry POC DOES ACCEPTING FACILITY REQUIRE COVID TESTING BEFORE DISCHARGE: Will follow-up. Pending accepting facility requirements. COMMENTS / PATIENT AND FAMILY RESPONSE TO PLAN: Discussed with interdisciplinary team.D following. Currently on IV antibiotics: IV Cefazolin q8h Met with patient and his daughter, Cassi at bedside. Reviewed plan of care and anticipated d/c needs. Patient and family in agreement with placement and with preference being [facility]. They anticipate being able to admit once all needs are finalized. Updates faxed via [employer]. Awaiting final ID recommendations. Update: Final ID recommendations noted to be: cefazolin 2 g IV every 8 hours or 6 g IV continuous infusion. Update provided to Ava, mayte at [facility]. She will discuss with her teamand get back to me to confirm they can offer a bed and when they could admit. PICC nurse's kept updated as well. IS PATIENT'S ADMISSION ASSOCIATED WITH TIA, ISCHEMIC, OR HEMORRHAGIC STROKE?: No PATIENT / SUBSTITUTE DECISION MAKER GOAL UPON TRANSITION: First Choice: Swing Bed Second Choice: Home Health: [facility], Home Safety Evaluation, Nurse, Occupational Therapy and Physical Therapy ANTICIPATED NEEDS UPON TRANSITION: Residential Facility Swing Bed Transitional Care RESOURCE(S) PROVIDED: Placement Transportation ANTICIPATED MODE OF TRANSPORT UPON TRANSITION: Family Car vs specialized transportation ANTICIPATED MODE OF TRANSPORT TO AND FROM FOLLOW UP APPOINTMENTS: Family Car VERIFIED CORRECT PHARMACY IS ENTERED FOR DISCHARGE: No - will update once placement is secured TRANSITION ROUNDING COMPLETED WITH THE FOLLOWING: Patient / family Director Blood Bank Attending MD Residents Consulting MD Bedside store operations associate RN Discussed in person SIGNED: Leila Xiong RN Case Manager - Orthopedics [facility] [place] are Planning - Charlette Nelson RN - 04/10/2020 11:35 PM HAND FORMER HELPER Problem: RISK FOR FALLS Goal: FALL PREVENTION BEHAVIOR Description: DEFINITION: Personal or family critical care physician assistant actions to minimize risk factors that might precipitate falls in the personal environment. 1=Never demonstrated, 2=Rarely demonstrated, 3=Sometimes demonstrated, 4=Often demonstrated, 5=Consistently demonstrated. Outcome: NOC Rating 3 Flowsheets (Taken 04/10/2020 3001) Plan of care reviewed with: Patient Patient specific goal for the day: Patient will have no falls. Patient specific goal for the stay: Patient will have no falls during stay. Achieve goal for stay: By discharge Patient Progress: Alert and oriented. Able to alert staff of needs. Agrees to call for assist before OOB. Fall precautions in place. Will continue to monitor. are Planning - Lance Candelario RN - 04/10/2020 7:34 PM HAND FORMER HELPER Problem: ACUTE PAIN Goal: CLIENT SATISFACTION: PAIN MANAGEMENT Description: DEFINITION: Extent of positive perception of nursing care to relieve pain. 1=Not at all satisfied, 2=Somewhat satisfied, 3=Moderately satisfied, 4=Very satisfied, 5=Completely satisfied. Flowsheets (Taken 04/10/2020 193) Patient Progress: Rating pain 0-6/10 to R foot. See MAR for details. Problem: RISK FOR FALLS Goal: FALL PREVENTION BEHAVIOR Description: DEFINITION: Personal or family critical care physician assistant actions to minimize risk factors that might precipitate falls in the personal environment. 1=Never demonstrated, 2=Rarely demonstrated, 3=Sometimes demonstrated, 4=Often demonstrated, 5=Consistently demonstrated. Flowsheets (Taken 04/10/2020 193) Patient Progress: Alert and oriented. Able to alert staff of needs. Agrees to call for assist before OOB. hysical Therapy - Krupa Mo, PT - 04/10/2020 11:45 AM CST Physical Therapy Podiatry Treatment Note Date: 04/10/2020 Assessment/Recommendations: Patient tolerates PT and gait training fair. Patient transfers sit to/from supine modified independent, pulling on bed rails/trapeze. Rises sit to stand from recliner (with thick seat cushion) up to front wheeled walker with moderate assist of 1. Completes stand-pivot transfers with FWW and assist of 1, requiring extra time. Ambulates 75 ft with right knee scooter while propelling self with left foot and minimal to contact assist for safety. Recommend swing bed on discharge for additional therapy. Patient prefers [facility]. (Patient lives alone in an apartment with 8 steps to enter.) Referring Physician: Kristopher Portillo DPM Diagnosis/Surgical Procedure and Date: Right foot infection - RIGHT FOOT IRRIGATION AND DEBRIDEMENT, BONE BIOPSY, POSSIBLE SECOND METATARSECTOMY Physician Orders: Evaluate and treat Weight Bearing Status: NWB right LE Lab Results Component Value Date HEMOGLOBIN 9.8 (L) 04/06/2020 Current Status: Cognition: Alert and Oriented. He states, "Standing up from low chairs is difficult. Getting up from the raised bed is a lot easier." (Several folded blankets placed in recliner to raise sitting surface.) Observation: Gait belt donned for any out of bed activities. Bulky dressing right foot/ankle Transfers: Supine to/from Sit: modified independent, pulling on bed rails/trapeze. Requires extra time and effort. Sit to/from Stand: He rises sit to stand from recliner (with thick seat cushion) up to front wheeled walker with moderate assist of 1. Patient prefers to achieve standing balance first with FWW, thentransition onto Roller Aid. Balance: Sitting: Good Standing: Fair with FWW versus right knee scooter. Verbal cues for NWB right foot. Stand-Pivot Transfer: Requires FWW and assist of 1, wearing orthopedic shoe L, requiring extra time/effort to plan and execute transfer. Gait: Ambulates 75 ft with right knee scooter while propelling self with left foot (wearing orthopedic shoe) and minimal to contact assist for safety. Gait is slow-paced and effortful. Patient able to corner with scooter but is shaky, "fearful of tipping the scooter over." At completion of treatment, patient requested return to bed. Legs elevated. Patient comments, "My legs feel more swollen today. It seems more difficult to bend my right knee adequately to ride the knee scooter." ELMER Lucas, made aware. Stairs: N/t Pain Level: (0-10 scale) At rest: 0 With Activity: 1-2 Patient/Family Education: Reviewed role of the physical therapist and discussed anticipated outcomegoals. Plan: Continue with plan of care. Treatment: Time Treatment Occurred: 1145 Gait: 15 minutes Therapeutic Exercise: 0 minutes Therapeutic Activity: 10 minutes TOTAL TIMED CODES: 25 minutes TREATMENT TOTAL TIME: 25 minutes are Planning - Christine Rubio RN - 04/10/2020 5:33 AM HAND FORMER HELPER Problem: ACUTE PAIN Goal: CLIENT SATISFACTION: PAIN MANAGEMENT Description: DEFINITION: Extent of positive perception of nursing care to relieve pain. 1=Not at all satisfied, 2=Somewhat satisfied, 3=Moderately satisfied, 4=Very satisfied, 5=Completely satisfied. Outcome: NOC Rating 3 Flowsheets (Taken 04/10/2020 0531) Patient Progress: Rating pain 0/10 to R foot. Agrees to alert staff of increasing pain. Problem: RISK FOR INFECTION Goal: IMMUNE STATUS Description: DEFINITION: Natural and acquired appropriately targeted resistance to internal and external antigens. 1 = Severely compromised, 2 = Substantially compromised, 3 = Moderately compromised, 4 = Mildly compromised, 5 = Not compromised. Outcome: NOC Rating 3 Flowsheets (Taken 04/10/2020 0531) Patient Progress: Afebrile, VSS-see graphic. Cont with IV antibiotic. Drsg to R foot dry and intact. Problem: RISK FOR FALLS Goal: FALL PREVENTION BEHAVIOR Description: DEFINITION: Personal or family critical care physician assistant actions to minimize risk factors that might precipitate falls in the personal environment. 1=Never demonstrated, 2=Rarely demonstrated, 3=Sometimes demonstrated, 4=Often demonstrated, 5=Consistently demonstrated. Outcome: NOC Rating 3 Flowsheets (Taken 04/10/2020 8212) Patient Progress: Alert and oriented. Able to alert staff of needs. On bedrest this shift. Agreesto call for assist before OOB. are Planning - Feliz Ash RN - 04/09/2020 11:35 PM HAND FORMER HELPER Problem: ACUTE PAIN Goal: CLIENT SATISFACTION: PAIN MANAGEMENT Description: DEFINITION: Extent of positive perception of nursing care to relieve pain. 1=Not at all satisfied, 2=Somewhat satisfied, 3=Moderately satisfied, 4=Very satisfied, 5=Completely satisfied. Outcome: NOC Rating 3 Flowsheets (Taken 04/09/2020 2014) Achieve goal for stay: By discharge Patient Progress: pt states pain 4-6/10. see mar. are Planning - Paradise Velasco RN - 04/09/2020 4:23 PM HAND FORMER HELPER Problem: ACUTE PAIN Goal: CLIENT SATISFACTION: PAIN MANAGEMENT Description: DEFINITION: Extent of positive perception of nursing care to relieve pain. 1=Not at all satisfied, 2=Somewhat satisfied, 3=Moderately satisfied, 4=Very satisfied, 5=Completely satisfied. Outcome: NOC Rating 3 Flowsheets (Taken 04/09/2020 1620) Initial Score: 3 Target Score: 4 Plan of care reviewed with: Patient Patient specific goal for the day: pt will have a tolerable pain level throughout the shift. Achieve goal for stay: By discharge Patient Progress: Pt is satisfied with pain control at this time. Pt has only pain in the R) hip. Offered ice but refused. Pt has R) foot elevated on pillows. Schedule pain meds given at this time. Will continue to monitor and assess. Problem: RISK FOR INFECTION Goal: IMMUNE STATUS Description: DEFINITION: Natural and acquired appropriately targeted resistance to internal and external antigens. 1 = Severely compromised, 2 = Substantially compromised, 3 = Moderately compromised, 4 = Mildly compromised, 5 = Not compromised. Outcome: NOC Rating 3 Flowsheets (Taken 04/09/2020 1620) Intial Score: 2 Target Score: 4 Plan of care reviewed with: Patient Patient specific goal for the day: Pt will have stable vital signs throughout the shift. Achieve goal for stay: By discharge Patient Progress: Pt is afebrile. IV cefazolin was given prior to shift. Dressing to R) foot is CDI.Will continue to monitor and assess. are Planning - Kelsea Bullock RN - 04/09/2020 2:23 PM HAND FORMER HELPER Problem: ACUTE PAIN Goal: CLIENT SATISFACTION: PAIN MANAGEMENT Description: DEFINITION: Extent of positive perception of nursing care to relieve pain. 1=Not at all satisfied, 2=Somewhat satisfied, 3=Moderately satisfied, 4=Very satisfied, 5=Completely satisfied. Outcome: NOC Rating 3 Flowsheets (Taken 04/09/2020 1310) Patient specific goal for the day: pt will have tolerable pain throughout the shift. Patient specific goal for the stay: control pain with oral medication Patient Progress: pt states pain minimal. see mar Pt reported mild to moderate pain to R hip he states is chronic. Denied pain to surgical site as itis numb. Problem: RISK FOR INFECTION Goal: INFECTION SEVERITY Description: DEFINITION: Severity of signs and symptoms of infection. 1 = Severe, 2 = Substantial, 3 = Moderate, 4 = Mild, 5 = None. Outcome: NOC Rating 3 Pt tolerating IV abx, nauseated with PO Flagyl-Zofran administered prior and med given with pudding and crackers. No emesis. Nausea resolved. Wet to dry dressing change to R stump performed per orders. Minimal bloody drainage observe (5-10 ml's). No S/S of infection noted. Problem: RISK FOR FALLS Goal: FALL PREVENTION BEHAVIOR Description: DEFINITION: Personal or family critical care physician assistant actions to minimize risk factors that might precipitate falls in the personal environment. 1=Never demonstrated, 2=Rarely demonstrated, 3=Sometimes demonstrated, 4=Often demonstrated, 5=Consistently demonstrated. Outcome: NOC Rating 3 Pt is a 1 assist with gait belt to stand and pivot, 3 assist for further needs, remained safe this shift. are Planning - Kelsea Bullock RN - 04/09/2020 1:11 PM HAND FORMER HELPER Problem: ACUTE PAIN Goal: CLIENT SATISFACTION: PAIN MANAGEMENT Description: DEFINITION: Extent of positive perception of nursing care to relieve pain. 1=Not at all satisfied, 2=Somewhat satisfied, 3=Moderately satisfied, 4=Very satisfied, 5=Completely satisfied. Outcome: NOC Rating 3 Flowsheets (Taken 04/09/2020 1310) Patient specific goal for the day: pt will have tolerable pain throughout the shift. Patient specific goal for the stay: control pain with oral medication Patient Progress: pt states pain minimal. see mar hysical Therapy - Yahaira Woods, PT - 04/09/2020 12:41 PM CST Physical Therapy Podiatry Re-Evaluation Date: 04/09/2020 Assessment/Recommendations: Patient tolerates PT and gait training fair. Patient goes sit to supine independently, goes sit to stand from recliner up to front wheeled walker with minimal assist, transfers with front wheeled walker and assist x 1, and ambulates 50 ft with right knee scooter while propelling self with left foot and minimal to contact assist with recliner follow. Recommend swing bed ondischarge for additional therapy. Referring Physician: Kristopher Portillo DPM Diagnosis/Surgical Procedure and Date: Right foot infection - RIGHT FOOT IRRIGATION AND DEBRIDEMENT, BONE BIOPSY, POSSIBLE SECOND METATARSECTOMY Significant PMH: Past Medical History: Diagnosis Date Atrial flutter with controlled response ([facility]) pacemaker due to slow heart rate Diabetes mellitus ([facility]) Hypertension Irregular heart rate A-flutter SSS (sick sinus syndrome) ([facility]) 2012 pacemaker placed, junctional and atrial flutter with slow response Physician Orders: Evaluate and treat: yes Weight Bearing Status: NWB right LE Lab Results Component Value Date HEMOGLOBIN 9.8 (L) 04/06/2020 Status Prior to Hospitalization/Surgical Procedure: Current Living Environment: Lives independently in apartment. Stairs to Enter Home: 8 Railin Stairs to Bedroom or Bathroom: - Railing: - Ambulation Status: Independent with either cane or 4 wheeled walker Equipment Owned: Cane, 4 wheeled walker Current Status: Cognition: Alert and Oriented Observation: Gait belt donned for any out of bed activities. Immobilizer: right lower leg wrapped in surgical dressing and KOTA wrap Transfers: Supine to/from Sit: Supine to sit NT as patient in recliner chair upon PT arrival. Goes sit to supine with minimal assist x 1 and use of trapeze. Sit to/from Stand: Goes sit to stand from recliner up to FWW and minimal assist. Balance: Sitting: Good Standing: Fair with FWW and right knee scooter. Gait: Ambulates 50 feet with right knee scooter while propelling self with left foot and with minimal to contact assist. Patient able to corner with scooter but requires minimal assist and verbal cues to do so. At completion of treatment, patient requested return to bed. Legs elevated. Stairs: N/t Pain Level: (0-10 scale) At rest: 6 (in right hip), 0 in right foot With Activity: 12 Patient/Family Education: Reviewed role of the physical therapist and discussed anticipated outcomegoals. Treatment: Time Treatment Occurred: 12:00 Re-evaluation: X Gait: 10 minutes Therapeutic Exercise: 0 minutes Therapeutic Activity: 0 minutes TOTAL TIMED CODES: 10 minutes TREATMENT TOTAL TIME: 30 minutes Assessment: Patient presents with impaired functional mobility post surgical procedure and will benefit with continued PT. Patient will require post acute inpatient recovery time at : Swing bed. Plan: Follow daily for gait training, therapeutic exercise, therapeutic activity, and education. Goals: By hospital discharge or within 2 - 3 days/hospital discharge. Patient/family involved in developing/progressing goals and treatment plan. Supine to sit with no assist. Sit to stand with contact assist. To perform stand pivot transfers with assistive device and minimal assist. Ambulate 200 feet on level surfaces with minimal to contact assist and appropriate assistive device. Appropriate assistive device available for ambulation. hysical Therapy - Yahaira Woods PT - 04/09/2020 11:49 AM CSTPatient declined PT this AM. Reporting nausea and stomach upset due to medications and antibiotics. Nursing made aware. Will try again in PM. Prior to surgery PT was recommending swing bed placement. Yahaira Woods PT ccupational Therapy - Brittney Portillo, OTR/L - 04/09/2020 11:35 AM HAND FORMER HELPER Occupational Therapy Orthopedic Evaluation Date: 04/09/2020 Time: 1130 Admitting Diagnosis: <principal problem not specified> PMH: Past Medical History: Diagnosis Date Atrial flutter with controlled response ([facility]) pacemaker due to slow heart rate Diabetes mellitus ([facility]) Hypertension Irregular heart rate A-flutter SSS (sick sinus syndrome) ([facility]) 2013 pacemaker placed, junctional and atrial flutter with slow response Precautions/Weight bearing status: NWB RLE SOCIAL/HOME ENVIRONMENT House: apartment Lives Alone: Yes Bed/Bath on Main Floor: No: Number of stairs: 8 Bath Setup: Combo with curtain Prior Level of Functioning: Independent Adaptive Equipment Available: toilet riser without arms, shower chair, grab bars tub/shower, grab bars toilet, handicapped-height toilet, microsoft net developer, sock aid, long-handled shoe horn, 4 wheeled walker andcane ADLs Dressing: Patient required total assistance for LB dressing. Patient was verbally educated in use ofreacher, sock aide, and LHSH. Pt reported "I have all of those, they are no good." TRANSFERS Bed: Min A for supine>sit, then pt completed SPT with min A from bed>chair using FWW. Chair: minimal assistance with walker Toilet: to be assessed Car: minimal assistance with walker. Pt requiring extra time and max verbal cues to complete. Tub/Shower: to be assessed NWB RLE precautions were reviewed with the patient. Patient demonstrates understanding of precautions. UE FUNCTION: WFL COGNITION: Alert and orientated, needing extra time for problem solving and speed of processing. Pain Level at Rest: 0/10 in foot, chronic pain in R hip (5/10) Pain Level with Activity: 0/10 PATIENT/FAMILY EDUCATION: NWB precautions Transfers Self Care Role of OT Family present during evaluation: None Adaptive Equipment Recommended: To further assess., anticipate patient has all AE in place at home per pt report. Assessment: Patient showing a decrease in ADL/transfer performance and will benefit from continued OT. Plan: See daily M-F for ADL/transfer training/education, assess adpative equipment needs. Recommend: Short term SNF Goals by discharge: Patient will be SBA with bed, chair, toilet, car transfers with adaptive equipment as needed. Patient will be SBA with tub/shower transfer with adaptive equipment as needed. Patient will be SBA with self care skills with adaptive equipment as needed. Patient will be SBA for kitchen/home safety. Occupational Therapy Orthopedic Progress Note Treatment Today's Treatment Evaluation Self care/home management: 15 minutes Total for time-based codes: 15 minutes Total treatment time: 30 minutes Evaluation Complexity PMH/Comorbidities that affect Occupational Performance: see PMH Occupational Profile/Medical and Therapy History: LOW - Brief history relating to presenting problem Patient Assessment: LOW - 1-3 performance deficits relating to physical, cognitive, psychosocial limitations/restrictions Clinical Decision Making: LOW - Low complexity, limited amount of treatment options, no assessment modification, no comorbidities Evaluation Complexity: Low Treatment provided: Evaluation; self cares; transfers with attention to safety; AE education/demonstration. Gait belt donned for all OOB activity to ensure safety. Education provided on NWB precautions with pt providing verbal understanding as well as compliance observed during treatment. Pt requiredMin A for supine>sit, then pt completed SPT with min A from bed>chair using FWW. Pt educated in LB dressing using AE, though declined to use this date. Pt required total assistance without AE. Pt was brought to OT department via w/c. Pt completed car transfer with Min A using FWW. Pt declined further transfers, noted that he will potentially be discharging to a swing bed for IV ABX. Pt left inthe care of PT in therapy gym upon therapist exit. Recommend for patient to continue with skilled therapies at low intensity setting with transport by w/c. Therapist pager #: [phone] signed by Brittney Portillo OTR/Zonia at 04/09/2020 3:08 PM CSTCare Planning - Feliz Ash RN - 04/09/2020 5:22 AM HAND FORMER HELPER Problem: ACUTE PAIN Goal: CLIENT SATISFACTION: PAIN MANAGEMENT Description: DEFINITION: Extent of positive perception of nursing care to relieve pain. 1=Not at all satisfied, 2=Somewhat satisfied, 3=Moderately satisfied, 4=Very satisfied, 5=Completely satisfied. Outcome: NOC Rating 3 Flowsheets (Taken 04/09/2020 0521) Achieve goal for stay: By discharge Patient Progress: pt states pain minimal. see mar linical Team - Paradise Velasco RN - 04/08/2020 3:35 PM CSTPt arrived back from the OR at 1535. Pt is on RA and VSS. Pt is resting comfortably in bed. Skin assessment completed with ELMER Daniel All pressure points are WNL. Noted discoloration to bilateral lower extremities. Will continue to monitor and assess. ostOp Progress Note - Kristopher Portillo DPM - 04/08/2020 3:10 PM CST Immediate Post-Operative / Post Procedure Progress Note Att. Phys: Josh Holt MD Pt. Type: Inpatient Operative Date: 04/08/2020 Surgeon: Surgeon(s) and Role: * Kristopher Portillo DPM - Primary * Demetra Foreman DPM - Resident - Assisting [place] Representative: Research Laboratory Technician : Aniyah Lay RN Scrub Person : Daija Francisco CST Pre-Operative Diagnosis: Pre-Op Diagnosis Codes: * Right foot infection [L08.9] Post-Operative Diagnosis: same Anesthesia Type: MAC Operative Procedure: Procedure(s): RIGHT FOOT IRRIGATION AND DEBRIDEMENT, BONE BIOPSY, POSSIBLE SECOND METATARSECTOMY - Wound Class: Clean Contaminated ID Type Source Tests Collected by Time 1 : Right second metatarsal Bone Foot CULTURE BACTERIAL, ANAEROBE, CULTURE, ACID FAST BACILLUS WITH STAIN, CULTURE FUNGAL, OTHER, CULTURE BACTERIAL, OTHER WITH GRAM STAIN Kristopher Portillo DPM 04/08/2020 1504 no implants used for procedure Fluids Given: See Anesthesia Record Urine Output: See Anesthesia Record Estimated Blood Loss: 0 mL Drains: none Findings: Goals met Complications: none Postoperative Condition: stable FORMER HELPER Nutrition Team - Erich Cheung MS, RD, LRD - 04/08/2020 1:26 PM HAND FORMER HELPER Nutrition Therapy Follow Up Note Hospital Day: 3 days Ji Rosas is a 79yr-old male with of 1940 admitted on 04/04/2020 4:41 PM for infection with drug-resistant microorganisms; diabetic foot ulcer; s/p transmetatarsal amputation of right foot PMHx: diabetes mellitus, hypertension, irregular heart rate, SSS with pacemaker Recommendations: Encourage and offer 3 mealsper day with ample protein Scheduled snacks twice daily NUTRITION ASSESSMENT Pt's oral intake has been varied consuming 75-100% of meals when offered and not NPO. Anthropometrics: Height: 185.4 cm (6' 1") Admission Wt: Weight: 115.7 kg (255 lb) as of 04/04/2020 4:41 PM per patient / family report Most Recent Wt: Weight: 115.7 kg (255 lb) (04/04/20 1644) per patient / family report As of (04/08/2020) no new weight since admission BMI: 33.64 kg/(m^2) IBW: 84 kg (184 lbs) %IBW: 138% Usual BWt: 125.2 kg (276 lbs) %UBW: 92.4% Adjusted BW: 92 kg (adjusted based on lowest weight 115.7 kg and IBW 84 kg) Unintentional Weight Loss: Weight loss trend; not cumulatively significant at this time; down 7.6% in 6 months Estimated Energy Needs: 8100-2865 kcal/day (25-28 kcal / 92 kg Using: Adjusted Body Weight 115-140 gm protein (1.3-1.5 gm/ 92 kg) Using:Adjusted Body Weight 2575 mL (1 mL/ kcal) Fluids or (28 mL /92 kg) Intake: Intake Prior to Admit: Adequate; Current Oral diet: As of 04/04/20 @ 1650; Regular; Boost Breeze supplement with med passes twice daily Current PO Intake: Adequate; but sub optimal; Currently Pt is NPO for surgery RN Focused Physical Examination: - (per ceo at 0741 today) Neuro: WDL LOC: alert, awake Oriented: x4 Communication: clear; Psychosocial: calm and cooperative Cognitive: WDL Oral: WDL (per ceo at 0741 today) Teeth: Decayed, Broken, GI Assessment: WDL (per ceo at 0741 today) No c/o nausea Abdominal exam: Non-tender with Audible bowel sounds ? Stool Frequency: continent; LBM: 04/07; [[place] Stool Chart: 6] (at 1845); Edema: (per ceo at 0741 today) ? LLE +1 ? RLE +1 Skin: warm, dry (per ceo at 0741 today) Pressure Points: WDL (per ceo at 0741 today) ? Foot Right ? Heel Left, Blanchable Redness [place]: 19 [Nutrition: 3] (at 0741 on 04/08) Functional Changes: (per ceo at 0741 today) Willis Fall Risk Score: 60; PT, OT following Nutrition Focused Physical Exam: No visible losses appreciated Nutritionally-Relevant Medications, Vitamins and Minerals: Ferrous sulfate, neurontin, heparin, novolog, lantus, levothyroxine, lovastatin, oxycodone, protonix, zosyn, miralax, senokot-s, vanco Nutritionally-Relevant Biochemical Data: (04/08/2020) Hemoglobin 10.2 Glucose 125 Sodium 143 Potassium 4.0 BUN 22 Creatinine 1.05 Albumin 3.0 GFR 68 Allergies/Food Intolerance: Ji is allergic to adhesives and ciprofloxacin. Cultural OR Restorationism Needs: no Social/Environmental: From home alone; ; alcohol intake daily; INTERVENTIONS ? Reviewed EMR and adequacy of intake Reviewed EMR, assessed current oral diet with diet history, meal orders, intake records for adequacy and tolerance; documented in POC Continue current nutritional approaches in place MONITORING/EVALUATION NPO duration / timely diet advancement / need for alternate route nutrition Continue Surveillance of PO intake for adequacy, I&Os, weight status, nutrition-related labs and medications, clinical status; intervene as appropriate with documentation in POC Nutrition Therapy will reassess every 1-4 days ccupational Therapy - Ioana Overton OTR/L - 04/08/2020 12:44 PM CSTPer chart review, plan for surgery this date. Will hold OT and follow up post-op tomorrow as able/ appropriate. MERCEDEZ Lozoya Alpha pager: [phone] ase Mgmt - Leila Xiong RN - 04/08/2020 12:20 PM CSTCASE MANAGEMENT / SOCIAL SERVICE TRANSITION PLAN - PROGRESS NOTE PLAN: anticipate need for placement Awaiting Patient/Family Decision Regarding Plan of Care Awaiting Medical Doctor Recommendations for Transition Transition Options Being Explored Will continue to work with care team on medical barriers: IV antibiotics, podiatry POC BARRIERS TO TRANSITION: Awaiting Final Antibiotic Recomendations Awaiting Placement: Residential/Swing Bed/TCU Awaiting Collateral Information Medical barriers:IV antibiotics, podiatry POC DOES ACCEPTING FACILITY REQUIRE COVID TESTING BEFORE DISCHARGE: Will follow-up. Pending accepting facility requirements. COMMENTS / PATIENT AND FAMILY RESPONSE TO PLAN: Discussed with interdisciplinary team. Anticipating surgical intervention today. ID following. Currently on IV antibiotics: IV Cefazolin q8h Met with patient and his two daughters at bedside. Reviewed plan of care and anticipated d/c needs. Discussed potential need for skilled placement upon discharge. Patient prefers to go home but understands why he may need placement. Patient prefers to be in [place]. [place] swing [place] is considering as is [facility] swing bed. Updates faxed via [employer]. IS PATIENT'S ADMISSION ASSOCIATED WITH TIA, ISCHEMIC, OR HEMORRHAGIC STROKE?: No PATIENT / SUBSTITUTE DECISION MAKER GOAL UPON TRANSITION: First Choice: Swing Bed Second Choice: Home Health: Bath Aid, Home Safety Evaluation, Nurse, Occupational Therapy and Physical Therapy ANTICIPATED NEEDS UPON TRANSITION: Residential Facility Swing Bed Transitional Care RESOURCE(S) PROVIDED: Placement ANTICIPATED MODE OF TRANSPORT UPON TRANSITION: Family Car ANTICIPATED MODE OF TRANSPORT TO AND FROM FOLLOW UP APPOINTMENTS: Family Car VERIFIED CORRECT PHARMACY IS ENTERED FOR DISCHARGE: Patient agreeable with Med to Bed - if discharging home Will update pharmacy if patient discharges to a facility TRANSITION ROUNDING COMPLETED WITH THE FOLLOWING: Patient / family Director Blood Bank Attending MD Residents Consulting MD Bedside store operations associate RN Discussed in person SIGNED: Leila Xiong RN Case Manager - Orthopedics [facility] are Planning - Paradise Velasco RN - 04/08/2020 10:18 AM HAND FORMER HELPER Problem: ACUTE PAIN Goal: CLIENT SATISFACTION: PAIN MANAGEMENT Description: DEFINITION: Extent of positive perception of nursing care to relieve pain. 1=Not at all satisfied, 2=Somewhat satisfied, 3=Moderately satisfied, 4=Very satisfied, 5=Completely satisfied. Outcome: NOC Rating 3 Flowsheets (Taken 04/08/2020 1016) Initial Score: 3 Target Score: 4 Plan of care reviewed with: Patient Patient specific goal for the day: pt will have tolerable pain throughout the shift. Achieve goal for stay: By discharge Patient Progress: Pt states that they have chronic pain to the R) hip and leg. Schedule medications given (see MAR). pt declined use of an ice pack. RLE is elevated. Problem: RISK FOR INFECTION Goal: IMMUNE STATUS Description: DEFINITION: Natural and acquired appropriately targeted resistance to internal and external antigens. 1 = Severely compromised, 2 = Substantially compromised, 3 = Moderately compromised, 4 = Mildly compromised, 5 = Not compromised. Outcome: NOC Rating 3 Flowsheets (Taken 04/08/2020 1016) Intial Score: 2 Target Score: 4 Plan of care reviewed with: Patient Patient specific goal for the day: Pt will have stable vital signs throughout the shift. Achieve goal for stay: By discharge Patient Progress: pt is not afebrile. IV cefazolin is given per orders. Dressing to R) foot is CDI. Will continue to monitor. are Planning - Shannan Barnes RN - 04/08/2020 1:51 AM HAND FORMER HELPER Problem: ACUTE PAIN Goal: CLIENT SATISFACTION: PAIN MANAGEMENT Description: DEFINITION: Extent of positive perception of nursing care to relieve pain. 1=Not at all satisfied, 2=Somewhat satisfied, 3=Moderately satisfied, 4=Very satisfied, 5=Completely satisfied. Flowsheets (Taken 04/08/2020 0148) Patient Progress: pt reports has chronic pain to Rt hip & leg. pt medicated with scheduled pain medication.declined offer of ice pack. elevates RLE as desires. Problem: RISK FOR INFECTION Goal: IMMUNE STATUS Description: DEFINITION: Natural and acquired appropriately targeted resistance to internal and external antigens. 1 = Severely compromised, 2 = Substantially compromised, 3 = Moderately compromised, 4 = Mildly compromised, 5 = Not compromised. Flowsheets (Taken 04/08/2020 014) Patient Progress: pt remains afebrile. continues on IV cefazolin as per ID orders. no drainage notedto foot. will continue to monitor perative Note - Kristopher Portillo DPM - 04/08/2020 1:[address] [facility] PATIENT NAME: JI ROSAS DATE OF SERVICE: 04/08/2020 SIMBA: [id number] SURGEON: Kristopher Portillo DPM. BARREL POLISHER: Demetra Foreman DPM, 2nd year resident. PREOPERATIVE DIAGNOSES: 1. Osteomyelitis, right 2nd metatarsal, with open ulceration. 2. Foot deformity from previous transmetatarsal amputation. 3. Diabetes. POSTOPERATIVE DIAGNOSES: 1. Osteomyelitis, right 2nd metatarsal, with open ulceration. 2. Foot deformity from previous transmetatarsal amputation. 3. Diabetes. PROCEDURE: Partial 2nd metatarsectomy with bone biopsy. ANESTHESIA: Local MAC. HEMOSTASIS: Well-padded ankle pneumatic tourniquet. ESTIMATED BLOOD LOSS: Minimal. COMPLICATIONS: Zero. CONDITION: He tolerated both the procedure and the anesthesia well. PROCEDURE IN DETAIL: He was brought to the operating room, placed on the table in the supine position. Anesthesia was delivered as IV sedation. A local anesthetic block was given to the right foot.Right lower extremity was then prepped and draped in the normal sterile fashion. Tourniquet was placed at 250. Attention was directed to the plantar aspect of his foot. He had an ulceration. It wasabout 1.5 cm in diameter. I just simply excised the ulceration full thickness with a 15 blade down to about the periosteum. The necrotic fatty subcutaneous plug was taken out in its entirety. That wound was flushed with copious amounts of sterile saline. I made a 2nd incision over the top of his foot where his previous scar was. It was approximately 4 cm in length. I just simply dissected through the skin, straight to bone, to the 2nd metatarsal head, or what remained of it. The bone itself was hard. It was not necrotic or discolored. It had a lump on the end of it from just heterotrophic bone formation over the years. It clinically did not look grossly infected. I took a sagittal saw and I resected the neck, or what remained of the neck, of the 2nd metatarsal and then sent that for cultures and biopsy. The wound was flushed with copious amounts of sterile saline. I closed the deep subcutaneous tissue with 2-0 Monocryl and the skin was closed with nylon and soraya. Then, the wound on the bottom, I did try close it, but I could only get 1 stitch in there, and then I packed the rest of the wound open with a [id number] gauze bandage. A well-padded, dry sterile dressing was placed around the right foot. Kristopher Portillo DPM Receipt: [id number] Trans ID: [id number] HAND FORMER HELPER CST are Planning - Gretchen Regan RN - 04/07/2020 6:30 PM HAND FORMER HELPER Problem: ACUTE PAIN Goal: CLIENT SATISFACTION: PAIN MANAGEMENT Description: DEFINITION: Extent of positive perception of nursing care to relieve pain. 1=Not at all satisfied, 2=Somewhat satisfied, 3=Moderately satisfied, 4=Very satisfied, 5=Completely satisfied. Outcome: NOC Rating 3 Flowsheets (Taken 04/07/20201957) Initial Score: 3 Target Score: 4 Plan of care reviewed with: Patient Patient specific goal for the day: control pain with oral medication Patient specific goal for the stay: control pain with oral medication Patient Progress: Patient rating pain 5-7/10. Scheduled medications given, see MAR. Declines offer of ice. Elevates RLE in bed as desires. Will continue to monitor. Problem: RISK FOR FALLS Goal: FALL PREVENTION BEHAVIOR Description: DEFINITION: Personal or family critical care physician assistant actions to minimize risk factors that might precipitate falls in the personal environment. 1=Never demonstrated, 2=Rarely demonstrated, 3=Sometimes demonstrated, 4=Often demonstrated, 5=Consistently demonstrated. Outcome: NOC Rating 3 Flowsheets (Taken 04/07/20201957) Initial Score: 3 Target Score: 4 Plan of care reviewed with: Patient Patient specific goal for the day: Patient will have no falls. Patient specific goal for the stay: Patient will have no falls during stay. Achieve goal for stay: By discharge Patient Progress: Patient alert and orientated. Worked with therapies. Transfers to commode. Using call light appropriately. Will continue to monitor. hysical Therapy - Nik Rush, PT - 04/07/2020 11:09 AM CSTAttempted to see patient but he is having diarrhea this morning and declines PT at this time. Will attempt this afternoon. upplemental Progress Note - Jamila Lake DO - 04/07/2020 11:04 AM HAND FORMER HELPER Infectious Disease Interim ID Follow-up Note: Chart reviewed in detail. Upon culture review, patient Staphylococcus aureus found to be MSSA. Will discontinue vancomycin and substitute cefazolin for ceftriaxone, which should also cover the Streptococcus species. Anaerobic cultures not yet reviewed, as these typically take several days to grow, so will continue metronidazole for the time being. Per chart review, it appears the patient is going for a debridement on 04/08. Infectious disease service will continue to follow. Please call or page with any questions. Jamila Lake DO Infectious Disease [facility], [place] ase Mgmt - Leila Xiong RN - 04/07/2020 10:13 AM CSTCASE MANAGEMENT / SOCIAL SERVICE TRANSITION PLAN - PROGRESS NOTE PLAN: anticipate need for placement Awaiting Patient/Family Decision Regarding Plan of Care Awaiting Medical Doctor Recommendations for Transition Transition Options Being Explored Will continue to work with care team on medical barriers: IV antibiotics, podiatry POC BARRIERS TO TRANSITION: Awaiting Final Antibiotic Recomendations Awaiting Placement: Residential/Swing Bed/TCU Awaiting Collateral Information Medical barriers:IV antibiotics, podiatry POC DOES ACCEPTING FACILITY REQUIRE COVID TESTING BEFORE DISCHARGE: Will follow-up. Pending accepting facility requirements. COMMENTS / PATIENT AND FAMILY RESPONSE TO PLAN: Discussed with interdisciplinary team. Anticipating surgical intervention with podiatry tomorrow 04/08. ID following. Currently on IV antibiotics: IV Ceftriaxone q24h and IV Vanco q24h. Discussed potential need for skilled placement upon discharge. Patient prefers to go home but understands why he may need placement. Patient prefers to be in [facility]. [facility] swing bed is considering as is [place] swing bed. Encourage patient to update his family on what the podiatry team discussed with him this morning. Patient verbalized he would do this. IS PATIENT'S ADMISSION ASSOCIATED WITH TIA, ISCHEMIC, OR HEMORRHAGIC STROKE?: No PATIENT / SUBSTITUTE DECISION MAKER GOAL UPON TRANSITION: First Choice: Swing Bed Second Choice: Home Health: Bath Aid, Home Safety Evaluation, Nurse, Occupational Therapy and Physical Therapy ANTICIPATED NEEDS UPON TRANSITION: Residential Facility Swing Bed Transitional Care RESOURCE(S) PROVIDED: Placement ANTICIPATED MODE OF TRANSPORT UPON TRANSITION: Family Car ANTICIPATED MODE OF TRANSPORT TO AND FROM FOLLOW UP APPOINTMENTS: Family Car VERIFIED CORRECT PHARMACY IS ENTERED FOR DISCHARGE: Patient agreeable with Med to Bed - if discharging home Will update pharmacy if patient discharges to a facility TRANSITION ROUNDING COMPLETED WITH THE FOLLOWING: Patient / family Director Blood Bank Attending MD Residents Consulting MD Bedside store operations associate RN Discussed in person SIGNED: Leila Xiong RN Case Manager - Orthopedics [facility] are Planning - Shannan Barnes RN - 04/07/2020 1:21 AM HAND FORMER HELPER Problem: ACUTE PAIN Goal: CLIENT SATISFACTION: PAIN MANAGEMENT Description: DEFINITION: Extent of positive perception of nursing care to relieve pain. 1=Not at all satisfied, 2=Somewhat satisfied, 3=Moderately satisfied, 4=Very satisfied, 5=Completely satisfied. Flowsheets (Taken 04/07/2020117) Patient Progress: pt reports has chronic pain to legs along with peripheral neuropathy. pt rates pain at 7. pain controlled with scheduled pain medication. pt elevates leg as he desires. declined need for ice pack. will continue to monitor Problem: RISK FOR INFECTION Goal: IMMUNE STATUS Description: DEFINITION: Natural and acquired appropriately targeted resistance to internal and external antigens. 1 = Severely compromised, 2 = Substantially compromised, 3 = Moderately compromised, 4 = Mildly compromised, 5 = Not compromised. Flowsheets (Taken 04/07/2020117) Patient Progress: pt remains afebrile. continues with IVAB,s. no drainage noted from Rt foot wound. dressing c/d/i. harmacy - Mary Harrison RP - 04/06/2020 10:42 PM CST Mr. Rosas continues on Vancomycin per pharmacy protocol for Diabetic Foot Infection. The patient is on day 3 of receiving Vancomycin and current dose is (dose/interval):1500mg every 24. Labs: WBC Date/Time Value Ref Range Status 04/06/2020 05:59 AM 5.2 4.0 - 11.0 K/uL Final 04/05/2020 05:36 AM 7.3 4.0 - 11.0 K/uL Final 04/04/2020 07:09 PM 11.0 4.0 - 11.0 K/uL Final 09/15/2012 3.61 Final 09/01/2012 4.32 Final 08/25/2012 4.80 Final Lab Results Component Value Date CREATSERUM 1.50 (H) 04/06/2020 CREATSERUM 1.86 (H) 04/05/2020 CREATSERUM 1.85 (H) 04/04/2020 CREATSERUM 1.85 (H) 04/04/2020 Vancomycin Trough Date/Time Value Ref Range Status 04/06/2020 08:01 PM 11.5 10.0 - 20.0 ug/mL Final Cultures: Lab Results Component Value Date CULTGROWTH Moderate Streptococcus constellatus (!) 04/04/2020 CULTGROWTH Moderate Staphylococcus aureus (!) 04/04/2020 CULTGROWTH (!) 04/04/2020 Mixed microflora consistent with a diabetic/ischemic ulcer Max Temperature: Temp (24hrs), Av.4 F (36.3 C), Min:97.2 F (36.2 C), Max:97.6 F (36.4 C) Estimated CrCl: Estimated Creatinine Clearance: 45.1 mL/min (A) (based on SCr of 1.5 mg/dL (H)). ml/min Intake/Output: Intake/Output Summary (Last 24 hours) at 04/06/2020 2243 Last data filed at 04/06/2020 2117 Gross per 24 hour Intake 360 ml Output 300 ml Net 60 ml Other Active Antimicrobials: Antibiotics (From admission, onward) Start Stop Route Frequency Ordered 04/06/20 1500 metroNIDAZOLE (FLAGYL) tablet 500 mg -- PO Three times a day 04/06/20 1153 04/06/20 1300 cefTRIAXone (ROCEPHIN) 2000 mg/20 mL IV syringe in sterile water -- IV Every twenty four hours 04/06/20 1153 04/04/20 2200 piperacillin-tazobactam 3375 mg (ZOSYN) in D-2% 50 mL IV premix Status: Discontinued 04/06 1153 IV Every eight hours 04/04/20 1847 04/04/201999 vancomycin (VANCOCIN) 1,500 mg in sodium chloride 0.9% 250 mL (Locked) -- IV Every twenty four hours 04/04/201951 Assessment/Plan: The trough level is within the desired goal of 10-15 mg/L. Vancomycin will be continued at current dose/interval. Pharmacy will continue to monitor per the pharmacokinetic service policy. Mary Harrison RPh are Planning - Gretchen Regan RN - 04/06/2020 7:06 PM HAND FORMER HELPER Problem: ACUTE PAIN Goal: CLIENT SATISFACTION: PAIN MANAGEMENT Description: DEFINITION: Extent of positive perception of nursing care to relieve pain. 1=Not at all satisfied, 2=Somewhat satisfied, 3=Moderately satisfied, 4=Very satisfied, 5=Completely satisfied. Outcome: NOC Rating 3 Flowsheets (Taken 04/06/20201903) Initial Score: 3 Target Score: 4 Plan of care reviewed with: Patient Patient specific goal for the day: control pain with oral medication Patient specific goal for the stay: control pain with oral medication Achieve goal for stay: By discharge Patient Progress: Patient rating pain 5-6/10. Scheduled medications given, see MAR. RLE elevated on pillow. Able to reposition self. Will continue to monitor. Problem: RISK FOR FALLS Goal: FALL PREVENTION BEHAVIOR Description: DEFINITION: Personal or family critical care physician assistant actions to minimize risk factors that might precipitate falls in the personal environment. 1=Never demonstrated, 2=Rarely demonstrated, 3=Sometimes demonstrated, 4=Often demonstrated, 5=Consistently demonstrated. Outcome: NOC Rating 3 Flowsheets (Taken 04/06/20201903) Initial Score: 3 Target Score: 4 Plan of care reviewed with: Patient Patient specific goal for the day: Patient will have no falls. Patient specific goal for the stay: Patient will have no falls during stay. Achieve goal for stay: By discharge Patient Progress: Patient alert and orientated. Using call light appropriately. Verbalizes understanding to call for assistance when in need. Will continue to monitor. hysical Therapy - Nik Rush, PT - 04/06/2020 1:59 PM CST Physical Therapy Podiatry Evaluation Date: 04/06/2020 Assessment/Recommendations: Patient tolerates PT evaluation and gait training fair. Patient goes supine to sit independently, goes sit to stand from raised bed up to 4 wheeled walker with minimal assist, transfers with 4 wheeled walker assist x 1, and ambulates 150 ft with right knee scooter while propelling self with left foot and minimal to contact assist with recliner follow. Recommend swing bed on discharge for additional therapy. Referring Physician: Josh Holt MD Diagnosis/Surgical Procedure and Date: Right foot abscess Significant PMH: Past Medical History: Diagnosis Date Atrial flutter with controlled response ([facility]) pacemaker due to slow heart rate Diabetes mellitus ([facility]) Hypertension Irregular heart rate A-flutter SSS (sick sinus syndrome) ([facility]) 2013 pacemaker placed, junctional and atrial flutter with slow response Physician Orders: Evaluate and treat: yes Weight Bearing Status: NWB right LE. Precautions: NWB right LE. Lab Results Component Value Date HEMOGLOBIN 9.8 (L) 04/06/2020 Status Prior to Hospitalization/Surgical Procedure: Current Living Environment: Lives independently in apartment. Stairs to Enter Home: 8 Railin Stairs to Bedroom or Bathroom: - Railing: - Ambulation Status: Independent with either cane or 4 wheeled walker Equipment Owned: Cane, 4 wheeled walker Patient/Family Concerns: Doesn't feel safe mobilizing Patient Goals: Go to swing bed. Other: - Current Status: Cognition: Alert and Oriented Observation: Gait belt donned for any out of bed activities. Immobilizer: right lower leg wrapped in surgical dressing and KOTA wrap Transfers: Supine to/from Sit: Goes supine to sit independently. Sit to/from Stand: Goes sit to stand from raised bed up to 4 wheeled walker and minimal assist. Balance: Sitting: Fair Standing: Fair minus with 4 wheeled walker and when fit with right knee scooter. Gait: Patient fit with right knee scooter. Ambulates 150 feet with right knee scooter while propelling self with left foot and with minimal to contact assist and recliner follow with second person. Patient able to corner with scooter but requires minimal assist and verbal cues to do so. At completion of treatment, patient to sit up in recliner with legs elevated. Seat of recliner supported with 5 bed comforters to raise up the seat to comfortable height for patient. Stairs: N/t Pain Level: (0-10 scale) At rest: 2 With Activity: 2 Comments: Patient/Family Education: Reviewed role of the physical therapist and discussed anticipated outcomegoals. Other: Family Present during Evaluation: Treatment: Time Treatment Occurred: 1309 Evaluation: X Gait: 15 minutes Therapeutic Exercise: 0 minutes Therapeutic Activity: 15 minutes TOTAL TIMED CODES: 30 minutes TREATMENT TOTAL TIME: 45 minutes Assessment: Patient presents with impaired functional mobility post surgical procedure and will benefit with continued PT. Patient will require post acute inpatient recovery time at : Swing bed. Plan: Follow daily for gait training, therapeutic exercise, therapeutic activity, and education. Goals: By hospital discharge or within 2 - 3 days/hospital discharge. Patient/family involved in developing/progressing goals and treatment plan. Supine to sit with no assist. Sit to stand with contact assist. To perform stand pivot transfers with assistive device and minimal assist. Ambulate 200 feet on level surfaces with minimal to contact assist and appropriate assistive device. Appropriate assistive device available for ambulation. Certification dates: 04/06/2020 to: 04/12/2020 CERTIFICATION I certify that the services as described in the above note are furnished while the patient is under my care; a plan for furnishing these services has been established and will be periodically reviewed;the services are required for the patient; and the services are subject to established guidelines. Referring Provider: Dr Holt hysical Therapy - Nik Rush, PT - 04/06/2020 1:06 PM CSTAttempted to see patient this morning but he was eating. PT to see this afternoon. FORMER HELPER Case Mgmt - Leila Xiong RN - 04/06/2020 9:06 AM CSTCASE MANAGEMENT / SOCIAL SERVICE TRANSITION PLAN - PROGRESS NOTE PLAN: Awaiting Patient/Family Decision Regarding Plan of Care Awaiting Medical Doctor Recommendations for Transition Transition Options Being Explored Will continue to work with care team on medical barriers: IV antibiotics, podiatry POC BARRIERS TO TRANSITION: Awaiting Final Antibiotic Recomendations Awaiting Placement: Residential/Swing Bed/TCU Awaiting Collateral Information Medical barriers:IV antibiotics, podiatry POC DOES ACCEPTING FACILITY REQUIRE COVID TESTING BEFORE DISCHARGE: Will follow-up. Pending if patient needs placement. COMMENTS / PATIENT AND FAMILY RESPONSE TO PLAN: Discussed with interdisciplinary team. Awaiting podiatry plan of care. Currently on IV antibiotics: IV Zosyn q8h and IV Vanco q24h. Discussed potential need for skilled placement upon discharge. Patient prefers to go home but understands why he may need placement. Discussed potential locations. Patient does not want a SNF/TCU. He is open to swing bed with a preference for [facility] or [facility]. Profile sent via [employer]. Awaiting PT/OT consults for recommendations for mobility. IS PATIENT'S ADMISSION ASSOCIATED WITH TIA, ISCHEMIC, OR HEMORRHAGIC STROKE?: No PATIENT / SUBSTITUTE DECISION MAKER GOAL UPON TRANSITION: First Choice: Swing Bed Second Choice: Home Health: Bath Aid, Home Safety Evaluation, Nurse, Occupational Therapy and Physical Therapy ANTICIPATED NEEDS UPON TRANSITION: Residential Facility Swing Bed Transitional Care RESOURCE(S) PROVIDED: Placement ANTICIPATED MODE OF TRANSPORT UPON TRANSITION: Family Car ANTICIPATED MODE OF TRANSPORT TO AND FROM FOLLOW UP APPOINTMENTS: Family Car VERIFIED CORRECT PHARMACY IS ENTERED FOR DISCHARGE: Patient agreeable with Med to Bed - if discharging home Will update pharmacy if patient discharges to a facility TRANSITION ROUNDING COMPLETED WITH THE FOLLOWING: Patient / family Director Blood Bank Attending MD Residents Consulting MD Bedside store operations associate RN Discussed in person SIGNED: Leila Xiong RN Case Manager - Orthopedics [facility] are Planning - Mireya Mcnair RN - 04/05/2020 11:22 PM HAND FORMER HELPER Problem: ACUTE PAIN Goal: CLIENT SATISFACTION: PAIN MANAGEMENT Description: DEFINITION: Extent of positive perception of nursing care to relieve pain. 1=Not at all satisfied, 2=Somewhat satisfied, 3=Moderately satisfied, 4=Very satisfied, 5=Completely satisfied. Flowsheets (Taken 04/05/2020 8602) Initial Score: 2 Target Score: 4 Plan of care reviewed with: Patient Patient specific goal for the day: control pain with oral medication Patient specific goal for the stay: control pain with oral medication Achieve goal for stay: By discharge Patient Progress: Patient rating pain 5-8/10. Scheduled medications given, see MAR. Elevated. Able to reposition self in bed. Will continue to monitor. are Planning - Gretchen Regan RN - 04/05/2020 3:40 PM HAND FORMER HELPER Problem: ACUTE PAIN Goal: CLIENT SATISFACTION: PAIN MANAGEMENT Description: DEFINITION: Extent of positive perception of nursing care to relieve pain. 1=Not at all satisfied, 2=Somewhat satisfied, 3=Moderately satisfied, 4=Very satisfied, 5=Completely satisfied. Outcome: NOC Rating 3 Flowsheets (Taken 04/05/2020 2906) Initial Score: 3 Target Score: 4 Plan of care reviewed with: Patient Patient specific goal for the day: control pain with oral medication Patient specific goal for the stay: control pain with oral medication Achieve goal for stay: By discharge Patient Progress: Patient rating pain 5/10. Scheduled medications given, see MAR. Elevated. Able to reposition self in bed. Will continue to monitor. FORMER HELPER Nutrition Team - Erich Cheung MS, RD, LRD - 04/05/2020 9:28 AM HAND FORMER HELPER Nutrition Therapy Initial Assessment Referral: Nutritional Assessment BPA with MST Score of 2; weight loss; unintentional >10 lbs Hospital Day: 0 days Ji Rosas is a 79yr-old male with of 1940 admitted on 04/04/2020 4:41 PM for infection with drug-resistant microorganisms; diabetic foot ulcer; s/p transmetatarsal amputation of right foot PMHx: diabetes mellitus, hypertension, irregular heart rate, SSS with pacemaker Recommendations: Micronutrients: Provision of DAILY micronutrient support: Thera-M, 4000 units vitamin D3, VitaminB Complex, 3000 mg [place] 3's (Fish Oil), Citracal Plus Vit D, 250 mg Vitamin C Encourage and offer 3 meals per day with ample protein Scheduled snacks twice daily NUTRITION ASSESSMENT Pt's oral intake has been small and sub optimal in meeting needs. Will initiate snack rotation twice daily to aid in offering adequate kcal and protein for healing needs. Anthropometrics: Height: 185.4 cm (6' 1") Admission Wt: Weight: 115.7 kg (255 lb) as of 04/04/2020 4:41 PM per patient / family report Most Recent Wt: Weight: 115.7 kg (255 lb) (04/04/20 1644) per patient / family report BMI: 33.64 kg/(m^2) IBW: 84 kg (184 lbs) %IBW: 138% Usual BWt: 125.2 kg (276 lbs) %UBW: 92.4% Adjusted BW: 92 kg (adjusted based on lowest weight 115.7 kg and IBW 84 kg) Unintentional Weight Loss: Weight loss trend; not cumulatively significant at this time; down 7.6% in 6 months Estimated Energy Needs: 5039-1936 kcal/day (25-28 kcal / 92 kg Using: Adjusted Body Weight 115-140 gm protein (1.3-1.5 gm/ 92 kg) Using:Adjusted Body Weight 2575 mL (1 mL/ kcal) Fluids or (28 mL /92 kg) Intake: Intake Prior to Admit: Adequate; Current Oral diet: As of 04/04/20 @ 1650; Regular; Boost Breeze supplement with med passes twice daily Current PO Intake: Adequate, but sub optimal; Per 24 hours, pt's estimated average intake since admit, over the last 1 days; pt consumed ~1116 kcal (49% need) including 46 gm protein (35% need) [id number] gm CHO; with 720 mL fluid (28% need) RN Focused Physical Examination: - (per ceo at 0856 today) Neuro: WDL LOC: alert, awake Oriented: x4 Communication: clear; Psychosocial: restless and noncompliant Cognitive: WDL Oral: WDL (per ceo at 0856 today) Teeth: Decayed, Chipped, Broken, GI Assessment: WDL (per ceo at 0856 today) ? Stool Frequency: LBM: unknown; Pt has not had a documented BM since admission Edema: None (per ceo at 0856 today) Skin: warm, dry (per ceo at 0856 today) Pressure Points: (per ceo at 0856 today) ? Foot Right, Open with red/yellow wound bed [place]: 19 [Nutrition: 3] (at 0856 on 04/05) Functional Changes: (per ceo at 0856 today) Willis Fall Risk Score: 75; PT, OT following Nutrition Focused Physical Exam: Completed by RD and No visible losses appreciated Nutritionally-Relevant Medications, Vitamins and Minerals: Ferrous sulfate, neurontin, heparin, novolog, lantus, levothyroxine, lovastatin, oxycodone, protonix, zosyn, miralax, senokot-s, vanco Nutritionally-Relevant Biochemical Data: (04/05/2020) Hemoglobin 9.8 Glucose 136 Sodium 140 Potassium 4 BUN 60 Creatinine 1.86 Albumin 3 GFR 35 Allergies/Food Intolerance: Ji is allergic to adhesives and ciprofloxacin. Cultural OR Restorationism Needs: no Social/Environmental: From home alone; ; alcohol intake daily; INTERVENTIONS ? Acknowledged referral and reviewed EMR ? Initiated PM & HS snack rotation Reviewed EMR, assessed current oral diet with diet history, meal orders, intake records for adequacy and tolerance; documented in POC MONITORING/EVALUATION Surveillance of PO intake for adequacy, I&Os, weight status, nutrition- related labs and medications, clinical status; intervene as appropriate with documentation in POC Nutrition Therapy will reassess every 1-4 days [facility] - Leila Xiong RN - 04/05/2020 9:15 AM CSTCASE MANAGEMENT / SOCIAL SERVICE TRANSITION PLAN - INITIAL ASSESSMENT TRANSITION PLAN: goal is home, may need skilled placement BARRIERS TO TRANSITION: Awaiting Therapy Recommendations / progress towards goals for safety Medical barriers: pain control, ID recommendations, podiatry intervention? COMMENTS / PATIENT AND FAMILY RESPONSE TO PLAN: Discussed with interdisciplinary team. Met with patient at the patient's bedside. Introduced Case Management and role in patient care. Patient lives indepdenently in [place], [place]. Patient was independent with ADLs prior to this admissions. Utilized a single point cane for ambulation and a seated walker for longer distances. Patient'sgoal upon discharge is to return home with his family's support. Pending intervention and ID recommendations, patient may need skilled placement upon discharge. Patient is aware of this. Education provided in regards to anticipated plan of care. Encouraged patient to voice any concerns. Patient voiced understanding. Questions answered. Will continue to follow providers and therapy recommendations for safe discharge planning. Will continue to reassess any discharge needs. ADMISSION DX: (R) Foot Abscess PATIENT STATUS: OP in a Bed RELEASE OF INFORMATION: Yes -- verbal for: discharge planning SOURCES OF INFORMATION (See demographics for contact information): Medical Doctor Medical Record Nurse: Bedside Nurse Practitioner/Physician's [place] Representative Occupational Therapy Patient Physical Therapy CURRENT LIVING SITUATION / LEVEL OF ASSISTANCE: Lives alone Independent Cane Four-Wheeled Walker with Hand Brakes and a Seat Lives in a apartment home with 8 stairs to enter. COMMUNITY SERVICES: None HEALTHCARE DIRECTIVE: Yes-On File and reviewed POWER OF FITNESS TRAINER: None FINANCIAL CONCERNS: No Concerns PRIMARY CARE PHYSICIAN: Yes LEVY Santo [phone] [facility] / [facility] [address] : No IS PATIENT'S ADMISSION ASSOCIATED WITH TIA, ISCHEMIC, OR HEMORRHAGIC STROKE?: No LANGUAGE / COMMUNICATION BARRIERS: No PATIENT / SUBSTITUTE DECISION MAKER GOAL UPON TRANSITION: First Choice: Home Second Choice: SNF/TCU ANTICIPATED NEEDS, TRANSITION CHOICES OFFERED: Home Health vs TCU REFERRAL(S) MADE: No, not at this time RESOURCE(S) PROVIDED: Will assist with home health or TCU if needed DOES PATIENT HAVE CLOTHING TO WEAR AT DISCHARGE? Yes ANTICIPATED MODE OF TRANSPORT UPON DISCHARGE: Family Car VERIFIED CORRECT PHARMACY IS ENTERED FOR DISCHARGE: Patient agreeable with [facility] CURRENT READMISSION RISK SCORE Predictive Risk Score Risk of Unplanned Readmission: 12.5 Please refer to readmission risk assessment flowsheet for further details. SIGNED: Leila Xiong, latin professor - Orthopedics [facility] [facility] Clinical Team - Leila Washington RN - 04/05/2020 4:00 AM CSTPatient slept most of this shift awakening only briefly to use the bathroom or for cares. He denies pain, and vs are stable. Urine output 350 ml this shift. CMS is positive BLE. are Planning - Leila Washington RN - 04/05/2020 1:16 AM HAND FORMER HELPER Problem: ACUTE PAIN Goal: CLIENT SATISFACTION: PAIN MANAGEMENT Description: DEFINITION: Extent of positive perception of nursing care to relieve pain. 1=Not at all satisfied, 2=Somewhat satisfied, 3=Moderately satisfied, 4=Very satisfied, 5=Completely satisfied. Flowsheets (Taken 04/05/2020 0115) Initial Score: 3 Target Score: 4 Plan of care reviewed with: Patient Patient specific goal for the day: control pain with oral medication Patient specific goal for the stay: control pain with oral medication Achieve goal for stay: By discharge Patient Progress: Patient uses tylenol, neurontin and oxycodone scheduled to control his pain successfully linical Team - Leila Washington RN - 04/05/2020 12:00 AM CSTPatient mood and behavior improved this shift. He received his gabapentin and tylenol for pain withgood success at controlling pain. He is voiding successfully and VSS. Dressing to RLE is CDI. FORMER HELPER Clinical Team - Leila Washington RN - 04/04/2020 8:[address] Tom Sumner oncology specialist for hospital service. He said do not give sliding scale insulin tonight for bgm 217. Charted not given in MAR linical Team - Noemi Haynes RN - 04/04/2020 8:06 PM CSTAt 1610 patient arrived to the floor from podiatry clinic and assessment completed by newspaper writer. Report received from pacu nurse. Oriented patient to room, call light, and menu. Admit folder at patientbedside. Also explained shift plan of care and more. All questions answered at this time and patient encouraged to use call light with any needs including pain. See graphics for VS. At 1930 four eyes on skin done by newspaper writer and Leila Washington RN and patient refused to let us complete full assessmentincluding to groin area, buttock and legs above the knees. Noted discoloration to bilateral lower ex tremeties, redness to left and right side of bessie fold and blanchable redness to tip of left big toewhich patient states is baseline. Also see Dr Holt note with pictures to see right lower leg ascovered with dressing. linical Team - Leila Washington RN - 04/04/2020 7:45 PM CSTPatient restless and angry much of the shift so far. He frequently argues with staff and tells themhe does not understand why they need to enter his room so much for cares. When staff explain reasonfor cares he says it doesn't matter. He says he does not want to be here. VSS and blood glucose 214. Oral intake 200 ml so far. He has voided 300 ml thus far. Dressing to RLE is CDI. RLE elevated on a pillow. Bed alarm applied as patient refuses to abide by safety measures and says he does not need our help. Pain medication given for RLE pain. are Planning - Noemi Haynes RN - 04/04/2020 6:33 PM HAND FORMER HELPER Problem: RISK FOR INFECTION Goal: IMMUNE STATUS Description: DEFINITION: Natural and acquired appropriately targeted resistance to internal and external antigens. 1 = Severely compromised, 2 = Substantially compromised, 3 = Moderately compromised, 4 = Mildly compromised, 5 = Not compromised. Outcome: NOC Rating 3 Flowsheets (Taken 04/04/2020 1831) Intial Score: 2 Target Score: 4 Plan of care reviewed with: Patient Patient specific goal for the day: Patient to have stable vital signs. Patient specific goal for the stay: Patient to not become septic and wound that heals. Patient Progress: Beater Lead explained to the patient the importance of getting treatment on the infected foot. Podiatry plans to do possible surgery. documented in this encounter Plan of Treatment Date Type Specialty Care Team Description 04/18/2020 Office Visit Podiatry Kristopher Portillo, MARGIE [address] [facility] [place] [address] [phone] 05/03/2020 Office Visit Infectious Diseases Jamila Lake, DO [address] [place] [address] [phone] 06/23/2020 Clinical Support Cardiovascular Services Visit Name Type Priority Associated Diagnoses Date/Ti me CULTURE BACTERIAL, MICROBIOLOGY REPORT Routine Right foot infe ction 04/08/2020 3:04 ANAEROBE PM HAND FORMER HELPER CULTURE, ACID FAST MICROBIOLOGY REPORT Routine Right foot infe ction 04/08/2020 3:04 BACILLUS WITH PM HAND FORMER HELPER STAIN CULTURE FUNGAL, MICROBIOLOGY REPORT Routine Right foot infecti on 04/08/2020 3:04 OTHER PM HAND FORMER HELPER Name Type Priority Associated Order Schedule Diagnoses CULTURE BACTERIAL, MICROBIOLOGY REPORT Routine Right foot Re lease Upon ANAEROBE infection Ordering for 1 Occurrences sta rting 04/08/2020, 1 completed CULTURE FUNGAL, MICROBIOLOGY REPORT Routine Right foot Relea se Upon OTHER infection Ordering for 1 Occurrences sta rting 04/08/2020 PROTIME/INR Lab Routine Early AM draw f or labs until discontinued starting 2020, 4 completed BASIC METABOLIC Lab Routine every other day PANEL until discontin ued starting 2020, 2 completed Name Type Priority Associated Diagnoses Order S chedule CLINIC REFERRAL Referral Routine Ulcer of right foot Order ed: 04/11/2020 VASCULAR ONE CHART with other severity (HCC) Right foot infection HOSPITAL DISCHARGE Referral Routine Once for 1 Occurrences WARFARIN ANTICOAG starting 0 04/12/2020 ORDER until documented as of this encounter Implants Implanted Type Area Information Technology Technician Device Shelf Model / Identifier Expiration Serial / Date Lot Bone Filler Hydroset 3cc N [id number] Ea - [id number] Bone/Tissue/Allog [id number] 02/17/2014 [id number] / Implanted: Qty: 1 on 07/18/2012 by Anusha Cam DPM at [facility] raft / [id number] Medtronic Single Chamber Pacemaker-06/09/2012 Cardiovascular Left: MEDTRON[employer] [id number] / Implanted: 06/09/2012 by Umang Nevarez MD (Quantity not on file) CHEST [id number] / Explanted: (Quantity not on file) Description: documented as of this encounter Procedures Procedure Name Priority Date/Time Associated Comments Diagnosis GLUCOSE BY METER, POCT Routine 04/12/2020 6:35 R esults for this AM HAND FORMER HELPER procedure are i n the results section. COLLECT AND HOLD Routine 04/12/2020 5:50 Results for this LAVENDER (EDTA) TOP AM HAND FORMER HELPER procedur e are in TUBE the results section. PROTIME/INR Routine 04/12/2020 5:50 Results for this AM HAND FORMER HELPER procedure are i n the results section. BASIC METABOLIC PANEL Routine 04/12/2020 5:50 Re sults for this AM HAND FORMER HELPER procedure are i n the results section. GLUCOSE BY METER, POCT Routine 04/11/2020 8:41 R esults for this PM HAND FORMER HELPER procedure are i n the results section. GLUCOSE BY METER, POCT Routine 04/11/2020 6:48 R esults for this PM HAND FORMER HELPER procedure are i n the results section. XRAY CHEST PORTABLE BERNY 04/11/2020 6:39 Resu lts for this PM HAND FORMER HELPER procedure are i n the results section. GLUCOSE BY METER, POCT Routine 04/11/2020 12:49 R esults for this PM HAND FORMER HELPER procedure are i n the results section. GLUCOSE BY METER, POCT Routine 04/11/2020 6:55 R esults for this AM HAND FORMER HELPER procedure are i n the results section. PROTIME/INR Routine 04/11/2020 5:38 Results for this AM HAND FORMER HELPER procedure are i n the results section. COLLECT AND HOLD GREEN Routine 04/11/2020 5:34 R esults for this TOP TUBE AM HAND FORMER HELPER procedure are i n the results section. COLLECT AND HOLD Routine 04/11/2020 5:34 Results for this LAVENDER (EDTA) TOP AM HAND FORMER HELPER procedur e are in TUBE the results section. COMPLETE BLOOD COUNT Routine 04/11/2020 5:34 Res ults for this WITHOUT DIFFERENTIAL AM HAND FORMER HELPER procedu re are in the results section. MAGNESIUM Routine 04/11/2020 5:34 Results for this AM HAND FORMER HELPER procedure are i n the results section. BASIC METABOLIC PANEL Routine 04/11/2020 5:34 Re sults for this AM HAND FORMER HELPER procedure are i n the results section. GLUCOSE BY METER, POCT Routine 04/10/2020 10:09 R esults for this PM HAND FORMER HELPER procedure are i n the results section. GLUCOSE BY METER, POCT Routine 04/10/2020 5:47 R esults for this PM HAND FORMER HELPER procedure are i n the results section. GLUCOSE BY METER, POCT Routine 04/10/2020 1:01 R esults for this PM HAND FORMER HELPER procedure are i n the results section. GLUCOSE BY METER, POCT Routine 04/10/2020 6:19 R esults for this AM HAND FORMER HELPER procedure are i n the results section. COLLECT AND HOLD Routine 04/10/2020 5:46 Results for this LAVENDER (EDTA) TOP AM HAND FORMER HELPER procedur e are in TUBE the results section. PROTIME/INR Routine 04/10/2020 5:46 Results for this AM HAND FORMER HELPER procedure are i n the results section. BASIC METABOLIC PANEL Routine 04/10/2020 5:46 Re sults for this AM HAND FORMER HELPER procedure are i n the results section. GLUCOSE BY METER, POCT Routine 04/09/2020 9:12 R esults for this PM HAND FORMER HELPER procedure are i n the results section. GLUCOSE BY METER, POCT Routine 04/09/2020 5:31 R esults for this PM HAND FORMER HELPER procedure are i n the results section. GLUCOSE BY METER, POCT Routine 04/09/2020 12:47 R esults for this PM HAND FORMER HELPER procedure are i n the results section. PROTIME/INR Routine 04/09/2020 8:40 Results for this AM HAND FORMER HELPER procedure are i n the results section. GLUCOSE BY METER, POCT Routine 04/09/2020 6:30 R esults for this AM HAND FORMER HELPER procedure are i n the results section. LAB ONLY-COMPLETE Routine 04/09/2020 6:21 Result s for this BLOOD COUNT WITH AM HAND FORMER HELPER procedure a re in DIFFERENTIAL the results section. COMPREHENSIVE Routine 04/09/2020 6:21 Results fo r this METABOLIC PANEL AM HAND FORMER HELPER procedure ar e in the results section. LAB ONLY-COMPLETE Routine 04/09/2020 6:21 Result s for this BLOOD COUNT WITH AM HAND FORMER HELPER procedure a re in DIFFERENTIAL the results section. GLUCOSE BY METER, POCT Routine 04/08/2020 9:33 R esults for this PM HAND FORMER HELPER procedure are i n the results section. GLUCOSE BY METER, POCT Routine 04/08/2020 5:23 R esults for this PM HAND FORMER HELPER procedure are i n the results section. GLUCOSE BY METER, POCT Routine 04/08/2020 3:54 R esults for this PM HAND FORMER HELPER procedure are i n the results section. CULTURE BACTERIAL, Routine 04/08/2020 3:04 Right foot Resul ts for this OTHER WITH GRAM STAIN PM HAND FORMER HELPER infection proced ure are in the results section. CULTURE, ACID FAST Routine 04/08/2020 3:04 Right foot BACILLUS WITH STAIN PM HAND FORMER HELPER infection DEBRIDEMENT LOWER 04/08/2020 2:28 Right foot EXTREMITY PM HAND FORMER HELPER infection Special Needs *X* GLUCOSE BY METER, Routine 04/08/2020 11:33 Result s for this POCT AM HAND FORMER HELPER procedure are i n the results section. GLUCOSE BY METER, Routine 04/08/2020 6:06 Result s for this POCT AM HAND FORMER HELPER procedure are i n the results section. LAB ONLY-COMPLETE Routine 04/08/2020 5:43 Result s for this BLOOD COUNT WITH AM HAND FORMER HELPER procedure a re in DIFFERENTIAL the results section. COMPREHENSIVE Routine 04/08/2020 5:43 Results fo r this METABOLIC PANEL AM HAND FORMER HELPER procedure ar e in the results section. LAB ONLY-COMPLETE Routine 04/08/2020 5:43 Result s for this BLOOD COUNT WITH AM HAND FORMER HELPER procedure a re in DIFFERENTIAL the results section. GLUCOSE BY METER, Routine 04/07/2020 9:05 Result s for this POCT PM HAND FORMER HELPER procedure are i n the results section. GLUCOSE BY METER, Routine 04/07/2020 5:35 Result s for this POCT PM HAND FORMER HELPER procedure are i n the results section. GLUCOSE BY METER, Routine 04/07/2020 11:32 Result s for this POCT AM HAND FORMER HELPER procedure are i n the results section. GLUCOSE BY METER, Routine 04/07/2020 5:54 Result s for this POCT AM HAND FORMER HELPER procedure are i n the results section. LAB ONLY-COMPLETE Routine 04/07/2020 5:37 Result s for this BLOOD COUNT WITH AM HAND FORMER HELPER procedure a re in DIFFERENTIAL the results section. PROTIME/INR Routine 04/07/2020 5:37 Results for this AM HAND FORMER HELPER procedure are i n the results section. COMPREHENSIVE Routine 04/07/2020 5:37 Results fo r this METABOLIC PANEL AM HAND FORMER HELPER procedure ar e in the results section. LAB ONLY-COMPLETE Routine 04/07/2020 5:37 Result s for this BLOOD COUNT WITH AM HAND FORMER HELPER procedure a re in DIFFERENTIAL the results section. GLUCOSE BY METER, Routine 04/06/2020 9:05 Result s for this POCT PM HAND FORMER HELPER procedure are i n the results section. VANCOMYCIN TROUGH Timed Routine 04/06/2020 8:01 Resul ts for this PM HAND FORMER HELPER procedure are i n the results section. GLUCOSE BY METER, Routine 04/06/2020 5:16 Result s for this POCT PM HAND FORMER HELPER procedure are i n the results section. ANKLE BRACHIAL INDEX Routine 04/06/2020 3:13 Res ults for this DANNIE PM HAND FORMER HELPER procedure are i n the results section. GLUCOSE BY METER, Routine 04/06/2020 11:20 Result s for this POCT AM HAND FORMER HELPER procedure are i n the results section. PROTIME/INR Routine 04/06/2020 8:51 Results for this AM HAND FORMER HELPER procedure are i n the results section. GLUCOSE BY METER, Routine 04/06/2020 6:18 Result s for this POCT AM HAND FORMER HELPER procedure are i n the results section. LAB ONLY-COMPLETE Routine 04/06/2020 5:59 Result s for this BLOOD COUNT WITH AM HAND FORMER HELPER procedure a re in DIFFERENTIAL the results section. COMPREHENSIVE Routine 04/06/2020 5:59 Results fo r this METABOLIC PANEL AM HAND FORMER HELPER procedure ar e in the results section. LAB ONLY-COMPLETE Routine 04/06/2020 5:59 Result s for this BLOOD COUNT WITH AM HAND FORMER HELPER procedure a re in DIFFERENTIAL the results section. GLUCOSE BY METER, Routine 04/05/2020 9:32 Result s for this POCT PM HAND FORMER HELPER procedure are i n the results section. GLUCOSE BY METER, Routine 04/05/2020 5:06 Result s for this POCT PM HAND FORMER HELPER procedure are i n the results section. GLUCOSE BY METER, Routine 04/05/2020 11:45 Result s for this POCT AM HAND FORMER HELPER procedure are i n the results section. PROTIME/INR Routine 04/05/2020 10:57 Results for this AM HAND FORMER HELPER procedure are i n the results section. GLUCOSE BY METER, Routine 04/05/2020 6:15 Result s for this POCT AM HAND FORMER HELPER procedure are i n the results section. LAB ONLY-COMPLETE Routine 04/05/2020 5:36 Result s for this BLOOD COUNT WITH AM HAND FORMER HELPER procedure a re in DIFFERENTIAL the results section. COMPREHENSIVE Routine 04/05/2020 5:36 Results fo r this METABOLIC PANEL AM HAND FORMER HELPER procedure ar e in the results section. LAB ONLY-COMPLETE Routine 04/05/2020 5:36 Result s for this BLOOD COUNT WITH AM HAND FORMER HELPER procedure a re in DIFFERENTIAL the results section. GLUCOSE BY METER, Routine 04/04/2020 10:26 Result s for this POCT PM HAND FORMER HELPER procedure are i n the results section. GLUCOSE BY METER, Routine 04/04/2020 8:06 Result s for this POCT PM HAND FORMER HELPER procedure are i n the results section. LAB ONLY-COMPLETE Routine 04/04/2020 7:09 Result s for this BLOOD COUNT WITH PM HAND FORMER HELPER procedure a re in DIFFERENTIAL the results section. ESR Routine 04/04/2020 7:09 Results for this PM HAND FORMER HELPER procedure are i n the results section. C-REACTIVE PROTEIN Routine 04/04/2020 7:09 Resul ts for this (INFLAMMATION) PM HAND FORMER HELPER procedure are in the results section. CREATININE BERNY 04/04/2020 7:09 Results for this PM HAND FORMER HELPER procedure are i n the results section. COMPREHENSIVE Routine 04/04/2020 7:09 Results fo r this METABOLIC PANEL PM HAND FORMER HELPER procedure ar e in the results section. LAB ONLY-COMPLETE Routine 04/04/2020 7:09 Result s for this BLOOD COUNT WITH PM HAND FORMER HELPER procedure a re in DIFFERENTIAL the results section. CULTURE BACTERIAL, Routine 04/04/2020 2:25 Ulcer of right Res ults for this OTHER WITH GRAM STAIN PM HAND FORMER HELPER foot with other pro cedure are in severity (HCC) the results Foot abscess section. CULTURE BACTERIAL, Routine 04/04/2020 2:25 Ulcer of right Res ults for this ANAEROBE PM HAND FORMER HELPER foot with other procedure ar e in severity (HCC) the results Foot abscess section. documented in this encounter Results GLUCOSE BY METER, POCT (04/12/2020 6:35 AM HAND FORMER HELPER) Pathologist Sig nature Glucose POC 126 (H) 70 - 99 mg/dL [facility] Specimen Blood - Blood specimen (specimen) Performing Organization Address [facility]/Zipcode Phone Number [facility] [address] [place] [phone] COLLECT AND HOLD LAVENDER (EDTA) TOP TUBE (04/12/2020 5:50 AM HAND FORMER HELPER) Collect and Hold Comment: RECEIVED [facility] Specimen Blood - Blood specimen (specimen) Performing Organization Address [facility]/Zipcode Phone Number [facility] [address] [place] [phone] BASIC METABOLIC PANEL (04/12/2020 5:50 AM HAND FORMER HELPER) Pathologist Sig nature Glucose 123 (H) 70 - 100 mg/dL [facility] BUN 25 (H) 6 - 22 mg/dL [facility] Creatinine 1.30 0.80 - 1.30 [facility] mg/dL [facility] BUN/Creatinine Ratio 19.2 10.0 - 25.0 [facility] Sodium 142 135 - 145 meq/L [facility] Potassium 3.9 3.5 - 5.3 meq/L [facility] Chloride 110 99 - 110 meq/L [facility] CO2 23 20 - 29 meq/L [facility] Anion Gap with K 13 6 - 20 meq/L [facility] Calcium 8.2 (L) 8.5 - 10.5 [facility] mg/dL [facility] Age 79 Years [facility] eGFR Non- 53 (L) >=60 [facility] mL/min/1.73m2 [facility] eGFR 65 >=60 [facility] mL/min/1.73m2 [facility] Specimen Blood - Blood specimen (specimen) Performing Organization Address [facility] Phone Number [facility] [address] [place], [place] [phone] PROTIME/INR (04/12/2020 5:50 AM HAND FORMER HELPER) Pathologist Sig nature Protime 28.3 (H) 12.0 - 14.5 secs [facility] INR 2.8 2.0 - 3.5 [facility] Specimen Blood - Blood specimen (specimen) Narrative Performed At Normal INR reference range (patients not on oral [facility] anticoagulants) 0.9-1.1. INR Standard Intensity = (2.0 - 3.0) INR Higher Intensity = (2.5 - 3.5) Performing Organization Address [facility]ode Phone Number [facility] [address] [place], [place] [phone] GLUCOSE BY METER, POCT (04/11/2020 8:41 PM HAND FORMER HELPER) Pathologist Sig nature Glucose POC 126 (H) 70 - 99 mg/dL [facility] Specimen Blood - Blood specimen (specimen) Performing Organization Address [facility]/Zipcode Phone Number [facility] [address] [place] [address] GLUCOSE BY METER, POCT (04/11/2020 6:48 PM HAND FORMER HELPER) Pathologist Sig nature Glucose POC 133 (H) 70 - 99 mg/dL [facility] Specimen Blood - Blood specimen (specimen) Performing Organization Address City/State/Zipcode Phone Number [facility] [address] [place], [place] [address] XRAY CHEST PORTABLE - (04/11/2020 6:39 PM HAND FORMER HELPER) Specimen Narrative Performed At [id number] Patient Name: JI ROSAS Date of : 1940 Procedure: XRAY CHEST PORTABLE Date of Service: 04/11/2020 EXAM: XRAY CHEST PORTABLE INDICATION: PICC is in. Need PCXR for tip placement COMPARISON: 06/10/2017 TECHNIQUE: Single view chest FINDING/IMPRESSION: Right-sided PICC tip terminates at the lower SVC. Left single lead pacer device is unchanged. There are small bilateral pleural effusions with bibasilar atelectasis or consol idation. No pneumothorax. There is stable cardiomegaly. Prominent pulmonary vascular markings suggesting interstitial edema. Finalized by: Huber Dominguez MD on 03/25 6:42 PM HAND FORMER HELPER Patient/Procedure Information: [facility] MRN/SIMBA: [id number] Order Number: [id number] Accession Number: [id number] Ordering Provider: JAMILA LAKE Authorizing Provider: JAMILA LAKE Procedure Note Interface, Radiantres - 04/11/2020 6:44 PM HAND FORMER HELPER Patient Name: JI ROSAS Date of : 1940 Procedure: XRAY CHEST PORTABLE Date of Service: 04/11/2020 EXAM: XRAY CHEST PORTABLE INDICATION: PICC is in. Need PCXR for t ip placement COMPARISON: 06/10/2017 TECHNIQUE: Single view chest FINDING/IMPRESSION: Right-sided PICC tip terminates at the lower SVC. Left single lead pacer device is unchanged. There are small bilateral pleural effusions with bibasilar atelectasis or consolidation. No pneumothorax. There is stable cardiomegaly. Prominent pulmonary vascular markings suggesting interstitial edema. Finalized by: Huber Dominguez MD on 03/25 6:42 PM HAND FORMER HELPER Patient/Procedure Information: [facility] MRN/SIMBA: [id number] Order Number: [id number] Accession Number: [id number] Ordering Provider: JAMILA LAKE Authorizing Provider: JAMILA LAKE Performing Organization Address [facility] Phone Number [id number] GLUCOSE BY METER, POCT (04/11/2020 12:49 PM HAND FORMER HELPER) Pathologist Sig nature Glucose POC 171 (H) 70 - 99 mg/dL [facility] Specimen Blood - Blood specimen (specimen) Performing Organization Address [facility] Phone Number [facility] [address] [place], [place] [address] GLUCOSE BY METER, POCT (04/11/2020 6:55 AM HAND FORMER HELPER) Pathologist Sig nature Glucose POC 115 (H) 70 - 99 mg/dL [facility] Specimen Blood - Blood specimen (specimen) Performing Organization Address [facility] Phone Number [facility] [address] [place], [place] [phone] PROTIME/INR (04/11/2020 5:38 AM HAND FORMER HELPER) Pathologist Sig nature Protime 24.4 (H) 12.0 - 14.5 secs [facility] INR 2.3 2.0 - 3.5 [facility] Specimen Blood - Blood specimen (specimen) Narrative Performed At Normal INR reference range (patients not on oral [facility] anticoagulants) 0.9-1.1. INR Standard Intensity = (2.0 - 3.0) INR Higher Intensity = (2.5 - 3.5) Performing Organization Address [facility] Phone Number [facility] [address] [place], [place] [phone] MAGNESIUM (04/11/2020 5:34 AM HAND FORMER HELPER) Pathologist Sig nature Magnesium 1.7 (L) 1.8 - 2.4 mg/dL Specimen Blood - Blood specimen (specimen) Performing Organization Address [facility]/Zipcode Phone Number [phone] [place] [address] BASIC METABOLIC PANEL (04/11/2020 5:34 AM HAND FORMER HELPER) Pathologist Sig nature Glucose 117 (H) 70 - 100 mg/dL BUN 24 (H) 6 - 22 mg/dL Creatinine 1.48 (H) 0.80 - 1.30 [facility] mg/dL [facility] BUN/Creatinine Ratio 16.2 10.0 - 25.0 Sodium 142 135 - 145 meq/L Potassium 4.6 3.5 - 5.3 meq/L Chloride 107 99 - 110 meq/L CO2 24 20 - 29 meq/L Anion Gap with K 16 6 - 20 meq/L Calcium 8.5 8.5 - 10.5 [facility] [facility] mg/dL [facility] Age 79 Years [facility] eGFR Non- 46 (L) >=60 [facility] [place] mL/min/1.73m2 [facility] eGFR 56 (L) >=60 [facility] [place] mL/min/1.73m2 [facility]INIC Specimen Blood - Blood specimen (specimen) Performing Organization Address [facility]/Zipcode Phone Number [address] [place] [address] [facility] [address] [facility] [place] [phone] COMPLETE BLOOD COUNT WITHOUT DIFFERENTIAL (04/11/2020 5:34 AM HAND FORMER HELPER) WBC 10.5 4.0 - 11.0 [facility] K/uL [facility] RBC 2.87 (L) 4.40 - 5.80 [facility] M/uL [facility] Hemoglobin 9.7 (L) 13.5 - 17.5 [facility] g/dL [facility] Hematocrit 32.0 (L) 40.0 - 50.0 % [facility] MCV 111.5 (H)Comment: 80.0 - 98.0 [facility] Macrocytosis [place] [facility] present. MCH 33.8 25.5 - 34.0 [facility] MCHC 30.3 (L) 31.5 - 36.5 [facility] g/dL [facility] RDW-CV 13.5 11.5 - 15.5 % [facility] RDW-SD 52.8 (H) 35.5 - 50.[address] [facility] Platelet Count 221 140 - 400 [facility] K/uL [facility] MPV 10.2 8.5 - 12.0 fL [facility] Specimen Blood - Blood specimen (specimen) Performing Organization Address [facility] Phone Number [facility] [address] [place] [address] COLLECT AND HOLD LAVENDER (EDTA) TOP TUBE (04/11/2020 5:34 AM HAND FORMER HELPER) Collect and Hold Comment: RECEIVED [facility] Specimen Blood - Blood specimen (specimen) Performing Organization Address [facility] Phone Number [facility] [address] [place] [address] COLLECT AND HOLD GREEN TOP TUBE (04/11/2020 5:34 AM HAND FORMER HELPER) Collect and Hold Comment: RECEIVED [facility] Specimen Blood - Blood specimen (specimen) Performing Organization Address [facility] Phone Number [facility] [address] [place] [address] GLUCOSE BY METER, POCT (04/10/2020 10:09 PM HAND FORMER HELPER) Pathologist Sig nature Glucose POC 178 (H) 70 - 99 mg/dL [facility] Specimen Blood - Blood specimen (specimen) Performing Organization Address [facility] Phone Number [facility] [address] [place] [address] GLUCOSE BY METER, POCT (04/10/2020 5:47 PM HAND FORMER HELPER) Pathologist Sig nature Glucose POC 145 (H) 70 - 99 mg/dL [facility] Specimen Blood - Blood specimen (specimen) Performing Organization Address [facility] Phone Number [facility] [address] [place] [address] GLUCOSE BY METER, POCT (04/10/2020 1:01 PM HAND FORMER HELPER) Pathologist Sig nature Glucose POC 131 (H) 70 - 99 mg/dL [facility] Specimen Blood - Blood specimen (specimen) Performing Organization Address [facility] Phone Number [facility] [address] [place] [address] GLUCOSE BY METER, POCT (04/10/2020 6:19 AM HAND FORMER HELPER) Pathologist Sig nature Glucose POC 115 (H) 70 - 99 mg/dL [facility] Specimen Blood - Blood specimen (specimen) Performing Organization Address [facility] Phone Number [facility] [address] [place] [phone] COLLECT AND HOLD LAVENDER (EDTA) TOP TUBE (04/10/2020 5:46 AM HAND FORMER HELPER) Collect and Hold Comment: RECEIVED [facility] Status [facility] Specimen Blood - Blood specimen (specimen) Performing Organization Address [facility] Phone Number [facility] [address] [place] [address] BASIC METABOLIC PANEL (04/10/2020 5:46 AM HAND FORMER HELPER) Pathologist Sig [facility] Glucose 120 (H) 70 - 100 mg/dL [facility] BUN 21 6 - 22 mg/dL [facility] Creatinine 1.28 0.80 - 1.30 [facility] mg/dL [facility] BUN/Creatinine Ratio 16.4 10.0 - 25.0 [facility] Sodium 143 135 - 145 meq/L [facility] Potassium 4.2 3.5 - 5.3 meq/L [facility] Chloride 110 99 - 110 meq/L [facility] CO2 24 20 - 29 meq/L [facility] Anion Gap with K 13 6 - 20 meq/L [facility] Calcium 8.6 8.5 - 10.5 [facility] mg/dL [facility] Age 79 Years [facility] eGFR Non- 54 (L) >=60 [facility] [place] mL/min/1.73m2 [facility] eGFR 66 >=60 [facility] mL/min/1.73m2 [facility] Specimen Blood - Blood specimen (specimen) Performing Organization Address [facility] Phone Number [facility] [address] [place], [place] [address] PROTIME/INR (04/10/2020 5:46 AM HAND FORMER HELPER) Pathologist Sig nature Protime 21.7 (H) 12.0 - 14.5 secs [facility] INR 2.0 2.0 - 3.5 [facility] Specimen Blood - Blood specimen (specimen) Narrative Performed At Normal INR reference range (patients not on oral [facility] anticoagulants) 0.9-1.1. INR Standard Intensity = (2.0 - 3.0) INR Higher Intensity = (2.5 - 3.5) Performing Organization Address [facility] Phone Number [facility] [address] [place], [place] [address] GLUCOSE BY METER, POCT (04/09/2020 9:12 PM HAND FORMER HELPER) Pathologist Sig nature Glucose POC 184 (H) 70 - 99 mg/dL [facility] Specimen Blood - Blood specimen (specimen) Performing Organization Address [facility] Phone Number [facility] [address] [place], [place] [phone] GLUCOSE BY METER, POCT (04/09/2020 5:31 PM HAND FORMER HELPER) Pathologist Sig nature Glucose POC 204 (H) 70 - 99 mg/dL [facility] Specimen Blood - Blood specimen (specimen) Performing Organization Address [facility] Phone Number [facility] [address] [place] [address] GLUCOSE BY METER, POCT (04/09/2020 12:47 PM HAND FORMER HELPER) Pathologist Sig nature Glucose POC 147 (H) 70 - 99 mg/dL [facility] Specimen Blood - Blood specimen (specimen) Performing Organization Address [facility] Phone Number [facility] [address] [place] [address] PROTIME/INR (04/09/2020 8:40 AM HAND FORMER HELPER) Pathologist Sig nature Protime 19.6 (H) 12.0 - 14.5 secs [facility] INR 1.7 (L) 2.0 - 3.5 [facility] Specimen Blood - Blood specimen (specimen) Narrative Performed At Normal INR reference range (patients not on oral [facility] anticoagulants) 0.9-1.1. INR Standard Intensity = (2.0 - 3.0) INR Higher Intensity = (2.5 - 3.5) Performing Organization Address City/[facility]/Zipcode Phone Number [facility] [address] [place], [place] [address] GLUCOSE BY METER, POCT (04/09/2020 6:30 AM HAND FORMER HELPER) Pathologist [facility] Glucose POC 100 (H) 70 - 99 mg/dL [facility] Specimen Blood - Blood specimen (specimen) Performing Organization Address [facility] Phone Number [facility] [address] [place] [address] [phone] LAB ONLY-COMPLETE BLOOD COUNT WITH DIFFERENTIAL (04/09/2020 6:21 AM HAND FORMER HELPER) Pathologist [facility] WBC 6.5 4.0 - 11.0 [facility] RBC 2.78 (L) 4.40 - 5.80 [facility] Hemoglobin 9.5 (L) 13.5 - 17.5 [facility] gdL [facility] Hematocrit 30.7 (L) 40.0 - 50.0 MCV 110.4 (H)Comment: 80.0 - 98.0 [facility] Macrocytosis [facility] present. MCH 34.2 (H) 25.5 - 34.0 [facility] MCHC 30.9 (L) 31.5 - 36.5 [facility] gdL [facility] RDW-CV 13.0 11.5 - 15.5 RDW-SD 50.6 (H) 35.5 - 50.[address] [facility] Platelet Count 203 140 - 400 [facility] MPV 9.5 8.5 - 12.0 [facility] Seg Neut Absolute 4.9 1.8 - 8.0 [facility] Lymphocytes 0.6 (L) 0.8 - 4.1 [facility] Monocytes Absolute 0.7 0.0 - 1.0 [facility] K/[facility] Eosinophils 0.2 0.0 - 0.7 [facility] Absolute K/uL [facility] Basophil Absolute 0.0 0.0 - 0.2 [facility] Abs. 4,900 /uL [facility] (Segs and Bands) [facility] Neutrophils Percent 75.7 % [facility] Lymphocytes Percent 9.0 % [facility] Monocytes Percent 11.0 % [facility] Eosinophils Percent 3.6 % [facility] Basophil Percent 0.5 % [facility] Specimen Blood - Blood specimen (specimen) Performing Organization Address City/State/Zipcode Phone Number [facility] [address] [place] [address] COMPREHENSIVE METABOLIC PANEL (04/09/2020 6:21 AM HAND FORMER HELPER) Pathologist Sig nature Glucose 118 (H) 70 - 100 mg/dL [facility] BUN 19 6 - 22 mg/dL [facility] Creatinine 1.21 0.80 - 1.30 [facility] mg/dL [facility] BUN/Creatinine Ratio 15.7 10.0 - 25.0 [facility] Sodium 143 135 - 145 meq/L [facility] Potassium 4.5 3.5 - 5.3 meq/L [facility] Chloride 109 99 - 110 meq/L [facility] CO2 25 20 - 29 meq/L [facility] Anion Gap with K 14 6 - 20 meq/L [facility] Calcium 8.6 8.5 - 10.5 [facility] mg/dL [facility] Protein Total 6.5 6.0 - 8.2 g/dL [facility] Albumin 2.9 (L) 3.5 - 5.0 g/dL [facility] Alkaline Phosphatase 128 30 - 150 U/L [facility] AST - SGOT 18 0 - 35 U/L [facility] ALT - SGPT 11 0 - 55 U/L [facility] Bilirubin Total 0.3 0.2 - 1.2 mg/dL [facility] Corrected Calcium 9.5 8.5 - 10.5 [facility]/dL [facility] Age 79 Years [facility] eGFR Non- 58 (L) >=60 [facility] [place] mL/min/1.73m2 [facility] eGFR 70 >=60 [facility] mL/min/1.73m2 [facility] Specimen Blood - Blood specimen (specimen) Performing Organization Address [facility]/Zipcode Phone Number [facility] [address] [facility] [address] [place] [address] GLUCOSE BY METER, POCT (04/08/2020 9:33 PM HAND FORMER HELPER) Pathologist Sig nature Glucose POC 145 (H) 70 - 99 mg/dL [facility] Specimen Blood - Blood specimen (specimen) Performing Organization Address [facility] Phone Number [facility] [address] [facility] [place] [address] GLUCOSE BY METER, POCT (04/08/2020 5:23 PM HAND FORMER HELPER) Pathologist Sig nature Glucose POC 147 (H) 70 - 99 mg/dL [facility] Specimen Blood - Blood specimen (specimen) Performing Organization Address [facility] Phone Number [facility] [address] [facility] [address] [place] [address] GLUCOSE BY METER, POCT (04/08/2020 3:54 PM HAND FORMER HELPER) Pathologist Sig nature Glucose POC 85 70 - 99 mg/dL [facility] Specimen Blood - Blood specimen (specimen) Performing Organization Address [facility] Phone Number [facility] [address] [place] [address] CULTURE BACTERIAL, OTHER WITH GRAM STAIN (04/08/2020 3:04 PM HAND FORMER HELPER)Only the most recent of2 resultswithin the time period is included. Culture Result Rare Staphylococcus [facility] aureus (!) CLINIC Gram Stain Few (1 to 9/LPF) WBC's Gram Stain No epithelial cells [facility] CLINIC Gram Stain No organisms seen Specimen Bone - Entire foot (body structure) Narrative Performed At Potential contamination with normal skin chapo. Right second metatarsal Organism Antibiotic Method Susceptibility Staphylococcus aureus Clindamycin GOPAL <=0.25 ug/ mL: Sensitive Staphylococcus aureus Erythromycin GOPAL <=0.25 ug/ mL: Sensitive Staphylococcus aureus Oxacillin GOPAL <=0.25 ug/ mL: Sensitive Comment: Oxacillin predicts susceptibility to cefazolin, cephalexin, nafcillin and dicloxacillin. Staphylococcus aureus Penicillin GOPAL 0.12 ug/mL : Sensitive Staphylococcus aureus Rifampicin GOPAL <=0.5 ug/m L: Sensitive Comment: Rifampicin should n ot be used alone for antimicrobial therapy. Staphylococcus aureus Tetracycline GOPAL <=1 ug/mL: Sensitive Staphylococcus aureus Trimethoprim/Sulfamethoxazole GOPAL <=10 ug/mL: Sensitive Staphylococcus aureus Vancomycin GOPAL <=0.5 ug/m L: Sensitive Comment: Oral Vancomycin is NEVER a treatment option. Vancomycin is NOT absorbed when orally administered. Comment: Oxacillin results can be applied to the other penicillinase-stable penicillins (cloxacillin, dicloxacillin, flucloxacillin, methicillin, and nafcillin), beta lactam/beta lactamase inhibitor combinations , antistaphylococcal cephems, and carbap enems approved for use by the FDA for staphylcoccal infections. Oxacillin resistant staphylococci are re sistant to all currently available beta lactam antimicrobial agents, with the exception of the newer cephalosporins with anti-MRSA activity. Performing Organization Address [facility] Phone Number [address] [address] GLUCOSE BY METER, POCT (04/08/2020 11:33 AM HAND FORMER HELPER) Pathologist Sig nature Glucose POC 118 (H) 70 - 99 mg/dL [facility] Specimen Blood - Blood specimen (specimen) Performing Organization Address [facility] Phone Number [facility] [address] [place] [address] [phone] GLUCOSE BY METER, POCT (04/08/2020 6:06 AM HAND FORMER HELPER) Pathologist Sig nature Glucose POC 125 (H) 70 - 99 mg/dL [facility] Specimen Blood - Blood specimen (specimen) Performing Organization Address [facility] Phone Number [facility] [address] [place], [place] [address] LAB ONLY-COMPLETE BLOOD COUNT WITH DIFFERENTIAL (04/08/2020 5:43 AM HAND FORMER HELPER) WBC 4.2 4.0 - 11.0 [facility] RBC 3.05 (L) 4.40 - 5.80 [facility] Hemoglobin 10.2 (L) 13.5 - 17.5 [facility] gdL [facility] Hematocrit 33.0 (L) 40.0 - 50.0 MCV 108.2 (H)Comment: 80.0 - 98.0 [facility] Macrocytosis [facility] present. MCH 33.4 25.5 - 34.0 [facility] MCHC 30.9 (L) 31.5 - 36.5 [facility] gdL [facility] RDW-CV 13.0 11.5 - 15.5 RDW-SD 50.2 (H) 35.5 - 50.[address] [facility] Platelet Count 199 140 - 400 [facility] MPV 9.7 8.5 - 12.0 [facility] Seg Neut Absolute 2.9 1.8 - 8.0 [facility] Lymphocytes 0.5 (L) 0.8 - 4.1 [facility] Monocytes Absolute 0.5 0.0 - 1.0 [facility] Eosinophils 0.2 0.0 - 0.7 [facility] Basophil Absolute 0.0 0.0 - 0.2 [facility] Neutrophils Abs. 2,900 /uL [facility] (Segs and Bands) [facility] Neutrophils Percent 70.6 % [facility] Lymphocytes Percent 12.9 % [facility] Monocytes Percent 10.8 % [facility] Eosinophils Percent 5.0 % [facility] Basophil Percent 0.5 % [facility] Specimen Blood - Blood specimen (specimen) Performing Organization Address City/State/Zipcode Phone Number [facility] [address] [place] [address] COMPREHENSIVE METABOLIC PANEL (04/08/2020 5:43 AM HAND FORMER HELPER) Pathologist [facility] nature Glucose 125 (H) 70 - 100 mg/dL [facility] BUN 22 6 - 22 mg/dL [facility] Creatinine 1.05 0.80 - 1.30 [facility] mg/dL [facility] BUN/Creatinine Ratio 21.0 10.0 - 25.0 [facility] Sodium 143 135 - 145 meq/L [facility] Potassium 4.0 3.5 - 5.3 meq/L [facility] Chloride 111 (H) 99 - 110 meq/L [facility] CO2 23 20 - 29 meq/L [facility] Anion Gap with K 13 6 - 20 meq/L [facility] Calcium 8.6 8.5 - 10.5 [facility] mg/dL [facility] Protein Total 6.8 6.0 - 8.2 g/dL [facility] Albumin 3.0 (L) 3.5 - 5.0 g/dL [facility] Alkaline Phosphatase 132 30 - 150 U/L [facility] AST - SGOT 20 0 - 35 U/L [facility] ALT - SGPT 18 0 - 55 U/L [facility] Bilirubin Total 0.4 0.2 - 1.2 mg/dL [facility] Corrected Calcium 9.4 8.5 - 10.5 [facility] mg/dL [facility] Age 79 Years [facility] eGFR Non- 68 >=60 [facility] mL/min/1.73m2 [facility] eGFR 83 >=60 [facility] mL/min/1.73m2 [facility] Specimen Blood - Blood specimen (specimen) Performing Organization Address [facility] Phone Number [facility] [address] [place], [place] [address] GLUCOSE BY METER, POCT (04/07/2020 9:05 PM HAND FORMER HELPER) Pathologist Sig nature Glucose POC 204 (H) 70 - 99 mg/dL [facility] Specimen Blood - Blood specimen (specimen) Performing Organization Address [facility] Phone Number [facility] [address] [place], [place] [address] GLUCOSE BY METER, POCT (04/07/2020 5:35 PM HAND FORMER HELPER) Pathologist Sig nature Glucose POC 179 (H) 70 - 99 mg/dL [facility] Specimen Blood - Blood specimen (specimen) Performing Organization Address [facility] Phone Number [facility] [address] [place] [address] GLUCOSE BY METER, POCT (04/07/2020 11:32 AM HAND FORMER HELPER) Pathologist Sig nature Glucose POC 188 (H) 70 - 99 mg/dL [facility] Specimen Blood - Blood specimen (specimen) Performing Organization Address City/[facility]/Zipcode Phone Number [facility] [address] [place] [address] [phone] GLUCOSE BY METER, POCT (04/07/2020 5:54 AM HAND FORMER HELPER) Pathologist Sig nature Glucose POC 132 (H) 70 - 99 mg/dL [facility] Specimen Blood - Blood specimen (specimen) Performing Organization Address City/[facility]/Zipcode Phone Number [facility] [address] [facility] [place] [address] LAB ONLY-COMPLETE BLOOD COUNT WITH DIFFERENTIAL (04/07/2020 5:37 AM HAND FORMER HELPER) Pathologist [facility] WBC 5.0 4.0 - 11.0 [facility] RBC 2.91 (L) 4.40 - 5.80 [facility] Hemoglobin 9.8 (L) 13.5 - 17.5 [facility] gdL [facility] Hematocrit 31.7 (L) 40.0 - 50.0 MCV 108.9 (H)Comment: 80.0 - 98.0 [facility] Macrocytosis [facility] present. MCH 33.7 25.5 - 34.0 [facility] MCHC 30.9 (L) 31.5 - 36.5 [facility] g/dL [facility] RDW-CV 13.0 11.5 - 15.5 RDW-SD 50.2 (H) 35.5 - 50.[address] [facility] Platelet Count 195 140 - 400 [facility] MPV 9.9 8.5 - 12.0 [facility] Seg Neut Absolute 3.7 1.8 - 8.0 [facility] Lymphocytes 0.5 (L) 0.8 - 4.1 [facility] Monocytes Absolute 0.6 0.0 - 1.0 [facility] Eosinophils 0.3 0.0 - 0.7 [facility] Basophil Absolute 0.0 0.0 - 0.2 [facility] Neutrophils Abs. 3,700 /uL [facility] (Segs and Bands) [facility] Neutrophils Percent 73.6 % [facility] Lymphocytes Percent 9.8 % [facility] Monocytes Percent 11.0 % [facility] Eosinophils Percent 5.0 % [facility] Basophil Percent 0.4 % [facility] Specimen Blood - Blood specimen (specimen) Performing Organization Address City/[facility]/Zipcode Phone Number [facility] [address] [place], [place] [address] COMPREHENSIVE METABOLIC PANEL (04/07/2020 5:37 AM HAND FORMER HELPER) [facility] Glucose 137 (H) 70 - 100 mg/dL [facility] BUN 30 (H) 6 - 22 mg/dL [facility] Creatinine 1.22 0.80 - 1.30 [facility] mg/dL [facility] BUN/Creatinine Ratio 24.6 10.0 - 25.0 [facility] Sodium 143 135 - 145 meq/L [facility] Potassium 4.2 3.5 - 5.3 meq/L [facility] Chloride 110 99 - 110 meq/L [facility] CO2 25 20 - 29 meq/L [facility] Anion Gap with K 12 6 - 20 meq/L [facility] Calcium 8.4 (L) 8.5 - 10.5 [facility] mg/dL [facility] Protein Total 6.7 6.0 - 8.2 g/dL [facility] Albumin 3.0 (L) 3.5 - 5.0 g/dL [facility] Alkaline Phosphatase 134 30 - 150 U/L [facility] AST - SGOT 23 0 - 35 U/L [facility] ALT - SGPT 19 0 - 55 U/L [facility] Bilirubin Total 0.5 0.2 - 1.2 mg/dL [facility] Corrected Calcium 9.2 8.5 - 10.5 [facility] mg/dL [facility] Age 79 Years [facility] eGFR Non- 57 (L) >=60 [facility] [place] mL/min/1.73m2 [facility] eGFR 69 >=60 [facility] mL/min/1.73m2 [facility] Specimen Blood - Blood specimen (specimen) Performing Organization Address City/[facility]/Zipcode Phone Number [facility] [address] [place], [place] [address] [phone] PROTIME/INR (04/07/2020 5:37 AM HAND FORMER HELPER) Pathologist Sig nature Protime 21.1 (H) 12.0 - 14.5 secs [facility] INR 1.9 (L) 2.0 - 3.5 [facility] Specimen Blood - Blood specimen (specimen) Narrative Performed At Normal INR reference range (patients not on oral [facility] anticoagulants) 0.9-1.1. INR Standard Intensity = (2.0 - 3.0) INR Higher Intensity = (2.5 - 3.5) Performing Organization Address [facility] Phone Number [facility] [address] [place] [address] GLUCOSE BY METER, POCT (04/06/2020 9:05 PM HAND FORMER HELPER) Pathologist Sig [employer] Glucose POC 202 (H) 70 - 99 mg/dL [facility] Specimen Blood - Blood specimen (specimen) Performing Organization Address [facility] Phone Number [facility] [address] [place], [place] [address] VANCOMYCIN TROUGH (04/06/2020 8:01 PM HAND FORMER HELPER) Pathologist Sig nature Vancomycin Trough 11.5 10.0 - 20.0 ug/mL Specimen Blood - Blood specimen (specimen) Performing Organization Address [facility] Phone Number [address] [place] [address] [phone] GLUCOSE BY METER, POCT (04/06/2020 5:16 PM HAND FORMER HELPER) Pathologist [facility] nature Glucose POC 157 (H) 70 - 99 mg/dL [facility] Specimen Blood - Blood specimen (specimen) Performing Organization Address [facility] Phone Number [facility] [address] [place] [address] [phone] ANKLE BRACHIAL INDEX DANNIE (04/06/2020 3:13 PM HAND FORMER HELPER) Specimen Narrative Performed At This result has an attachment that is no t available. Name: Ji Rosas : 1940 Date of Service: 04/06/2020 EXAM: US ANKLE BRACHIAL INDEX INDICATION: right foot ulcer COMPARISON(S): none TECHNIQUE: Single level bi-directional waveforms with ankle brachial indices performed. FINDINGS: RIGHT: Brachial 140 mmHG PRODUCT SUPPORT REP >255 mmHG, biphasic: KHOI: noncompressibl e DPA 175 mmHG, biphasic: KHOI: 1.2 KHOI noncompressible LEFT: Brachial 146 mmHG PRODUCT SUPPORT REP >255 mmHG, triphasic: KHOI: noncompressib le DPA >255 mmHG, triphasic: KHOI: noncompressib le KHOI noncompressible IMPRESSION: Bilateral lower extremities demonstrate non-compressib le vessels consistent with calcified atherosclerotic disease. Doppler ultrasound demonstrates mild to moderate disea se in the right leg and no significant disease in the left leg. 2. Right lower extremity forefoot has been previous ly amputated, therefore no toe brachial index was obtained. GLUCOSE BY METER, POCT (04/06/2020 11:20 AM HAND FORMER HELPER) Pathologist Sig [employer] Glucose POC 153 (H) 70 - 99 mg/dL [facility] Specimen Blood - Blood specimen (specimen) Performing Organization Address [facility] Phone Number [facility] [address] [place], [place] [address] PROTIME/INR (04/06/2020 8:51 AM HAND FORMER HELPER) Pathologist [facility] Protime 28.1 (H) 12.0 - 14.5 secs [facility] INR 2.7 2.0 - 3.5 [facility] Specimen Blood - Blood specimen (specimen) Narrative Performed At Normal INR reference range (patients not on oral [facility] anticoagulants) 0.9-1.1. INR Standard Intensity = (2.0 - 3.0) INR Higher Intensity = (2.5 - 3.5) Performing Organization Address [facility] Phone Number [facility] [address] [place] [address] GLUCOSE BY METER, POCT (04/06/2020 6:18 AM HAND FORMER HELPER) Pathologist [facility] Glucose POC 137 (H) 70 - 99 mg/dL [facility] Specimen Blood - Blood specimen (specimen) Performing Organization Address [facility] Phone Number [facility] [address] [place] [address] LAB ONLY-COMPLETE BLOOD COUNT WITH DIFFERENTIAL (04/06/2020 5:59 AM HAND FORMER HELPER) [facility] WBC 5.2 4.0 - 11.0 [facility] RBC 2.85 (L) 4.40 - 5.80 [facility] Hemoglobin 9.8 (L) 13.5 - 17.5 [facility] gdL [facility] Hematocrit 30.7 (L) 40.0 - 50.0 MCV 107.7 (H)Comment: 80.0 - 98.0 [facility] Macrocytosis [facility] present. MCH 34.4 (H) 25.5 - 34.0 [facility] MCHC 31.9 31.5 - 36.5 [facility] gdL [facility] RDW-CV 13.0 11.5 - 15.5 RDW-SD 50.0 35.5 - 50.[address] [facility] Platelet Count 192 140 - 400 [facility] MPV 10.0 8.5 - 12.0 [facility] Seg Neut Absolute 3.9 1.8 - 8.0 [facility] Lymphocytes 0.5 (L) 0.8 - 4.1 [facility] Monocytes Absolute 0.5 0.0 - 1.0 [facility] Eosinophils 0.3 0.0 - 0.7 [facility] Basophil Absolute 0.0 0.0 - 0.2 [facility] Neutrophils Abs. 3,900 /uL [facility] (Segs and Bands) [facility] Neutrophils Percent 75.2 % [facility] Lymphocytes Percent 9.8 % [facility] Monocytes Percent 9.6 % [facility] Eosinophils Percent 5.0 % [facility] Basophil Percent 0.2 % [facility] Specimen Blood - Blood specimen (specimen) Performing Organization Address City/State/Zipcode Phone Number [facility] [address] [place] [address] COMPREHENSIVE METABOLIC PANEL (04/06/2020 5:59 AM HAND FORMER HELPER) [facility] Glucose 143 (H) 70 - 100 mg/dL BUN 47 (H) 6 - 22 mg/dL Creatinine 1.50 (H) 0.80 - 1.30 [facility] mg/dL [facility] BUN/Creatinine Ratio 31.3 (H) 10.0 - 25.0 Sodium 140 135 - 145 meq/L Potassium 4.2 3.5 - 5.3 meq/L Chloride 106 99 - 110 meq/L CO2 25 20 - 29 meq/L Anion Gap with K 13 6 - 20 meq/L Calcium 8.5 8.5 - 10.5 [facility] mg/dL [facility] Protein Total 6.7 6.0 - 8.2 g/dL Albumin 3.0 (L) 3.5 - 5.0 g/dL Alkaline Phosphatase 136 30 - 150 U/L AST - SGOT 27 0 - 35 U/L ALT - SGPT 16 0 - 55 U/L Bilirubin Total 0.8 0.2 - 1.2 mg/dL Corrected Calcium 9.3 8.5 - 10.5 [facility] mg/dL [facility] Age 79 Years [facility] eGFR Non- 45 (L) >=60 [facility] [place] mL/min/1.73m2 [facility] eGFR 55 (L) >=60 [facility] mL/min/1.73m2 [facility] Specimen Blood - Blood specimen (specimen) Performing Organization Address City/[facility] Phone Number [address] [place] [address] [facility] [address] [place] [address] GLUCOSE BY METER, POCT (04/05/2020 9:32 PM HAND FORMER HELPER) Pathologist Sig nature Glucose POC 203 (H) 70 - 99 mg/dL [facility] Specimen Blood - Blood specimen (specimen) Performing Organization Address [facility] Phone Number [facility] [address] [place] [address] GLUCOSE BY METER, POCT (04/05/2020 5:06 PM HAND FORMER HELPER) Pathologist Sig nature Glucose POC 140 (H) 70 - 99 mg/dL [facility] Specimen Blood - Blood specimen (specimen) Performing Organization Address [facility]/Zipcode Phone Number [facility] [address] [place], [place] [address] GLUCOSE BY METER, POCT (04/05/2020 11:45 AM HAND FORMER HELPER) Pathologist Sig nature Glucose POC 148 (H) 70 - 99 mg/dL [facility] Specimen Blood - Blood specimen (specimen) Performing Organization Address [facility] Phone Number [facility] [address] [place], [place] [address] PROTIME/INR (04/05/2020 10:57 AM HAND FORMER HELPER) Pathologist Sig nature Protime 34.2 (H) 12.0 - 14.5 secs [facility] INR 3.5 2.0 - 3.5 [facility] Specimen Blood - Blood specimen (specimen) Narrative Performed At Normal INR reference range (patients not on oral [facility] anticoagulants) 0.9-1.1. INR Standard Intensity = (2.0 - 3.0) INR Higher Intensity = (2.5 - 3.5) Performing Organization Address [facility] Phone Number [facility] [address] [place], [place] [address] [phone] GLUCOSE BY METER, POCT (04/05/2020 6:15 AM HAND FORMER HELPER) Pathologist Sig nature Glucose POC 121 (H) 70 - 99 mg/dL [facility] Specimen Blood - Blood specimen (specimen) Performing Organization Address [facility] Phone Number [facility] [address] [place], [place] [address] LAB ONLY-COMPLETE BLOOD COUNT WITH DIFFERENTIAL (04/05/2020 5:36 AM HAND FORMER HELPER) WBC 7.3 4.0 - 11.0 [facility] RBC 2.91 (L) 4.40 - 5.80 [facility] Hemoglobin 9.8 (L) 13.5 - 17.5 [facility] g/dL [facility] Hematocrit 31.5 (L) 40.0 - 50.0 MCV 108.2 (H)Comment: 80.0 - 98.0 [facility] Macrocytosis [facility] present. MCH 33.7 25.5 - 34.0 [facility] MCHC 31.1 (L) 31.5 - 36.5 [facility] g/dL [facility] RDW-CV 13.2 11.5 - 15.5 RDW-SD 51.5 (H) 35.5 - 50.[address] [facility] Platelet Count 186 140 - 400 [facility] MPV 10.2 8.5 - 12.0 [facility] Seg Neut Absolute 5.5 1.8 - 8.0 [facility] Lymphocytes 0.9 0.8 - 4.1 [facility] Monocytes Absolute 0.7 0.0 - 1.0 [facility] Eosinophils 0.2 0.0 - 0.7 [facility] Absolute 0.0 0.0 - 0.2 [facility] Neutrophils Abs. 5,500 /uL [facility] (Segs and Bands) [facility] Neutrophils Percent 75.1 % [facility] Lymphocytes Percent 11.6 % [facility] Monocytes Percent 9.7 % [facility] Eosinophils Percent 3.2 % [facility] Basophil Percent 0.3 % [facility] Specimen Blood - Blood specimen (specimen) Performing Organization Address City/State/Zipcode Phone Number [facility] [address] [place] [address] COMPREHENSIVE METABOLIC PANEL (04/05/2020 5:36 AM HAND FORMER HELPER) Glucose 136 (H) 70 - 100 mg/dL [facility] BUN 60 (H) 6 - 22 mg/dL [facility] Creatinine 1.86 (H) 0.80 - 1.30 [facility] mg/dL [facility] BUN/Creatinine Ratio 32.3 (H) 10.0 - 25.0 [facility] Sodium 140 135 - 145 meq/L [facility] Potassium 4.0 3.5 - 5.3 meq/L [facility] Chloride 104 99 - 110 meq/L [facility] CO2 26 20 - 29 meq/L [facility] Anion Gap with K 14 6 - 20 meq/L [facility] Calcium 8.5 8.5 - 10.5 [facility] mg/dL [facility] Protein Total 6.6 6.0 - 8.2 g/dL [facility] Albumin 3.0 (L) 3.5 - 5.0 g/dL [facility] Alkaline Phosphatase 107 30 - 150 U/L [facility] AST - SGOT 13 0 - 35 U/L [facility] ALT - SGPT 11 0 - 55 U/L [facility] Bilirubin Total 0.7 0.2 - 1.2 mg/dL [facility] Corrected Calcium 9.3 8.5 - 10.5 [facility] mg/dL [facility] Age 79 Years [facility] eGFR Non- 35 (L) >=60 [facility] mL/min/1.73m2 [facility] eGFR 43 (L) >=60 [facility] mL/min/1.73m2 [facility] Specimen Blood - Blood specimen (specimen) Performing Organization Address [facility] Phone Number [facility] [address] [place] [address] GLUCOSE BY METER, POCT (04/04/2020 10:26 PM HAND FORMER HELPER) Pathologist Sig nature Glucose POC 174 (H) 70 - 99 mg/dL [facility] Specimen Blood - Blood specimen (specimen) Performing Organization Address [facility] Phone Number [facility] [address] [place], [place] [address] GLUCOSE BY METER, POCT (04/04/2020 8:06 PM HAND FORMER HELPER) Pathologist Sig nature Glucose POC 217 (H) 70 - 99 mg/dL [facility] Specimen Blood - Blood specimen (specimen) Performing Organization Address [facility] Phone Number [facility] [address] [place] [address] LAB ONLY-COMPLETE BLOOD COUNT WITH DIFFERENTIAL (04/04/2020 7:09 PM HAND FORMER HELPER) WBC 11.0 4.0 - 11.0 [facility] RBC 3.23 (L) 4.40 - 5.80 [facility] Hemoglobin 11.1 (L) 13.5 - 17.5 [facility] g/dL [facility] Hematocrit 34.4 (L) 40.0 - 50.0 MCV 106.5 (H)Comment: 80.0 - 98.0 [facility] Macrocytosis [facility] present. MCH 34.4 (H) 25.5 - 34.0 [facility] MCHC 32.3 31.5 - 36.5 [facility] gdL [facility] RDW-CV 13.1 11.5 - 15.5 RDW-SD 49.1 35.5 - 50.[address] [facility] Platelet Count 202 140 - 400 [facility] MPV 10.1 8.5 - 12.0 [facility] Seg Neut Absolute 9.6 (H) 1.8 - 8.0 [facility] Lymphocytes 0.6 (L) 0.8 - 4.1 [facility] Monocytes Absolute 0.7 0.0 - 1.0 [facility] Eosinophils 0.1 0.0 - 0.7 [facility] Basophil Absolute 0.0 0.0 - 0.2 [facility] Neutrophils Abs. 9,600 /uL [facility] (Segs and Bands) [facility] Neutrophils Percent 86.5 % [facility] Lymphocytes Percent 5.8 % [facility] Monocytes Percent 6.1 % [facility] Eosinophils Percent 1.2 % [facility] Basophil Percent 0.2 % [facility] Specimen Blood - Blood specimen (specimen) Performing Organization Address City/[facility]/Zipcode Phone Number [facility] [address] [place] [address] [phone] CREATININE (04/04/2020 7:09 PM HAND FORMER HELPER) Pathologist Sig nature Creatinine 1.85 (H) 0.80 - 1.30 [facility] mg/dL [facility] Age 79 Years [facility] eGFR Non- 35 (L) >=60 [facility] mL/min/1.73m2 [facility] eGFR 43 (L) >=60 [facility] [place] mL/min/1.73m2 [facility] Specimen Blood - Blood specimen (specimen) Performing Organization Address [facility]/Zipcode Phone Number [facility] [address] [place] [address] ESR (04/04/2020 7:09 PM HAND FORMER HELPER) Pathologist Sig nature ESR 74 (H) 0 - 19 mm/Hr Specimen Blood - Blood specimen (specimen) Narrative Performed At This result was obtained with an ESR instrument that i s not based on the standard Westergren method. The sensitivi ty and specificity of this method for various disease states may be different from the standard Westergren m ethod. Performing Organization Address City/[facility] Phone Number [address] [place] [address] [phone] C-REACTIVE PROTEIN (INFLAMMATION) (04/04/2020 7:09 PM HAND FORMER HELPER) Pathologist [facility] CRP 268.7 (H) 0.0 - 8.0 mg/L [facility] Specimen Blood - Blood specimen (specimen) Performing Organization Address [facility] Phone Number [facility] [address] [place] [address] COMPREHENSIVE METABOLIC PANEL (04/04/2020 7:09 PM HAND FORMER HELPER) Pathologist [facility] Glucose 223 (H) 70 - 100 mg/dL [facility] BUN 58 (H) 6 - 22 mg/dL [facility] Creatinine 1.85 (H) 0.80 - 1.30 [facility] mg/dL [facility] BUN/Creatinine Ratio 31.4 (H) 10.0 - 25.0 [facility] Sodium 139 135 - 145 meq/L [facility] Potassium 4.5 3.5 - 5.3 meq/L [facility] Chloride 103 99 - 110 meq/L [facility] CO2 23 20 - 29 meq/L [facility] Anion Gap with K 18 6 - 20 meq/L [facility] Calcium 8.8 8.5 - 10.5 [facility] mg/dL [facility] Protein Total 7.6 6.0 - 8.2 g/dL [facility] Albumin 3.5 3.5 - 5.0 g/dL [facility] Alkaline Phosphatase 105 30 - 150 U/L [facility] AST - SGOT 15 0 - 35 U/L [facility] ALT - SGPT 13 0 - 55 U/L [facility] Bilirubin Total 0.8 0.2 - 1.2 mg/dL [facility] Corrected Calcium 9.2 8.5 - 10.5 [facility] mg/dL [facility] Age 79 Years [facility] eGFR Non- 35 (L) >=60 [facility] mL/min/1.73m2 [facility] eGFR 43 (L) >=60 [facility] mL/min/1.73m2 [facility] Specimen Blood - Blood specimen (specimen) Performing Organization Address City/[facility]/Zipcode Phone Number [facility] [address] [place] [address] [phone] CULTURE BACTERIAL, ANAEROBE (04/04/2020 2:25 PM HAND FORMER HELPER) Culture Result Mixed microflora consistent with a diabetic/isch emic ulcer (!) [facility] Comment: CLINIC No further identification or susceptibilities to follo w. Culture plates will be held 5 days. Contact microbiology if further workup is requested. Specimen Abscess - Entire foot (body structure) Narrative Performed At Ulcer to bottom of right foot Performing Organization Address City/[facility] Phone Number [address] [place] [address] documented in this encounter Visit Diagnoses Diagnosis Post-operative state - Primary Other postprocedural status Ulcer of right foot with other severity (HCC) Foot abscess Cellulitis and abscess of foot, except t oes Right foot infection Unspecified local infection of skin and subcutaneous tissue Subacute osteomyelitis of right foot (HC C) MSSA (methicillin susceptible Staphyloco ccus aureus) infection Methicillin susceptible Staphylococcus a ureus in conditions classified elsewhere and of unspecified site Gastroesophageal reflux disease without esophagitis Esophageal reflux Hypercholesterolemia Pure hypercholesterolemia Iron deficiency anemia, unspecified iron deficiency anemia type Takes dietary supplements Hypothyroidism (acquired) Unspecified hypothyroidism Insomnia, unspecified type 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, with long-term current use of insulin (HCC) Essential hypertension Unspecified essential hypertension Atrial fibrillation, unspecified type (H CC) S/P transmetatarsal amputation of foot, right (HCC) Cellulitis Cellulitis and abscess of unspecified si te Diabetic foot ulcer (HCC) Type II or unspecified type diabetes julia litus with other specified manifestations, not stated as uncontrolled Infection with drug-resistant microorgan isms Infection with unspecified drug-resistan t microorganisms, without mention of multiple drug resistance Type 2 diabetes mellitus (HCC) Type II or unspecified type diabetes julia litus without mention of complication, not stated as uncontrolled Chronic osteomyelit w draining sinus, un sp tibia and fibula (HCC) documented in this encounter Discharge Diagnoses Not on filedocumented in this encounter Administered Medications Medication Order MAR Action Action Date Dose Rate Site .Anticoagulation (WARFARIN) therapy nurs ing reminder Anti-coag reminder, First dose on Sat04/11/20 at 1510, Until Discontinued acetaminophen (TYLENOL) tablet 650 mg Given 04/10/2020 10:10 PM HAND FORMER HELPER 650 mg 650 mg, Oral, Every four hours prn, Starting Sat04/04/20 at 1646, Until Discontinued, mild pain, Use FIRST for mild pain. If inadequate response in 60 minutes, may proceed to next choice option or if no other options, contact provider. Adult patients: Total dose of acetaminophen from all acetaminophen containing products should not exceed 4 grams (4000 mg) per day. Pediatric Patients 0 - 3 months: Maximum of 60 mg/kg/24 hours of acetaminophen. Pediatric Patients older than 3 months: Maximum of 75 mg/kg/24 hours of acetaminophen (Never exceeding 4 grams/day)., Given 04/05/2020 8:21 PM HAND FORMER HELPER 650 mg Given 04/05/2020 8:56 AM HAND FORMER HELPER 650 mg benzocaine-menthol (CEPACOL w/ Given 04/12/2020 4:24 AM HAND FORMER HELPER 1 l ozenge BENZOCAINE) lozenge 1 lozenge 1 lozenge, Mouth/Throat, Every four hours prn, Starting Sat04/11/20 at 2243, Until Discontinued, sore throat Given 04/11/2020 11:24 PM HAND FORMER HELPER 1 lozenge bisacodyl (DULCOLAX) suppository 10 mg 10 mg, Rectal, One time a day prn, Starting Sat 1 at 1646, Until Discontinued, constipation, Use SECOND for constipatio n. If patient cannot take oral medications, use first for constipation., bumetanide (BUMEX) tablet 1 mg Given 04/12/2020 8:53 AM HAND FORMER HELPER 1 mg 1 mg, Oral, Two times a day diuretic, First dose (after last reorder) on 04/10/20 at 0800, Until Discontinued, Hold for SBP less than 100, Given 04/11/2020 4:53 PM HAND FORMER HELPER 1 mg Given 04/11/2020 9:29 AM HAND FORMER HELPER 1 mg carbohydrate 15 g 15 g, Oral, PRN per parameter, Starting 04/04/20 at 1842, Until Discontinued, low blood glucose, Give 15 grams of carb ohydrate if blood glucose is less than 70 mg/dL, patient is responsive and able to take food or oral meds. Recheck blood glucose in 15 minutes. Repeat 1 time and call MD. If recheck is greater than 70 mg/dL and able to take food or oral meds, give 15 gram carbohydrate if meal or snack due in more than an hour. Serve meal or snack if due in less than 1 hour. See hypoglycemia treatment on cardex. S ources of 15 grams carbohydrate: a. 4 oz of fruit juice or b. 4 oz of soda pop (NOT diet) or c. 1 tablespoon of honey, ceFAZolin (ANCEF) 2000 mg/20 mL sterile Given 04/12/2020 4:23 A M [employer] HEL[employer] 2,000 mg water IV syringe 2,000 mg, IV, Every eight hours, First dose on Rosy 04/07/20 at 2000, Until Discontinued, 20 mL, Administer as IV push over 4 minutes., Given 04/11/2020 8:43 PM HAND FORMER HELPER 2,000 mg Given 04/11/2020 1:27 PM HAND FORMER HELPER 2,000 mg dextrose 50% IV solution 50 mL 50 mL (25 g), IV, PRN per parameter, Starting Mon 04/04 at 1842, Until Discontinued, low blood glucose, 50 mL, Give if blood glucose is less than 70 mg/dL, patient is unresponsive or NPO, a nd has IV access. Recheck blood glucose in 15 minutes and call MD. Repeat dose if r echeck less than 70 mg/dL and call MD. If recheck is greater than 70 mg/dL and abl e to take food or oral meds, give 15 gram carbohydrate if meal or snack due in mor e than an hour. Serve meal or snack if due in less than 1 hour. See hypoglycemia treatment on car dex., dextrose chewable tablet 16 g 16 g (4 tablet), Oral, PRN per parameter, Starting 04/04/20 at 1842, Until Discontinued, low blood glucose, Chew before swallowin g. Give 15 gram of carbohydrate if blood glucose is less th an 70 mg/dL, patient is responsive and able to take food or oral meds. Recheck blood glucose in 15 minutes. Repeat 15 gram carbohydrate if recheck is less than 70 mg/dL and call MD. If recheck is greater than 70 mg/dL and able to take food or o ral meds, give 15 gram carbohydrate if meal or snack due in more than an hour. Serve meal or snack if due in less than 1 hour. See hypoglycemia treatment on cardex. (S ources of 15 gram carbohydrate: 4 oz fruit juice or 4 oz soda pop (NOT diet) or 1 t ablespoonful honey or 4 glucose tablets)., docusate sodium (THEREVAC-SB MINI;ENEMEE Z MINI) 283 MG enema 1 enema 1 enema, Rectal, One time a day prn, Starting 04/04 at 1646, Until Discontinued, constipation, Use THIRD for constipation - if no BM 8 hours after dulcolax suppository. If patient cannot take oral medi cations, use second for constipation., ferrous sulfate (65 mg FE per 325 mg tablet) Given 8:53 AM HAND FORMER HELPER 325 mg tablet 325 mg 325 mg, Oral, Daily, First dose on Sat04/05/20 at 0900, Until Discontinued Given 04/11/2020 9:18 AM HAND FORMER HELPER 325 mg Given 04/10/2020 8:40 AM HAND FORMER HELPER 325 mg gabapentin (NEURONTIN) capsule 100 mg Given 04/11/2020 8:45 PM HAND FORMER HELPER 100 mg 100 mg, Oral, Bedtime, First dose (after last modification) on Sat04/04/20 at 2300, Until Discontinued Given 04/10/2020 7:47 PM HAND FORMER HELPER 100 mg Given 04/09/2020 8:37 PM HAND FORMER HELPER 100 mg glucagon for injection 1 mg vial 1 mg 1 mg, Intramuscular, PRN per parameter, Starting Sat at 1842, Until Discontinued, low blood glucose, Give if blood glucose less than 70 mg/dL, patient is unresponsive or NPO, and has no IV ac cess. Establish IV access. Recheck blood glucose in 15 minutes and call MD. If r echeck is greater than 70 mg/dL and able to take food or oral meds, give 15 gram car bohydrate if meal or snack due in more than an hour. Serve meals or snack if due in less than 1 ho ur. See hypoglycemia treatment on cardex. Reconstitute vial with 1 mL of sterile water for injection for reconstitution for a final concentra tion of 1 mg/mL. Shake vial gently. Use immediately and discard unused portion. Reconstitute with 1 mL of sterile water for injection to yield 1 mg/mL. Shake vial gently. Use immediately and discard unused portion., GNP Healthy Eyes SuperVision 2 CAPS 1 Given 04/12/2020 8:54 AM HAND FORMER HELPER 1 capsule capsule 1 capsule, Oral, Two times a day, First dose on Sat04/06/20 at 2100, Until Discontinued, Patient's own medication has been identified by Pharmacist and approved for hospital use by hospital policy., Given 04/11/2020 9:29 AM HAND FORMER HELPER 1 capsule Given 04/10/2020 10:10 PM HAND FORMER HELPER 1 capsule hEParin 100 units/ mL injection for hepl ock FLUSH 300 Units (3 mL), IV, Two times a day an d prn, First dose on Sat04/11/20 at 1825, Until Discontinued, 3 mL, Flush PICC lum en with 10 mL sodium chloride 0.9% followed by heparin 300 units (100 units/mL) twic e daily at [id number] and after each use, insulin aspart (NovoLOG) SQ correction Given 04/11/2020 1:26 PM HAND [employer]MER HELPER 2 Units scale (Adult) 2-8 Units, Subcutaneous, Three times a day, First dose on Sat04/04/20 at 1845, Until Discontinued, 0.08 mL, Give this dose whether patient is eating or patient is NPO LOW DOSE insulin aspart (NovoLOG) subcutaneous correction scale Premeal Blood Glucose = Insulin Dose 150-199 2 units 200-249 3 units 250-299 5 units 300-349 7 units Over 349 8 units, Given 04/09/2020 5:36 PM HAND FORMER HELPER 3 Units Given 04/07/2020 6:22 PM HAND FORMER HELPER 2 Units insulin glargine (LANTUS) SQ injection Given 04/11/2020 10:12 PM HAND FORMER HELPER 16 Units 16 Units, Subcutaneous, Bedtime, First dose on Sat04/05/20 at 2100, Until Discontinued, 0.16 mL, Blood Glucose greater than or equal to 100 mg/dL Do Not Hold If Blood Glucose LESS than 100 mg/dL, if patient changed to NPO, or if tube feedings stopped Immediately notify provider before administration., Given 04/10/2020 10:12 PM HAND FORMER HELPER 16 Units Given 04/09/2020 9:10 PM HAND FORMER HELPER 16 Units levothyroxine tablet 25 mcg Given 04/12/2020 6:36 AM HAND FORMER HELPER 25 mcg 25 mcg, Oral, One time a day before breakfast, First dose on Sat04/05/20 at 0700, Until Discontinued Given 04/11/2020 6:56 AM HAND FORMER HELPER 25 mcg Given 04/10/2020 6:14 AM HAND FORMER HELPER 25 mcg lisinopril (PRINIVIL, ZESTRIL) tablet 10 mg Given 04/12/2020 8:53 AM HAND FORMER HELPER 10 mg 10 mg, Oral, Two times a day, First dose on Sat04/09/20 at 0900, Until Discontinued, Hold for SBP less than 100, Given 04/11/2020 8:45 PM HAND FORMER HELPER 10 mg Given 04/11/2020 9:18 AM HAND FORMER HELPER 10 mg lovastatin (MEVACOR) tablet 40 mg Given 04/11/2020 8:45 PM HAND FORMER HELPER 40 mg 40 mg, Oral, Bedtime, First dose on Sat04/04/20 at 2100, Until Discontinued Given 04/10/2020 7:47 PM HAND FORMER HELPER 40 mg Given 04/09/2020 8:38 PM HAND FORMER HELPER 40 mg metroNIDAZOLE (FLAGYL) tablet 500 mg Given 04/11/2020 8:45 PM HAND FORMER HELPER 500 mg 500 mg, Oral, Three times a day, First dose on Sat04/06/20 at 1500, Until Discontinued Given 04/11/2020 3:06 PM HAND FORMER HELPER 500 mg Given 04/11/2020 10:19 AM HAND FORMER HELPER 500 mg ondansetron (ZOFRAN) injection solution 4 mg Given 04/09/2020 3:10 PM HAND FORMER HELPER 4 mg 4 mg, IV, Every four hours prn, Starting Sat04/08/20 at 1520, Until Discontinued, nausea, vomiting, 2 mL, PACU - Continue Post-Op, Use FIRST for nausea/vomiting. If ineffective after 15 minutes use haloperidol if ordered for nausea/vomiting. If preference is to further dilute for IV administration: First draw up patient-specific dose, then dilute to 10 mL with 0.9% sodium chloride., Given 04/09/2020 10:28 AM HAND FORMER HELPER 4 mg oxyCODONE (OXY-IR) tablet 10 mg Given 04/12/2020 8:54 AM HAND FORMER HELPER 10 mg 10 mg, Oral, Two times a day, First dose (after last modification) on Sat04/06/20 at 2100, Until Discontinued Given 04/11/2020 8:44 PM HAND FORMER HELPER 10 mg Given 04/11/2020 9:18 AM HAND FORMER HELPER 10 mg pantoprazole (PROTONIX) enteric coated tablet Given 6:36 AM HAND FORMER HELPER 40 mg 40 mg 40 mg, Oral, Two times a day before meals, First dose on Sat04/05/20 at 1700, Until Discontinued, Tablet should be swallowed whole and not be divided, crushed or chewed., Given 04/11/2020 7:00 PM HAND FORMER HELPER 40 mg Given 04/11/2020 6:56 AM HAND FORMER HELPER 40 mg polyethylene glycol (MIRALAX) packet 1 Given 04/05/2020 10:26 AM HAND FORMER HELPER 1 packet packet 1 packet, Oral, Daily, First dose on Sat04/05/20 at 1005, Until Discontinued, Dissolve in 8 ounces of water, juice, soda, coffee, tea Do NOT give if patient on thickened liquids. Contact provider for alternative if needed. , senna-docusate sodium Given 04/12/2020 8:53 AM HAND FORMER HELPER 2 tablets (SENOKOT-S;PERICOLACE) tablet 2 tablet 2 tablet, Oral, Two times a day prn, Starting Sat04/04/20 at 1646, Until Discontinued, constipation, Use FIRST for constipation unless patient cannot take oral medications., sodium chloride 0.9% flush (adult) 10 mL Given 04/12/2020 8:56 AM HAND FORMER HELPER 10 mL 10 mL, IV, Two times a day and prn, First dose on Sat04/04/20 at 2100, Until Discontinued, 10 mL, Flush IV line as scheduled and as often as necessary before and after meds., Given 04/11/2020 1:27 PM HAND FORMER HELPER 10 mL Given 04/11/2020 9:37 AM HAND FORMER HELPER 10 mL sodium chloride 0.9% prefilled 10 mL syringe Given 8:50 PM HAND FORMER HELPER 10 mL (Materials Management Item) 10 mL 10 mL, IV, Two times a day and prn, First dose on Sat04/11/20 at 1825, Until Discontinued, 10 mL, Flush PICC lumen with 10 mL sodium chloride 0.9% followed by heparin 300 units (100 units/mL) twice daily at [id number] and after each use, Medication Order MAR Action Action Date Dose Rate Site cefTRIAXone (ROCEPHIN) 2000 Given 04/06/2020 1:51 PM HAND FORMER HELPER 2,000 mg mg/20 mL IV syringe in sterile water 2,000 mg, IV, Every twenty four hours, First dose on Sat04/06/20 at 1300, Until Discontinued, 20 mL, Administer over 5 minutes., heparin (porcine) Given 04/10/2020 6:14 AM 5,000 Units Right Upper Abdomen injection solution HAND [employer]MER HELPER Subcut aneous 5,000 Units 5,000 Units, Subcutaneous, Every eight hours, First dose on Sat04/04/20 at 2200, Until Discontinued, 1 mL Given 04/09/2020 9:10 PM HAND FORMER HELPER 5,000 Units Given 04/09/2020 3:10 PM HAND FORMER HELPER 5,000 Units insulin glargine (LANTUS) SQ injection Given 04/04/2020 10:31 PM HAND FORMER HELPER 5 Units 5 Units, Subcutaneous, Bedtime, 1 dose, First dose on Sat04/04/20 at 2210, 0.05 mL, Hold for glucose lass than 150, omeprazole (priLOSEC) capsule 40 mg Given 04/05/2020 8:56 AM HAND FORMER HELPER 40 mg 40 mg, Oral, DAILY, First dose on Sat04/05/20 at 0730, Until Discontinued, Swallow cap whole. Do not crush, chew or open., oxyCODONE (OXY-IR) tablet 5 mg Given 04/06/2020 8:34 AM HAND FORMER HELPER 5 mg 5 mg, Oral, Two times a day, First dose on Sat04/04/20 at 2300, Until Discontinued Given 04/05/2020 8:20 PM HAND FORMER HELPER 5 mg Given 04/05/2020 8:56 AM HAND FORMER HELPER 5 mg piperacillin-tazobactam 3375 mg (ZOSYN) in Given 04/06 6:44 AM HAND FORMER HELPER 3,375 mg D-2% 50 mL IV premix 3,375 mg (3.375 g), IV, Every eight hours, First dose on Sat04/04/20 at 2200, Until Discontinued, 50 mL, Infuse first dose over 30 minutes., Given 04/05/2020 10:36 PM HAND FORMER HELPER 3,375 mg Given 04/05/2020 1:59 PM HAND FORMER HELPER 3,375 mg senna-docusate sodium Given 04/08/2020 9:08 PM HAND FORMER HELPER 1 tablet (SENOKOT-S;PERICOLACE) tablet 1 tablet 1 tablet, Oral, Two times a day, First dose on Sat04/05/20 at 1005, Until Discontinued Given 04/06/2020 9:06 PM HAND FORMER HELPER 1 tablet Given 04/06/2020 8:34 AM HAND FORMER HELPER 1 tablet sodium chloride 0.9% (bolus) IV Given 04/12/2020 7:11 AM HAND FORMER HELPER 50 0 mL 999 mL/hr solution 500 mL 500 mL, IV, at 999 mL/hr, Bolus, 1 dose, Sat04/12/20 at 0705, 500 mL sodium chloride 0.9% IV solution New Bag 04/07/2020 7:49 AM HAND FORMER HELPER 100 mL/hr IV, at 100 mL/hr, Continuous, Starting Sat04/05/20 at 0945, Until Sat04/07/20 at 1227, 1,000 mL New Bag 04/06/2020 7:23 PM HAND FORMER HELPER 100 mL/hr Bag 04/05/2020 9:55 AM HAND FORMER HELPER 100 mL/hr sodium chloride 0.9% IV solution New Bag 04/12/2020 1:46 AM HAND FORMER HELPER 125 mL/hr IV, at 125 mL/hr, Continuous, Starting Sat04/11/20 at 1620, Until Sat04/12/20 at 0719, 1,000 mL New Bag 04/11/2020 6:59 PM HAND FORMER HELPER 125 mL/hr vancomycin (VANCOCIN) 1,500 mg in sodium Given 04/06/2020 9 :11 PM HAND FORMER HELPER 1,500 mg chloride 0.9% 250 mL (Locked) 1,500 mg, IV, Every twenty four hours, First dose on Sat04/04/20 at 2000, Until Discontinued, 250 mL Given 04/05/2020 8:17 PM HAND FORMER HELPER 1,500 mg Given 04/04/2020 8:28 PM HAND FORMER HELPER 1,500 mg warfarin (COUMADIN) tablet 2 mg Given 04/12/2020 8:53 AM HAND FORMER HELPER 2 mg 2 mg, Oral, Warfarin one time dose, 1 dose, 04/12/20 at 0845, If patient is receiving tube feeding, hold tube feeding 1 hour before and 1 hour after warfarin administration. If unable to administer dose intact, wear universal precautions (one pair of gloves)., warfarin (COUMADIN) tablet 4 mg Given 04/10/2020 3:49 PM HAND FORMER HELPER 4 mg 4 mg, Oral, Warfarin one time dose, 1 dose, 04/10/20 at 1600, If patient is receiving tube feeding, hold tube feeding 1 hour before and 1 hour after warfarin administration. If unable to administer dose intact, wear universal precautions (one pair of gloves)., warfarin (COUMADIN) tablet 4 mg Given 04/11/2020 4:53 PM HAND FORMER HELPER 4 mg 4 mg, Oral, Warfarin one time dose, 1 dose, 04/11/20 at 1600, If patient is receiving tube feeding, hold tube feeding 1 hour before and 1 hour after warfarin administration. If unable to administer dose intact, wear universal precautions (one pair of gloves)., warfarin (COUMADIN) tablet 8 mg Given 04/09/2020 4:07 PM HAND FORMER HELPER 8 mg 8 mg, Oral, Warfarin one time dose, 1 dose, 04/09/20 at 1600, If patient is receiving tube feeding, hold tube feeding 1 hour before and 1 hour after warfarin administration. 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
[2020-04-13] MEDS: Lutein/Minerals/Vitamin C/Vitamin E Acetate Cap PO SCH ×2 (09:19→17:02)
[2020-04-13] MEDS: Bumetanide 1 MG Tab PO SCH ×2 (09:20→11:44)
[2020-04-13] MEDS: Levothyroxine 25 MCG Tab PO SCH (09:21)
[2020-04-13] MEDS: Lisinopril 10 MG Tab PO SCH ×2 (09:21→17:21)
[2020-04-13] MEDS: Pantoprazole 40 MG Tab.CR PO SCH ×2 (09:22→17:02)
[2020-04-13] MEDS: ceFAZolin 2 GM in Sodium Chloride 0.9% 100 ML IV SCH (09:22)
[2020-04-13] MEDS: Sodium Chloride 0.9% 10 ML Syringe FLUSH SCH ×6 (09:23→23:34)
[2020-04-13] MEDS: Ferrous Sulfate 325 MG Tab PO SCH (11:44)
[2020-04-13] MEDS: Warfarin 2 MG Tab PO SCH (17:01)
[2020-04-13] MEDS: oxyCODONE 5 MG Tab PO PRN ×2 (17:19→21:23)
[2020-04-13] MEDS: atorvaSTATin 10 MG Tab PO SCH (20:54)
[2020-04-13] MEDS: Gabapentin 100 MG Cap PO SCH (20:54)
[2020-04-13] MEDS: Insulin Glarg,Human.Rec.Analog 100 Unit/ML SUBCUT SCH (20:55)
[2020-04-14] MEDS: oxyCODONE 5 MG Tab PO PRN ×4 (04:23→21:02)
[2020-04-14] MEDS: Acetaminophen 500 MG Tab PO SCH ×4 (04:23→21:00)
[2020-04-14] MEDS: Bumetanide 1 MG Tab PO SCH ×2 (08:24→12:40)
[2020-04-14] MEDS: Lisinopril 10 MG Tab PO SCH ×2 (08:24→17:56)
[2020-04-14] MEDS: Lutein/Minerals/Vitamin C/Vitamin E Acetate Cap PO SCH ×2 (08:24→18:05)
[2020-04-14] MEDS: Pantoprazole 40 MG Tab.CR PO SCH ×2 (08:24→17:55)
[2020-04-14] MEDS: Levothyroxine 25 MCG Tab PO SCH (08:24)
[2020-04-14] MEDS: Sodium Chloride 0.9% 10 ML Syringe FLUSH SCH ×6 (08:30→23:43)
[2020-04-14] MEDS: Ferrous Sulfate 325 MG Tab PO SCH (12:41)
[2020-04-14] MEDS ORDERED: Polyethylene Glycol 3350 Powder 510 GM Bot PO PRN (13:04)
[2020-04-14] MEDS: Nystatin Topical Powder 15 GM Bottle TOP PRN (17:59)
[2020-04-14] MEDS: Insulin Glarg,Human.Rec.Analog 100 Unit/ML SUBCUT SCH (20:11)
[2020-04-14] MEDS: atorvaSTATin 10 MG Tab PO SCH (20:14)
[2020-04-14] MEDS: Gabapentin 100 MG Cap PO SCH (20:15)
[2020-04-15] MEDS: Acetaminophen 500 MG Tab PO SCH ×4 (04:26→23:07)
[2020-04-15] MEDS: oxyCODONE 5 MG Tab PO PRN ×4 (04:27→21:13)
[2020-04-15] MEDS: Levothyroxine 25 MCG Tab PO SCH (08:29)
[2020-04-15] MEDS: Bumetanide 1 MG Tab PO SCH ×2 (08:31→12:30)
[2020-04-15] MEDS: Pantoprazole 40 MG Tab.CR PO SCH ×2 (08:31→17:06)
[2020-04-15] MEDS: Lisinopril 10 MG Tab PO SCH ×2 (08:32→17:05)
[2020-04-15] MEDS: Lutein/Minerals/Vitamin C/Vitamin E Acetate Cap PO SCH ×2 (08:32→17:04)
[2020-04-15] MEDS: Nystatin Topical Powder 15 GM Bottle TOP PRN ×2 (08:33→15:00)
[2020-04-15] MEDS: Sodium Chloride 0.9% 10 ML Syringe FLUSH SCH ×5 (08:33→23:02)
[2020-04-15] MEDS: Ferrous Sulfate 325 MG Tab PO SCH (12:31)
[2020-04-15] MEDS ORDERED: Warfarin 2 MG Tab PO SCH (18:00)
[2020-04-15] MEDS: Insulin Glarg,Human.Rec.Analog 100 Unit/ML SUBCUT SCH (21:02)
[2020-04-15] MEDS: atorvaSTATin 10 MG Tab PO SCH (21:05)
[2020-04-15] MEDS: Gabapentin 100 MG Cap PO SCH (21:09)
[2020-04-16] MEDS: Sodium Chloride 0.9% 10 ML Syringe FLUSH SCH ×7 (00:59→23:17)
[2020-04-16] MEDS: Acetaminophen 500 MG Tab PO SCH ×3 (04:31→21:11)
[2020-04-16] MEDS: oxyCODONE 5 MG Tab PO PRN ×2 (04:35→09:36)
[2020-04-16] MEDS: Lisinopril 10 MG Tab PO SCH ×2 (07:44→17:33)
[2020-04-16] MEDS: Bumetanide 1 MG Tab PO SCH ×2 (07:44→12:32)
[2020-04-16] MEDS: Pantoprazole 40 MG Tab.CR PO SCH ×2 (07:45→17:34)
[2020-04-16] MEDS: Lutein/Minerals/Vitamin C/Vitamin E Acetate Cap PO SCH ×2 (07:45→17:32)
[2020-04-16] MEDS: Levothyroxine 25 MCG Tab PO SCH (07:46)
[2020-04-16] MEDS: Ferrous Sulfate 325 MG Tab PO SCH (12:32)
[2020-04-16] MEDS: Nystatin Topical Powder 15 GM Bottle TOP SCH ×2 (15:29→21:07)
[2020-04-16] MEDS: Insulin Glarg,Human.Rec.Analog 100 Unit/ML SUBCUT SCH (21:02)
[2020-04-16] MEDS: atorvaSTATin 10 MG Tab PO SCH (21:05)
[2020-04-16] MEDS: Gabapentin 100 MG Cap PO SCH (21:07)
[2020-04-16] MEDS: oxyCODONE 5 MG Tab PO SCH (21:09)
[2020-04-17] MEDS: Sodium Chloride 0.9% 10 ML Syringe FLUSH SCH ×6 (00:15→23:49)
[2020-04-17] MEDS: Levothyroxine 25 MCG Tab PO SCH (07:54)
[2020-04-17] MEDS: Bumetanide 1 MG Tab PO SCH ×2 (08:54→12:37)
[2020-04-17] MEDS: Lutein/Minerals/Vitamin C/Vitamin E Acetate Cap PO SCH ×2 (08:55→18:17)
[2020-04-17] MEDS: Nystatin Topical Powder 15 GM Bottle TOP SCH ×4 (08:55→21:17)
[2020-04-17] MEDS: Lisinopril 10 MG Tab PO SCH ×2 (08:55→18:17)
[2020-04-17] MEDS: Pantoprazole 40 MG Tab.CR PO SCH ×2 (08:56→18:18)
[2020-04-17] MEDS: oxyCODONE 5 MG Tab PO SCH ×2 (08:58→21:18)
[2020-04-17] MEDS: Acetaminophen 500 MG Tab PO SCH ×2 (08:59→21:20)
[2020-04-17] MEDS: Ferrous Sulfate 325 MG Tab PO SCH (12:38)
[2020-04-17] MEDS: Warfarin 2 MG Tab PO SCH (18:16)
[2020-04-17] MEDS: Insulin Glarg,Human.Rec.Analog 100 Unit/ML SUBCUT SCH (21:14)
[2020-04-17] MEDS: atorvaSTATin 10 MG Tab PO SCH (21:15)
[2020-04-17] MEDS: Gabapentin 100 MG Cap PO SCH (21:16)
[2020-04-18] MEDS: Sodium Chloride 0.9% 10 ML Syringe FLUSH SCH ×6 (00:48→23:36)
[2020-04-18] MEDS: Lisinopril 10 MG Tab PO SCH ×2 (08:20→17:26)
[2020-04-18] MEDS: Nystatin Topical Powder 15 GM Bottle TOP SCH ×4 (08:20→20:33)
[2020-04-18] MEDS: Pantoprazole 40 MG Tab.CR PO SCH ×2 (08:20→17:26)
[2020-04-18] MEDS: Bumetanide 1 MG Tab PO SCH ×2 (08:21→12:09)
[2020-04-18] MEDS: Levothyroxine 25 MCG Tab PO SCH (08:21)
[2020-04-18] MEDS: Lutein/Minerals/Vitamin C/Vitamin E Acetate Cap PO SCH ×2 (08:22→17:25)
[2020-04-18] MEDS: Acetaminophen 500 MG Tab PO SCH ×2 (08:23→20:30)
[2020-04-18 08:30] LABS: CHLORIDE,CL 105 mmol/L (98-107); SODIUM,NA 141 mmol/L (136-145)
[2020-04-18] MEDS: oxyCODONE 5 MG Tab PO SCH ×2 (09:09→20:28)
[2020-04-18] MEDS: Ferrous Sulfate 325 MG Tab PO SCH (12:09)
[2020-04-18] MEDS: Warfarin 2 MG Tab PO SCH (17:27)
[2020-04-18] MEDS: Insulin Glarg,Human.Rec.Analog 100 Unit/ML SUBCUT SCH (20:20)
[2020-04-18] MEDS: atorvaSTATin 10 MG Tab PO SCH (20:24)
[2020-04-18] MEDS: Gabapentin 100 MG Cap PO SCH (20:25)
[2020-04-19] MEDS: Sodium Chloride 0.9% 10 ML Syringe FLUSH SCH ×7 (00:40→23:59)
[2020-04-19] MEDS: Nystatin Topical Powder 15 GM Bottle TOP SCH ×4 (08:00→20:19)
[2020-04-19] MEDS: Bumetanide 1 MG Tab PO SCH ×2 (08:14→11:52)
[2020-04-19] MEDS: Levothyroxine 25 MCG Tab PO SCH (08:14)
[2020-04-19] MEDS: Lisinopril 10 MG Tab PO SCH ×2 (08:15→17:30)
[2020-04-19] MEDS: Lutein/Minerals/Vitamin C/Vitamin E Acetate Cap PO SCH ×2 (08:15→17:30)
[2020-04-19] MEDS: Pantoprazole 40 MG Tab.CR PO SCH ×2 (08:15→17:31)
[2020-04-19] MEDS: oxyCODONE 5 MG Tab PO SCH ×2 (08:18→20:22)
[2020-04-19] MEDS: Acetaminophen 500 MG Tab PO SCH ×2 (08:19→20:25)
[2020-04-19] MEDS: Ondansetron 4 MG Tab.DIS PO PRN ×2 (08:21→16:09)
[2020-04-19] MEDS: Ferrous Sulfate 325 MG Tab PO SCH (11:53)
[2020-04-19] MEDS: Warfarin 2 MG Tab PO SCH (17:29)
[2020-04-19] MEDS: atorvaSTATin 10 MG Tab PO SCH (20:17)
[2020-04-19] MEDS: Gabapentin 100 MG Cap PO SCH (20:21)
[2020-04-19] MEDS: Insulin Glarg,Human.Rec.Analog 100 Unit/ML SUBCUT SCH (20:23)
[2020-04-20] MEDS: Levothyroxine 25 MCG Tab PO SCH (08:29)
[2020-04-20] MEDS: Bumetanide 1 MG Tab PO SCH ×2 (08:31→12:19)
[2020-04-20] MEDS: Nystatin Topical Powder 15 GM Bottle TOP SCH ×4 (08:32→20:04)
[2020-04-20] MEDS: Lisinopril 10 MG Tab PO SCH ×2 (08:32→17:42)
[2020-04-20] MEDS: Sodium Chloride 0.9% 10 ML Syringe FLUSH SCH ×6 (08:33→23:45)
[2020-04-20] MEDS: Pantoprazole 40 MG Tab.CR PO SCH ×2 (08:33→17:41)
[2020-04-20] MEDS: Lutein/Minerals/Vitamin C/Vitamin E Acetate Cap PO SCH ×2 (08:37→17:42)
[2020-04-20] MEDS: Acetaminophen 500 MG Tab PO SCH ×2 (08:38→20:10)
[2020-04-20] MEDS: oxyCODONE 5 MG Tab PO SCH ×2 (08:39→20:06)
[2020-04-20] MEDS: Ferrous Sulfate 325 MG Tab PO SCH (12:18)
[2020-04-20] MEDS: Warfarin 2 MG Tab PO SCH (17:32)
[2020-04-20] MEDS: Insulin Glarg,Human.Rec.Analog 100 Unit/ML SUBCUT SCH (19:59)
[2020-04-20] MEDS: Gabapentin 100 MG Cap PO SCH (20:03)
[2020-04-20] MEDS: atorvaSTATin 10 MG Tab PO SCH (20:03)
[2020-04-21] MEDS: Bumetanide 1 MG Tab PO SCH ×2 (08:24→12:13)
[2020-04-21] MEDS: Pantoprazole 40 MG Tab.CR PO SCH ×2 (08:25→18:00)
[2020-04-21] MEDS: Lisinopril 10 MG Tab PO SCH ×2 (08:25→18:00)
[2020-04-21] MEDS: Nystatin Topical Powder 15 GM Bottle TOP SCH ×4 (08:26→20:15)
[2020-04-21] MEDS: Levothyroxine 25 MCG Tab PO SCH (08:26)
[2020-04-21] MEDS: Lutein/Minerals/Vitamin C/Vitamin E Acetate Cap PO SCH ×2 (08:27→17:58)
[2020-04-21] MEDS: Sodium Chloride 0.9% 10 ML Syringe FLUSH SCH ×6 (08:28→23:46)
[2020-04-21] MEDS: Acetaminophen 500 MG Tab PO SCH ×2 (08:30→20:16)
[2020-04-21] MEDS: oxyCODONE 5 MG Tab PO SCH ×2 (08:31→20:14)
--- NOTE | 2020-04-21 09:14 | PCM.SN.2 ---
- Free Text/Narrative Note: Variable INRs since admission secondary to Ancef therapy also requiring Coumadin to be held. INR 1.5 today. Coumadin 7 mg loading dose today with increase of Coumadin from 4 mg to 5 mg qpm starting tomorrow. Note daily INRs and weekly labs already ordered.
[2020-04-21] MEDS: Ferrous Sulfate 325 MG Tab PO SCH (12:13)
[2020-04-21] MEDS: Ondansetron 4 MG Tab.DIS PO PRN (18:00)
[2020-04-21] MEDS: Insulin Glarg,Human.Rec.Analog 100 Unit/ML SUBCUT SCH (20:11)
[2020-04-21] MEDS: atorvaSTATin 10 MG Tab PO SCH (20:12)
[2020-04-21] MEDS: Gabapentin 100 MG Cap PO SCH (20:13)
[2020-04-22] MEDS: Potassium Chloride 20 MEQ Tab.ER PO SCH (08:11)
[2020-04-22] MEDS: Bumetanide 1 MG Tab PO SCH ×2 (08:11→11:56)
[2020-04-22] MEDS: Nystatin Topical Powder 15 GM Bottle TOP SCH ×4 (08:13→20:30)
[2020-04-22] MEDS: Lutein/Minerals/Vitamin C/Vitamin E Acetate Cap PO SCH ×2 (08:15→18:00)
[2020-04-22] MEDS: Pantoprazole 40 MG Tab.CR PO SCH ×2 (08:18→18:01)
[2020-04-22] MEDS: Sodium Chloride 0.9% 10 ML Syringe FLUSH SCH ×6 (08:19→23:39)
[2020-04-22] MEDS: Levothyroxine 25 MCG Tab PO SCH (08:26)
[2020-04-22] MEDS: Lisinopril 10 MG Tab PO SCH ×2 (08:27→17:57)
[2020-04-22] MEDS: Acetaminophen 500 MG Tab PO SCH ×2 (08:28→20:31)
[2020-04-22] MEDS ORDERED: Warfarin 5 MG Tab PO ONE (10:30)
[2020-04-22] MEDS: Ferrous Sulfate 325 MG Tab PO SCH (11:57)
[2020-04-22] MEDS ORDERED: Warfarin 5 MG Tab PO SCH (18:00)
[2020-04-22] MEDS: Insulin Glarg,Human.Rec.Analog 100 Unit/ML SUBCUT SCH (20:27)
[2020-04-22] MEDS: atorvaSTATin 10 MG Tab PO SCH (20:29)
[2020-04-22] MEDS: Gabapentin 100 MG Cap PO SCH (20:30)
[2020-04-23] MEDS: Levothyroxine 25 MCG Tab PO SCH (08:07)
[2020-04-23] MEDS: Bumetanide 1 MG Tab PO SCH ×2 (08:08→11:14)
[2020-04-23] MEDS: Potassium Chloride 20 MEQ Tab.ER PO SCH (08:08)
[2020-04-23] MEDS: Nystatin Topical Powder 15 GM Bottle TOP SCH ×4 (08:15→20:50)
[2020-04-23] MEDS: Lutein/Minerals/Vitamin C/Vitamin E Acetate Cap PO SCH ×2 (08:16→17:24)
[2020-04-23] MEDS: Lisinopril 10 MG Tab PO SCH ×2 (08:17→17:24)
[2020-04-23] MEDS: Pantoprazole 40 MG Tab.CR PO SCH ×2 (08:17→17:25)
[2020-04-23] MEDS: Sodium Chloride 0.9% 10 ML Syringe FLUSH SCH ×5 (08:17→23:58)
[2020-04-23] MEDS: Ondansetron 4 MG Tab.DIS PO PRN (08:19)
[2020-04-23] MEDS: Acetaminophen 500 MG Tab PO SCH ×2 (09:15→20:51)
[2020-04-23] MEDS: oxyCODONE 5 MG Tab PO SCH ×2 (11:13→21:06)
[2020-04-23] MEDS: Ferrous Sulfate 325 MG Tab PO SCH (11:14)
[2020-04-23] MEDS: Warfarin 5 MG Tab PO SCH (17:24)
[2020-04-23] MEDS: atorvaSTATin 10 MG Tab PO SCH (20:48)
[2020-04-23] MEDS: Insulin Glarg,Human.Rec.Analog 100 Unit/ML SUBCUT SCH (20:48)
[2020-04-23] MEDS: Gabapentin 100 MG Cap PO SCH (20:49)
[2020-04-24] MEDS: Sodium Chloride 0.9% 10 ML Syringe FLUSH SCH ×6 (00:40→23:58)
[2020-04-24] MEDS: Levothyroxine 25 MCG Tab PO SCH (08:01)
[2020-04-24] MEDS: Bumetanide 1 MG Tab PO SCH ×2 (08:02→11:34)
[2020-04-24] MEDS: Potassium Chloride 20 MEQ Tab.ER PO SCH (08:03)
[2020-04-24] MEDS: Lutein/Minerals/Vitamin C/Vitamin E Acetate Cap PO SCH ×2 (08:04→17:19)
[2020-04-24] MEDS: Lisinopril 10 MG Tab PO SCH ×2 (08:04→17:19)
[2020-04-24] MEDS: Nystatin Topical Powder 15 GM Bottle TOP SCH ×4 (08:04→20:54)
[2020-04-24] MEDS: Pantoprazole 40 MG Tab.CR PO SCH ×2 (08:05→17:20)
[2020-04-24] MEDS: Acetaminophen 500 MG Tab PO SCH ×2 (08:06→20:56)
[2020-04-24] MEDS: oxyCODONE 5 MG Tab PO SCH ×2 (09:20→21:04)
[2020-04-24] MEDS: Ferrous Sulfate 325 MG Tab PO SCH (11:34)
[2020-04-24] MEDS: Warfarin 5 MG Tab PO SCH (17:18)
[2020-04-24] MEDS: Insulin Glarg,Human.Rec.Analog 100 Unit/ML SUBCUT SCH (20:55)
[2020-04-24] MEDS: Gabapentin 100 MG Cap PO SCH (20:56)
[2020-04-24] MEDS: atorvaSTATin 10 MG Tab PO SCH (20:56)
[2020-04-25] MEDS: Sodium Chloride 0.9% 10 ML Syringe FLUSH SCH ×6 (00:34→23:58)
[2020-04-25] MEDS: Sodium Chloride 0.9% 10 ML Syringe FLUSH PRN (07:06)
[2020-04-25 07:30] LABS: CHLORIDE,CL 101 mmol/L (98-107); SODIUM,NA 138 mmol/L (136-145)
[2020-04-25] MEDS: Levothyroxine 25 MCG Tab PO SCH (07:52)
[2020-04-25] MEDS: Bumetanide 1 MG Tab PO SCH ×2 (07:52→11:40)
[2020-04-25] MEDS: Lutein/Minerals/Vitamin C/Vitamin E Acetate Cap PO SCH ×2 (07:53→17:26)
[2020-04-25] MEDS: Potassium Chloride 20 MEQ Tab.ER PO SCH (07:53)
[2020-04-25] MEDS: Nystatin Topical Powder 15 GM Bottle TOP SCH ×4 (07:53→20:15)
[2020-04-25] MEDS: Lisinopril 10 MG Tab PO SCH ×2 (07:54→17:26)
[2020-04-25] MEDS: Pantoprazole 40 MG Tab.CR PO SCH ×2 (07:54→17:27)
[2020-04-25] MEDS: Acetaminophen 500 MG Tab PO SCH ×2 (09:01→21:05)
[2020-04-25] MEDS: oxyCODONE 5 MG Tab PO SCH ×2 (09:02→21:07)
[2020-04-25] MEDS: Ferrous Sulfate 325 MG Tab PO SCH (11:41)
[2020-04-25] MEDS: Ondansetron 4 MG Tab.DIS PO PRN (15:14)
[2020-04-25] MEDS: Warfarin 5 MG Tab PO SCH (17:25)
[2020-04-25] MEDS: Insulin Glarg,Human.Rec.Analog 100 Unit/ML SUBCUT SCH (20:11)
[2020-04-25] MEDS: atorvaSTATin 10 MG Tab PO SCH (20:13)
[2020-04-25] MEDS: Gabapentin 100 MG Cap PO SCH (20:14)
[2020-04-26] MEDS: Sodium Chloride 0.9% 10 ML Syringe FLUSH SCH ×7 (00:53→23:43)
[2020-04-26] MEDS: Levothyroxine 25 MCG Tab PO SCH (08:40)
[2020-04-26] MEDS: Bumetanide 1 MG Tab PO SCH ×2 (08:42→11:32)
[2020-04-26] MEDS: Potassium Chloride 20 MEQ Tab.ER PO SCH (08:43)
[2020-04-26] MEDS: Lisinopril 10 MG Tab PO SCH ×2 (08:45→17:13)
[2020-04-26] MEDS: Pantoprazole 40 MG Tab.CR PO SCH ×2 (08:46→17:14)
[2020-04-26] MEDS: Nystatin Topical Powder 15 GM Bottle TOP SCH ×4 (09:11→20:45)
[2020-04-26] MEDS: Lutein/Minerals/Vitamin C/Vitamin E Acetate Cap PO SCH ×2 (09:39→17:11)
[2020-04-26] MEDS: Acetaminophen 500 MG Tab PO SCH ×2 (09:40→20:46)
[2020-04-26] MEDS: oxyCODONE 5 MG Tab PO SCH ×2 (09:41→20:59)
[2020-04-26] MEDS: Ferrous Sulfate 325 MG Tab PO SCH (11:34)
--- NOTE | 2020-04-26 14:16 | PCM.PN ---
- General Info Date of Service: 04/26/20 Admission Dx/Problem (Free Text): Admission Diagnosis/Problem Admission Diagnosis/Problem Osteomyelitis of foot Functional Status: Reports: Pain Controlled (with routine use of Oxycodone), Tolerating Diet, Ambulating (only to bathroom with recent start of touch wt- bearing R foot), Urinating - Review of Systems General: Reports: No Symptoms HEENT: Reports: No Symptoms Pulmonary: Reports: No Symptoms Cardiovascular: Reports: No Symptoms Gastrointestinal: Reports: No Symptoms Genitourinary: Reports: No Symptoms Musculoskeletal: Reports: Joint Pain (chronic R hip pain, controlled with oral pain meds for the most part) Skin: Reports: Pruritis (L upper arm secondary to Covid vaccination 04-21, also bilat lower back. L upper arm was swollen and reddened also surrounding the injection site, this is resolving but the itching persists. ) Neurological: Reports: No Symptoms Psychiatric: Reports: No Symptoms - Patient Data Vitals - Most Recent: Last Vital Signs Temp 97.8 F 04/26/20 08:00 Pulse 59 L 04/25/20 16:43 Resp 18 04/25/20 16:43 BP 0/0 L 04/26/20 08:45 Pulse Ox 91 L 04/25/20 16:43 Weight - Most Recent: 262 lb 11.2 oz I&O - Last 24 Hours: Intake & Output 04/25/20 04/26/20 04/26/20 22:59 06:59 14:59 Intake Total 091 95 3478 Output Total 1320 300 100 Balance -980 -250 1020 Lab Results Last 24 Hours: Laboratory Results - last 24 hr 04/25/20 04/26/20 04/26/20 Range/Units 17:30 07:26 07:27 INR 1.5 POC Glucose 218 H 97 (65-110) mg/dl Med Orders - Current: Current Medications Acetaminophen (Tylenol Extra Strength) 500 mg PO BID@ [facility] Last Admin: 04/26/20 09:40 Dose: 500 mg Documented by: Atorvastatin Calcium (Lipitor) 10 mg PO BEDTIME [facility] Last Admin: 04/25/20 20:13 Dose: 10 mg Documented by: Bumetanide (Bumex) 2 mg PO BIDDIURETIC [facility] Last Admin: 04/26/20 11:32 Dose: 2 mg Documented by: Ferrous Sulfate (Ferrous Sulfate) 650 mg PO DAILY@1200 [facility] Last Admin: 04/26/20 11:34 Dose: 650 mg Documented by: Gabapentin (Neurontin) 100 mg PO BEDTIME [facility] Last Admin: 04/25/20 20:14 Dose: 100 mg Documented by: Heparin Sodium (Porcine) (Heparin Lock Flush 100 Units/Ml) 300 units FLUSH Q8H [facility] Last Admin: 04/26/20 08:47 Dose: 300 units Documented by: Cefazolin Sodium/Dextrose (Ancef 2 Gm Premix) 50 mls @ 100 mls/hr IV Q8HR [facility] Last Admin: 04/26/20 08:41 Dose: 100 mls/hr Documented by: Insulin Glargine (Lantus) 16 unit SUBCUT BEDTIME [facility] Last Admin: 04/25/20 20:11 Dose: 16 unit Documented by: Levothyroxine Sodium (Levothyroxine) 25 mcg PO DAILY@0730 [facility] Last Admin: 04/26/20 08:40 Dose: 25 mcg Documented by: Lisinopril (Prinivil) 10 mg PO BID [facility] Last Admin: 04/26/20 08:45 Dose: 10 mg Documented by: Melatonin (Melatonin) 3 mg PO BEDTIME PRN PRN Reason: Insomnia Nystatin (Nystop) 0 gm TOP QID [facility] Last Admin: 04/26/20 11:34 Dose: 1 applic Documented by: Ondansetron HCl (Zofran Odt) 4 mg PO Q6H PRN PRN Reason: Nausea/Vomiting Last Admin: 04/25/20 15:14 Dose: 4 mg Documented by: Oxycodone HCl (Oxycodone) 10 mg PO Q12H [facility] Last Admin: 04/26/20 09:41 Dose: 10 mg Documented by: Pantoprazole Sodium (Protonix) 40 mg PO BID [facility] Last Admin: 04/26/20 08:46 Dose: 40 mg Documented by: Polyethylene Glycol (Miralax) 17 gm PO DAILY PRN PRN Reason: Constipation Potassium Chloride (Klor-Con M20) 20 meq PO DAILY [facility] Last Admin: 04/26/20 08:43 Dose: 20 meq Documented by: Senna/Docusate Sodium (Senna Plus) 2 tab PO BID [facility] Last Admin: 04/26/20 08:47 Dose: 2 tab Documented by: Sodium Chloride (Saline Flush) 10 ml FLUSH Q8HR [facility] Last Admin: 04/26/20 08:46 Dose: 10 ml Documented by: Sodium Chloride (Saline Flush) 10 ml FLUSH Q8H [facility] Last Admin: 04/26/20 09:59 Dose: 10 ml Documented by: Sodium Chloride (Saline Flush) 10 ml FLUSH ASDIRECTED PRN PRN Reason: IV Use Last Admin: 04/25/20 07:06 Dose: 10 ml Documented by: Vit C/Vit E/Zinc/Copper/Lutein (Ocuvite Lutein) 1 each PO BID [facility] Last Admin: 04/26/20 09:39 Dose: 1 each Documented by: Warfarin Sodium (Coumadin) 5 mg PO SuMoWeThSa@1800 [facility] Warfarin Sodium (Coumadin) 7.5 mg PO TuFr@1800 [facility] Discontinued Medications Acetaminophen (Tylenol Extra Strength) 500 mg PO Q6HR [facility] Last Admin: 04/16/20 09:35 Dose: 500 mg Documented by: Bumetanide (Bumex) 1 mg PO BIDDIURETIC [facility] Last Admin: 04/21/20 12:13 Dose: 1 mg Documented by: Cefazolin Sodium 2 gm/ Sodium (Chloride) 100 mls @ 200 mls/hr IV Q8HR [facility] Last Admin: 04/13/20 09:22 Dose: 200 mls/hr Documented by: Lisinopril (Prinivil) 10 mg PO BID [facility] Nystatin (Nystop) 1 gm TOP QID PRN PRN Reason: Rash Last Admin: 04/15/20 15:00 Dose: 1 applic Documented by: Oxycodone HCl (Oxycodone) 5 mg PO Q4H PRN PRN Reason: Pain Last Admin: 04/16/20 09:36 Dose: 5 mg Documented by: Oxycodone HCl (Oxycodone) 10 mg PO BID@ [facility] Last Admin: 04/21/20 20:14 Dose: 10 mg Documented by: Polyethylene Glycol (Miralax) 17 gm PO DAILY PRN PRN Reason: Constipation Warfarin Sodium (Coumadin) 4 mg PO SuTuWeThSa@1800 [facility] Last Admin: 04/13/20 17:01 Dose: 4 mg Documented by: Warfarin Sodium (Coumadin) 8 mg PO MOFR@1800 [facility] Warfarin Sodium (Coumadin) 4 mg PO DAILY@1800 [facility] Last Admin: 04/20/20 17:32 Dose: 4 mg Documented by: Warfarin Sodium (Coumadin) 5 mg PO DAILY@1800 [facility] Warfarin Sodium 2 mg/ Warfarin (Sodium 5 mg) 7 mg PO ONETIME ONE Stop: 04/21/20 09:07 Last Admin: 04/21/20 10:14 Dose: 7 mg Documented by: Warfarin Sodium (Coumadin) 10 mg PO ONETIME ONE Stop: 04/22/20 10:31 Last Admin: 04/22/20 10:50 Dose: 10 mg Documented by: Warfarin Sodium (Coumadin) 5 mg PO DAILY@1800 [facility] Last Admin: 04/25/20 17:25 Dose: 5 mg Documented by: - Exam Quality Assessment: Central Line/PICC (R antecubital, site clean) General: Alert, Oriented HEENT: Pupils Reactive, EOMI, Mucous Membr. Moist/[place] Neck: Supple, Trachea Midline Lungs: Clear to Auscultation, Normal Respiratory Effort Cardiovascular: Regular Rate, Regular Rhythm GI/Abdominal Exam: Normal Bowel Sounds, Soft, Non-Tender (Male) Exam: Deferred Back Exam: Normal Inspection (but pt describes persisting pruritus bilat mid and low back since receiving Covid vaccination.) Extremities: Other (Mild RLE edema, 1+ LLE edema. Chronic vascular discoloration starting at bilat mid-calf extending distally. Surgical site distal R foot stump and heel dressings not disturbed, photographs have been reviewed. ) Skin: Warm, Dry Wound/Incisions: Dressing Dry and Intact (Nursing staff is awaiting callback from surgeon Dr. Kristopher Portillo, Distribution Engineering Technologist at [facility] heel ulcer. ) Neurological: No New Focal Deficit Psy/Mental Status: Alert, Normal Affect, Normal Mood Sepsis Event Note - Evaluation Sepsis Screening Result: No Definite Risk - Focused Exam Vital Signs: Vital Signs Temp BP 04/26/20 08:45 0/0 L 04/26/20 08:00 97.8 F - Problem List & Annotations (1) Anticoagulant long-term use SNOMED Code(s): 131210378 Code(s): Z79.01 - SNF (CURRENT) USE OF ANTICOAGULANTS Status: Chronic Priority: Medium Current Visit: Yes - Problem List Review Problem List Initiated/Reviewed/Updated: Yes - My Orders Last 24 Hours: My Active Orders 04/26/20 18:00 Warfarin [Coumadin] 7.5 mg PO TuFr@1800 04/27/20 18:00 Warfarin [Coumadin] 5 mg PO SuMoWeThSa@1800 04/28/20 10:38 INR,PT,PROTHROMBIN TIME [COAG] Routine - Plan Plan:: As above. Continue IV antibiotics. PT and OT to work with patient. 04-26-20 Traci Fontenot PA-C Warfarin adjusted per subtherapeutic INR level today, will repeat INR in three days. Chart reviewed. Routine lab orders are in for Saturday, -. No medication other than the Warfarin. Heriberto Ramirez is following the Osteomyelitis, R mid foot amputation and heel ulcer. Anticipating another 3 weeks of IV Ancef. For the persisting pruritus ordered TAC cream 0.1% topically BID to affected areas until resolved.
[2020-04-26] MEDS ORDERED: Warfarin 5 MG Tab PO SCH (18:00)
[2020-04-26] MEDS: Triamcinolone Acetonide 0.1% Crm 15 GM Tube TOP SCH (20:42)
[2020-04-26] MEDS: Insulin Glarg,Human.Rec.Analog 100 Unit/ML SUBCUT SCH (20:42)
[2020-04-26] MEDS: atorvaSTATin 10 MG Tab PO SCH (20:43)
[2020-04-26] MEDS: Gabapentin 100 MG Cap PO SCH (20:44)
[2020-04-27] MEDS: Sodium Chloride 0.9% 10 ML Syringe FLUSH SCH ×5 (07:33→23:43)
[2020-04-27] MEDS: Levothyroxine 25 MCG Tab PO SCH (07:53)
[2020-04-27] MEDS: Bumetanide 1 MG Tab PO SCH ×2 (07:58→11:39)
[2020-04-27] MEDS: Potassium Chloride 20 MEQ Tab.ER PO SCH (08:00)
[2020-04-27] MEDS: Nystatin Topical Powder 15 GM Bottle TOP SCH ×4 (08:00→20:58)
[2020-04-27] MEDS: Lutein/Minerals/Vitamin C/Vitamin E Acetate Cap PO SCH ×2 (08:01→17:17)
[2020-04-27] MEDS: Lisinopril 10 MG Tab PO SCH ×2 (08:02→17:18)
[2020-04-27] MEDS: Pantoprazole 40 MG Tab.CR PO SCH ×2 (08:03→17:19)
[2020-04-27] MEDS: Triamcinolone Acetonide 0.1% Crm 15 GM Tube TOP SCH ×2 (08:04→17:22)
[2020-04-27] MEDS: Acetaminophen 500 MG Tab PO SCH ×2 (08:04→20:53)
[2020-04-27] MEDS: oxyCODONE 5 MG Tab PO SCH ×2 (09:20→21:00)
[2020-04-27] MEDS: Ferrous Sulfate 325 MG Tab PO SCH (11:40)
[2020-04-27] MEDS ORDERED: Warfarin 5 MG Tab PO SCH (18:00)
[2020-04-27] MEDS: atorvaSTATin 10 MG Tab PO SCH (20:53)
[2020-04-27] MEDS: Gabapentin 100 MG Cap PO SCH (20:54)
[2020-04-27] MEDS: Insulin Glarg,Human.Rec.Analog 100 Unit/ML SUBCUT SCH (20:57)
[2020-04-28] MEDS: Sodium Chloride 0.9% 10 ML Syringe FLUSH SCH ×7 (00:27→23:34)
[2020-04-28] MEDS: Lisinopril 10 MG Tab PO SCH ×2 (08:14→18:03)
[2020-04-28] MEDS: Potassium Chloride 20 MEQ Tab.ER PO SCH (08:14)
[2020-04-28] MEDS: Bumetanide 1 MG Tab PO SCH ×2 (08:15→11:56)
[2020-04-28] MEDS: Ondansetron 4 MG Tab.DIS PO PRN (08:16)
[2020-04-28] MEDS: Levothyroxine 25 MCG Tab PO SCH (08:16)
[2020-04-28] MEDS: Pantoprazole 40 MG Tab.CR PO SCH ×2 (08:17→18:05)
[2020-04-28] MEDS: Nystatin Topical Powder 15 GM Bottle TOP SCH ×4 (08:33→19:24)
[2020-04-28] MEDS: Triamcinolone Acetonide 0.1% Crm 15 GM Tube TOP SCH ×2 (08:35→18:09)
[2020-04-28] MEDS: Acetaminophen 500 MG Tab PO SCH ×2 (09:06→21:03)
[2020-04-28] MEDS: Lutein/Minerals/Vitamin C/Vitamin E Acetate Cap PO SCH ×2 (09:08→18:02)
[2020-04-28] MEDS: oxyCODONE 5 MG Tab PO SCH ×2 (09:09→21:06)
[2020-04-28] MEDS: Ferrous Sulfate 325 MG Tab PO SCH (11:55)
[2020-04-28] MEDS ORDERED: Warfarin 5 MG Tab PO ONE (18:00)
[2020-04-28] MEDS: Insulin Glarg,Human.Rec.Analog 100 Unit/ML SUBCUT SCH (19:26)
[2020-04-28] MEDS: atorvaSTATin 10 MG Tab PO SCH (19:28)
[2020-04-28] MEDS: Gabapentin 100 MG Cap PO SCH (19:29)
[2020-04-29] MEDS: Levothyroxine 25 MCG Tab PO SCH (08:16)
[2020-04-29] MEDS: Bumetanide 1 MG Tab PO SCH ×2 (08:17→12:06)
[2020-04-29] MEDS: Potassium Chloride 20 MEQ Tab.ER PO SCH (08:18)
[2020-04-29] MEDS: Nystatin Topical Powder 15 GM Bottle TOP SCH ×4 (08:19→20:28)
[2020-04-29] MEDS: Lutein/Minerals/Vitamin C/Vitamin E Acetate Cap PO SCH ×2 (08:19→17:12)
[2020-04-29] MEDS: Lisinopril 10 MG Tab PO SCH ×2 (08:20→17:13)
[2020-04-29] MEDS: Pantoprazole 40 MG Tab.CR PO SCH ×2 (08:20→17:13)
[2020-04-29] MEDS: Sodium Chloride 0.9% 10 ML Syringe FLUSH SCH ×6 (08:22→23:34)
[2020-04-29] MEDS: Triamcinolone Acetonide 0.1% Crm 15 GM Tube TOP SCH ×2 (08:23→17:14)
[2020-04-29] MEDS: Acetaminophen 500 MG Tab PO SCH ×2 (08:24→20:29)
[2020-04-29] MEDS: Ondansetron 4 MG Tab.DIS PO PRN (08:26)
[2020-04-29] MEDS: oxyCODONE 5 MG Tab PO SCH ×2 (09:33→21:07)
[2020-04-29] MEDS: Ferrous Sulfate 325 MG Tab PO SCH (12:07)
[2020-04-29] MEDS ORDERED: Warfarin 5 MG Tab PO SCH (18:00)
[2020-04-29] MEDS: Insulin Glarg,Human.Rec.Analog 100 Unit/ML SUBCUT SCH (20:25)
[2020-04-29] MEDS: atorvaSTATin 10 MG Tab PO SCH (20:27)
[2020-04-29] MEDS: Gabapentin 100 MG Cap PO SCH (20:28)
[2020-04-30] MEDS: Bumetanide 1 MG Tab PO SCH ×2 (07:43→11:09)
[2020-04-30] MEDS: Levothyroxine 25 MCG Tab PO SCH (07:43)
[2020-04-30] MEDS: Potassium Chloride 20 MEQ Tab.ER PO SCH (07:44)
[2020-04-30] MEDS: Pantoprazole 40 MG Tab.CR PO SCH ×2 (07:45→17:47)
[2020-04-30] MEDS: Lisinopril 10 MG Tab PO SCH ×2 (07:45→17:46)
[2020-04-30] MEDS: Nystatin Topical Powder 15 GM Bottle TOP SCH ×5 (07:45→20:36)
[2020-04-30] MEDS: Triamcinolone Acetonide 0.1% Crm 15 GM Tube TOP SCH ×2 (07:46→17:50)
[2020-04-30] MEDS: Lutein/Minerals/Vitamin C/Vitamin E Acetate Cap PO SCH ×2 (07:48→17:49)
[2020-04-30] MEDS: Sodium Chloride 0.9% 10 ML Syringe FLUSH SCH ×6 (07:55→23:33)
[2020-04-30] MEDS: Acetaminophen 500 MG Tab PO SCH ×2 (09:36→20:36)
[2020-04-30] MEDS: oxyCODONE 5 MG Tab PO SCH ×2 (09:38→21:01)
[2020-04-30] MEDS: Ferrous Sulfate 325 MG Tab PO SCH (11:09)
[2020-04-30] MEDS: Warfarin 5 MG Tab PO SCH (17:49)
[2020-04-30] MEDS: Insulin Glarg,Human.Rec.Analog 100 Unit/ML SUBCUT SCH (20:31)
[2020-04-30] MEDS: atorvaSTATin 10 MG Tab PO SCH (20:34)
[2020-04-30] MEDS: Gabapentin 100 MG Cap PO SCH (20:35)
[2020-05-01] MEDS: Bumetanide 1 MG Tab PO SCH ×2 (07:56→11:37)
[2020-05-01] MEDS: Levothyroxine 25 MCG Tab PO SCH (07:56)
[2020-05-01] MEDS: Potassium Chloride 20 MEQ Tab.ER PO SCH (07:57)
[2020-05-01] MEDS: Lisinopril 10 MG Tab PO SCH ×2 (07:57→17:39)
[2020-05-01] MEDS: Pantoprazole 40 MG Tab.CR PO SCH ×2 (07:58→17:40)
[2020-05-01] MEDS: Sodium Chloride 0.9% 10 ML Syringe FLUSH SCH ×6 (08:00→23:48)
[2020-05-01] MEDS: Lutein/Minerals/Vitamin C/Vitamin E Acetate Cap PO SCH ×2 (08:01→17:38)
[2020-05-01] MEDS: Nystatin Topical Powder 15 GM Bottle TOP SCH ×4 (08:01→20:19)
[2020-05-01] MEDS: Triamcinolone Acetonide 0.1% Crm 15 GM Tube TOP SCH ×2 (08:01→17:41)
[2020-05-01] MEDS: Acetaminophen 500 MG Tab PO SCH ×2 (09:04→20:20)
[2020-05-01] MEDS: oxyCODONE 5 MG Tab PO SCH ×2 (09:06→20:59)
[2020-05-01] MEDS: Ferrous Sulfate 325 MG Tab PO SCH (11:36)
[2020-05-01] MEDS: Warfarin 5 MG Tab PO SCH (17:41)
[2020-05-01] MEDS: Insulin Glarg,Human.Rec.Analog 100 Unit/ML SUBCUT SCH (20:15)
[2020-05-01] MEDS: atorvaSTATin 10 MG Tab PO SCH (20:18)
[2020-05-01] MEDS: Gabapentin 100 MG Cap PO SCH (20:19)
[2020-05-02] MEDS: Sodium Chloride 0.9% 10 ML Syringe FLUSH SCH ×5 (07:01→23:46)
[2020-05-02] MEDS: Sodium Chloride 0.9% 10 ML Syringe FLUSH PRN (07:52)
[2020-05-02] MEDS: Bumetanide 1 MG Tab PO SCH ×2 (08:01→11:26)
[2020-05-02] MEDS: Levothyroxine 25 MCG Tab PO SCH (08:01)
[2020-05-02] MEDS: Potassium Chloride 20 MEQ Tab.ER PO SCH (08:02)
[2020-05-02] MEDS: Lisinopril 10 MG Tab PO SCH ×2 (08:03→17:23)
[2020-05-02] MEDS: Nystatin Topical Powder 15 GM Bottle TOP SCH ×4 (08:03→20:48)
[2020-05-02] MEDS: Lutein/Minerals/Vitamin C/Vitamin E Acetate Cap PO SCH ×2 (08:03→17:23)
[2020-05-02] MEDS: Pantoprazole 40 MG Tab.CR PO SCH ×2 (08:04→17:24)
[2020-05-02] MEDS: Acetaminophen 500 MG Tab PO SCH ×2 (08:05→20:48)
[2020-05-02] MEDS: Triamcinolone Acetonide 0.1% Crm 15 GM Tube TOP SCH (08:05)
[2020-05-02 08:37] LABS: CHLORIDE,CL 102 mmol/L (98-107); SODIUM,NA 142 mmol/L (136-145)
[2020-05-02] MEDS: oxyCODONE 5 MG Tab PO SCH ×2 (08:59→21:02)
[2020-05-02] MEDS: Ferrous Sulfate 325 MG Tab PO SCH (11:25)
[2020-05-02] MEDS ORDERED: Triamcinolone Acetonide 0.1% Crm 15 GM Tube TOP PRN (14:15)
[2020-05-02] MEDS: Warfarin 5 MG Tab PO SCH (17:22)
[2020-05-02] MEDS: Insulin Glarg,Human.Rec.Analog 100 Unit/ML SUBCUT SCH (20:45)
[2020-05-02] MEDS: atorvaSTATin 10 MG Tab PO SCH (20:46)
[2020-05-02] MEDS: Gabapentin 100 MG Cap PO SCH (20:47)
[2020-05-03] MEDS: Sodium Chloride 0.9% 10 ML Syringe FLUSH SCH ×6 (00:29→23:54)
[2020-05-03] MEDS: Bumetanide 1 MG Tab PO SCH ×2 (07:34→12:15)
[2020-05-03] MEDS: Levothyroxine 25 MCG Tab PO SCH (07:34)
[2020-05-03] MEDS: Nystatin Topical Powder 15 GM Bottle TOP SCH ×4 (07:35→20:47)
[2020-05-03] MEDS: Potassium Chloride 20 MEQ Tab.ER PO SCH (07:35)
[2020-05-03] MEDS: Lutein/Minerals/Vitamin C/Vitamin E Acetate Cap PO SCH ×2 (07:35→17:15)
[2020-05-03] MEDS: Pantoprazole 40 MG Tab.CR PO SCH ×2 (07:36→17:16)
[2020-05-03] MEDS: Lisinopril 10 MG Tab PO SCH ×2 (07:36→17:16)
[2020-05-03] MEDS: Acetaminophen 500 MG Tab PO SCH ×2 (08:11→20:46)
[2020-05-03] MEDS: oxyCODONE 5 MG Tab PO SCH ×2 (09:03→21:09)
[2020-05-03] MEDS: Ferrous Sulfate 325 MG Tab PO SCH (12:16)
[2020-05-03] MEDS: Warfarin 5 MG Tab PO SCH (17:14)
[2020-05-03] MEDS: Gabapentin 100 MG Cap PO SCH (20:43)
[2020-05-03] MEDS: atorvaSTATin 10 MG Tab PO SCH (20:44)
[2020-05-03] MEDS: Insulin Glarg,Human.Rec.Analog 100 Unit/ML SUBCUT SCH (20:44)
[2020-05-04] MEDS: Sodium Chloride 0.9% 10 ML Syringe FLUSH SCH ×7 (00:34→23:32)
[2020-05-04] MEDS: Bumetanide 1 MG Tab PO SCH ×2 (07:59→11:35)
[2020-05-04] MEDS: Potassium Chloride 20 MEQ Tab.ER PO SCH (08:00)
[2020-05-04] MEDS: Levothyroxine 25 MCG Tab PO SCH (08:01)
[2020-05-04] MEDS: Lutein/Minerals/Vitamin C/Vitamin E Acetate Cap PO SCH ×2 (08:02→17:19)
[2020-05-04] MEDS: Lisinopril 10 MG Tab PO SCH ×2 (08:02→17:21)
[2020-05-04] MEDS: Pantoprazole 40 MG Tab.CR PO SCH ×2 (08:03→17:21)
[2020-05-04] MEDS: Nystatin Topical Powder 15 GM Bottle TOP SCH ×4 (08:04→20:35)
[2020-05-04] MEDS: Acetaminophen 500 MG Tab PO SCH ×2 (09:12→20:35)
[2020-05-04] MEDS: oxyCODONE 5 MG Tab PO SCH ×2 (09:13→20:59)
[2020-05-04] MEDS: Ferrous Sulfate 325 MG Tab PO SCH (11:34)
[2020-05-04] MEDS ORDERED: Warfarin 5 MG Tab PO SCH (18:00)
[2020-05-04] MEDS: Insulin Glarg,Human.Rec.Analog 100 Unit/ML SUBCUT SCH (20:31)
[2020-05-04] MEDS: Gabapentin 100 MG Cap PO SCH (20:34)
[2020-05-04] MEDS: atorvaSTATin 10 MG Tab PO SCH (20:34)
[2020-05-05] MEDS: Sodium Chloride 0.9% 10 ML Syringe FLUSH SCH ×6 (07:43→23:40)
[2020-05-05] MEDS: Bumetanide 1 MG Tab PO SCH ×2 (07:54→11:37)
[2020-05-05] MEDS: Levothyroxine 25 MCG Tab PO SCH (07:54)
[2020-05-05] MEDS: Potassium Chloride 20 MEQ Tab.ER PO SCH (07:55)
[2020-05-05] MEDS: Nystatin Topical Powder 15 GM Bottle TOP SCH ×4 (07:55→20:52)
[2020-05-05] MEDS: Lutein/Minerals/Vitamin C/Vitamin E Acetate Cap PO SCH ×2 (07:56→17:16)
[2020-05-05] MEDS: Lisinopril 10 MG Tab PO SCH ×2 (07:56→17:17)
[2020-05-05] MEDS: Pantoprazole 40 MG Tab.CR PO SCH ×2 (07:57→17:17)
[2020-05-05] MEDS: Acetaminophen 500 MG Tab PO SCH ×2 (07:59→20:53)
[2020-05-05] MEDS: oxyCODONE 5 MG Tab PO SCH ×2 (09:18→21:00)
[2020-05-05] MEDS: Ferrous Sulfate 325 MG Tab PO SCH (11:38)
[2020-05-05] MEDS: Warfarin 5 MG Tab PO SCH (17:15)
[2020-05-05] MEDS: Insulin Glarg,Human.Rec.Analog 100 Unit/ML SUBCUT SCH (20:49)
[2020-05-05] MEDS: atorvaSTATin 10 MG Tab PO SCH (20:51)
[2020-05-05] MEDS: Gabapentin 100 MG Cap PO SCH (20:52)
[2020-05-06] MEDS: Bumetanide 1 MG Tab PO SCH ×2 (08:25→11:32)
[2020-05-06] MEDS: Potassium Chloride 20 MEQ Tab.ER PO SCH (08:27)
[2020-05-06] MEDS: Levothyroxine 25 MCG Tab PO SCH (08:27)
[2020-05-06] MEDS: Nystatin Topical Powder 15 GM Bottle TOP SCH ×4 (08:28→20:03)
[2020-05-06] MEDS: Lisinopril 10 MG Tab PO SCH ×2 (08:29→17:00)
[2020-05-06] MEDS: Pantoprazole 40 MG Tab.CR PO SCH ×2 (08:30→17:00)
[2020-05-06] MEDS: Sodium Chloride 0.9% 10 ML Syringe FLUSH SCH ×4 (08:31→15:59)
[2020-05-06] MEDS: Acetaminophen 500 MG Tab PO SCH ×2 (08:32→20:53)
[2020-05-06] MEDS: Lutein/Minerals/Vitamin C/Vitamin E Acetate Cap PO SCH ×2 (08:33→17:00)
[2020-05-06] MEDS: oxyCODONE 5 MG Tab PO SCH ×2 (10:12→21:04)
[2020-05-06] MEDS: Ferrous Sulfate 325 MG Tab PO SCH (11:34)
[2020-05-06] MEDS: Warfarin 5 MG Tab PO SCH (17:00)
[2020-05-06] MEDS: Insulin Glarg,Human.Rec.Analog 100 Unit/ML SUBCUT SCH (19:55)
[2020-05-06] MEDS: atorvaSTATin 10 MG Tab PO SCH (20:00)
[2020-05-06] MEDS: Gabapentin 100 MG Cap PO SCH (20:02)
[2020-05-07] MEDS: Sodium Chloride 0.9% 10 ML Syringe FLUSH SCH ×7 (00:30→23:54)
[2020-05-07] MEDS: Levothyroxine 25 MCG Tab PO SCH (08:01)
[2020-05-07] MEDS: Nystatin Topical Powder 15 GM Bottle TOP SCH ×4 (08:26→20:22)
[2020-05-07] MEDS: Lisinopril 10 MG Tab PO SCH ×2 (08:59→17:19)
[2020-05-07] MEDS: Pantoprazole 40 MG Tab.CR PO SCH ×2 (08:59→17:20)
[2020-05-07] MEDS: Potassium Chloride 20 MEQ Tab.ER PO SCH (08:59)
[2020-05-07] MEDS: Bumetanide 1 MG Tab PO SCH ×2 (09:00→12:14)
[2020-05-07] MEDS: Lutein/Minerals/Vitamin C/Vitamin E Acetate Cap PO SCH ×2 (09:01→17:18)
[2020-05-07] MEDS: Acetaminophen 500 MG Tab PO SCH ×2 (09:02→21:14)
[2020-05-07] MEDS: oxyCODONE 5 MG Tab PO SCH ×2 (09:04→21:18)
[2020-05-07] MEDS: Ferrous Sulfate 325 MG Tab PO SCH (12:14)
[2020-05-07] MEDS: Warfarin 5 MG Tab PO SCH (17:16)
[2020-05-07] MEDS: Insulin Glarg,Human.Rec.Analog 100 Unit/ML SUBCUT SCH (20:16)
[2020-05-07] MEDS: atorvaSTATin 10 MG Tab PO SCH (20:20)
[2020-05-07] MEDS: Gabapentin 100 MG Cap PO SCH (20:21)
[2020-05-08] MEDS: Sodium Chloride 0.9% 10 ML Syringe FLUSH SCH ×7 (00:40→23:30)
[2020-05-08] MEDS: Pantoprazole 40 MG Tab.CR PO SCH ×2 (08:49→17:39)
[2020-05-08] MEDS: Lisinopril 10 MG Tab PO SCH ×2 (08:49→17:38)
[2020-05-08] MEDS: Nystatin Topical Powder 15 GM Bottle TOP SCH ×4 (08:49→20:45)
[2020-05-08] MEDS: Bumetanide 1 MG Tab PO SCH ×2 (08:49→11:44)
[2020-05-08] MEDS: Levothyroxine 25 MCG Tab PO SCH (08:49)
[2020-05-08] MEDS: Potassium Chloride 20 MEQ Tab.ER PO SCH (08:50)
[2020-05-08] MEDS: Lutein/Minerals/Vitamin C/Vitamin E Acetate Cap PO SCH ×2 (08:50→17:37)
[2020-05-08] MEDS: Acetaminophen 500 MG Tab PO SCH ×2 (11:43→20:45)
[2020-05-08] MEDS: Ferrous Sulfate 325 MG Tab PO SCH (11:45)
[2020-05-08] MEDS: oxyCODONE 5 MG Tab PO SCH ×2 (11:46→21:00)
[2020-05-08] MEDS: Warfarin 5 MG Tab PO SCH (17:40)
[2020-05-08] MEDS: Insulin Glarg,Human.Rec.Analog 100 Unit/ML SUBCUT SCH (20:38)
[2020-05-08] MEDS: atorvaSTATin 10 MG Tab PO SCH (20:42)
[2020-05-08] MEDS: Gabapentin 100 MG Cap PO SCH (20:43)
[2020-05-08] MEDS ORDERED: Bacitracin/Neomycin/Polymyxin B Oint 0.9 GM U/D Packet TOP PRN (23:10)
[2020-05-09] MEDS: Sodium Chloride 0.9% 10 ML Syringe FLUSH PRN (07:06)
[2020-05-09] MEDS: Sodium Chloride 0.9% 10 ML Syringe FLUSH SCH ×6 (07:07→23:31)
[2020-05-09 07:48] LABS: CHLORIDE,CL 103 mmol/L (98-107); SODIUM,NA 143 mmol/L (136-145)
[2020-05-09] MEDS: Levothyroxine 25 MCG Tab PO SCH (07:57)
[2020-05-09] MEDS: Bumetanide 1 MG Tab PO SCH ×2 (07:58→11:45)
[2020-05-09] MEDS: Potassium Chloride 20 MEQ Tab.ER PO SCH (07:58)
[2020-05-09] MEDS: Nystatin Topical Powder 15 GM Bottle TOP SCH ×3 (07:59→15:06)
[2020-05-09] MEDS: Lutein/Minerals/Vitamin C/Vitamin E Acetate Cap PO SCH ×2 (07:59→17:18)
[2020-05-09] MEDS: Pantoprazole 40 MG Tab.CR PO SCH ×2 (08:00→17:19)
[2020-05-09] MEDS: Lisinopril 10 MG Tab PO SCH ×2 (08:00→17:19)
[2020-05-09] MEDS: Acetaminophen 500 MG Tab PO SCH ×2 (09:10→20:30)
[2020-05-09] MEDS: oxyCODONE 5 MG Tab PO SCH ×2 (09:11→20:59)
[2020-05-09] MEDS: Ferrous Sulfate 325 MG Tab PO SCH (11:46)
[2020-05-09] MEDS: Warfarin 2 MG Tab PO SCH (17:17)
[2020-05-09] MEDS: Insulin Glarg,Human.Rec.Analog 100 Unit/ML SUBCUT SCH (20:25)
[2020-05-09] MEDS: atorvaSTATin 10 MG Tab PO SCH (20:28)
[2020-05-09] MEDS: Gabapentin 100 MG Cap PO SCH (20:29)
[2020-05-10] MEDS: Sodium Chloride 0.9% 10 ML Syringe FLUSH SCH ×6 (08:36→23:32)
[2020-05-10] MEDS: Levothyroxine 25 MCG Tab PO SCH (08:41)
[2020-05-10] MEDS: Bumetanide 1 MG Tab PO SCH ×2 (08:43→11:49)
[2020-05-10] MEDS: Potassium Chloride 20 MEQ Tab.ER PO SCH (08:43)
[2020-05-10] MEDS: Lutein/Minerals/Vitamin C/Vitamin E Acetate Cap PO SCH ×2 (08:44→17:13)
[2020-05-10] MEDS: Lisinopril 10 MG Tab PO SCH ×2 (08:44→17:14)
[2020-05-10] MEDS: Pantoprazole 40 MG Tab.CR PO SCH ×2 (08:45→17:15)
[2020-05-10] MEDS: oxyCODONE 5 MG Tab PO SCH ×2 (09:09→21:07)
[2020-05-10] MEDS: Acetaminophen 500 MG Tab PO SCH ×2 (09:10→20:26)
[2020-05-10] MEDS: Ferrous Sulfate 325 MG Tab PO SCH (11:49)
--- NOTE | 2020-05-10 14:59 | PCM.PN ---
- General Info Date of Service: 05/10/20 Admission Dx/Problem (Free Text): Admission Diagnosis/Problem Admission Diagnosis/Problem Osteomyelitis of foot Functional Status: Reports: Pain Controlled, Tolerating Diet, Ambulating (with no R foot weight bearing), Urinating - Review of Systems General: Reports: No Symptoms (says other than being bored) HEENT: Reports: No Symptoms Pulmonary: Reports: No Symptoms Cardiovascular: Reports: No Symptoms Gastrointestinal: Reports: No Symptoms Genitourinary: Reports: No Symptoms Musculoskeletal: Reports: Joint Pain (chronic R hip and foot pain, controlled with medication) Skin: Reports: No Symptoms Neurological: Reports: No Symptoms Psychiatric: Reports: No Symptoms - Patient Data Vitals - Most Recent: Last Vital Signs Temp 97.6 F 05/10/20 08:00 Pulse 61 05/09/20 08:00 Resp 20 05/03/20 16:25 BP 0/0 L 05/10/20 08:44 Pulse Ox 98 05/09/20 08:00 Weight - Most Recent: 236 lb 8 oz I&O - Last 24 Hours: Intake & Output 05/09/20 05/10/20 05/10/20 22:59 06:59 14:59 Intake Total 170 400 720 Output Total 600 Balance 170 -200 720 Lab Results Last 24 Hours: Laboratory Results - last 24 hr 05/09/20 Range/Units 09:36 POC Glucose 135 H (65-110) mg/dl Med Orders - Current: Current Medications Acetaminophen (Tylenol Extra Strength) 500 mg PO BID@ REPLACED BY [facility] Last Admin: 05/10/20 09:10 Dose: 500 mg Documented by: Atorvastatin Calcium (Lipitor) 10 mg PO BEDTIME REPLACED BY [facility] Last Admin: 05/09/20 20:28 Dose: 10 mg Documented by: Bumetanide (Bumex) 2 mg PO BIDDIURETIC REPLACED BY [facility] Last Admin: 05/10/20 11:49 Dose: 2 mg Documented by: Ferrous Sulfate (Ferrous Sulfate) 650 mg PO DAILY@1200 REPLACED BY [facility] Last Admin: 05/10/20 11:49 Dose: 650 mg Documented by: Gabapentin (Neurontin) 100 mg PO BEDTIME REPLACED BY [facility] Last Admin: 05/09/20 20:29 Dose: 100 mg Documented by: Heparin Sodium (Porcine) (Heparin Lock Flush 100 Units/Ml) 300 units FLUSH Q8H REPLACED BY [facility] Last Admin: 05/10/20 09:08 Dose: 300 units Documented by: Cefazolin Sodium/Dextrose (Ancef 2 Gm Premix) 50 mls @ 100 mls/hr IV Q8HR REPLACED BY [facility] Last Admin: 05/10/20 08:37 Dose: 100 mls/hr Documented by: Insulin Glargine (Lantus) 16 unit SUBCUT BEDTIME REPLACED BY [facility] Last Admin: 05/09/20 20:25 Dose: 16 unit Documented by: Levothyroxine Sodium (Levothyroxine) 25 mcg PO DAILY@0730 REPLACED BY [facility] Last Admin: 05/10/20 08:41 Dose: 25 mcg Documented by: Lisinopril (Prinivil) 10 mg PO BID REPLACED BY [facility] Last Admin: 05/10/20 08:44 Dose: 10 mg Documented by: Melatonin (Melatonin) 3 mg PO BEDTIME PRN PRN Reason: Insomnia Neomycin/Polymyxin/Bacitracin (Triple Antibiotic Oint) 1 each TOP Q2H PRN PRN Reason: Wound Care Last Admin: 05/08/20 23:29 Dose: 1 each Documented by: Nystatin (Nystop) 1 gm TOP QID PRN PRN Reason: Rash Ondansetron HCl (Zofran Odt) 4 mg PO Q6H PRN PRN Reason: Nausea/Vomiting Last Admin: 04/29/20 08:26 Dose: 4 mg Documented by: Oxycodone HCl (Oxycodone) 10 mg PO Q12H REPLACED BY [facility] Last Admin: 05/10/20 09:09 Dose: 10 mg Documented by: Pantoprazole Sodium (Protonix) 40 mg PO BID REPLACED BY [facility] Last Admin: 05/10/20 08:45 Dose: 40 mg Documented by: Polyethylene Glycol (Miralax) 17 gm PO DAILY PRN PRN Reason: Constipation Potassium Chloride (Klor-Con M20) 20 meq PO DAILY REPLACED BY [facility] Last Admin: 05/10/20 08:43 Dose: 20 meq Documented by: Senna/Docusate Sodium (Senna Plus) 2 tab PO BID REPLACED BY [facility] Last Admin: 05/10/20 08:46 Dose: 2 tab Documented by: Sodium Chloride (Saline Flush) 10 ml FLUSH Q8HR REPLACED BY [facility] Last Admin: 05/10/20 08:36 Dose: 10 ml Documented by: Sodium Chloride (Saline Flush) 10 ml FLUSH Q8H REPLACED BY [facility] Last Admin: 05/10/20 09:08 Dose: 10 ml Documented by: Sodium Chloride (Saline Flush) 10 ml FLUSH ASDIRECTED PRN PRN Reason: IV Use Last Admin: 05/09/20 07:06 Dose: 10 ml Documented by: Triamcinolone Acetonide (Triamcinolone Acetonide 0.1% Crm) 15 gm TOP BID PRN PRN Reason: Itching Last Admin: 05/02/20 21:03 Dose: 1 applic Documented by: Vit C/Vit E/Zinc/Copper/Lutein (Ocuvite Lutein) 1 each PO BID REPLACED BY [facility] Last Admin: 05/10/20 08:44 Dose: 1 each Documented by: Warfarin Sodium (Coumadin) 8 mg PO DAILY@1800 REPLACED BY [facility] Last Admin: 05/09/20 17:17 Dose: 8 mg Documented by: Discontinued Medications Acetaminophen (Tylenol Extra Strength) 500 mg PO Q6HR REPLACED BY [facility] Last Admin: 04/16/20 09:35 Dose: 500 mg Documented by: Bumetanide (Bumex) 1 mg PO BIDDIURETIC REPLACED BY [facility] Last Admin: 04/21/20 12:13 Dose: 1 mg Documented by: Cefazolin Sodium 2 gm/ Sodium (Chloride) 100 mls @ 200 mls/hr IV Q8HR REPLACED BY [facility] Last Admin: 04/13/20 09:22 Dose: 200 mls/hr Documented by: Lisinopril (Prinivil) 10 mg PO BID REPLACED BY [facility] Nystatin (Nystop) 1 gm TOP QID PRN PRN Reason: Rash Last Admin: 04/15/20 15:00 Dose: 1 applic Documented by: Nystatin (Nystop) 0 gm TOP QID REPLACED BY [facility] Last Admin: 05/09/20 15:06 Dose: 1 applic Documented by: Oxycodone HCl (Oxycodone) 5 mg PO Q4H PRN PRN Reason: Pain Last Admin: 04/16/20 09:36 Dose: 5 mg Documented by: Oxycodone HCl (Oxycodone) 10 mg PO BID@ REPLACED BY [facility] Last Admin: 04/21/20 20:14 Dose: 10 mg Documented by: Polyethylene Glycol (Miralax) 17 gm PO DAILY PRN PRN Reason: Constipation Triamcinolone Acetonide (Triamcinolone Acetonide 0.1% Crm) 15 gm TOP BID REPLACED BY [facility] Last Admin: 05/02/20 08:05 Dose: 1 applic Documented by: Warfarin Sodium (Coumadin) 4 mg PO SuTuWeThSa@1800 REPLACED BY [facility] Last Admin: 04/13/20 17:01 Dose: 4 mg Documented by: Warfarin Sodium (Coumadin) 8 mg PO MOFR@1800 REPLACED BY [facility] Warfarin Sodium (Coumadin) 4 mg PO DAILY@1800 REPLACED BY [facility] Last Admin: 04/20/20 17:32 Dose: 4 mg Documented by: Warfarin Sodium (Coumadin) 5 mg PO DAILY@1800 REPLACED BY [facility] Warfarin Sodium 2 mg/ Warfarin (Sodium 5 mg) 7 mg PO ONETIME ONE Stop: 04/21/20 09:07 Last Admin: 04/21/20 10:14 Dose: 7 mg Documented by: Warfarin Sodium (Coumadin) 10 mg PO ONETIME ONE Stop: 04/22/20 10:31 Last Admin: 04/22/20 10:50 Dose: 10 mg Documented by: Warfarin Sodium (Coumadin) 5 mg PO DAILY@1800 REPLACED BY [facility] Last Admin: 04/25/20 17:25 Dose: 5 mg Documented by: Warfarin Sodium (Coumadin) 5 mg PO SuMoWeThSa@1800 REPLACED BY [facility] Last Admin: 04/27/20 17:16 Dose: 5 mg Documented by: Warfarin Sodium (Coumadin) 7.5 mg PO TuFr@1800 REPLACED BY [facility] Last Admin: 04/26/20 17:09 Dose: 7.5 mg Documented by: Warfarin Sodium (Coumadin) 7.5 mg PO MoWeFr@1800 REPLACED BY [facility] Last Admin: 04/29/20 17:09 Dose: 7.5 mg Documented by: Warfarin Sodium (Coumadin) 5 mg PO SuTuThSa@1800 REPLACED BY [facility] Last Admin: 05/01/20 17:41 Dose: 5 mg Documented by: Warfarin Sodium (Coumadin) 7.5 mg PO ONETIME ONE Stop: 04/28/20 18:01 Last Admin: 04/28/20 18:06 Dose: 7.5 mg Documented by: Warfarin Sodium (Coumadin) 5 mg PO MoWeFr@1800 REPLACED BY [facility] Last Admin: 05/04/20 17:22 Dose: 5 mg Documented by: Warfarin Sodium (Coumadin) 7.5 mg PO SuTuThSa@1800 REPLACED BY [facility] Last Admin: 05/03/20 17:14 Dose: 7.5 mg Documented by: Warfarin Sodium (Coumadin) 7.5 mg PO DAILY@1800 REPLACED BY [facility] Last Admin: 05/08/20 17:40 Dose: 7.5 mg Documented by: - Exam Quality Assessment: Central Line/PICC (PICC line R antecubital), DVT Prophylaxis (aleady on long-term anticoagulation) General: Alert, Oriented, Cooperative (very jovial which is his norm), No Acute Distress HEENT: Pupils Reactive, EOMI, Mucous Membr. Moist/[place] Neck: Supple, Trachea Midline, No JVD Lungs: Clear to Auscultation, Normal Respiratory Effort Cardiovascular: Regular Rate, Regular Rhythm GI/Abdominal Exam: Normal Bowel Sounds, Soft, Non-Tender (Male) Exam: Deferred Back Exam: Normal Inspection Extremities: Redness (chronic vascular discoloration), Other (RLE dressing and wrap in place, have been reviewing photographs and amputation wound healing very well and heel ulcer continues to improve ) Skin: Warm, Dry Wound/Incisions: Healing Well, Dressing Dry and Intact, No Drainage (noted on dressings) Neurological: No New Focal Deficit Psy/Mental Status: Alert, Normal Affect, Normal Mood Sepsis Event Note - Evaluation Sepsis Screening Result: No Definite Risk - Focused Exam Vital Signs: Vital Signs Temp BP 05/10/20 08:44 0/0 L 05/10/20 08:00 97.6 F - Problem List & Annotations (1) Anticoagulant long-term use SNOMED Code(s): 163296598 Code(s): Z79.01 - PRINTING ESTIMATOR (CURRENT) USE OF ANTICOAGULANTS Status: Chronic Priority: Medium Current Visit: Yes (2) Osteomyelitis of foot, right, acute SNOMED Code(s): 5389528990303990 Code(s): M86.171 - OTHER ACUTE OSTEOMYELITIS, RIGHT ANKLE AND FOOT Status: Acute Priority: High Current Visit: Yes Annotation/Comment:: Admitted for IV antibiotic therapy/Swing Bed after being discharged from [facility] in [place]. 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 (3) Peripheral neuropathy SNOMED Code(s): 138597010 Code(s): G62.9 - POLYNEUROPATHY, UNSPECIFIED Status: Acute Current Visit: Yes Qualifiers: Peripheral neuropathy type: polyneuropathy, unspecified Qualified Code(s): G62.9 - Polyneuropathy, unspecified Annotation/Comment:: stable per history (4) IDDM (insulin dependent diabetes mellitus) SNOMED Code(s): 91595155 Code(s): DDP4060 - Status: Chronic Priority: Medium Current Visit: Yes Annotation/Comment:: BID glucose checks. Observe trends. (5) CHF (congestive heart failure) SNOMED Code(s): 34556353 Code(s): I50.9 - HEART FAILURE, UNSPECIFIED Status: Acute Priority: Medium Current Visit: No Qualifiers: Heart failure type: unspecified Annotation/Comment:: Denies changes suggestive of acute fluid overload (6) Peripheral vascular disease SNOMED Code(s): 529399470 Code(s): I73.9 - PERIPHERAL VASCULAR DISEASE, UNSPECIFIED Status: Acute Priority: Medium Current Visit: No Annotation/Comment:: Stable per history (7) Chronic atrial fibrillation SNOMED Code(s): 732763763 Code(s): I48.2 - CHRONIC ATRIAL FIBRILLATION * DO NOT USE * Status: Chronic Priority: Low Current Visit: No Annotation/Comment:: Receives Warfarin therapy. Recheck INR tomorrow. Pacemaker. (8) GERD (gastroesophageal reflux disease) SNOMED Code(s): 720616320 Code(s): K21.9 - GASTRO-ESOPHAGEAL REFLUX DISEASE WITHOUT ESOPHAGITIS Status: Chronic Priority: Low Current Visit: No Qualifiers: Esophagitis presence: esophagitis presence not specified Qualified Code(s): K21.9 - Gastro-esophageal reflux disease without esophagitis Annotation/Comment:: Stable per history (9) HTN (hypertension) SNOMED Code(s): 03567827 Code(s): I10 - ESSENTIAL (PRIMARY) HYPERTENSION Status: Chronic Priority: Medium Current Visit: No Qualifiers: Hypertension type: essential hypertension Qualified Code(s): I10 - Essential (primary) hypertension Annotation/Comment:: Observe trends (10) Pacemaker SNOMED Code(s): 323480104 Code(s): Z95.0 - PRESENCE OF CARDIAC PACEMAKER Status: Chronic Priority: Low Current Visit: No (11) Renal insufficiency SNOMED Code(s): 819776895, 269772978 Code(s): N28.9 - DISORDER OF KIDNEY AND URETER, UNSPECIFIED Status: Chronic Priority: Low Current Visit: No - Problem List Review Problem List Initiated/Reviewed/Updated: Yes - My Orders Last 24 Hours: My Active Orders 05/09/20 15:19 Communication Order [RC] DAILY 05/09/20 15:28 Nystatin [Nystop] 1 gm TOP QID PRN 05/09/20 15:40 Communication Order [RC] DAILY 05/09/20 18:00 Warfarin [Coumadin] 8 mg PO DAILY@1800 05/12/20 06:00 INR,PT,PROTHROMBIN TIME [COAG] Routine - Plan Plan:: As above. Continue IV antibiotics. PT and OT to work with patient. 04-26-20 Traci Fontenot PA-C Warfarin adjusted per subtherapeutic INR level today, will repeat INR in three days. Chart reviewed. Routine lab orders are in for Saturday, 05-02. No medication other than the Warfarin. Vladimir Ramirezford is following the Osteomyelitis, R mid foot amputation and heel ulcer. Anticipating another 3 weeks of IV Ancef. For the persisting pruritus ordered TAC cream 0.1% topically BID to affected areas until resolved. 05-10-20 Traci Fontenot PA-C Demetrius is seen for follow up. The R foot distal amputation wound appears healing very well. The ulcer over the heel continues to improve, serial photographs been monitored. Currently antibiotics are scheduled to run up to 05-20. Pt has f/u appt via [facility] with Dr. Portillo, Podiatry 05-[address] Garland, ID 05-19. First Covid vaccination given 04-21, this was Moderna so we will be looking at repeating this at the 28-day sameer. Have been adjusting warfarin dosage and repeating INR's, he has still been subtherapeutic. Next INR in two days. He is still no weight bearing on that R foot so we do have concerns that he may not be ready to discharge to home right after the IV ATB's are completed, and may qualify for additional stay for PT-OT.
[2020-05-10] MEDS: Warfarin 2 MG Tab PO SCH (17:12)
[2020-05-10] MEDS: Insulin Glarg,Human.Rec.Analog 100 Unit/ML SUBCUT SCH (20:23)
[2020-05-10] MEDS: atorvaSTATin 10 MG Tab PO SCH (20:25)
[2020-05-10] MEDS: Gabapentin 100 MG Cap PO SCH (20:26)
[2020-05-10] MEDS: Nystatin Topical Powder 15 GM Bottle TOP PRN (21:15)
[2020-05-11] MEDS: Sodium Chloride 0.9% 10 ML Syringe FLUSH SCH ×5 (07:50→23:45)
[2020-05-11] MEDS: Bumetanide 1 MG Tab PO SCH ×2 (08:37→11:43)
[2020-05-11] MEDS: Potassium Chloride 20 MEQ Tab.ER PO SCH (08:37)
[2020-05-11] MEDS: Pantoprazole 40 MG Tab.CR PO SCH ×2 (08:38→17:41)
[2020-05-11] MEDS: Levothyroxine 25 MCG Tab PO SCH (08:38)
[2020-05-11] MEDS: Lisinopril 10 MG Tab PO SCH ×2 (08:39→17:41)
[2020-05-11] MEDS: Lutein/Minerals/Vitamin C/Vitamin E Acetate Cap PO SCH ×2 (08:40→17:40)
[2020-05-11] MEDS: Acetaminophen 500 MG Tab PO SCH ×2 (09:49→20:31)
[2020-05-11] MEDS: oxyCODONE 5 MG Tab PO SCH ×2 (09:50→21:05)
[2020-05-11] MEDS: Nystatin Topical Powder 15 GM Bottle TOP PRN ×2 (10:25→21:21)
[2020-05-11] MEDS: Ferrous Sulfate 325 MG Tab PO SCH (11:42)
[2020-05-11] MEDS: Warfarin 2 MG Tab PO SCH (17:43)
[2020-05-11] MEDS: Insulin Glarg,Human.Rec.Analog 100 Unit/ML SUBCUT SCH (20:25)
[2020-05-11] MEDS: atorvaSTATin 10 MG Tab PO SCH (20:29)
[2020-05-11] MEDS: Gabapentin 100 MG Cap PO SCH (20:30)
[2020-05-12] MEDS: Sodium Chloride 0.9% 10 ML Syringe FLUSH SCH ×5 (01:20→15:38)
[2020-05-12] MEDS: Levothyroxine 25 MCG Tab PO SCH (08:00)
[2020-05-12] MEDS: Bumetanide 1 MG Tab PO SCH ×2 (08:01→11:54)
[2020-05-12] MEDS: Potassium Chloride 20 MEQ Tab.ER PO SCH (08:01)
[2020-05-12] MEDS: Pantoprazole 40 MG Tab.CR PO SCH ×2 (08:02→17:26)
[2020-05-12] MEDS: Lisinopril 10 MG Tab PO SCH ×2 (08:02→17:26)
[2020-05-12] MEDS: Lutein/Minerals/Vitamin C/Vitamin E Acetate Cap PO SCH ×2 (08:02→17:25)
[2020-05-12] MEDS: Acetaminophen 500 MG Tab PO SCH ×2 (09:00→20:45)
[2020-05-12] MEDS: oxyCODONE 5 MG Tab PO SCH ×2 (09:01→21:02)
[2020-05-12] MEDS: Ferrous Sulfate 325 MG Tab PO SCH (11:55)
[2020-05-12] MEDS ORDERED: Nystatin Topical Powder 15 GM Bottle TOP PRN (13:16)
[2020-05-12] MEDS: Warfarin 2 MG Tab PO SCH (17:23)
[2020-05-12] MEDS ORDERED: Nystatin Topical Powder 15 GM Bottle TOP SCH (18:00)
[2020-05-12] MEDS: Insulin Glarg,Human.Rec.Analog 100 Unit/ML SUBCUT SCH (20:35)
[2020-05-12] MEDS: atorvaSTATin 10 MG Tab PO SCH (20:40)
[2020-05-12] MEDS: Gabapentin 100 MG Cap PO SCH (20:41)
[2020-05-12] MEDS: Nystatin Topical Powder 15 GM Bottle TOP SCH (20:42)
[2020-05-13] MEDS: Sodium Chloride 0.9% 10 ML Syringe FLUSH SCH ×7 (00:18→23:58)
[2020-05-13] MEDS: Bumetanide 1 MG Tab PO SCH ×2 (08:59→12:17)
[2020-05-13] MEDS: Levothyroxine 25 MCG Tab PO SCH (08:59)
[2020-05-13] MEDS: Potassium Chloride 20 MEQ Tab.ER PO SCH (08:59)
[2020-05-13] MEDS: Lisinopril 10 MG Tab PO SCH ×2 (09:00→17:15)
[2020-05-13] MEDS: Pantoprazole 40 MG Tab.CR PO SCH ×2 (09:00→17:15)
[2020-05-13] MEDS: Nystatin Topical Powder 15 GM Bottle TOP SCH ×2 (09:02→20:51)
[2020-05-13] MEDS: Lutein/Minerals/Vitamin C/Vitamin E Acetate Cap PO SCH ×2 (09:03→17:15)
[2020-05-13] MEDS: Acetaminophen 500 MG Tab PO SCH ×2 (09:05→20:52)
[2020-05-13] MEDS: oxyCODONE 5 MG Tab PO SCH ×2 (09:06→21:00)
[2020-05-13] MEDS: Ferrous Sulfate 325 MG Tab PO SCH (12:18)
[2020-05-13] MEDS: Warfarin 2 MG Tab PO SCH (17:13)
[2020-05-13] MEDS: Insulin Glarg,Human.Rec.Analog 100 Unit/ML SUBCUT SCH (20:47)
[2020-05-13] MEDS: atorvaSTATin 10 MG Tab PO SCH (20:49)
[2020-05-13] MEDS: Gabapentin 100 MG Cap PO SCH (20:49)
[2020-05-14] MEDS: Sodium Chloride 0.9% 10 ML Syringe FLUSH SCH ×5 (00:31→16:15)
[2020-05-14] MEDS: Levothyroxine 25 MCG Tab PO SCH (07:31)
[2020-05-14] MEDS: Bumetanide 1 MG Tab PO SCH ×2 (07:31→11:56)
[2020-05-14] MEDS: Potassium Chloride 20 MEQ Tab.ER PO SCH (07:32)
[2020-05-14] MEDS: Nystatin Topical Powder 15 GM Bottle TOP SCH ×2 (07:33→20:56)
[2020-05-14] MEDS: Lutein/Minerals/Vitamin C/Vitamin E Acetate Cap PO SCH ×2 (07:33→17:22)
[2020-05-14] MEDS: Lisinopril 10 MG Tab PO SCH ×2 (07:33→17:23)
[2020-05-14] MEDS: Pantoprazole 40 MG Tab.CR PO SCH ×2 (07:34→17:23)
[2020-05-14] MEDS: Acetaminophen 500 MG Tab PO SCH ×2 (09:03→21:01)
[2020-05-14] MEDS: oxyCODONE 5 MG Tab PO SCH ×2 (09:04→21:00)
[2020-05-14] MEDS: Ferrous Sulfate 325 MG Tab PO SCH (11:56)
[2020-05-14] MEDS: Warfarin 2 MG Tab PO SCH (17:21)
[2020-05-14] MEDS: atorvaSTATin 10 MG Tab PO SCH (20:55)
[2020-05-14] MEDS: Insulin Glarg,Human.Rec.Analog 100 Unit/ML SUBCUT SCH (20:55)
[2020-05-14] MEDS: Gabapentin 100 MG Cap PO SCH (20:55)
[2020-05-15] MEDS: Sodium Chloride 0.9% 10 ML Syringe FLUSH SCH ×6 (00:08→15:49)
[2020-05-15] MEDS: Levothyroxine 25 MCG Tab PO SCH (08:10)
[2020-05-15] MEDS: Pantoprazole 40 MG Tab.CR PO SCH ×2 (08:11→17:19)
[2020-05-15] MEDS: Bumetanide 1 MG Tab PO SCH ×2 (08:11→11:37)
[2020-05-15] MEDS: Potassium Chloride 20 MEQ Tab.ER PO SCH (08:12)
[2020-05-15] MEDS: Lisinopril 10 MG Tab PO SCH ×2 (08:12→17:20)
[2020-05-15] MEDS: Lutein/Minerals/Vitamin C/Vitamin E Acetate Cap PO SCH ×2 (08:15→17:21)
[2020-05-15] MEDS: Nystatin Topical Powder 15 GM Bottle TOP SCH ×2 (08:15→20:19)
[2020-05-15] MEDS: Acetaminophen 500 MG Tab PO SCH ×2 (09:01→20:20)
[2020-05-15] MEDS: oxyCODONE 5 MG Tab PO SCH ×2 (09:02→21:06)
[2020-05-15] MEDS: Ferrous Sulfate 325 MG Tab PO SCH (11:37)
[2020-05-15] MEDS: Warfarin 2 MG Tab PO SCH (17:20)
[2020-05-15] MEDS: Insulin Glarg,Human.Rec.Analog 100 Unit/ML SUBCUT SCH (20:14)
[2020-05-15] MEDS: atorvaSTATin 10 MG Tab PO SCH (20:18)
[2020-05-15] MEDS: Gabapentin 100 MG Cap PO SCH (20:19)
[2020-05-16] MEDS: Sodium Chloride 0.9% 10 ML Syringe FLUSH SCH ×6 (00:51→16:06)
[2020-05-16] MEDS: Lisinopril 10 MG Tab PO SCH ×2 (07:52→17:47)
[2020-05-16] MEDS: Levothyroxine 25 MCG Tab PO SCH (07:53)
[2020-05-16] MEDS: Pantoprazole 40 MG Tab.CR PO SCH ×2 (07:53→17:48)
[2020-05-16] MEDS: Potassium Chloride 20 MEQ Tab.ER PO SCH (07:54)
[2020-05-16] MEDS: Lutein/Minerals/Vitamin C/Vitamin E Acetate Cap PO SCH ×2 (07:57→17:46)
[2020-05-16] MEDS: Nystatin Topical Powder 15 GM Bottle TOP SCH ×2 (07:58→20:34)
[2020-05-16] MEDS: Bumetanide 1 MG Tab PO SCH ×2 (08:00→11:28)
[2020-05-16 08:40] LABS: CHLORIDE,CL 104 mmol/L (98-107); SODIUM,NA 141 mmol/L (136-145)
[2020-05-16 08:41] LABS: HEMOGLOBIN A1C 6.4 % (4.3-5.7)
[2020-05-16] MEDS: Acetaminophen 500 MG Tab PO SCH ×2 (09:07→20:35)
[2020-05-16] MEDS: oxyCODONE 5 MG Tab PO SCH ×2 (09:07→21:12)
[2020-05-16] MEDS: Ferrous Sulfate 325 MG Tab PO SCH (11:29)
[2020-05-16] MEDS: Warfarin 2 MG Tab PO SCH (17:42)
[2020-05-16] MEDS: Insulin Glarg,Human.Rec.Analog 100 Unit/ML SUBCUT SCH (20:29)
[2020-05-16] MEDS: atorvaSTATin 10 MG Tab PO SCH (20:32)
[2020-05-16] MEDS: Gabapentin 100 MG Cap PO SCH (20:33)
[2020-05-17] MEDS: Sodium Chloride 0.9% 10 ML Syringe FLUSH SCH ×6 (00:09→16:16)
[2020-05-17] MEDS: Bumetanide 1 MG Tab PO SCH ×2 (07:40→11:30)
[2020-05-17] MEDS: Levothyroxine 25 MCG Tab PO SCH (07:40)
[2020-05-17] MEDS: Lutein/Minerals/Vitamin C/Vitamin E Acetate Cap PO SCH ×2 (07:41→17:23)
[2020-05-17] MEDS: Nystatin Topical Powder 15 GM Bottle TOP SCH ×2 (07:41→20:11)
[2020-05-17] MEDS: Potassium Chloride 20 MEQ Tab.ER PO SCH (07:41)
[2020-05-17] MEDS: Pantoprazole 40 MG Tab.CR PO SCH ×2 (07:42→17:24)
[2020-05-17] MEDS: Lisinopril 10 MG Tab PO SCH ×2 (07:42→17:23)
[2020-05-17] MEDS: Acetaminophen 500 MG Tab PO SCH ×2 (10:03→21:16)
[2020-05-17] MEDS: oxyCODONE 5 MG Tab PO SCH ×2 (10:05→21:15)
[2020-05-17] MEDS: Ferrous Sulfate 325 MG Tab PO SCH (11:30)
[2020-05-17] MEDS: Warfarin 2 MG Tab PO SCH (17:22)
[2020-05-17] MEDS: atorvaSTATin 10 MG Tab PO SCH (20:09)
[2020-05-17] MEDS: Insulin Glarg,Human.Rec.Analog 100 Unit/ML SUBCUT SCH (20:16)
[2020-05-17] MEDS: Gabapentin 100 MG Cap PO SCH (20:18)
[2020-05-18] MEDS: Sodium Chloride 0.9% 10 ML Syringe FLUSH SCH ×7 (00:07→23:57)
[2020-05-18] MEDS: Levothyroxine 25 MCG Tab PO SCH (08:15)
[2020-05-18] MEDS: Bumetanide 1 MG Tab PO SCH ×2 (08:15→12:13)
[2020-05-18] MEDS: Lisinopril 10 MG Tab PO SCH ×2 (08:16→17:48)
[2020-05-18] MEDS: Potassium Chloride 20 MEQ Tab.ER PO SCH (08:16)
[2020-05-18] MEDS: Pantoprazole 40 MG Tab.CR PO SCH ×2 (08:17→17:49)
[2020-05-18] MEDS: Nystatin Topical Powder 15 GM Bottle TOP SCH ×2 (08:19→20:56)
[2020-05-18] MEDS: Lutein/Minerals/Vitamin C/Vitamin E Acetate Cap PO SCH ×2 (08:20→17:47)
[2020-05-18] MEDS: oxyCODONE 5 MG Tab PO SCH ×2 (10:26→21:00)
[2020-05-18] MEDS: Acetaminophen 500 MG Tab PO SCH ×2 (10:28→20:52)
[2020-05-18] MEDS: Ferrous Sulfate 325 MG Tab PO SCH (12:13)
[2020-05-18] MEDS: Warfarin 2 MG Tab PO SCH (17:59)
[2020-05-18] MEDS: Insulin Glarg,Human.Rec.Analog 100 Unit/ML SUBCUT SCH (20:49)
[2020-05-18] MEDS: atorvaSTATin 10 MG Tab PO SCH (20:50)
[2020-05-18] MEDS: Gabapentin 100 MG Cap PO SCH (20:50)
[2020-05-19] MEDS: Sodium Chloride 0.9% 10 ML Syringe FLUSH SCH ×5 (00:36→16:07)
[2020-05-19] MEDS: Lisinopril 10 MG Tab PO SCH ×2 (08:24→17:47)
[2020-05-19] MEDS: Potassium Chloride 20 MEQ Tab.ER PO SCH (08:24)
[2020-05-19] MEDS: Levothyroxine 25 MCG Tab PO SCH (08:24)
[2020-05-19] MEDS: Pantoprazole 40 MG Tab.CR PO SCH ×2 (08:25→17:47)
[2020-05-19] MEDS: Bumetanide 1 MG Tab PO SCH ×2 (08:27→12:03)
[2020-05-19] MEDS: Lutein/Minerals/Vitamin C/Vitamin E Acetate Cap PO SCH ×2 (08:29→17:49)
[2020-05-19] MEDS: Nystatin Topical Powder 15 GM Bottle TOP SCH ×2 (08:29→20:46)
[2020-05-19] MEDS: Acetaminophen 500 MG Tab PO SCH ×2 (08:33→20:46)
[2020-05-19] MEDS: oxyCODONE 5 MG Tab PO SCH ×2 (10:02→20:59)
[2020-05-19] MEDS: Ferrous Sulfate 325 MG Tab PO SCH (12:03)
[2020-05-19] MEDS ORDERED: Alteplase 2 MG Vial IVPUSH PRN (13:30)
[2020-05-19] MEDS: Warfarin 2 MG Tab PO SCH (17:49)
[2020-05-19] MEDS: Gabapentin 100 MG Cap PO SCH (20:45)
[2020-05-19] MEDS: atorvaSTATin 10 MG Tab PO SCH (20:45)
[2020-05-19] MEDS: Insulin Glarg,Human.Rec.Analog 100 Unit/ML SUBCUT SCH (20:48)
[2020-05-19] MEDS ORDERED: Acetaminophen 325 MG Tab PO PRN (21:08)
[2020-05-20] MEDS: Sodium Chloride 0.9% 10 ML Syringe FLUSH SCH ×8 (00:02→23:31)
[2020-05-20] MEDS: Levothyroxine 25 MCG Tab PO SCH (07:39)
[2020-05-20] MEDS: Bumetanide 1 MG Tab PO SCH ×2 (07:40→11:33)
[2020-05-20] MEDS: Lutein/Minerals/Vitamin C/Vitamin E Acetate Cap PO SCH ×2 (07:41→17:44)
[2020-05-20] MEDS: Potassium Chloride 20 MEQ Tab.ER PO SCH (07:41)
[2020-05-20] MEDS: Lisinopril 10 MG Tab PO SCH ×2 (07:42→17:43)
[2020-05-20] MEDS: Pantoprazole 40 MG Tab.CR PO SCH ×2 (07:43→17:42)
[2020-05-20] MEDS: Nystatin Topical Powder 15 GM Bottle TOP SCH ×2 (07:45→20:13)
[2020-05-20] MEDS: Acetaminophen 500 MG Tab PO SCH ×2 (08:54→20:10)
[2020-05-20] MEDS: oxyCODONE 5 MG Tab PO SCH ×2 (09:00→20:59)
[2020-05-20] MEDS: Ferrous Sulfate 325 MG Tab PO SCH (11:33)
[2020-05-20] MEDS: Warfarin 2 MG Tab PO SCH (17:39)
[2020-05-20] MEDS: Gabapentin 100 MG Cap PO SCH (20:04)
[2020-05-20] MEDS: Insulin Glarg,Human.Rec.Analog 100 Unit/ML SUBCUT SCH (20:05)
[2020-05-20] MEDS: atorvaSTATin 10 MG Tab PO SCH (20:08)
[2020-05-21] MEDS: Sodium Chloride 0.9% 10 ML Syringe FLUSH SCH ×6 (07:47→23:34)
[2020-05-21] MEDS: Nystatin Topical Powder 15 GM Bottle TOP SCH ×2 (08:51→20:48)
[2020-05-21] MEDS: Lutein/Minerals/Vitamin C/Vitamin E Acetate Cap PO SCH ×2 (08:52→17:33)
[2020-05-21] MEDS: Lisinopril 10 MG Tab PO SCH ×2 (08:54→17:34)
[2020-05-21] MEDS: Levothyroxine 25 MCG Tab PO SCH (08:54)
[2020-05-21] MEDS: Pantoprazole 40 MG Tab.CR PO SCH ×2 (08:54→17:34)
[2020-05-21] MEDS: Potassium Chloride 20 MEQ Tab.ER PO SCH (08:54)
[2020-05-21] MEDS: Bumetanide 1 MG Tab PO SCH ×2 (08:55→11:23)
[2020-05-21] MEDS: oxyCODONE 5 MG Tab PO SCH ×2 (09:04→21:00)
[2020-05-21] MEDS: Acetaminophen 500 MG Tab PO SCH ×2 (09:04→20:49)
[2020-05-21] MEDS: Ferrous Sulfate 325 MG Tab PO SCH (11:23)
[2020-05-21] MEDS: Warfarin 2 MG Tab PO SCH (17:35)
[2020-05-21] MEDS: Insulin Glarg,Human.Rec.Analog 100 Unit/ML SUBCUT SCH (20:43)
[2020-05-21] MEDS: atorvaSTATin 10 MG Tab PO SCH (20:46)
[2020-05-21] MEDS: Gabapentin 100 MG Cap PO SCH (20:47)
[2020-05-22] MEDS: Pantoprazole 40 MG Tab.CR PO SCH ×2 (08:59→17:20)
[2020-05-22] MEDS: Levothyroxine 25 MCG Tab PO SCH (08:59)
[2020-05-22] MEDS: Lisinopril 10 MG Tab PO SCH ×2 (09:00→17:19)
[2020-05-22] MEDS: Potassium Chloride 20 MEQ Tab.ER PO SCH (09:00)
[2020-05-22] MEDS: Bumetanide 1 MG Tab PO SCH ×2 (09:01→11:36)
[2020-05-22] MEDS: Sodium Chloride 0.9% 10 ML Syringe FLUSH SCH ×6 (09:02→23:31)
[2020-05-22] MEDS: Nystatin Topical Powder 15 GM Bottle TOP SCH ×2 (09:02→20:14)
[2020-05-22] MEDS: Acetaminophen 500 MG Tab PO SCH ×2 (09:03→20:25)
[2020-05-22] MEDS: Lutein/Minerals/Vitamin C/Vitamin E Acetate Cap PO SCH ×2 (09:03→17:18)
[2020-05-22] MEDS: oxyCODONE 5 MG Tab PO SCH ×2 (09:04→21:01)
[2020-05-22] MEDS: Ferrous Sulfate 325 MG Tab PO SCH (11:36)
[2020-05-22] MEDS: Warfarin 2 MG Tab PO SCH (17:19)
[2020-05-22] MEDS: Insulin Glarg,Human.Rec.Analog 100 Unit/ML SUBCUT SCH (20:18)
[2020-05-22] MEDS: atorvaSTATin 10 MG Tab PO SCH (20:21)
[2020-05-22] MEDS: Gabapentin 100 MG Cap PO SCH (20:23)
[2020-05-23] MEDS: Sodium Chloride 0.9% 10 ML Syringe FLUSH SCH ×4 (07:02→16:46)
[2020-05-23] MEDS: Levothyroxine 25 MCG Tab PO SCH (07:21)
[2020-05-23] MEDS: Potassium Chloride 20 MEQ Tab.ER PO SCH (07:22)
[2020-05-23] MEDS: Nystatin Topical Powder 15 GM Bottle TOP SCH ×2 (07:22→20:51)
[2020-05-23] MEDS: Bumetanide 1 MG Tab PO SCH ×2 (07:22→16:12)
[2020-05-23] MEDS: Lisinopril 10 MG Tab PO SCH ×2 (07:23→17:16)
[2020-05-23] MEDS: Pantoprazole 40 MG Tab.CR PO SCH ×2 (07:23→17:16)
[2020-05-23] MEDS: Lutein/Minerals/Vitamin C/Vitamin E Acetate Cap PO SCH ×2 (07:23→17:15)
[2020-05-23 07:48] LABS: CHLORIDE,CL 106 mmol/L (98-107); SODIUM,NA 141 mmol/L (136-145)
[2020-05-23] MEDS: Acetaminophen 500 MG Tab PO SCH ×2 (09:41→20:50)
[2020-05-23] MEDS: oxyCODONE 5 MG Tab PO SCH ×2 (09:42→21:02)
[2020-05-23] MEDS: Ferrous Sulfate 325 MG Tab PO SCH (11:21)
[2020-05-23] MEDS: Warfarin 2 MG Tab PO SCH (17:13)
[2020-05-23] MEDS: Insulin Glarg,Human.Rec.Analog 100 Unit/ML SUBCUT SCH (20:48)
[2020-05-23] MEDS: atorvaSTATin 10 MG Tab PO SCH (20:49)
[2020-05-23] MEDS: Gabapentin 100 MG Cap PO SCH (20:50)
[2020-05-24] MEDS: Sodium Chloride 0.9% 10 ML Syringe FLUSH SCH ×7 (00:07→23:59)
[2020-05-24] MEDS: Levothyroxine 25 MCG Tab PO SCH (07:02)
[2020-05-24] MEDS: Potassium Chloride 20 MEQ Tab.ER PO SCH (07:03)
[2020-05-24] MEDS: Bumetanide 1 MG Tab PO SCH ×2 (07:03→11:34)
[2020-05-24] MEDS: Lutein/Minerals/Vitamin C/Vitamin E Acetate Cap PO SCH ×2 (07:07→17:24)
[2020-05-24] MEDS: Nystatin Topical Powder 15 GM Bottle TOP SCH ×2 (07:07→20:43)
[2020-05-24] MEDS: Pantoprazole 40 MG Tab.CR PO SCH ×2 (07:08→17:25)
[2020-05-24] MEDS: Lisinopril 10 MG Tab PO SCH ×2 (07:08→17:25)
[2020-05-24] MEDS: Acetaminophen 500 MG Tab PO SCH ×2 (09:15→20:42)
[2020-05-24] MEDS: oxyCODONE 5 MG Tab PO SCH ×2 (09:16→21:00)
[2020-05-24] MEDS: Ferrous Sulfate 325 MG Tab PO SCH (11:35)
[2020-05-24] MEDS ORDERED: Hydrocortisone 1% Crm 30 GM Tube TOP PRN ×2 (15:33→16:05)
--- NOTE | 2020-05-24 15:45 | PCM.PN ---
- General Info Date of Service: 05/24/20 Admission Dx/Problem (Free Text): Admission Diagnosis/Problem Admission Diagnosis/Problem Osteomyelitis of foot Functional Status: Reports: Pain Controlled, Tolerating Diet, Ambulating (just today got the order to begin R TWB from Dr. Kristopher Portillo, community arts officer), Urinating - Review of Systems General: Reports: No Symptoms HEENT: Reports: No Symptoms Pulmonary: Reports: No Symptoms Cardiovascular: Reports: No Symptoms Gastrointestinal: Reports: No Symptoms Genitourinary: Reports: No Symptoms Musculoskeletal: Reports: No Symptoms Skin: Reports: Pruritis (c/o itchy scratch at the edge of the Opsite over PICC line, says can't help scratching) Neurological: Reports: No Symptoms Psychiatric: Reports: No Symptoms - Patient Data Vitals - Most Recent: Last Vital Signs Temp 98 F 05/24/20 08:00 Pulse 80 05/23/20 08:00 Resp 18 05/23/20 08:00 BP 0/0 L 05/24/20 07:08 Pulse Ox 100 05/23/20 08:00 Weight - Most Recent: 237 lb 9.6 oz I&O - Last 24 Hours: Intake & Output 05/24/20 05/24/20 05/24/20 06:59 14:59 22:59 Intake Total 50 1000 Balance 50 1000 Med Orders - Current: Current Medications Acetaminophen (Tylenol Extra Strength) 500 mg PO BID@ [facility] Last Admin: 05/24/20 09:15 Dose: 500 mg Documented by: Acetaminophen (Tylenol) 325 mg PO Q4H PRN PRN Reason: Pain/Fever Alteplase, Recombinant (Cathflo Activase) 2 mg IVPUSH ONETIME PRN PRN Reason: OCCLUSION Atorvastatin Calcium (Lipitor) 10 mg PO BEDTIME [facility] Last Admin: 05/23/20 20:49 Dose: 10 mg Documented by: Bumetanide (Bumex) 2 mg PO BIDDIURETIC [facility] Last Admin: 05/24/20 11:34 Dose: 2 mg Documented by: Ferrous Sulfate (Ferrous Sulfate) 650 mg PO DAILY@1200 [facility] Last Admin: 05/24/20 11:35 Dose: 650 mg Documented by: Gabapentin (Neurontin) 100 mg PO BEDTIME [facility] Last Admin: 05/23/20 20:50 Dose: 100 mg Documented by: Heparin Sodium (Porcine) (Heparin Lock Flush 100 Units/Ml) 300 units FLUSH Q8H [facility] Last Admin: 05/24/20 07:36 Dose: 300 units Documented by: Hydrocortisone (Hydrocortisone 1% Crm) 30 gm TOP TID PRN PRN Reason: Rash Cefazolin Sodium/Dextrose (Ancef 2 Gm/50 Ml) 50 mls @ 100 mls/hr IV Q8HR [facility] Stop: 05/26/20 16:01 Last Admin: 05/24/20 07:01 Dose: 100 mls/hr Documented by: Insulin Glargine (Lantus) 16 unit SUBCUT BEDTIME [facility] Last Admin: 05/23/20 20:48 Dose: 16 unit Documented by: Levothyroxine Sodium (Levothyroxine) 25 mcg PO DAILY@0730 [facility] Last Admin: 05/24/20 07:02 Dose: 25 mcg Documented by: Lisinopril (Prinivil) 10 mg PO BID [facility] Last Admin: 05/24/20 07:08 Dose: 10 mg Documented by: Melatonin (Melatonin) 3 mg PO BEDTIME PRN PRN Reason: Insomnia Neomycin/Polymyxin/Bacitracin (Triple Antibiotic Oint) 1 each TOP Q2H PRN PRN Reason: Wound Care Last Admin: 05/08/20 23:29 Dose: 1 each Documented by: Nystatin (Nystop) 0 gm TOP BID PRN PRN Reason: Rash Last Admin: 05/12/20 12:30 Dose: 1 applic Documented by: Nystatin (Nystop) 0 gm TOP Q12HR [facility] Last Admin: 05/24/20 07:07 Dose: 1 applic Documented by: Ondansetron HCl (Zofran Odt) 4 mg PO Q6H PRN PRN Reason: Nausea/Vomiting Last Admin: 04/29/20 08:26 Dose: 4 mg Documented by: Oxycodone HCl (Oxycodone) 10 mg PO Q12H [facility] Last Admin: 05/24/20 09:16 Dose: 10 mg Documented by: Pantoprazole Sodium (Protonix) 40 mg PO BID [facility] Last Admin: 05/24/20 07:08 Dose: 40 mg Documented by: Polyethylene Glycol (Miralax) 17 gm PO DAILY PRN PRN Reason: Constipation Potassium Chloride (Klor-Con M20) 20 meq PO DAILY [facility] Last Admin: 05/24/20 07:03 Dose: 20 meq Documented by: Senna/Docusate Sodium (Senna Plus) 2 tab PO BID [facility] Last Admin: 05/24/20 07:08 Dose: 1 tab Documented by: Sodium Chloride (Saline Flush) 10 ml FLUSH Q8HR [facility] Last Admin: 05/24/20 07:01 Dose: 10 ml Documented by: Sodium Chloride (Saline Flush) 10 ml FLUSH Q8H [facility] Last Admin: 05/24/20 07:35 Dose: 10 ml Documented by: Sodium Chloride (Saline Flush) 10 ml FLUSH ASDIRECTED PRN PRN Reason: IV Use Last Admin: 05/09/20 07:06 Dose: 10 ml Documented by: Triamcinolone Acetonide (Triamcinolone Acetonide 0.1% Crm) 15 gm TOP BID PRN PRN Reason: Itching Last Admin: 05/02/20 21:03 Dose: 1 applic Documented by: Vit C/Vit E/Zinc/Copper/Lutein (Ocuvite Lutein) 1 each PO BID [facility] Last Admin: 05/24/20 07:07 Dose: 1 each Documented by: Warfarin Sodium (Coumadin) 8 mg PO DAILY@1800 [facility] Last Admin: 05/23/20 17:13 Dose: 8 mg Documented by: Warfarin Sodium (Coumadin) 1 mg PO SuTuThSa@1800 [facility] Last Admin: 05/23/20 17:15 Dose: 1 mg Documented by: Zinc Acetate/Diphenhydramine (Banophen Anti-Itch 2% Crm) 1 gm TOP TID PRN PRN Reason: Rash Discontinued Medications Acetaminophen (Tylenol Extra Strength) 500 mg PO Q6HR [facility] Last Admin: 04/16/20 09:35 Dose: 500 mg Documented by: Bumetanide (Bumex) 1 mg PO BIDDIURETIC [facility] Last Admin: 04/21/20 12:13 Dose: 1 mg Documented by: Cefazolin Sodium 2 gm/ Sodium (Chloride) 100 mls @ 200 mls/hr IV Q8HR [facility] Last Admin: 04/13/20 09:22 Dose: 200 mls/hr Documented by: Lisinopril (Prinivil) 10 mg PO BID [facility] Nystatin (Nystop) 1 gm TOP QID PRN PRN Reason: Rash Last Admin: 04/15/20 15:00 Dose: 1 applic Documented by: Nystatin (Nystop) 0 gm TOP QID [facility] Last Admin: 05/09/20 15:06 Dose: 1 applic Documented by: Nystatin (Nystop) 1 gm TOP QID PRN PRN Reason: Rash Last Admin: 05/11/20 21:21 Dose: 1 applic Documented by: Nystatin (Nystop) 0 gm TOP BID [facility] Oxycodone HCl (Oxycodone) 5 mg PO Q4H PRN PRN Reason: Pain Last Admin: 04/16/20 09:36 Dose: 5 mg Documented by: Oxycodone HCl (Oxycodone) 10 mg PO BID@ [facility] Last Admin: 04/21/20 20:14 Dose: 10 mg Documented by: Polyethylene Glycol (Miralax) 17 gm PO DAILY PRN PRN Reason: Constipation Triamcinolone Acetonide (Triamcinolone Acetonide 0.1% Crm) 15 gm TOP BID [facility] Last Admin: 05/02/20 08:05 Dose: 1 applic Documented by: Warfarin Sodium (Coumadin) 4 mg PO SuTuWeThSa@1800 [facility] Last Admin: 04/13/20 17:01 Dose: 4 mg Documented by: Warfarin Sodium (Coumadin) 8 mg PO MOFR@1800 [facility] Warfarin Sodium (Coumadin) 4 mg PO DAILY@1800 [facility] Last Admin: 04/20/20 17:32 Dose: 4 mg Documented by: Warfarin Sodium (Coumadin) 5 mg PO DAILY@1800 [facility] Warfarin Sodium 2 mg/ Warfarin (Sodium 5 mg) 7 mg PO ONETIME ONE Stop: 04/21/20 09:07 Last Admin: 04/21/20 10:14 Dose: 7 mg Documented by: Warfarin Sodium (Coumadin) 10 mg PO ONETIME ONE Stop: 04/22/20 10:31 Last Admin: 04/22/20 10:50 Dose: 10 mg Documented by: Warfarin Sodium (Coumadin) 5 mg PO DAILY@1800 [facility] Last Admin: 04/25/20 17:25 Dose: 5 mg Documented by: Warfarin Sodium (Coumadin) 5 mg PO SuMoWeThSa@1800 [facility] Last Admin: 04/27/20 17:16 Dose: 5 mg Documented by: Warfarin Sodium (Coumadin) 7.5 mg PO TuFr@1800 [facility] Last Admin: 04/26/20 17:09 Dose: 7.5 mg Documented by: Warfarin Sodium (Coumadin) 7.5 mg PO MoWeFr@1800 [facility] Last Admin: 04/29/20 17:09 Dose: 7.5 mg Documented by: Warfarin Sodium (Coumadin) 5 mg PO SuTuThSa@1800 [facility] Last Admin: 05/01/20 17:41 Dose: 5 mg Documented by: Warfarin Sodium (Coumadin) 7.5 mg PO ONETIME ONE Stop: 04/28/20 18:01 Last Admin: 04/28/20 18:06 Dose: 7.5 mg Documented by: Warfarin Sodium (Coumadin) 5 mg PO MoWeFr@1800 [facility] Last Admin: 05/04/20 17:22 Dose: 5 mg Documented by: Warfarin Sodium (Coumadin) 7.5 mg PO SuTuThSa@1800 [facility] Last Admin: 05/03/20 17:14 Dose: 7.5 mg Documented by: Warfarin Sodium (Coumadin) 7.5 mg PO DAILY@1800 [facility] Last Admin: 05/08/20 17:40 Dose: 7.5 mg Documented by: Warfarin Sodium (Coumadin) 1 mg PO MoWeFr@1800 [facility] Last Admin: 05/20/20 17:41 Dose: 1 mg Documented by: - Exam Quality Assessment: Central Line/PICC (R antecubital) General: Alert, Oriented HEENT: Pupils Reactive, EOMI Neck: Supple, Trachea Midline, No JVD Lungs: Clear to Auscultation, Normal Respiratory Effort Cardiovascular: Regular Rate, Regular Rhythm GI/Abdominal Exam: Normal Bowel Sounds, Soft, Non-Tender (Male) Exam: Deferred Back Exam: Normal Inspection Extremities: Other (chronic vascular discoloration, no edema, RLE dressing intact) Skin: Warm, Dry, Other (tiny superficial abrasion lateral to the edge of the Opsite over PICC line R upper arm) Wound/Incisions: Healing Well (have reviewed all serial photographs recorded, distal R foot healed, heel healing very well now) Neurological: No New Focal Deficit Psy/Mental Status: Alert, Normal Affect, Normal Mood - Patient Data Result Diagrams: 05/23/20 07:15 05/23/20 07:15 Sepsis Event Note - Evaluation Sepsis Screening Result: No Definite Risk - Focused Exam Vital Signs: Vital Signs Temp BP 05/24/20 08:00 98 F 05/24/20 07:08 0/0 L - Problem List & Annotations (1) Anticoagulant long-term use SNOMED Code(s): 812167784 Code(s): 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 (3) Peripheral neuropathy SNOMED Code(s): 335042857 Code(s): G62.9 - POLYNEUROPATHY, UNSPECIFIED Status: Acute Current Visit: Yes Qualifiers: Peripheral neuropathy type: polyneuropathy, unspecified Qualified Code(s): G62.9 - Polyneuropathy, unspecified Annotation/Comment:: stable per history (4) IDDM (insulin dependent diabetes mellitus) SNOMED Code(s): 95187946 Code(s): RYN3855 - Status: Chronic Priority: Medium Current Visit: Yes Annotation/Comment:: BID glucose checks. Observe trends. (5) CHF (congestive heart failure) SNOMED Code(s): 69535166 Code(s): I50.9 - HEART FAILURE, UNSPECIFIED Status: Acute Priority: Medium Current Visit: No Qualifiers: Heart failure type: unspecified Annotation/Comment:: Denies changes suggestive of acute fluid overload (6) Peripheral vascular disease SNOMED Code(s): 871983590 Code(s): I73.9 - PERIPHERAL VASCULAR DISEASE, UNSPECIFIED Status: Acute Priority: Medium Current Visit: No Annotation/Comment:: Stable per history (7) Chronic atrial fibrillation SNOMED Code(s): 966700589 Code(s): I48.2 - CHRONIC ATRIAL FIBRILLATION * DO NOT USE * Status: Chronic Priority: Low Current Visit: No Annotation/Comment:: Receives Warfarin therapy. Recheck INR tomorrow. Pacemaker. (8) GERD (gastroesophageal reflux disease) SNOMED Code(s): 316523452 Code(s): K21.9 - GASTRO-ESOPHAGEAL REFLUX DISEASE WITHOUT ESOPHAGITIS Status: Chronic Priority: Low Current Visit: No Qualifiers: Esophagitis presence: esophagitis presence not specified Qualified Code(s): K21.9 - Gastro-esophageal reflux disease without esophagitis Annotation/Comment:: Stable per history (9) HTN (hypertension) SNOMED Code(s): 13801011 Code(s): I10 - ESSENTIAL (PRIMARY) HYPERTENSION Status: Chronic Priority: Medium Current Visit: No Qualifiers: Hypertension type: essential hypertension Qualified Code(s): I10 - Essential (primary) hypertension Annotation/Comment:: Observe trends (10) Pacemaker SNOMED Code(s): 540437185 Code(s): Z95.0 - PRESENCE OF CARDIAC PACEMAKER Status: Chronic Priority: Low Current Visit: No (11) Renal insufficiency SNOMED Code(s): 166169160, 513525765 Code(s): N28.9 - DISORDER OF KIDNEY AND URETER, UNSPECIFIED Status: Chronic Priority: Low Current Visit: No - Problem List Review Problem List Initiated/Reviewed/Updated: Yes - My Orders Last 24 Hours: My Active Orders 05/23/20 18:00 Warfarin [Coumadin] 1 mg PO SuTuThSa@1800 05/23/20 18:22 Communication Order [RC] DAILY 05/24/20 15:33 Hydrocortisone [Hydrocortisone 1% Crm] 30 gm TOP TID PRN 05/24/20 15:37 diphenhydrAMINE/Zinc Acetate [Banophen Anti-Itch 2% Crm] 1 gm TOP TID PRN 05/26/20 06:00 INR,PT,PROTHROMBIN TIME [COAG] Routine - Plan Plan:: As above. Continue IV antibiotics. PT and OT to work with patient. 04-26-20 Traci Fontenot PA-C Warfarin adjusted per subtherapeutic INR level today, will repeat INR in three days. Chart reviewed. Routine lab orders are in for Saturday, -. No medication other than the Warfarin. Heriberto Ramirez is following the Osteomyelitis, R mid foot amputation and heel ulcer. Anticipating another 3 weeks of IV Ancef. For the persisting pruritus ordered TAC cream 0.1% topically BID to affected areas until resolved. 05-10-20 Traci Fontenot PA-C Demetrius is seen for follow up. The R foot distal amputation wound appears healing very well. The ulcer over the heel continues to improve, serial photographs been monitored. Currently antibiotics are scheduled to run up to 05-20. Pt has f/u appt via [facility] with Dr. Portillo, Podiatry 05-[address] Garland, ID 05-19. First Covid vaccination given 04-21, this was Moderna so we will be looking at repeating this at the 28-day sameer. Have been adjusting warfarin dosage and repeating INR's, he has still been subtherapeutic. Next INR in two days. He is still no weight bearing on that R foot so we do have concerns that he may not be ready to discharge to home right after the IV ATB's are completed, and may qualify for additional stay for PT-OT. 05-24-20 Traci Fontenot PA-C R foot surgical wounds have continued to heal. he did have f/u with [facility], Dr. Kristopher Portillo and he may now begin TWB - PT comes to see him at the end of my visit today to discuss this. He will qualify for two more weeks of SWB to work with PT-OT after the IV ATB's are completed in two more days. Can pull PICC line after IV Ancef course complete. For the superficial abrasion today will start prn topical Benadryl and Hydrocortisone, patient says he knows not to scratch but the itch is so bad he finds himself scratching without thinking about it. Have been monitoring INR and adjusting warfarin, next INR in two more days. Discharge plan does include [facility].
[2020-05-24] MEDS: diphenhydrAMINE/Zinc Acetate 2% Crm 28.4 GM Tube TOP PRN (16:12)
[2020-05-24] MEDS: Warfarin 2 MG Tab PO SCH (17:23)
[2020-05-24] MEDS: Gabapentin 100 MG Cap PO SCH (20:42)
[2020-05-24] MEDS: Insulin Glarg,Human.Rec.Analog 100 Unit/ML SUBCUT SCH (20:46)
[2020-05-24] MEDS: atorvaSTATin 10 MG Tab PO SCH (20:47)
[2020-05-25] MEDS: Sodium Chloride 0.9% 10 ML Syringe FLUSH SCH ×5 (00:37→16:53)
[2020-05-25] MEDS: Levothyroxine 25 MCG Tab PO SCH (07:59)
[2020-05-25] MEDS: Bumetanide 1 MG Tab PO SCH ×2 (07:59→11:44)
[2020-05-25] MEDS: Nystatin Topical Powder 15 GM Bottle TOP SCH ×2 (08:00→20:45)
[2020-05-25] MEDS: Potassium Chloride 20 MEQ Tab.ER PO SCH (08:00)
[2020-05-25] MEDS: Lutein/Minerals/Vitamin C/Vitamin E Acetate Cap PO SCH ×2 (08:01→17:23)
[2020-05-25] MEDS: Lisinopril 10 MG Tab PO SCH ×2 (08:02→17:24)
[2020-05-25] MEDS: Pantoprazole 40 MG Tab.CR PO SCH ×2 (08:02→17:24)
[2020-05-25] MEDS: Acetaminophen 500 MG Tab PO SCH ×2 (09:04→20:44)
[2020-05-25] MEDS: oxyCODONE 5 MG Tab PO SCH ×2 (09:06→21:03)
[2020-05-25] MEDS: Ferrous Sulfate 325 MG Tab PO SCH (11:45)
[2020-05-25] MEDS: Warfarin 2 MG Tab PO SCH (17:21)
[2020-05-25] MEDS: Insulin Glarg,Human.Rec.Analog 100 Unit/ML SUBCUT SCH (20:41)
[2020-05-25] MEDS: atorvaSTATin 10 MG Tab PO SCH (20:42)
[2020-05-25] MEDS: Gabapentin 100 MG Cap PO SCH (20:43)
[2020-05-26] MEDS: Sodium Chloride 0.9% 10 ML Syringe FLUSH SCH ×6 (00:02→15:39)
[2020-05-26] MEDS: Pantoprazole 40 MG Tab.CR PO SCH ×2 (08:14→17:39)
[2020-05-26] MEDS: Levothyroxine 25 MCG Tab PO SCH (08:15)
[2020-05-26] MEDS: Potassium Chloride 20 MEQ Tab.ER PO SCH (08:15)
[2020-05-26] MEDS: Lisinopril 10 MG Tab PO SCH ×2 (08:16→17:40)
[2020-05-26] MEDS: Bumetanide 1 MG Tab PO SCH ×2 (08:16→11:44)
[2020-05-26] MEDS: Lutein/Minerals/Vitamin C/Vitamin E Acetate Cap PO SCH ×2 (08:18→17:40)
[2020-05-26] MEDS: Acetaminophen 500 MG Tab PO SCH ×2 (08:19→20:40)
[2020-05-26] MEDS: Nystatin Topical Powder 15 GM Bottle TOP SCH ×2 (08:19→20:39)
[2020-05-26] MEDS: oxyCODONE 5 MG Tab PO SCH ×2 (09:41→21:07)
[2020-05-26] MEDS: Ferrous Sulfate 325 MG Tab PO SCH (11:43)
[2020-05-26] MEDS: Warfarin 2 MG Tab PO SCH (17:41)
[2020-05-26] MEDS: Insulin Glarg,Human.Rec.Analog 100 Unit/ML SUBCUT SCH (20:33)
[2020-05-26] MEDS: atorvaSTATin 10 MG Tab PO SCH (20:35)
[2020-05-26] MEDS: Gabapentin 100 MG Cap PO SCH (20:37)
[2020-05-27] MEDS: Sodium Chloride 0.9% 10 ML Syringe FLUSH SCH ×2 (06:58)
[2020-05-27] MEDS: Levothyroxine 25 MCG Tab PO SCH (07:47)
[2020-05-27] MEDS: Bumetanide 1 MG Tab PO SCH ×2 (07:48→12:30)
[2020-05-27] MEDS: Potassium Chloride 20 MEQ Tab.ER PO SCH (07:49)
[2020-05-27] MEDS: Nystatin Topical Powder 15 GM Bottle TOP SCH ×2 (07:49→20:55)
[2020-05-27] MEDS: Lutein/Minerals/Vitamin C/Vitamin E Acetate Cap PO SCH ×2 (07:50→17:15)
[2020-05-27] MEDS: Lisinopril 10 MG Tab PO SCH ×2 (07:50→17:16)
[2020-05-27] MEDS: Pantoprazole 40 MG Tab.CR PO SCH ×2 (07:51→17:17)
[2020-05-27] MEDS: Acetaminophen 500 MG Tab PO SCH ×2 (09:05→20:56)
[2020-05-27] MEDS: oxyCODONE 5 MG Tab PO SCH ×2 (09:06→21:14)
[2020-05-27] MEDS: Ferrous Sulfate 325 MG Tab PO SCH (12:30)
[2020-05-27] MEDS: Warfarin 2 MG Tab PO SCH (17:12)
[2020-05-27] MEDS: Insulin Glarg,Human.Rec.Analog 100 Unit/ML SUBCUT SCH (20:51)
[2020-05-27] MEDS: atorvaSTATin 10 MG Tab PO SCH (20:53)
[2020-05-27] MEDS: Gabapentin 100 MG Cap PO SCH (20:54)
[2020-05-28] MEDS: Levothyroxine 25 MCG Tab PO SCH (08:46)
[2020-05-28] MEDS: Nystatin Topical Powder 15 GM Bottle TOP SCH ×2 (09:00→20:26)
[2020-05-28] MEDS: Potassium Chloride 20 MEQ Tab.ER PO SCH (09:10)
[2020-05-28] MEDS: Pantoprazole 40 MG Tab.CR PO SCH ×2 (09:10→17:17)
[2020-05-28] MEDS: Bumetanide 1 MG Tab PO SCH ×2 (09:10→12:29)
[2020-05-28] MEDS: Lisinopril 10 MG Tab PO SCH ×2 (09:10→17:18)
[2020-05-28] MEDS: Lutein/Minerals/Vitamin C/Vitamin E Acetate Cap PO SCH ×2 (09:10→17:17)
[2020-05-28] MEDS: Acetaminophen 500 MG Tab PO SCH ×2 (09:50→20:27)
[2020-05-28] MEDS: oxyCODONE 5 MG Tab PO SCH ×2 (09:51→21:02)
[2020-05-28] MEDS: Ferrous Sulfate 325 MG Tab PO SCH (12:30)
[2020-05-28] MEDS: Warfarin 2 MG Tab PO SCH (17:15)
[2020-05-28] MEDS: Insulin Glarg,Human.Rec.Analog 100 Unit/ML SUBCUT SCH (20:22)
[2020-05-28] MEDS: atorvaSTATin 10 MG Tab PO SCH (20:24)
[2020-05-28] MEDS: Gabapentin 100 MG Cap PO SCH (20:26)
[2020-05-29] MEDS: Levothyroxine 25 MCG Tab PO SCH (07:58)
[2020-05-29] MEDS: Bumetanide 1 MG Tab PO SCH ×2 (07:58→11:52)
[2020-05-29] MEDS: Potassium Chloride 20 MEQ Tab.ER PO SCH (08:00)
[2020-05-29] MEDS: Nystatin Topical Powder 15 GM Bottle TOP SCH ×2 (08:00→20:31)
[2020-05-29] MEDS: Pantoprazole 40 MG Tab.CR PO SCH ×2 (08:01→17:38)
[2020-05-29] MEDS: Lutein/Minerals/Vitamin C/Vitamin E Acetate Cap PO SCH ×2 (08:01→17:37)
[2020-05-29] MEDS: Acetaminophen 500 MG Tab PO SCH ×2 (08:02→20:33)
[2020-05-29] MEDS: Lisinopril 10 MG Tab PO SCH ×2 (08:03→17:38)
[2020-05-29] MEDS: oxyCODONE 5 MG Tab PO SCH ×2 (09:24→21:04)
[2020-05-29] MEDS: Ferrous Sulfate 325 MG Tab PO SCH (11:52)
[2020-05-29] MEDS: Warfarin 2 MG Tab PO SCH (17:34)
[2020-05-29] MEDS: Insulin Glarg,Human.Rec.Analog 100 Unit/ML SUBCUT SCH (20:27)
[2020-05-29] MEDS: atorvaSTATin 10 MG Tab PO SCH (20:29)
[2020-05-29] MEDS: Gabapentin 100 MG Cap PO SCH (20:30)
[2020-05-30] MEDS: Levothyroxine 25 MCG Tab PO SCH (09:53)
[2020-05-30] MEDS: Lisinopril 10 MG Tab PO SCH ×2 (09:54→17:50)
[2020-05-30] MEDS: Bumetanide 1 MG Tab PO SCH ×2 (09:54→11:44)
[2020-05-30] MEDS: Acetaminophen 500 MG Tab PO SCH ×2 (09:55→21:03)
[2020-05-30] MEDS: Pantoprazole 40 MG Tab.CR PO SCH ×2 (09:55→17:50)
[2020-05-30] MEDS: oxyCODONE 5 MG Tab PO SCH ×2 (09:57→21:04)
[2020-05-30] MEDS: Potassium Chloride 20 MEQ Tab.ER PO SCH (09:58)
[2020-05-30] MEDS: Nystatin Topical Powder 15 GM Bottle TOP SCH ×2 (09:59→21:03)
[2020-05-30] MEDS: Lutein/Minerals/Vitamin C/Vitamin E Acetate Cap PO SCH ×2 (10:01→17:49)
[2020-05-30] MEDS: Ferrous Sulfate 325 MG Tab PO SCH (11:44)
[2020-05-30] MEDS: diphenhydrAMINE/Zinc Acetate 2% Crm 28.4 GM Tube TOP PRN (13:34)
[2020-05-30] MEDS: Warfarin 2 MG Tab PO SCH (17:49)
[2020-05-30] MEDS: Insulin Glarg,Human.Rec.Analog 100 Unit/ML SUBCUT SCH (21:00)
[2020-05-30] MEDS: atorvaSTATin 10 MG Tab PO SCH (21:01)
[2020-05-30] MEDS: Gabapentin 100 MG Cap PO SCH (21:02)
[2020-05-31] MEDS: Potassium Chloride 20 MEQ Tab.ER PO SCH (10:49)
[2020-05-31] MEDS: Lutein/Minerals/Vitamin C/Vitamin E Acetate Cap PO SCH ×2 (10:49→17:39)
[2020-05-31] MEDS: Nystatin Topical Powder 15 GM Bottle TOP SCH ×2 (10:49→20:49)
[2020-05-31] MEDS: Levothyroxine 25 MCG Tab PO SCH (10:49)
[2020-05-31] MEDS: Bumetanide 1 MG Tab PO SCH ×2 (10:49→12:28)
[2020-05-31] MEDS: Acetaminophen 500 MG Tab PO SCH ×2 (10:50→20:50)
[2020-05-31] MEDS: Pantoprazole 40 MG Tab.CR PO SCH ×2 (10:50→17:40)
[2020-05-31] MEDS: Lisinopril 10 MG Tab PO SCH ×2 (10:50→17:39)
[2020-05-31] MEDS: oxyCODONE 5 MG Tab PO SCH ×2 (11:03→21:01)
[2020-05-31] MEDS: Ferrous Sulfate 325 MG Tab PO SCH (12:28)
[2020-05-31] MEDS: Warfarin 2 MG Tab PO SCH (17:36)
[2020-05-31] MEDS: Insulin Glarg,Human.Rec.Analog 100 Unit/ML SUBCUT SCH (20:50)
[2020-05-31] MEDS: atorvaSTATin 10 MG Tab PO SCH (20:51)
[2020-05-31] MEDS: Gabapentin 100 MG Cap PO SCH (20:51)
[2020-06-01] MEDS: Lisinopril 10 MG Tab PO SCH (08:21)
[2020-06-01] MEDS: Potassium Chloride 20 MEQ Tab.ER PO SCH (08:22)
[2020-06-01] MEDS: Bumetanide 1 MG Tab PO SCH ×2 (08:22→09:32)
[2020-06-01] MEDS: Pantoprazole 40 MG Tab.CR PO SCH (08:22)
[2020-06-01] MEDS: Levothyroxine 25 MCG Tab PO SCH (08:22)
[2020-06-01] MEDS: Lutein/Minerals/Vitamin C/Vitamin E Acetate Cap PO SCH (08:23)
[2020-06-01] MEDS: Nystatin Topical Powder 15 GM Bottle TOP SCH (08:23)
[2020-06-01] MEDS: Acetaminophen 500 MG Tab PO SCH (08:24)
--- NOTE | 2020-06-01 09:28 | PCM.PN ---
- General Info Date of Service: 06/01/20 Admission Dx/Problem (Free Text): Admission Diagnosis/Problem Admission Diagnosis/Problem Osteomyelitis of foot Functional Status: Reports: Pain Controlled, Tolerating Diet, Ambulating (with touch weight bearing on the R leg now), Urinating - Review of Systems General: Reports: No Symptoms HEENT: Reports: No Symptoms Pulmonary: Reports: No Symptoms Cardiovascular: Reports: No Symptoms Gastrointestinal: Reports: No Symptoms Genitourinary: Reports: No Symptoms Musculoskeletal: Reports: No Symptoms Skin: Reports: No Symptoms Neurological: Reports: No Symptoms Psychiatric: Reports: No Symptoms, Other (excited to go home!) - Patient Data Vitals - Most Recent: Last Vital Signs Temp 97.7 F 05/31/20 20:00 Pulse 61 05/31/20 08:00 Resp 16 05/31/20 08:00 BP 0/0 L 06/01/20 08:21 Pulse Ox 98 05/31/20 08:00 Weight - Most Recent: 242 lb 3.2 oz I&O - Last 24 Hours: Intake & Output 05/31/20 06/01/20 06/01/20 22:59 06:59 14:59 Output Total 500 Balance -500 Lab Results Last 24 Hours: Laboratory Results - last 24 hr 06/01/20 Range/Units 07:44 INR 3.6 Med Orders - Current: Current Medications Acetaminophen (Tylenol Extra Strength) 500 mg PO BID@ [facility] Last Admin: 06/01/20 08:24 Dose: 500 mg Documented by: Acetaminophen (Tylenol) 325 mg PO Q4H PRN PRN Reason: Pain/Fever Last Admin: 05/31/20 11:05 Dose: 325 mg Documented by: Alteplase, Recombinant (Cathflo Activase) 2 mg IVPUSH ONETIME PRN PRN Reason: OCCLUSION Atorvastatin Calcium (Lipitor) 10 mg PO BEDTIME [facility] Last Admin: 05/31/20 20:51 Dose: 10 mg Documented by: Bumetanide (Bumex) 2 mg PO BIDDIURETIC [facility] Last Admin: 06/01/20 08:22 Dose: 2 mg Documented by: Ferrous Sulfate (Ferrous Sulfate) 650 mg PO DAILY@1200 [facility] Last Admin: 05/31/20 12:28 Dose: 650 mg Documented by: Gabapentin (Neurontin) 100 mg PO BEDTIME [facility] Last Admin: 05/31/20 20:51 Dose: 100 mg Documented by: Hydrocortisone (Hydrocortisone 1% Crm) 0 gm TOP TID PRN PRN Reason: Rash Last Admin: 05/24/20 20:49 Dose: 1 applic Documented by: Insulin Glargine (Lantus) 16 unit SUBCUT BEDTIME [facility] Last Admin: 05/31/20 20:50 Dose: 16 unit Documented by: Levothyroxine Sodium (Levothyroxine) 25 mcg PO DAILY@0730 [facility] Last Admin: 06/01/20 08:22 Dose: 25 mcg Documented by: Lisinopril (Prinivil) 10 mg PO BID [facility] Last Admin: 06/01/20 08:21 Dose: 10 mg Documented by: Melatonin (Melatonin) 3 mg PO BEDTIME PRN PRN Reason: Insomnia Neomycin/Polymyxin/Bacitracin (Triple Antibiotic Oint) 1 each TOP Q2H PRN PRN Reason: Wound Care Last Admin: 05/08/20 23:29 Dose: 1 each Documented by: Nystatin (Nystop) 0 gm TOP BID PRN PRN Reason: Rash Last Admin: 05/12/20 12:30 Dose: 1 applic Documented by: Nystatin (Nystop) 0 gm TOP Q12HR [facility] Last Admin: 06/01/20 08:23 Dose: 1 applic Documented by: Ondansetron HCl (Zofran Odt) 4 mg PO Q6H PRN PRN Reason: Nausea/Vomiting Last Admin: 04/29/20 08:26 Dose: 4 mg Documented by: Oxycodone HCl (Oxycodone) 10 mg PO Q12H [facility] Last Admin: 05/31/20 21:01 Dose: 10 mg Documented by: Pantoprazole Sodium (Protonix) 40 mg PO BID [facility] Last Admin: 06/01/20 08:22 Dose: 40 mg Documented by: Polyethylene Glycol (Miralax) 17 gm PO DAILY PRN PRN Reason: Constipation Potassium Chloride (Klor-Con M20) 20 meq PO DAILY [facility] Last Admin: 06/01/20 08:22 Dose: 20 meq Documented by: Senna/Docusate Sodium (Senna Plus) 2 tab PO BID [facility] Last Admin: 06/01/20 08:23 Dose: 2 tab Documented by: Triamcinolone Acetonide (Triamcinolone Acetonide 0.1% Crm) 15 gm TOP BID PRN PRN Reason: Itching Last Admin: 05/02/20 21:03 Dose: 1 applic Documented by: Vit C/Vit E/Zinc/Copper/Lutein (Ocuvite Lutein) 1 each PO BID [facility] Last Admin: 06/01/20 08:23 Dose: 1 each Documented by: Warfarin Sodium (Coumadin) 8 mg PO DAILY@1800 [facility] Last Admin: 05/31/20 17:36 Dose: 8 mg Documented by: Warfarin Sodium (Coumadin) 1 mg PO SuTuThSa@1800 [facility] Last Admin: 05/31/20 17:38 Dose: 1 mg Documented by: Zinc Acetate/Diphenhydramine (Banophen Anti-Itch 2% Crm) 0 gm TOP TID PRN PRN Reason: Rash Last Admin: 05/30/20 13:34 Dose: 1 applic Documented by: Discontinued Medications Acetaminophen (Tylenol Extra Strength) 500 mg PO Q6HR [facility] Last Admin: 04/16/20 09:35 Dose: 500 mg Documented by: Bumetanide (Bumex) 1 mg PO BIDDIURETIC [facility] Last Admin: 04/21/20 12:13 Dose: 1 mg Documented by: Heparin Sodium (Porcine) (Heparin Lock Flush 100 Units/Ml) 300 units FLUSH Q8H [facility] Last Admin: 05/27/20 06:58 Dose: Not Given Documented by: Hydrocortisone (Hydrocortisone 1% Crm) 30 gm TOP TID PRN PRN Reason: Rash Cefazolin Sodium 2 gm/ Sodium (Chloride) 100 mls @ 200 mls/hr IV Q8HR [facility] Last Admin: 04/13/20 09:22 Dose: 200 mls/hr Documented by: Cefazolin Sodium/Dextrose (Ancef 2 Gm/50 Ml) 50 mls @ 100 mls/hr IV Q8HR [facility] Stop: 05/26/20 16:01 Last Admin: 05/26/20 15:09 Dose: 100 mls/hr Documented by: Lisinopril (Prinivil) 10 mg PO BID [facility] Nystatin (Nystop) 1 gm TOP QID PRN PRN Reason: Rash Last Admin: 04/15/20 15:00 Dose: 1 applic Documented by: Nystatin (Nystop) 0 gm TOP QID [facility] Last Admin: 05/09/20 15:06 Dose: 1 applic Documented by: Nystatin (Nystop) 1 gm TOP QID PRN PRN Reason: Rash Last Admin: 05/11/20 21:21 Dose: 1 applic Documented by: Nystatin (Nystop) 0 gm TOP BID [facility] Oxycodone HCl (Oxycodone) 5 mg PO Q4H PRN PRN Reason: Pain Last Admin: 04/16/20 09:36 Dose: 5 mg Documented by: Oxycodone HCl (Oxycodone) 10 mg PO BID@ [facility] Last Admin: 04/21/20 20:14 Dose: 10 mg Documented by: Polyethylene Glycol (Miralax) 17 gm PO DAILY PRN PRN Reason: Constipation Sodium Chloride (Saline Flush) 10 ml FLUSH Q8HR [facility] Last Admin: 05/27/20 06:58 Dose: Not Given Documented by: Sodium Chloride (Saline Flush) 10 ml FLUSH Q8H [facility] Last Admin: 05/27/20 06:58 Dose: Not Given Documented by: Sodium Chloride (Saline Flush) 10 ml FLUSH ASDIRECTED PRN PRN Reason: IV Use Last Admin: 05/09/20 07:06 Dose: 10 ml Documented by: Triamcinolone Acetonide (Triamcinolone Acetonide 0.1% Crm) 15 gm TOP BID [facility] Last Admin: 05/02/20 08:05 Dose: 1 applic Documented by: Warfarin Sodium (Coumadin) 4 mg PO SuTuWeThSa@1800 [facility] Last Admin: 04/13/20 17:01 Dose: 4 mg Documented by: Warfarin Sodium (Coumadin) 8 mg PO MOFR@1800 [facility] Warfarin Sodium (Coumadin) 4 mg PO DAILY@1800 [facility] Last Admin: 04/20/20 17:32 Dose: 4 mg Documented by: Warfarin Sodium (Coumadin) 5 mg PO DAILY@1800 [facility] Warfarin Sodium 2 mg/ Warfarin (Sodium 5 mg) 7 mg PO ONETIME ONE Stop: 04/21/20 09:07 Last Admin: 04/21/20 10:14 Dose: 7 mg Documented by: Warfarin Sodium (Coumadin) 10 mg PO ONETIME ONE Stop: 04/22/20 10:31 Last Admin: 04/22/20 10:50 Dose: 10 mg Documented by: Warfarin Sodium (Coumadin) 5 mg PO DAILY@1800 [facility] Last Admin: 04/25/20 17:25 Dose: 5 mg Documented by: Warfarin Sodium (Coumadin) 5 mg PO SuMoWeThSa@1800 [facility] Last Admin: 04/27/20 17:16 Dose: 5 mg Documented by: Warfarin Sodium (Coumadin) 7.5 mg PO TuFr@1800 [facility] Last Admin: 04/26/20 17:09 Dose: 7.5 mg Documented by: Warfarin Sodium (Coumadin) 7.5 mg PO MoWeFr@1800 [facility] Last Admin: 04/29/20 17:09 Dose: 7.5 mg Documented by: Warfarin Sodium (Coumadin) 5 mg PO SuTuThSa@1800 [facility] Last Admin: 05/01/20 17:41 Dose: 5 mg Documented by: Warfarin Sodium (Coumadin) 7.5 mg PO ONETIME ONE Stop: 04/28/20 18:01 Last Admin: 04/28/20 18:06 Dose: 7.5 mg Documented by: Warfarin Sodium (Coumadin) 5 mg PO MoWeFr@1800 [facility] Last Admin: 05/04/20 17:22 Dose: 5 mg Documented by: Warfarin Sodium (Coumadin) 7.5 mg PO SuTuThSa@1800 [facility] Last Admin: 05/03/20 17:14 Dose: 7.5 mg Documented by: Warfarin Sodium (Coumadin) 7.5 mg PO DAILY@1800 [facility] Last Admin: 05/08/20 17:40 Dose: 7.5 mg Documented by: Warfarin Sodium (Coumadin) 1 mg PO MoWeFr@1800 [facility] Last Admin: 05/20/20 17:41 Dose: 1 mg Documented by: - Exam Quality Assessment: Supplemental Oxygen (prn) General: Alert, Oriented HEENT: Pupils Reactive, Mucous Membr. Moist/[place] Neck: Supple, Trachea Midline Lungs: Clear to Auscultation, Normal Respiratory Effort Cardiovascular: Regular Rate, Regular Rhythm GI/Abdominal Exam: Normal Bowel Sounds, Soft, Non-Tender (Male) Exam: Deferred Back Exam: Normal Inspection, Full Range of Motion Extremities: No Pedal Edema, Other (chronic vascular changes) Skin: Warm, Dry, Intact Wound/Incisions: Healing Well (R foot surgical wound distal foot as well as heel ulceration appear well healed now) Neurological: No New Focal Deficit Psy/Mental Status: Alert, Normal Affect, Normal Mood - Patient Data Lab Results Last 24 hrs: Laboratory Results - last 24 hr 06/01/20 Range/Units 07:44 INR 3.6 Result Diagrams: 05/23/20 07:15 05/23/20 07:15 Sepsis Event Note - Evaluation Sepsis Screening Result: No Definite Risk - Focused Exam Vital Signs: Vital Signs BP 06/01/20 08:21 0/0 L - Problem List & Annotations (1) Anticoagulant long-term use SNOMED Code(s): 779331600 Code(s): Z79.01 - RESIDENTIAL (CURRENT) USE OF ANTICOAGULANTS Status: Chronic Priority: Medium Current Visit: Yes (2) Osteomyelitis of foot, right, acute SNOMED Code(s): 4168198202407940 Code(s): M86.171 - OTHER ACUTE OSTEOMYELITIS, RIGHT ANKLE AND FOOT Status: Acute Priority: High Current Visit: Yes Annotation/Comment:: Admitted for IV antibiotic therapy/Swing Bed after being discharged from [facility]. Hx previous osteomyelitis of right foot which led to amputation of distal p ortion of right foot. (3) Peripheral neuropathy SNOMED Code(s): 808694776 Code(s): G62.9 - POLYNEUROPATHY, UNSPECIFIED Status: Acute Current Visit: Yes Qualifiers: Peripheral neuropathy type: polyneuropathy, unspecified Qualified Code(s): G62.9 - Polyneuropathy, unspecified Annotation/Comment:: stable per history (4) IDDM (insulin dependent diabetes mellitus) SNOMED Code(s): 72961641 Code(s): FZO7715 - Status: Chronic Priority: Medium Current Visit: Yes Annotation/Comment:: BID glucose checks. Observe trends. (5) CHF (congestive heart failure) SNOMED Code(s): 34354695 Code(s): I50.9 - HEART FAILURE, UNSPECIFIED Status: Acute Priority: Medium Current Visit: No Qualifiers: Heart failure type: unspecified Annotation/Comment:: Denies changes suggestive of acute fluid overload (6) Peripheral vascular disease SNOMED Code(s): 144807840 Code(s): I73.9 - PERIPHERAL VASCULAR DISEASE, UNSPECIFIED Status: Acute Priority: Medium Current Visit: No Annotation/Comment:: Stable per history (7) Chronic atrial fibrillation SNOMED Code(s): 666678899 Code(s): I48.2 - CHRONIC ATRIAL FIBRILLATION * DO NOT USE * Status: Chronic Priority: Low Current Visit: No Annotation/Comment:: Receives Warfarin therapy. Recheck INR tomorrow. Pacemaker. (8) GERD (gastroesophageal reflux disease) SNOMED Code(s): 565900264 Code(s): K21.9 - GASTRO-ESOPHAGEAL REFLUX DISEASE WITHOUT ESOPHAGITIS Status: Chronic Priority: Low Current Visit: No Qualifiers: Esophagitis presence: esophagitis presence not specified Qualified Code(s): K21.9 - Gastro-esophageal reflux disease without esophagitis Annotation/Comment:: Stable per history (9) HTN (hypertension) SNOMED Code(s): 38473399 Code(s): I10 - ESSENTIAL (PRIMARY) HYPERTENSION Status: Chronic Priority: Medium Current Visit: No Qualifiers: Hypertension type: essential hypertension Qualified Code(s): I10 - Essential (primary) hypertension Annotation/Comment:: Observe trends (10) Pacemaker SNOMED Code(s): 681120775 Code(s): Z95.0 - PRESENCE OF CARDIAC PACEMAKER Status: Chronic Priority: Low Current Visit: No (11) Renal insufficiency SNOMED Code(s): 804097242, 527961699 Code(s): N28.9 - DISORDER OF KIDNEY AND URETER, UNSPECIFIED Status: Chronic Priority: Low Current Visit: No - Problem List Review Problem List Initiated/Reviewed/Updated: Yes - Plan Plan:: As above. Continue IV antibiotics. PT and OT to work with patient. 04-26-20 Traci Fontenot PA-C Warfarin adjusted per subtherapeutic INR level today, will repeat INR in three days. Chart reviewed. Routine lab orders are in for Saturday, -. No medication other than the Warfarin. Heriberto Ramirez is following the Osteomyelitis, R mid foot amputation and heel ulcer. Anticipating another 3 weeks of IV Ancef. For the persisting pruritus ordered TAC cream 0.1% topically BID to affected areas until resolved. 05-10-20 Traci Fontenot PA-C Demetrius is seen for follow up. The R foot distal amputation wound appears healing very well. The ulcer over the heel continues to improve, serial photographs been monitored. Currently antibiotics are scheduled to run up to 05-20. Pt has f/u ap pt via [facility] with Dr. Portillo, Podiatry 05-[address] Garland, ID . First Covid vaccination given 04-21, this was Moderna so we will be looking at repeating this at the 28-day sameer. Have been adjusting warfarin dosage and repeating INR's, he has still been subtherapeutic. Next INR in two days. He is still no weight bearing on that R foot so we do have concerns that he may not be ready to discharge to home right after the IV ATB's are completed, and may qualify for additional stay for PT-OT. 05-24-20 Traci Fontenot PA-C R foot surgical wounds have continued to heal. he did have f/u with [facility], Dr. Kristopher Portillo and he may now begin TWB - PT comes to see him at the end of my visit today to discuss this. He will qualify for two more weeks of SWB to work with PT-OT after the IV ATB's are completed in two more days. Can pull PICC line after IV Ancef course complete. For the superficial abrasion today will start prn topical Benadryl and Hydrocortisone, patient says he knows not to scratch but the itch is so bad he finds himself scratching without thinking about it. Have been monitoring INR and adjusting warfarin, next INR in two more days. Discharge plan does include [facility]. 06-01-20 Traci Fontenot PA-C Demetrius has been discharged from PT-OT. Ancef course completed and PICC line pulled. Last visits with Podiatry and ID released him from their services. He tells me he is excited to go home, he denies any questions or concerns for me. He will have [facility] follow at home. I will get him scheduled back with the [facility] anticoagulation team to follow weekly home INR checks that he does per self, and manage Warfarin dosing. NO WARFARIN TONIGHT d/t INR 3/6 this morning.
[2020-06-01] MEDS: oxyCODONE 5 MG Tab PO SCH (09:31)
--- NOTE | 2020-06-01 09:39 | PCM.DCSUM1 ---
Discharge Summary - Hospital Course Free Text/Narrative:: This gentleman was admitted to [facility] 04-12 for continued IV antibiotic therapy per PICC line for Osteomyelitis, and to work with PT-OT for home discharge planning. Diagnosis: Stroke: No - Discharge Data Discharge Date: 06/01/20 Discharge Disposition: Home, Self-Care 01 Condition: Good - Referral to Home Health Primary Care Physician: LEVY Harris - Discharge Diagnosis/Problem(s) (1) Anticoagulant long-term use SNOMED Code(s): 191870672 ICD Code: Z79.01 - USP (CURRENT) USE OF ANTICOAGULANTS Status: Chronic Priority: Medium Current Visit: Yes (2) Osteomyelitis of foot, right, acute SNOMED Code(s): 9126429720193695 ICD Code: M86.171 - OTHER ACUTE OSTEOMYELITIS, RIGHT ANKLE AND FOOT Status: Acute Priority: High Current Visit: Yes Problem Details: Admitted for IV antibiotic therapy/Swing Bed after being discharged from [place] in [place]. 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 (3) Peripheral neuropathy SNOMED Code(s): 804254394 ICD Code: G62.9 - POLYNEUROPATHY, UNSPECIFIED Status: Acute Current Visit: Yes Problem Details: stable per history Qualifiers: Peripheral neuropathy type: polyneuropathy, unspecified Qualified Code(s): G62.9 - Polyneuropathy, unspecified (4) IDDM (insulin dependent diabetes mellitus) SNOMED Code(s): 70984000 ICD Code: [id number] - Status: Chronic Priority: Medium Current Visit: Yes Problem Details: BID glucose checks. Observe trends. (5) CHF (congestive heart failure) SNOMED Code(s): 28538037 ICD Code: I50.9 - HEART FAILURE, UNSPECIFIED Status: Acute Priority: Medium Current Visit: No Problem Details: Denies changes suggestive of acute fluid overload Qualifiers: Heart failure type: unspecified (6) Peripheral vascular disease SNOMED Code(s): 035238615 ICD Code: I73.9 - PERIPHERAL VASCULAR DISEASE, UNSPECIFIED Status: Acute Priority: Medium Current Visit: No Problem Details: Stable per history (7) Chronic atrial fibrillation SNOMED Code(s): 623547083 ICD Code: I48.2 - CHRONIC ATRIAL FIBRILLATION * DO NOT USE * Status: Chronic Priority: Low Current Visit: No Problem Details: Receives Warfarin therapy. Recheck INR tomorrow. Pacemaker. (8) GERD (gastroesophageal reflux disease) SNOMED Code(s): 837543556 ICD Code: K21.9 - GASTRO-ESOPHAGEAL REFLUX DISEASE WITHOUT ESOPHAGITIS Status: Chronic Priority: Low Current Visit: No Problem Details: Stable per history Qualifiers: Esophagitis presence: esophagitis presence not specified Qualified Code(s): K21.9 - Gastro-esophageal reflux disease without esophagitis (9) HTN (hypertension) SNOMED Code(s): 46804641 ICD Code: I10 - ESSENTIAL (PRIMARY) HYPERTENSION Status: Chronic Priority: Medium Current Visit: No Problem Details: Observe trends Qualifiers: Hypertension type: essential hypertension Qualified Code(s): I10 - Essential (primary) hypertension (10) Pacemaker SNOMED Code(s): 669602230 ICD Code: Z95.0 - PRESENCE OF CARDIAC PACEMAKER Status: Chronic Priority: Low Current Visit: No (11) Renal insufficiency SNOMED Code(s): 675258260, 043148553 ICD Code: N28.9 - DISORDER OF KIDNEY AND URETER, UNSPECIFIED Status: Ch ronic Priority: Low Current Visit: No - Patient Summary/Data Operative Procedure(s) Performed: none during this SWB stay Complications: none Consults: Consultations 04/12/20 13:02 Consult to Case Management/Unit Secy [CONS] Routine OT Evaluation and Treatment [CONS] Routine PT Evaluation and Treatment [CONS] Routine 04/14/20 17:12 Consult to Dietary [Consult to Lighting Fixtures Decorator] [CONS] Routine Hospital Course: He was followed by both Podiatry and Infectious Disease during this stay regarding the R heel Osteomyelitis as well as the distal foot amputation. He tolerated the course of IV Ancef well with no adverse reactions. He did receive both his Covid vaccinations during this stay. - Patient Instructions Diet: Usual Diet as Tolerated Activity: As Tolerated (per PT instructions.) Driving: Do Not Drive (today, does drive) Showering/Bathing: May Shower Wound/Incision Care: Change Dressing Daily Notify Provider of: Fever, Increased Pain, Swelling and Redness, Drainage - Discharge Plan *PRESCRIPTION DRUG MONITORING PROGRAM REVIEWED*: Yes *COPY OF PRESCRIPTION DRUG MONITORING REPORT IN PATIENT MIRA: No Home Medications: Home Meds Gabapentin [Neurontin] 100 mg PO DAILY@1800 03/05/18 [History] Levothyroxine 25 mcg PO DAILY@0730 05/27/17 [History] Lovastatin 40 mg PO BEDTIME 05/27/17 [History] Warfarin Sodium [Coumadin] 4 mg PO SUTUWETHSA@1800 05/27/17 [History] Warfarin [Coumadin] 8 mg PO MOFR@1800 05/27/17 [History] oxyCODONE 5 mg PO Q4HR PRN 05/27/17 [History] Acetaminophen 500 mg PO Q6HR 04/12/20 [History] Bumetanide [Bumex] 1 mg PO BIDDIURETIC 04/12/20 [History] Ferrous Sulfate 2 tab PO DAILY 04/12/20 [History] Insulin Glarg,Human.Rec.Analog [Lantus Solostar] 16 units SUBCUT BEDTIME 04/12/20 [History] Melatonin 1 tab PO BEDTIME PRN 04/12/20 [History] Pantoprazole Sodium [Protonix] 1 tab PO BID 04/12/20 [History] Sennosides/Docusate Sodium [Senna-Docusate Sodium Tablet] 2 tab PO BID 04/12/20 [History] Vit A/Vit C/Vit E/Zinc/Copper [Preservision] 1 cap PO BID 04/12/20 [History] ceFAZolin Sodium In 0.9 % NaCl [Cefazolin 2 G/100 ml-0.9% NaCl] 2,000 mg IV Q8HR 04/12/20 [History] lisinopriL [Lisinopril] 1 tab PO BID 04/12/20 [History] polyethylene glycoL 3350 [MiraLAX] 17 g PO DAILY PRN 04/12/20 [History] Oxygen Therapy Mode: Nasal Cannula (at 2 L/m per MI prn) Oxygen Flow Rate (L/min): 2 - Discharge Summary/Plan Comment DC Time >30 min.: Yes Discharge Summary/Plan Comment: He will return home today, son-in-law is coming to pick him up. [facility] will follow at home just like before hospitalization. They go in weekly to set up medications and check vital signs. NO COUMADIN tonight, Demetrius understands this. I will refer him back with the anticoagulation team today. He checks his INRs weekly at home, and the team will determine dosing starting tomorrow. No other changes in current medications. I will continue to follow at [facility] routinely. - Patient Data Vitals - Most Recent: Last Vital Signs Temp 97.7 F 05/31/20 20:00 Pulse 61 05/31/20 08:00 Resp 16 05/31/20 08:00 BP 0/0 L 06/01/20 08:21 Pulse Ox 98 05/31/20 08:00 Weight - Most Recent: 242 lb 3.2 oz I&O - Last 24 hours: Intake & Output 05/31/20 06/01/20 06/01/20 22:59 06:59 14:59 Output Total 500 Balance -500 Lab Results - Last 24 hrs: Laboratory Results - last 24 hr 06/01/20 Range/Units 07:44 INR 3.6 Med Orders - Current: Current Medications Acetaminophen (Tylenol Extra Strength) 500 mg PO BID@ [facility] Last Admin: 06/01/20 08:24 Dose: 500 mg Documented by: Acetaminophen (Tylenol) 325 mg PO Q4H PRN PRN Reason: Pain/Fever Last Admin: 05/31/20 11:05 Dose: 325 mg Documented by: Alteplase, Recombinant (Cathflo Activase) 2 mg IVPUSH ONETIME PRN PRN Reason: OCCLUSION Atorvastatin Calcium (Lipitor) 10 mg PO BEDTIME [facility] Last Admin: 05/31/20 20:51 Dose: 10 mg Documented by: Bumetanide (Bumex) 2 mg PO BIDDIURETIC [facility] Last Admin: 06/01/20 09:32 Dose: Not Given Documented by: Ferrous Sulfate (Ferrous Sulfate) 650 mg PO DAILY@1200 [facility] Last Admin: 05/31/20 12:28 Dose: 650 mg Documented by: Gabapentin (Neurontin) 100 mg PO BEDTIME [facility] Last Admin: 05/31/20 20:51 Dose: 100 mg Documented by: Hydrocortisone (Hydrocortisone 1% Crm) 0 gm TOP TID PRN PRN Reason: Rash Last Admin: 05/24/20 20:49 Dose: 1 applic Documented by: Insulin Glargine (Lantus) 16 unit SUBCUT BEDTIME [facility] Last Admin: 05/31/20 20:50 Dose: 16 unit Documented by: Levothyroxine Sodium (Levothyroxine) 25 mcg PO DAILY@0730 [facility] Last Admin: 06/01/20 08:22 Dose: 25 mcg Documented by: Lisinopril (Prinivil) 10 mg PO BID [facility] Last Admin: 06/01/20 08:21 Dose: 10 mg Documented by: Melatonin (Melatonin) 3 mg PO BEDTIME PRN PRN Reason: Insomnia Neomycin/Polymyxin/Bacitracin (Triple Antibiotic Oint) 1 each TOP Q2H PRN PRN Reason: Wound Care Last Admin: 05/08/20 23:29 Dose: 1 each Documented by: Nystatin (Nystop) 0 gm TOP BID PRN PRN Reason: Rash Last Admin: 05/12/20 12:30 Dose: 1 applic Documented by: Nystatin (Nystop) 0 gm TOP Q12HR [facility] Last Admin: 06/01/20 08:23 Dose: 1 applic Documented by: Ondansetron HCl (Zofran Odt) 4 mg PO Q6H PRN PRN Reason: Nausea/Vomiting Last Admin: 04/29/20 08:26 Dose: 4 mg Documented by: Oxycodone HCl (Oxycodone) 10 mg PO Q12H [facility] Last Admin: 06/01/20 09:31 Dose: 10 mg Documented by: Pantoprazole Sodium (Protonix) 40 mg PO BID [facility] Last Admin: 06/01/20 08:22 Dose: 40 mg Documented by: Polyethylene Glycol (Miralax) 17 gm PO DAILY PRN PRN Reason: Constipation Potassium Chloride (Klor-Con M20) 20 meq PO DAILY [facility] Last Admin: 06/01/20 08:22 Dose: 20 meq Documented by: Senna/Docusate Sodium (Senna Plus) 2 tab PO BID [facility] Last Admin: 06/01/20 09:32 Dose: Not Given Documented by: Triamcinolone Acetonide (Triamcinolone Acetonide 0.1% Crm) 15 gm TOP BID PRN PRN Reason: Itching Last Admin: 05/02/20 21:03 Dose: 1 applic Documented by: Vit C/Vit E/Zinc/Copper/Lutein (Ocuvite Lutein) 1 each PO BID [facility] Last Admin: 06/01/20 08:23 Dose: 1 each Documented by: Warfarin Sodium (Coumadin) 8 mg PO DAILY@1800 [facility] Last Admin: 05/31/20 17:36 Dose: 8 mg Documented by: Warfarin Sodium (Coumadin) 1 mg PO SuTuThSa@1800 [facility] Last Admin: 05/31/20 17:38 Dose: 1 mg Documented by: Zinc Acetate/Diphenhydramine (Banophen Anti-Itch 2% Crm) 0 gm TOP TID PRN PRN Reason: Rash Last Admin: 05/30/20 13:34 Dose: 1 applic Documented by: Discontinued Medications Acetaminophen (Tylenol Extra Strength) 500 mg PO Q6HR [facility] Last Admin: 04/16/20 09:35 Dose: 500 mg Documented by: Bumetanide (Bumex) 1 mg PO BIDDIURETIC [facility] Last Admin: 04/21/20 12:13 Dose: 1 mg Documented by: Heparin Sodium (Porcine) (Heparin Lock Flush 100 Units/Ml) 300 units FLUSH Q8H [facility] Last Admin: 05/27/20 06:58 Dose: Not Given Documented by: Hydrocortisone (Hydrocortisone 1% Crm) 30 gm TOP TID PRN PRN Reason: Rash Cefazolin Sodium 2 gm/ Sodium (Chloride) 100 mls @ 200 mls/hr IV Q8HR [facility] Last Admin: 04/13/20 09:22 Dose: 200 mls/hr Documented by: Cefazolin Sodium/Dextrose (Ancef 2 Gm/50 Ml) 50 mls @ 100 mls/hr IV Q8HR [facility] Stop: 05/26/20 16:01 Last Admin: 05/26/20 15:09 Dose: 100 mls/hr Documented by: Lisinopril (Prinivil) 10 mg PO BID [facility] Nystatin (Nystop) 1 gm TOP QID PRN PRN Reason: Rash Last Admin: 04/15/20 15:00 Dose: 1 applic Documented by: Nystatin (Nystop) 0 gm TOP QID [facility] Last Admin: 05/09/20 15:06 Dose: 1 applic Documented by: Nystatin (Nystop) 1 gm TOP QID PRN PRN Reason: Rash Last Admin: 05/11/20 21:21 Dose: 1 applic Documented by: Nystatin (Nystop) 0 gm TOP BID [facility] Oxycodone HCl (Oxycodone) 5 mg PO Q4H PRN PRN Reason: Pain Last Admin: 04/16/20 09:36 Dose: 5 mg Documented by: Oxycodone HCl (Oxycodone) 10 mg PO BID@ [facility] Last Admin: 04/21/20 20:14 Dose: 10 mg Documented by: Polyethylene Glycol (Miralax) 17 gm PO DAILY PRN PRN Reason: Constipation Sodium Chloride (Saline Flush) 10 ml FLUSH Q8HR [facility] Last Admin: 05/27/20 06:58 Dose: Not Given Documented by: Sodium Chloride (Saline Flush) 10 ml FLUSH Q8H [facility] Last Admin: 05/27/20 06:58 Dose: Not Given Documented by: Sodium Chloride (Saline Flush) 10 ml FLUSH ASDIRECTED PRN PRN Reason: IV Use Last Admin: 05/09/20 07:06 Dose: 10 ml Documented by: Triamcinolone Acetonide (Triamcinolone Acetonide 0.1% Crm) 15 gm TOP BID [facility] Last Admin: 05/02/20 08:05 Dose: 1 applic Documented by: Warfarin Sodium (Coumadin) 4 mg PO SuTuWeThSa@1800 [facility] Last Admin: 04/13/20 17:01 Dose: 4 mg Documented by: Warfarin Sodium (Coumadin) 8 mg PO MOFR@1800 [facility] Warfarin Sodium (Coumadin) 4 mg PO DAILY@1800 [facility] Last Admin: 04/20/20 17:32 Dose: 4 mg Documented by: Warfarin Sodium (Coumadin) 5 mg PO DAILY@1800 [facility] Warfarin Sodium 2 mg/ Warfarin (Sodium 5 mg) 7 mg PO ONETIME ONE Stop: 04/21/20 09:07 Last Admin: 04/21/20 10:14 Dose: 7 mg Documented by: Warfarin Sodium (Coumadin) 10 mg PO ONETIME ONE Stop: 04/22/20 10:31 Last Admin: 04/22/20 10:50 Dose: 10 mg Documented by: Warfarin Sodium (Coumadin) 5 mg PO DAILY@1800 [facility] Last Admin: 04/25/20 17:25 Dose: 5 mg Documented by: Warfarin Sodium (Coumadin) 5 mg PO SuMoWeThSa@1800 [facility] Last Admin: 04/27/20 17:16 Dose: 5 mg Documented by: Warfarin Sodium (Coumadin) 7.5 mg PO TuFr@1800 [facility] Last Admin: 04/26/20 17:09 Dose: 7.5 mg Documented by: Warfarin Sodium (Coumadin) 7.5 mg PO MoWeFr@1800 [facility] Last Admin: 04/29/20 17:09 Dose: 7.5 mg Documented by: Warfarin Sodium (Coumadin) 5 mg PO SuTuThSa@1800 [facility] Last Admin: 05/01/20 17:41 Dose: 5 mg Documented by: Warfarin Sodium (Coumadin) 7.5 mg PO ONETIME ONE Stop: 04/28/20 18:01 Last Admin: 04/28/20 18:06 Dose: 7.5 mg Documented by: Warfarin Sodium (Coumadin) 5 mg PO MoWeFr@1800 [facility] Last Admin: 05/04/20 17:22 Dose: 5 mg Documented by: Warfarin Sodium (Coumadin) 7.5 mg PO SuTuThSa@1800 [facility] Last Admin: 05/03/20 17:14 Dose: 7.5 mg Documented by: Warfarin Sodium (Coumadin) 7.5 mg PO DAILY@1800 [facility] Last Admin: 05/08/20 17:40 Dose: 7.5 mg Documented by: Warfarin Sodium (Coumadin) 1 mg PO MoWeFr@1800 [facility] Last Admin: 05/20/20 17:41 Dose: 1 mg Documented by:
== END 2020-06-01 11:15 | disposition home or self-care (01) | DRG 638 ==
LOC: LL.SWG 10:08 → UNDOADMIN 11:40 → LL.MS 11:40 → UNDOADMIN 04-14 11:20 → LL.SWG 04-14 11:20
PROVIDERS: ADMIT Emergency Medicine; ATTEND Physician Assistant
DX: E11.69 Type 2 diabetes mellitus with other specified complication (principal); M86.171 Other acute osteomyelitis, right ankle and foot; I48.20 Chronic atrial fibrillation, unspecified; I13.0 Hypertensive heart and chronic kidney disease with heart failure and stage 1 through stage 4 chronic kidney disease, or unspecified chronic kidney disease; L97.419 Non-pressure chronic ulcer of right heel and midfoot with unspecified severity; E11.42 Type 2 diabetes mellitus with diabetic polyneuropathy; I50.9 Heart failure, unspecified; K21.9 Gastro-esophageal reflux disease without esophagitis; E11.22 Type 2 diabetes mellitus with diabetic chronic kidney disease; H91.90 Unspecified hearing loss, unspecified ear; H54.7 Unspecified visual loss; E78.00 Pure hypercholesterolemia, unspecified; E11.621 Type 2 diabetes mellitus with foot ulcer; L29.9 Pruritus, unspecified; Z79.01 Long term (current) use of anticoagulants; Z95.0 Presence of cardiac pacemaker; Z87.891 Personal history of nicotine dependence; Z91.09 Other allergy status, other than to drugs and biological substances; Z88.1 Allergy status to other antibiotic agents; Z79.4 Long term (current) use of insulin; Z79.899 Other long term (current) drug therapy
CPT/HCPCS: 36415; 36416; 80048; 82962; 83036; 85025; 85027; 85610; 97110-GO; 97110-GP; 97163-GP; 97165-GO; 97530-GO; 97530-GP; 97535-GO; 99305; A9270-GY; J0690; J1642; J1815-GY

== ENCOUNTER 2021-04-23 18:35 | Emergency (ER) | payer MEDICARE, MEDICAID ==
[2021-04-23] MEDS ORDERED: Pantoprazole 40 MG Vial IVPUSH ONE (18:41)
[2021-04-23] MEDS ORDERED: Sodium Chloride 0.9% 10 ML Syringe FLUSH PRN (18:41)
[2021-04-23 19:43] LABS: ANION GAP 8.7 meq/L (7-15)
[2021-04-23 20:13] LABS: CORONAVIRUS COVID-19 NAA NEGATIVE (NEGATIVE); RESPIRATORY SYNCYTIAL VIR NAA NEGATIVE (NEGATIVE)
[2021-04-23] MEDS ORDERED: Sodium Chloride 0.9% 1,000 ML IV ONE (20:55)
[2021-04-23] MEDS ORDERED: Phytonadione 5 MG Tab PO ONE (20:56)
[2021-04-23] MEDS ORDERED: Ondansetron 4 MG/2 ML SDV IVPUSH ONE (21:06)
[2021-04-23] MEDS ORDERED: oxyCODONE 5 MG Tab PO ONE (21:06)
[2021-04-23] MEDS ORDERED: Acetaminophen 325 MG Tab PO ONE (21:07)
[2021-04-23] MEDS ORDERED: Acetaminophen 500 MG Tab PO ONE (21:20)
== END 2021-04-23 21:55 ==
LOC: LL.ED 18:35
DX: K92.2 Gastrointestinal hemorrhage, unspecified (principal); R79.1 Abnormal coagulation profile; I48.91 Unspecified atrial fibrillation; E78.00 Pure hypercholesterolemia, unspecified; I50.9 Heart failure, unspecified; E11.9 Type 2 diabetes mellitus without complications; E03.9 Hypothyroidism, unspecified; Z95.0 Presence of cardiac pacemaker; Z91.048 Other nonmedicinal substance allergy status; Z88.1 Allergy status to other antibiotic agents; Z79.01 Long term (current) use of anticoagulants; Z79.899 Other long term (current) drug therapy; Z79.4 Long term (current) use of insulin; Z20.822 Contact with and (suspected) exposure to COVID-19
CPT/HCPCS: 0241U; 36415; 74022; 80053; 81001; 82150; 82272; 83605; 83690; 83735; 83880; 85025; 85610; 87086; 96374; 96375; 99284; 99285-25; A9270-GY; C9113; J2405; J7030